=== PATIENT | female | born 1970 | race Caucasian/White ===

== ENCOUNTER → 2017-12-22 13:08 | Outpatient (CLI) | payer OTHER, MEDICAID, SELFPAY ==
--- NOTE | 2017-12-22 13:10 | DI.US.S_ITS ---
PROCEDURE: US ABDOMEN COMPLETE INDICATIONS: RIGHT UPPER QUADRANT PAIN/LIPOMA TECHNIQUE: Real-time scanning was performed of the abdominal and retroperitoneal organs, with image documentation. COMPARISON: [facility], US, ABDOMEN COMPLETE, 01/14/2015, 11:30. FINDINGS: Liver: Liver is moderately enlarged in size at 19.7 cm in caudad and homogeneous in echotexture, diffusely fatty infiltrated. Gallbladder: Surgically absent Biliary ducts: Intrahepatic bile ducts are non-dilated. Extrahepatic bile duct caliber measures 6.2 mm. Normal is 6-7 mm or less in diameter, or 10 mm or less post-cholecystectomy. Pancreas: Visualized portions of the pancreas are sonographically normal. Spleen: Spleen is normal in size and homogeneous in echotexture. Kidneys: Kidneys are normal in size and echotexture. Right kidney measures 12.9 cm long; left kidney measures 12.4 cm long. No hydronephrosis or nephrolithiasis. No solid masses. Aorta: Visualized aorta is normal in caliber at less than 3 cm. Iliacs: Not seen due to bowel gas IVC: Intrahepatic inferior vena cava is patent. Miscellaneous: No free abdominal fluid. Note is made of a right upper quadrant abdominal wall lipoma anteriorly measuring up to 1.4 x 1.8 x 3.3 cm. IMPRESSION: Nonvisualization of the iliac arteries due to bowel gas. Normal-appearing aorta. Moderate hepatomegaly, with diffuse fatty infiltration throughout the liver. No biliary distention or hepatic mass lesion is seen. Prior cholecystectomy. Dictated by: Sumanth Powers M.D. on 12/22/2017 at 14:17 Approved by: Sumanth Powers M.D. on 12/22/2017 at 14:19
== END ==
PROVIDERS: Family Provider Family Medicine; PCP Family Medicine; Visit Provider Family Medicine
DX: D17.79 Benign lipomatous neoplasm of other sites (principal); R10.11 Right upper quadrant pain; K76.0 Fatty (change of) liver, not elsewhere classified; Z90.49 Acquired absence of other specified parts of digestive tract
CPT/HCPCS: 76700

== ENCOUNTER → 2018-01-11 14:26 | Outpatient (CLI) | payer OTHER, MEDICAID, SELFPAY ==
[2018-01-11 15:21] LABS: Alanine Aminotransferase 31 IU/L (9-52); Albumin 4.3 g/dL (3.5-5.0); Albumin Globulin Ratio 1.4 (1.0-2.8); Alkaline Phosphatase 68 U/L (38-126); Aspartate Aminotransferase 31 IU/L (14-36); BUN Creatinine Ratio 8.8 (6-22); Bilirubin Total 0.5 mg/dL (0.2-1.3); Blood Urea Nitrogen 7 mg/dL (7-17); Calcium 9.4 mg/dL (8.4-10.2); Carbon Dioxide 30 mmol/L (22-32); Chloride 103 mmol/L (98-107); Estimated Glomerular Filt Rate > 60.0 mL/min (>60); Globulin 3.1 g/dL (1.7-4.1); Glucose 100 mg/dL (70-100); HEMOLYSIS < 15 (0-50); Potassium 4.1 mmol/L (3.4-5.1); Sodium 142 mmol/L (137-145); Total Protein 7.4 g/dL (6.3-8.2)
[2018-01-11 15:37] LABS: Free T3, Triiodothyronine Free 5.29 pg/mL (2.77-5.27); Free T4, Direct Thyroxine 0.75 ng/dL (0.78-2.19)
[2018-01-11 15:50] LABS: Thyroid Stimulating Hormone 0.29 uIU/mL (0.47-4.68)
[2018-01-16 15:54] LABS: Thyroid Peroxidase Antibodies 3 IU/mL (< 9)
[2018-01-18 15:12] LABS: Triiodothyronine T3 Reverse 15 ng/dL (8-25)
== END ==
PROVIDERS: PCP Family Medicine; Visit Provider Family Medicine
DX: E55.9 Vitamin D deficiency, unspecified (principal); E89.0 Postprocedural hypothyroidism; K76.0 Fatty (change of) liver, not elsewhere classified
CPT/HCPCS: 36415; 80053; 84439; 84443; 84481; 84482; 86376

== ENCOUNTER → 2018-01-26 12:21 | Outpatient (CLI) | payer OTHER, MEDICAID, SELFPAY ==
--- NOTE | 2018-01-26 12:22 | DI.RAD.S_ITS ---
PROCEDURE: XR TOE RT MIN 2V INDICATIONS: injury to toe TECHNIQUE: 3 views of the right toe(s) acquired. COMPARISON: None. FINDINGS: Bones: No fractures or dislocations. No suspicious bony lesions. There are marginal lucencies projecting in the first metatarsal heads and phalanges demonstrates marked margins and may be chronic. There is first MTP mild joint degeneration. Diffuse mid foot degenerative joint disease is also present. There is hallux valgus although weightbearing views would be more specific. Soft tissues: No suspicious soft tissue densities. IMPRESSION: No acute fracture seen. Marginal lucencies projecting at the MTP joints as above, which raises possibility of erosions versus cystic change. Hallux valgus. Consider further evaluation with weightbearing views Diffuse right forefoot and mid foot degenerative changes and spurring. Dictated by: Franklin Martinez M.D. on 01/26/2018 at 14:27 Approved by: Franklin Martinez M.D. on 01/26/2018 at 14:30
== END ==
PROVIDERS: Family Provider Family Medicine; PCP Family Medicine; Visit Provider Family Medicine
DX: M79.674 Pain in right toe(s) (principal); S99.921A Unspecified injury of right foot, initial encounter
CPT/HCPCS: 73660

== ENCOUNTER → 2018-03-15 11:14 | Outpatient (CLI) | payer OTHER, MEDICAID, SELFPAY ==
--- NOTE | 2018-03-15 11:15 | DI.US.S_ITS ---
PROCEDURE: US THYROID INDICATIONS: GRAVES DISEASE TECHNIQUE: Real-time scanning was performed of the thyroid gland, with image documentation. COMPARISON: None. FINDINGS: Right: Thyroid lobe measures 3.6 x 1.3 x 1.0 cm, and is homogeneous in echotexture. Left: Thyroid lobe measures 2.6 x 0.7 x 0.8 cm, and is homogenous in echotexture. Isthmus: 2.0 mm thick. Nodule number: 1 Location: Right mid Size: 2.2 x 0.6 x 1.3 cm. Composition: Solid Echogenicity: Hypoechoic Shape: wider than tall. Margins: Irregular Echogenic foci: Macrocalcifications Total points: 7 ACR TI-RADS category: Highly suspicious Nodule number: 2 Location: Right inferior Size: 0.6 x 0.3 x 0.5 cm. Composition: Solid Echogenicity: Hypoechoic Shape: wider than tall. Margins: Smooth Echogenic foci: None Total points: 4 ACR TI-RADS category: Moderately suspicious IMPRESSION: Moderately suspicious # 1 right thyroid nodule. Recommend sonographically directed fine needle aspiration and continued sonographic surveillance of the subcentimeter right thyroid nodule as detailed below. ACR TI-RADS definitions and recommendations: TI-RADS 1 (benign): 0 points. FNA not needed. TI-RADS 2 (not suspicious): 2 points. FNA not needed. TI-RADS 3 (mildly suspicious): 3 points. * FNA if 2.5 cm or larger, follow up if 1.5 cm or larger (at 1, 3, and 5 years). TI-RADS 4 (moderately suspicious): 4-6 points. * FNA if 1.5 cm or larger, follow up if 1 cm or larger (at 1, 2, 3, and 5 years). TI-RADS 5 (highly suspicious): 7 points or more. * FNA if 1 cm or larger, follow up if 0.5 cm or larger (every year for 5 years). Dictated by: Nacho MELGAR Interpreted: Sumanth Powers MD on 03/15/2018 at 12:57 Approved by: Sumanth Powers M.D. on 03/15/2018 at 13:14
== END ==
PROVIDERS: PCP Family Medicine; Visit Provider Family Medicine
DX: E05.00 Thyrotoxicosis with diffuse goiter without thyrotoxic crisis or storm (principal); E04.2 Nontoxic multinodular goiter
CPT/HCPCS: 76536

== ENCOUNTER → 2018-04-24 10:11 | Outpatient (CLI) | payer OTHER, MEDICAID, SELFPAY ==
--- NOTE | 2018-04-24 | PATH_ITS ---
Note [facility] Accession Number: [id number] TESTS RESULT FLAG UNITS REF RANGE LAB Clinician Provided Cytology Information No. of containers..01 ThinPrep Vial No. of containers..02 Previously Prepared Cytology Slide R THYROID NODULE Clinician ICD10: R39.89 DIAGNOSIS: R THYROID NODULE INADEQUATE, INSUFFICIENT CELLS FOR STUDY. Pathologist ICD10: E04.1 02 Lucian Becker MD, Pathologist NPI- [id number] 01 Lan Brush, Firer Low Pressure ([facility]) 01 30 CC, PALE PINK, CLEAR Also received 6 alcohol fixed, 6 quick stained slides, and 1 RNA vial. . /[facility] FLAG LEGEND: L-Low Normal,H-High Normal,LL-Alert Low,HH-Alert High <-Panic Low,>-Panic High,A-Abnormal,AA-Critical Abnormal Performed at: 01 =Z [facility] [address], [place] [address] Saurabh Benites MD, 02 [facility] [address] [place] [id number] Kailyn Medina MD, Performed at: 01 [facility] [address], [place], [place] [id number] MD Saurabh Benites MD Phone: [phone]
--- NOTE | 2018-04-24 10:13 | DI.US.S_ITS ---
PROCEDURE: US FINE NEEDLE ASPIRATION INDICATIONS: Thyroid nodule abnormalty found on US on 03/15 TECHNIQUE: The indications, alternatives, benefits, risks, and complications of the procedure were explained to the patient. Written informed consent was obtained and placed in the chart. The thyroid region was examined sonographically and a site was chosen for ultrasound guided percutaneous sampling. The skin was prepared and draped in the usual fashion, and anesthetized with 1% lidocaine infiltrated from the skin down to the thyroid gland. Multiple passes were then performed, with contents emptied into an appropriate pathology specimen container. A bandage was applied to the area of access at completion of the study. COMPARISON: [facility], US, US THYROID, 03/15/2018, 11:29. FINDINGS: Location(s) of lesion(s) sampled: Right lobe of the thyroid [place]: 25 gauge hypodermic needles. Number of passes: 9 Medications: 1% lidocaine for local anaesthesia. Complications: None. IMPRESSION: Technically successful ultrasound-guided thyroid nodule fine needle aspiration, with cytology results pending. However, initial preliminary examination by the cytology service reveals minimal diagnostic specimen despite multiple (9) FNAs. The lesion may not be amenable to fine needle diagnosis. Please see chart below for management recommendations based on cytology results. [facility] System ReportingRecommendationsNon-diagnostic* Repeat US-guided FNA, with on-site cytology evaluation if possible. * Repeated non-diagnostic nodules without high suspicion US features: close observation vs surgical consult. * Consider surgery if nodule has high suspicion US features, grows >20% in 2 dimensions on followup, or patient has clinical risk factors for malignancy. Benign* If nodule has high suspicion US features: repeat US and FNA within 12 months. * If nodule has low to intermediate suspicion US features: repeat US at 12-24 months. If nodule grows (20% increase in at least 2 dimensions, with minimal increase of 2 mm or >50% change in volume), or development of new suspicious US features, then repeat FNA or continue followup. * If nodule has very low suspicion US features: followup US at >24 months. Atypia of undetermined significance, follicular lesion of undetermined significanceRepeat FNA, molecular testing, followup US, or surgical consult.Follicular neoplasm, suspicious for follicular neoplasmSurgical consult; also consider molecular testing. Suspicious for malignancySurgical consult.MalignantSurgical consult. Dictated by: Franklin Martinez M.D. on 04/24/2018 at 15:50 Approved by: Franklin Martinez M.D. on 04/24/2018 at 15:53
== END ==
PROVIDERS: PCP Family Medicine; Visit Provider Family Medicine
DX: E04.1 Nontoxic single thyroid nodule (principal)
CPT/HCPCS: 10022; 76942

== ENCOUNTER → 2018-05-31 12:33 | Outpatient (CLI) | payer OTHER, MEDICAID, SELFPAY ==
--- NOTE | 2018-05-31 12:37 | DI.RAD.S_ITS ---
PROCEDURE: XR HAND RT MIN 3V INDICATIONS: mcp and pip pain TECHNIQUE: A set of 3 views of the hand(s) acquired. COMPARISON: [facility], CR, XR HAND LT MIN 3V, 05/31/2018, 12:36. FINDINGS: Bones: No fractures or dislocations. Carpal bones are normally aligned. No suspicious bony lesions. Soft tissues: No suspicious soft tissue calcifications. 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 No erosive arthritis is found. Dictated by: Sumanth Powers M.D. on 05/31/2018 at 13:12 Approved by: Sumanth Powers M.D. on 05/31/2018 at 13:12
--- NOTE | 2018-05-31 12:37 | DI.RAD.S_ITS ---
PROCEDURE: XR HAND LT MIN 3V INDICATIONS: mcp and pip pain TECHNIQUE: 3 views of the hand(s) acquired. COMPARISON: [facility], CR, XR HAND RT MIN 3V, 05/31/2018, 12:34. FINDINGS: Bones: No fractures or dislocations. Carpal bones are normally aligned. No suspicious bony lesions. Soft tissues: No suspicious soft tissue calcifications. IMPRESSION: The degenerative changes at the interphalangeal joints distally are equivalent to that present on the right. There is no sign of erosive arthritis. No trauma found. Minimal radiocarpal joint osteoarthritis noted. Dictated by: Sumanth Powers M.D. on 05/31/2018 at 13:12 Approved by: Sumanth Powers M.D. on 05/31/2018 at 13:13
[2018-05-31 14:39] LABS: Free T3, Triiodothyronine Free 5.98 pg/mL (2.77-5.27); Free T4, Direct Thyroxine 0.74 ng/dL (0.78-2.19)
[2018-05-31 14:53] LABS: Thyroid Stimulating Hormone 0.43 uIU/mL (0.47-4.68)
[2018-05-31 15:11] LABS: Vitamin B12 555 pg/mL (239-931)
[2018-06-02 17:23] LABS: Homocysteine 9.1 umol/L (< 10.4)
[2018-06-05 23:43] LABS: Methylmalonic Acid 126 nmol/L (87-318)
== END ==
PROVIDERS: PCP Family Medicine; Visit Provider Family Medicine
DX: M79.641 Pain in right hand (principal); M79.642 Pain in left hand; E89.0 Postprocedural hypothyroidism; G62.9 Polyneuropathy, unspecified
CPT/HCPCS: 36415; 73130; 82607; 83090; 83921; 84439; 84443; 84481

== ENCOUNTER → 2018-10-19 10:08 | Outpatient (CLI) | payer OTHER, MEDICAID, SELFPAY ==
--- NOTE | 2018-10-19 10:09 | DI.US.S_ITS ---
ULTRASOUND OF LEFT BREAST: 10/19/2018 CLINICAL: Palpable left breast lump. Comparison is made to exam dated: 10/19/2018 [facility]. Color flow and real-time ultrasound of the left breast were performed. Bangura scale images of the real-time examination were reviewed. There is 1 cm x 1.3 cm x 1.1 cm oval mass with an indistinct margin in the left breast at 4 o'clock posterior depth. Color flow imaging demonstrates that there is increased vascularity. There also is 0.6 cm x 0.6 cm x 0.6 cm round mass with an angular margin in the left breast at 6 o'clock posterior depth. This round mass is hypoechoic. Color flow imaging demonstrates that there is increased vascularity. Additionally, there is 1.5 cm x 1.2 cm x 1.5 cm oval mass with a circumscribed and microlobulated margin in the left breast at 6 o'clock posterior depth. This oval mass is hypoechoic and heterogeneously echogenic. Color flow imaging demonstrates that there is increased vascularity. In addition, there is 1.3 cm x 0.5 cm x 1.1 cm irregular mass with an angular margin in the left breast at 5 o'clock posterior depth. Color flow imaging demonstrates that there is increased vascularity. All suspicious areas on ultrasound have mammographic correlates. IMPRESSION: SUSPICIOUS OF MALIGNANCY The 1 cm x 1.3 cm x 1.1 cm oval mass in the left breast at 4 o'clock posterior depth is at an intermediate suspicion for malignancy. An ultrasound guided biopsy is recommended. The 0.6 cm x 0.6 cm x 0.6 cm round mass in the left breast at 6 o'clock posterior depth is at an intermediate suspicion for malignancy. An ultrasound guided biopsy is recommended. The 1.5 cm x 1.2 cm x 1.5 cm oval mass in the left breast at 6 o'clock posterior depth is at an intermediate suspicion for malignancy. An ultrasound guided biopsy is recommended. The 1.3 cm x 0.5 cm x 1.1 cm irregular mass in the left breast at 5 o'clock posterior depth is at an intermediate suspicion for malignancy. An ultrasound guided biopsy is recommended. Findings and recommendations were discussed with the patient by Dr Powers at time of exam. This exam was interpreted at Station ID: [id number]. Electronically Signed By: Hanh aparicio/:10/19/2018 15:12:21 letter sent: Biopsy Required Ultrasound BI-RADS: 4c Suspicious abnormality - moderate concern but not classic for malignancy
--- NOTE | 2018-10-19 10:09 | DI.MG.S_ITS ---
BILATERAL DIGITAL DIAGNOSTIC MAMMOGRAM 3D/2D: 10/19/2018 CLINICAL: Left breast mass. Baseline exam. No prior exams were available for comparison. The tissue of both breasts is predominantly fatty. There is a mass with with round and non-masslike components, and associated fine amorphous punctate calcifications in the left breast at 6 o'clock posterior depth. There is a 7 mm adjacent round mass in this area. This area correlates as palpated. There also is a 1.3 cm oval mass with a microlobulated margin in the left breast at 4 o'clock posterior depth. No other significant masses, calcifications, or other findings are seen in either breast. IMPRESSION: INCOMPLETE: NEEDS ADDITIONAL IMAGING EVALUATION The masses in the left breast at 6 o'clock posterior depth and 4 o'clock posterior depth are indeterminate. An ultrasound is recommended. This was performed immediately following this exam. This exam was interpreted at Station ID: [id number]. NOTE: For mammograms, a report in lay terms will be sent to the patient. Approximately 15% of breast malignancies will not be visualized mammographically. In the management of a palpable breast mass, a negative mammogram must not discourage biopsy of a clinically suspicious lesion. Electronically Signed By: Hanh aparicio/:10/19/2018 15:03:09 ACR BI-RADS Category 0: Incomplete [id number]
== END ==
PROVIDERS: PCP Family Medicine; Visit Provider Family Medicine
DX: R92.8 Other abnormal and inconclusive findings on diagnostic imaging of breast (principal); N63.23 Unspecified lump in the left breast, lower outer quadrant; N63.20 Unspecified lump in the left breast, unspecified quadrant
CPT/HCPCS: 76642; 77066; G0279

== ENCOUNTER → 2018-11-09 13:58 | Outpatient (CLI) | payer OTHER, MEDICAID, SELFPAY ==
--- NOTE | 2018-11-09 | DI.MG.S_ITS ---
UNILATERAL LEFT DIGITAL DIAGNOSTIC MAMMOGRAM POST-NEEDLE BIOPSY: 11/09/2018 CLINICAL: Left breast masses. Comparison is made to exam dated: 10/19/2018 [facility]. The tissue of left breast is predominantly fatty. There are 2 marker clips in the appropriate position in the left breast at 6 o'clock posterior depth. These marker clips braclet the biopsy site. There also is a marker clip in the appropriate position in the left breast at 4 o'clock middle depth. IMPRESSION: POST PROCEDURE MAMMOGRAM FOR MARKER PLACEMENT There was successful marker clip placement in the left breast at 6 o'clock posterior depth. There was a successful marker clip placement in the left breast at 4 o'clock middle depth. This exam was interpreted at Station ID: [id number]. NOTE: For mammograms, a report in lay terms will be sent to the patient. Approximately 15% of breast malignancies will not be visualized mammographically. In the management of a palpable breast mass, a negative mammogram must not discourage biopsy of a clinically suspicious lesion. Electronically Signed By: Gabriel Carr M.D. aty/:11/09/2018 18:32:40 ACR BI-RADS Category Post-procedure mammogram for marker placement
--- NOTE | 2018-11-09 | PATH_ITS ---
[facility] Accession Number: [id number] . 01 Material submitted: . PART A: breast - LEFT BREAST 6:00 MASS 8 CM FN PART B: breast - LEFT BREAST 4:00 MASS 10 CM FN . 02 Diagnosis: A. Left Breast Mass at 6 o'clock, 8 cm from Nipple: Invasive mammary carcinoma with the following features: . Procedure: Needle core biopsy. Specimen laterality: Left. Tumor site: At 6 o'clock, 8 cm from nipple. Histologic type: Invasive ductal carcinoma, not otherwise specified. Histologic grade: Berlin score 9 of 9. Glandular/tubular differentiation: Score 3 of 3. Nuclear pleomorphism: Score 3 of 3. Mitotic rate: Score 3 of 3. Overall grade: Grade 3 of 3 / high grade. In situ carcinoma: Focally present. Architectural patterns: Solid. Nuclear grade: Grade 3/high grade. Necrosis: Not identified. Lymphovascular invasion: Not identified. Microcalcifications: Not identified. Ancillary studies: HER-2 and hormone receptor studies pending; results will be reported as an addendum. . B. Left Breast Mass at 4 o'clock, 10 cm from Nipple: Invasive mammary carcinoma with the following features: . Procedure: Needle core biopsy. Specimen laterality: Left. Tumor site: At 4 o'clock, 10 cm from nipple. Histologic type: Invasive ductal carcinoma, not otherwise specified. Histologic grade: Noelle score 8 of 9. Glandular/tubular differentiation: Score 3 of 3. Nuclear pleomorphism: Score 3 of 3. Mitotic rate: Score 2 of 3. Overall grade: Grade 3 of 3 / high grade. In situ carcinoma: Not identified. Lymphovascular invasion: Not identified. Microcalcifications: Not identified. Ancillary studies: HER-2 and hormone receptor studies pending; results will be reported as an addendum. V/11/12/2018 . 02 Comment: Per department QA policy, this case was reviewed by Dr. Vogel. . Results discussed with Dr. Christine on 11/12/18 at approximately 11:35 a.m. . 02 Electronically signed: . Shruti Mancia MD, Pathologist NPI- [id number] . 01 Gross description: . (A) Received in formalin, labeled 6 o'clock, are multiple fragments of fibrofatty tissue (2.0 x 1.2 x 0.2 cm in aggregate). Entirely submitted in cassette A1. (B) Received in formalin, labeled 4 o'clock, are multiple fragments of fibrofatty tissue (2.0 x 0.7 x 0.2 cm in aggregate). Entirely submitted in cassette B1. . NOTE: Approximate Total fixation time in formalin for both specimens - 47 hours and 30 minutes calculated using a Collection date of 11/09/2018 with no collection time given. ([id number]) /FRR . 02 Pathologist provided ICD-10: C50.912 . 02 CPT . 065127, 176498, M67684, [id number] Performed at: 01 [facility] [address] [place] [address], [place], [place] [id number] MD Saurabh Benites MD Phone: [phone] Performed at: 02 [facility] [address] [place], [place] [id number] MD Kailyn Medina MD Phone: [phone]
--- NOTE | 2018-11-09 14:01 | DI.US.S_ITS ---
MULTIPLE ULTRASOUND GUIDED BIOPSIES LEFT BREAST USING VACUUM DEVICE WITH MARKING DEVICES INSERTED AND POST MAMMOGRAPHIC IMAGIN11/09/2018 CLINICAL: Left breast masses x 2. PATIENT CONSENT: Risks (minor bleeding, infection, vasovagal reaction and repeat procedure), benefits and alternatives were explained to the patient and written informed consent was obtained. Correlation is made to exams dated: [facility]19/2018 [facility] An [facility] guided biopsy using real-time ultrasound was performed for the 1.3 cm x 1.2 cm x 1.4 cm irregular shaped mass located in the left breast at 4 o'clock posterior depth 1 cm from the nipple. This was described on the previous mammography and ultrasound reports. The skin was prepped in the usual manner. Local anesthetic was administered to the access site. A skin ena was made in the breast. The abnormality was approached from the lateral aspect. A 13 gauge biopsy needle was placed adjacent to the abnormality under ultrasound guidance. Once the needle was documented to be in the correct location, six specimens were obtained using the Mammotome biopsy system. A Celero clip was inserted into the biopsy cavity. A sterile dressing was applied to the access site. Post procedure mammographic imaging demonstrates the location device at the targeted area. The specimens were sent to the laboratory for pathological analysis. A second ultrasound guided biopsy using real-time ultrasound was performed for the palpable 1.6 cm x 1.2 cm x 1.3 cm irregular shaped mass located in the left breast at 6 o'clock posterior depth 8 cm from the nipple. This was described on the previous mammography and ultrasound reports. Of note there were three lesions described on previous report at this location which on real time imaging were immediately adjacent to one another. The largest lesion was targeted with sampling of the adjacent lesion as well. The smallest lesion previously described was not well visualized on today's evaluation. The skin was prepped in the usual manner. Local anesthetic was administered to the access site. A skin ena was made in the breast. The abnormality was approached at 5 o'clock. A 13 gauge biopsy needle was placed adjacent to the abnormality under ultrasound guidance. Once the needle was documented to be in the correct location, seven specimens were obtained using the Mammotome biopsy system. Two Vision clips were inserted into the biopsy cavity bracketing the superficial and deeper margins of the biopsied mass. Post procedure mammographic imaging was obtained. The specimens were sent to the laboratory for pathological analysis. IMPRESSION: ULTRASOUND GUIDED BIOPSY MALIGNANT Ultrasound guided biopsy of the 1.3 cm x 1.2 cm x 1.4 cm mass in the left breast at 4 o'clock posterior depth 1 cm from the nipple was successful. Pathology indicates malignant invasive ductal carcinoma (ID). Pathology results are concordant with imaging findings. A surgical/oncologic consultation is recommended. Ultrasound guided biopsy of the 1.6 cm x 1.2 cm x 1.3 cm mass in the left breast at 6 o'clock posterior depth 8 cm from the nipple with placement of two clips was successful. Pathology indicates malignant invasive ductal carcinoma (ID). Pathology results are concordant with imaging findings. As noted above, there were three lesions described on previous report at this location which on real time imaging were immediately adjacent to one another and is presumed to represent the same lesion versus an index mass with an adjacent satellite lesion. The largest mass was targeted as well as sampling of the adjacent lesion. The smallest lesion previously described was not well visualized during pre-biopsy evaluation. A surgical/oncologic consultation is recommended. Additionally, the 4:00 mass sampled is noted to be approximately 4.8 cm away from the 6:00 mass and is consistent with multifocal disease. This exam was interpreted at Station ID: [id number]. Gabriel Carr M.D. aty/:11/15/2018 07:59:19
== END ==
PROVIDERS: PCP Family Medicine; Visit Provider Family Medicine
DX: C50.812 Malignant neoplasm of overlapping sites of left female breast (principal); Z17.1 Estrogen receptor negative status [ER-]
CPT/HCPCS: 19083; 19084; 77065

== ENCOUNTER → 2018-11-19 11:42 | Outpatient (CLI) | payer OTHER, MEDICAID, SELFPAY ==
[2018-11-19 12:50] LABS: Hematocrit 40.6 % (36-46); Hemoglobin 13.3 g/dL (12.0-16.0); Mean Corpuscular HGB Conc 32.8 % (30-36); Mean Corpuscular Hemoglobin 30.9 PG (26-34); Mean Corpuscular Volume 94.3 fL (80-100); Platelet Count 241 X10^3/uL (150-400); Red Cell Distribution Width 13.4 % (11.6-14.8); White Blood Cell Count 8.9 X10^3/uL (4.5-11.0)
[2018-11-19 13:31] LABS: Alanine Aminotransferase 29 IU/L (9-52); Albumin 4.1 g/dL (3.5-5.0); Albumin Globulin Ratio 1.4 (1.0-2.8); Alkaline Phosphatase 74 U/L (38-126); Aspartate Aminotransferase 29 IU/L (14-36); Bilirubin Total 0.7 mg/dL (0.2-1.3); Blood Urea Nitrogen 6 mg/dL (7-17); Calcium 9.2 mg/dL (8.4-10.2); Carbon Dioxide 28 mmol/L (22-32); Chloride 103 mmol/L (98-107); Estimated Glomerular Filt Rate > 60.0 mL/min (>60); Glucose 106 mg/dL (70-100); HEMOLYSIS < 15 (0-50); Potassium 4.3 mmol/L (3.4-5.1); Sodium 141 mmol/L (137-145); Total Protein 7.1 g/dL (6.3-8.2)
[2018-11-19 13:58] LABS: Thyroid Stimulating Hormone 1.29 uIU/mL (0.47-4.68)
[2018-11-19 14:00] LABS: Cancer Antigen 125 < 6 U/mL (0-35); Carcinoembryonic Antigen 0.9 ng/mL (0.1-3.0)
[2018-11-21 16:05] LABS: Cancer Antigen 27.29 34 U/mL (< 38)
[2018-11-21 16:09] LABS: Cancer (Carbohydrate) Ag 19-9 9 U/mL (< 34)
[2018-11-21 16:10] LABS: CA 15-3 20 U/mL (< 32)
== END ==
PROVIDERS: PCP Family Medicine; Visit Provider Internal Medicine Hematology & Oncology
DX: C50.912 Malignant neoplasm of unspecified site of left female breast (principal)
CPT/HCPCS: 36415; 80053; 82378; 84443; 85027; 86300; 86301; 86304

== ENCOUNTER 2018-11-27 12:36 | Day surgery (SDC) | payer OTHER, MEDICAID, SELFPAY ==
[2018-11-21 15:14] VITALS: BMI 43.7
[2018-11-27] VITALS (10 sets, daily range): BP systolic 125–162; BP diastolic 82–99; PULSE 69–85; RESP 8–16; TEMP 36.1–37.4; O2SAT 93–98; BMI 43.7
--- NOTE | 2018-11-27 13:17 | PM.PREOP ---
Pre-operative Note Interval Note History & Physical reviewed/Exam performed by Physician: Yes Changes to H&P: No
[2018-11-27] MEDS: LACTATED RINGERS 1,000 ML 42 ML IV (13:24)
[2018-11-27] MEDS: APREPITANT 40 MG CAPSULE PO (13:27)
[2018-11-27] MEDS: CLINDAMYCIN 900 MG/50 ML PIGGYBACK 50 MG IV (13:55)
--- NOTE | 2018-11-27 14:03 | DI.RAD.S_ITS ---
PROCEDURE: XR CHEST 1V INDICATIONS: PORT PLACEMENT TECHNIQUE: One view of the chest was acquired. COMPARISON: None. FINDINGS: Surgical changes and devices: Left-sided Port-A-Cath is present with distal tip projecting over the SVC/subclavian confluence. The catheter is angulated leftward. Lungs and pleura: Mild increased pulmonary vascularity is present. Mediastinum: Mediastinal contours appear normal. Heart size is normal. Bones and chest wall: No suspicious bony lesions. Overlying soft tissues appear unremarkable. IMPRESSION: Port-A-Cath as above. It is noted the catheter is at the subclavian/SVC junction with a leftward curvature. Repositioning may be recommended. Dictated by: Bronwyn Stephens M.D. on 11/27/2018 at 17:38 Approved by: Bronwyn Stephens M.D. on 11/27/2018 at 17:42
--- NOTE | 2018-11-27 14:35 | SUR.OPER ---
Supine on padded OR bed, head on pillow, arm padded and tucked at side, legs uncrossed, safety belt at thigh, tape over blanket over lower legs .
[2018-11-27] MEDS: BUPIVACAINE 0.25% W/ EPI 30 ML VIAL INJ (14:42)
--- NOTE | 2018-11-27 16:53 | P.OP_ITS ---
Operative Date/Time/Diagnoses Date of procedure: 11/27/18 Time of procedure: 16:53 Pre-op diagnosis: Breast Cancer Post-op diagnosis: same Procedure & Clinicians Procedure: 1. Port-a-cath placement using fluoroscopic guidance 2. Ultrasound guided access of right internal jugular vein 1. Port-a-cath placement using fluoroscopic guidance 2. Ultrasound guided access of left internal jugular vein Same procedure as scheduled: Yes Indications: 48yo female with triple negative breast cancer and need for chemotherapy. Surgeon: Lauren Tabler Click Yes if Unassisted: Yes Anesthesia Type: General Operative Notes Findings: 1. initial port placement on right side with equipment issue including wire entrapment in introducer needle requiring change to urology wire and after placement port would not draw despite multiple attempts 2. placement on left with no initial issue, odd imaging at end discussed with radiology and appears in correct position; does flush and draw readily Closure Type: primary Specimen(s): none sent Estimated Blood Loss (mL): 10 Procedure in detail: The patient was taken to the operating room and placed in the on the operating table in supine position. Anesthesia was induced without complications. The right neck and chest was prepped and draped in the usual sterile fashion. Using ultrasound guidance, the right internal jugular vein was accessed with an 18 gauge access needle. The guidewire was then placed through the needle and advanced under fluoroscopic guidance. However, after several cm the wire abruptly stopped. After some gentle attempts at manipulation, the wire would not pass forward not return. Both needle and wire were removed and inspected, with the wire still not able to pass or withdraw from the needle. A new wire and needle were obtained and the first was set aside to return to electrical unit rebuilder. Access was again obtained and wire passed. Using an 11 blade scalpel, a small incision was made in the skin over the needle and the needle was removed. At this point, we turned our attention to creation of a subcutaneous pocket for the port. This was done over the deltopectoral groove on the right chest. The catheter was then attached to the tunneling device and this was tunneled from the port site to the access site. The tunneling device was removed. The sheath and inner dilator were placed over the guidewire and advanced under fluoroscopic guidance. The wire was removed. The catheter was then placed in the sheath and advanced under fluoroscopic guidance until it appeared to sit near the atriocaval junction. The sheath was then removed. The catheter was then attached to the port and secured into place. Two 0-Ethibond sutures were placed through the deep subcutaneous tissues and the port sat nicely in place in the subcutaneous pocket. One last picture was taken with fluoroscopy which showed the catheter to be in good position above the atriocaval junction. The catheter was checked but would not draw. Multiple attempts were undertaken as it appeared well positioned. Only scant blood drops would draw back. No gentle manipulation aided this. No clear cause was identified and attempts were eventually abandoned. The kit was returned to the electrical unit rebuilder for assessment. Pt was fully repositioned to ensure best placement on other side then re-prepped and draped. Above process of access was repeated without initial incident. After catheter was tunneled and final placement attempted, a sharp almost 90 degree angle was noted. Catheter was withdrawn to slightly above atriocaval junction to relieve this and appeared well placed. Flushes and draws readily at end. It is heparin-locked. 3-0 vicryl was used to reapproximate the deep subcutaenous tissues in an interrupted fashion. The skin was closed using 4-0 monocryl in a running subcuticular fashion. The area was cleaned and dried. Dermabond was placed over the incision and the access site. The patient tolerated the procedure well. The patient was awakened and extubated and taken to the PACU in stable condition. All counts were correct at the end of the procedure. An xray was ordered to be performed in the PACU prior to discharge. Complications: other (equipment issues requiring kit change and replacement on other side of chest) Condition: stable Disposition: PACU
[2018-11-27] MEDS: OXYCODONE/ACETAMINOPHEN 5/325 TABLET 1 TAB PO (17:37)
[2018-11-27] MEDS: ONDANSETRON 4 MG/2 ML INJ IV (17:40)
== END 2018-11-27 18:33 | disposition home or self-care (01) ==
PROVIDERS: PCP Family Medicine; Visit Provider Surgery
PROC: (CPT 36561; principal; 2018-11-27 13:30)
DX: C50.912 Malignant neoplasm of unspecified site of left female breast (principal); Z17.1 Estrogen receptor negative status [ER-]; E05.00 Thyrotoxicosis with diffuse goiter without thyrotoxic crisis or storm; M79.7 Fibromyalgia; T85.618A Breakdown (mechanical) of other specified internal prosthetic devices, implants and grafts, initial encounter
CPT/HCPCS: 36561 ×2; 36590; 71045; C1788; J1100; J1642; J2250; J2405; J2704; J3010; J8501

== ENCOUNTER → 2018-11-30 08:08 | Outpatient (CLI) | payer OTHER, MEDICAID, SELFPAY ==
--- NOTE | 2018-11-30 08:11 | DI.NM.S_ITS ---
PROCEDURE: NM BONE SCAN WHOLE BODY RADIOPHARMACEUTICAL: 21.9 mCi Tc-99m MDP IV. INDICATIONS: left breast cancer TECHNIQUE: Delayed whole-body scintigrams were obtained approximately 3-4 hours after intravenous injection of radiotracer. Anterior and posterior views were acquired from vertex to feet. COMPARISON: [facility], CR, FOOT 3V LEFT, 11/24/2015, 15:28. [facility], CT, CT CHEST ABD PEL W CON, 11/30/2018, 10:29. FINDINGS: No lesions are identified in skull, sternum, clavicles, scapulae, ribs, bony pelvis, and visualized shafts of the long bones. There is low level increased uptake in cervical, thoracic and lumbar spine with distribution indistinguishable from degenerative disc and facet disease; early metastasis to spine could be obscured by degenerative changes. There are foci of increased periarticular activity involving shoulders, ankles and feet, compatible with degenerative/arthritic changes. IMPRESSION: The definitive scintigraphic findings to suggest osseous metastasis. Dictated by: Ken Castorena M.D. on 11/30/2018 at 15:12 Approved by: Ken Castorena M.D. on 11/30/2018 at 15:15
--- NOTE | 2018-11-30 08:11 | DI.ECHO.S_ITS ---
[place] [facility]---------+ [facility] +---------+ : : [address] : : : : [id number] : : : : Phone: [phone]+ Echocardiogram Report + + :Name: STANLEY MCCABE Study Date: 11/30/2018 Height: 68 in : :[facility] Weight: 288 lb : : Gender: Female BSA: 2.4 m2 : :: 1970 Age: 48 yrs BP: 136/68 mmHg: :Reason For Study: Chemotherapy F/U (ICD Code V67.2) : :Ordering Physician: Qiana : :E[place]ett Performed By: Trudi Zhang : :Referring: BRAIN FREEMAN : + + Interpretation Summary Normal left ventricle size with ejection fraction 60-65%. Borderline left atrial enlargement. No valvular abnormality. Procedure: A two-dimensional transthoracic echocardiogram with color flow and Doppler was performed. The study quality was technically adequate. There is no prior echocardiogram noted for this patient. The patient was in normal sinus rhythm during the exam. Left Ventricle: The left ventricle is normal in size. There is normal left ventricular wall thickness. The ejection fraction is estimated to be 60-65%. There are no focal wall motion abnormalities. Diastolic parameters suggest probable normal left ventricular diastolic function and normal filling pressures. Right Ventricle: The right ventricle grossly appears normal in size with probable normal systolic function. Atria: Borderline left atrial enlargement. Right atrial size is normal. Mitral Valve: The mitral valve is normal in structure and function. There is trace mitral regurgitation. Aortic Valve: The aortic valve is trileaflet. The aortic valve opens well. No aortic regurgitation is present. Tricuspid Valve: The tricuspid valve is normal in structure and function. No tricuspid regurgitation. Pulmonic Valve: The pulmonic valve is not well seen, but is grossly normal. There is no pulmonic valvular regurgitation. Great Vessels: The aortic root is normal size. The ascending aorta could not be visualized. The aortic arch is normal in size. The IVC is dilated (diameter is greater than 2.1 cm) yet it collapses greater than 50% with a sniff. This suggests a right atrial pressure of 8 mm Hg. Pericardium/ Pleura There is no pericardial effusion. There is no pleural effusion. MMode/2D Measurements & Calculations LVIDd: 5.4 cm Ao root diam: 3.4 cm LVIDs: 3.5 cm Aortic Jxn: 2.6 cm FS: 35.0 % Ao Arch Diam (Prox Trans): 2.7 cm EPSS: 0.48 cm IVSd: 0.96 cm LVPWd: 0.72 cm LV hendrix. diameter/BSA (cm/m^2): 2.3 LV sys. diameter/BSA (cm/m^2): 1.5 LA dimension: 4.3 cm RA long axis: 4.5 cm LA A2 area: 22.7 cm2 RA area: 13.1 cm2 LA A4 area: 19.6 cm2 RA vol: 32.7 ml LA length (vol): 5.1 cm RA : 13.7 ml/m2 LA vol: 74.3 ml IVC diam: 2.7 cm LA vol index: 31.1 ml/m2 RVDd major: 6.0 cm RVD1 (basal): 2.7 cm RVD2 (mid): 2.7 cm Doppler Measurements & Calculations Ao V2 max: 146.4 cm/sec MV E max corby: 87.5 cm/sec Ao V2 mean: 99.2 cm/sec MV A max corby: 63.3 cm/sec Ao max P.6 mmHg MV E/A: 1.4 Ao mean P.5 mmHg Med Peak E' Corby: 10.2 cm/sec Ao V2 VTI: 31.9 cm E/E' med: 8.6 Lat Peak E' Corby: 10.5 cm/sec E/E' lat: 8.3 E/e' average: 8.4 MV dec time: 0.24 sec MV P1/2t: 72.1 msec TR max corby: 268.9 cm/sec MV P1/2t max corby: 87.8 cm/sec TR max P.9 mmHg MVA(P1/2t): 3.0 cm2 PA V2 max: 85.6 cm/sec PA V2 mean: 60.0 cm/sec PA mean P.6 mmHg PA Accel Time: 0.14 sec Electronically signed by: Herman Spring on Reading Physician:11/30/2018 12:57 PM
--- NOTE | 2018-11-30 08:34 | DI.CT.S_ITS ---
PROCEDURE: CT CHEST ABD PEL W CON INDICATIONS: left breast cancer TECHNIQUE: After the administration of oral and intravenous contrast, 5 mm thick sections acquired from the lung apices to the symphysis. 5 mm coronal and sagittal reformats were performed, with additional 7 mm coronal MIP reformats through the lungs. For radiation dose reduction, the following was used: automated exposure control, adjustment of mA and/or kV according to patient size. COMPARISON: [facility], CT, ABDOMEN/PELVIS WITH CONTRAST, 11/16/2016, 12:59. FINDINGS: Image quality: Excellent. CHEST: Lungs and pleura: A 7 mm diameter intrafissural nodule is present within the right oblique fissure (series 7, image 153). A 3 mm and a 4 mm pulmonary nodule are present within the right upper lobe (series 7, image 69 and image 107). Two 4 mm intrafissural nodules present within the left lower lobe (series 7, image 129 and 133). Mediastinum: Heart size is normal. No pericardial effusion. No mediastinal or hilar adenopathy by size criteria. Thoracic aorta and central pulmonary arteries are normal in size. Esophagus is normal in caliber. No hiatal hernia. Chest wall: There is a left Port-A-Cath, the tip of the Port-A-Cath is in the azygos vein. A lobulated mass is present within the lower inner quadrant of the left breast a biopsy clip is associated with this mass. There are multiple enlarged left axillary lymph nodes, some of which are sub-pectoral in nature. A biopsy clip is associated with one of the enlarged left axillary lymph nodes. No right axillary adenopathy. A small fluid gas collection is present within the anterior right chest wall. Dense calcification is present within the right thyroid lobe. The left thyroid lobe is unremarkable. ABDOMEN: Solid organs: Liver is normal in size and diffusely hypodense suggesting hepatic steatosis. Gallbladder is surgically absent. Biliary system is non dilated. Pancreas enhances normally. Spleen is normal in size and enhancement. No adrenal nodules. Kidneys demonstrate normal size and enhancement, without hydronephrosis. Peritoneum and bowel: Bowel loops demonstrate normal wall thickness and caliber. The appendix is thin walled and gas filled. There are scattered sigmoid diverticula. No evidence for diverticulitis. No free fluid or air. Nodes and vessels: No retroperitoneal or mesenteric adenopathy by size criteria. Aorta and inferior vena cava are normal in size. Miscellaneous: There is a small fat-containing periumbilical hernia. PELVIS: Genitourinary: Bladder wall thickness is normal. Uterus is not visualized and may be surgically absent. There is a low-density cystic lesion within the right ovary which measures 2.7 x 3.3 cm. The left ovary is grossly unremarkable. Miscellaneous: No inguinal hernias or adenopathy. Bones: No suspicious bony lesions. No vertebral body compression fractures. IMPRESSION: 1. Multiple subcentimeter pulmonary nodules described above. Metastasis cannot be excluded and attention should be directed to these regions on future surveillance scans. 2. Tip of the Port-A-Cath in the azygos vein. Repositioning recommended. This finding was relayed as a voice mail message to Dr. Espinal's emergency medical technician/driver at 12:05 PM on 11/30/18. 3. Left axillary adenopathy and lobulated left breast mass. 4. Low-density right ovarian cystic lesion which may represent a simple ovarian cyst but is incompletely characterized. Pelvic ultrasound recommended to further characterize findings. Dictated by: Huong Hernandez M.D. on 11/30/2018 at 11:46 Approved by: Huong Hernandez M.D. on 11/30/2018 at 12:15
== END ==
PROVIDERS: PCP Family Medicine; Visit Provider Internal Medicine Hematology & Oncology
DX: C50.912 Malignant neoplasm of unspecified site of left female breast (principal); R91.8 Other nonspecific abnormal finding of lung field; I77.89 Other specified disorders of arteries and arterioles
CPT/HCPCS: 71260; 74177; 78306; 93306; A9503; Q9967

== ENCOUNTER 2018-12-04 12:21 | Day surgery (SDC) | payer OTHER, MEDICAID, SELFPAY ==
[2018-12-03 12:04] VITALS: BMI 43.7
[2018-12-04 13:24] VITALS: BP 160/93; PULSE 80; RESP 16; TEMP 36.4; O2SAT 99; BMI 42.0
[2018-12-04] MEDS: LACTATED RINGERS 1,000 ML 42 ML IV (13:33)
--- NOTE | 2018-12-04 13:39 | PM.PREOP ---
Pre-operative Note Interval Note History & Physical reviewed/Exam performed by Physician: Yes Changes to H&P: No
--- NOTE | 2018-12-04 13:40 | DI.RAD.S_ITS ---
PROCEDURE: XR CHEST 1V INDICATIONS: intra-operative port adjustment. TECHNIQUE: One view of the chest was acquired. COMPARISON: [facility], , XR CHEST 1V, 11/27/2018, 17:23. FINDINGS: On this single intraoperative fluoroscopic image, there is a left-sided chest port. The tip is not well-seen. IMPRESSION: Left-sided chest port, with the tip not well-seen. It cannot be determined on this single image whether the curved tip of the chest port has been corrected. Please consider short-term followup imaging. Dictated by: Luis Enrique Foster M.D. on 12/04/2018 at 16:15 Approved by: Luis Enrique Foster M.D. on 12/04/2018 at 16:18
--- NOTE | 2018-12-04 13:40 | SUR.PREOP ---
Dr Miller instructer no cbg needed
--- NOTE | 2018-12-04 14:00 | SUR.PREOP ---
premedicated with emend after seen by dr infante.
--- NOTE | 2018-12-04 14:40 | SUR.OPER ---
Supine on padded OR bed, head on pillow, arm padded and tucked at side, legs uncrossed, safety belt at thigh, tape over blanket over lower legs .
[2018-12-04] MEDS: CLINDAMYCIN 900 MG/50 ML PIGGYBACK 50 MG IV (14:43)
[2018-12-04] MEDS: BUPIVACAINE 0.25% W/ EPI 30 ML VIAL INJ (14:44)
--- NOTE | 2018-12-04 15:15 | PM.OP.1 ---
Operative Date/Time/Diagnoses Date of procedure: 12/04/18 Time of procedure: 15:16 Pre-op diagnosis: Port migration Post-op diagnosis: same Procedure & Clinicians Procedure: Port revision Same procedure as scheduled: Yes Indications: 48yo F with recent port placement for breast cancer with migration of catheter end into azygous vein. Plan for revision. Surgeon: Lauren Tabler Click Yes if Unassisted: Yes Anesthesia Type: General Operative Notes Findings: Backed up and advanced to atriocaval junction. Flushes and draws. Closure Type: primary Specimen(s): none sent Estimated Blood Loss (mL): 5 Procedure in detail: The patient was taken to the operating room and placed in the on the operating table in supine position. Anesthesia was induced without complications. The left neck and chest was prepped and draped in the usual sterile fashion. The neck incision was opened and gently widened with care to not cut the catheter. Once exposed, the catheter was gently grasped and withdrawn under fluoroscopic guidance. The curved aspect of the wire released and straightened. Under fluoro, it was gently advanced and went straight. It was carefully placed at the atriocaval junction. There was some excess catheter in the next which was ensured to not have a kink and subcutaneous pocket was slightly widened to allow this. A cruz needle was obtained to check the port and initially some air was withdrawn, the catheter attached to the needle was noted to not have been saline flushed. This was repeated until all air was aspirated; no issues noted on vitals with patient. Once blood was well returned, saline was flushed and then the catheter was heparin locked. The skin was closed using 4-0 monocryl in a running subcuticular fashion. The area was cleaned and dried. Dermabond was placed over the incision and the access site. The patient tolerated the procedure well. The patient was awakened and extubated and taken to the PACU in stable condition. All counts were correct at the end of the procedure. CXR ordered to be done in PACU. Complications: none Condition: stable Disposition: PACU
[2018-12-04 15:22] VITALS: BP 129/87; PULSE 83; RESP 14; TEMP 36.2; O2SAT 95
[2018-12-04 15:27] VITALS: BP 123/71; PULSE 81; RESP 10; O2SAT 95
[2018-12-04] MEDS: HEPARIN 5,000 UNIT/ML VIAL 5000 UNIT SUBCUT (15:30)
[2018-12-04 15:32] VITALS: BP 146/75; PULSE 90; RESP 15; TEMP 36.2; O2SAT 95
[2018-12-04 15:37] VITALS: BP 146/67; PULSE 81; RESP 13; O2SAT 97
[2018-12-04 15:40] VITALS: BP 153/74; PULSE 80; RESP 14; TEMP 36.2; O2SAT 97
== END 2018-12-04 16:10 | disposition home or self-care (01) ==
PROVIDERS: PCP Family Medicine; Visit Provider Surgery
PROC: (CPT 36597; principal; 2018-12-04 13:45)
DX: Z45.2 Encounter for adjustment and management of vascular access device (principal); C50.919 Malignant neoplasm of unspecified site of unspecified female breast
CPT/HCPCS: 36597; 71045; J1100; J1644; J2405; J2704; J3010

== ENCOUNTER → 2018-12-19 09:44 | Outpatient (CLI) | payer OTHER, MEDICAID, SELFPAY ==
--- NOTE | 2018-12-19 09:46 | DI.US.S_ITS ---
PROCEDURE: US PELVIC COMPLETE INDICATIONS: RTO CYST SEEN ON CT SCAN TECHNIQUE: Real-time scanning was performed of the pelvic organs, with image documentation. Additional endovaginal scanning was necessary due to incomplete visualization of the adnexal and endometrial structures by transabdominal scanning. COMPARISON: [facility], CT, CT CHEST ABD PEL W CON, 11/30/2018, 10:29. [facility], US, PELVIC COMPLETE, 03/06/2017, 11:58. FINDINGS: Transabdominal scanning: Limited scanning through the kidneys shows no hydronephrosis. No pathologic free abdominal or pelvic fluid. Endovaginal scanning: Uterus: Uterus has been surgically removed. Ovaries: Right ovary measures 3.0 x 1.6 x 1.6 cm. There is a simple appearing 1.7 cm cyst in the right ovary. Left ovary measures 4.2 x 2.8 x 3.1 cm. A couple of simple appearing cysts are noted in the left ovary. One measures 2.5 x 2.3 x 2.5 cm. The second measures 1.9 x 1.4 x 2.0 cm. Otherwise, no suspicious ovarian or adnexal mass lesions. IMPRESSION: 1. Simple bilateral ovarian cysts. The one on the right demonstrates interval decrease in size. 2. Status post hysterectomy. Dictated by: Gabriel Carr M.D. on 12/19/2018 at 11:01 Approved by: Gabriel Carr M.D. on 12/19/2018 at 11:06
== END ==
PROVIDERS: PCP Family Medicine; Visit Provider Internal Medicine Hematology & Oncology
DX: C50.912 Malignant neoplasm of unspecified site of left female breast (principal); N83.201 Unspecified ovarian cyst, right side; N83.202 Unspecified ovarian cyst, left side; Z90.710 Acquired absence of both cervix and uterus
CPT/HCPCS: 76830; 76856

== ENCOUNTER → 2019-01-24 10:32 | Outpatient (CLI) | payer OTHER, MEDICAID, SELFPAY ==
--- NOTE | 2019-01-24 10:34 | DI.US.S_ITS ---
PROCEDURE: US PERIPH VENOUS UP EXTREM LT INDICATIONS: PAIN AROUND PORT SITE TECHNIQUE: Real-time imaging, as well as color and pulse Doppler interrogation, was performed of the left upper extremity deep veins from the inferior neck to the antecubital fossa. COMPARISON: None. FINDINGS: The internal jugular vein, visualized portions of the subclavian vein, axillary, and brachial veins are free of intraluminal thrombus. Where physically possible, the veins are normally compressible. Color and pulse Doppler demonstrate normal intraluminal flow, with expected phasicity and pulsatility. Additional scanning of the cephalic and basilic veins of the superficial system demonstrate normal compressibility, without thrombus. IMPRESSION: No visualized deep venous thrombosis. Dictated by: Bronwyn Stephens M.D. on 01/24/2019 at 11:47 Approved by: Brnowyn Stephens M.D. on 01/24/2019 at 11:51
== END ==
PROVIDERS: PCP Family Medicine; Visit Provider Internal Medicine Hematology & Oncology
DX: C50.912 Malignant neoplasm of unspecified site of left female breast (principal); T82.848A Pain due to vascular prosthetic devices, implants and grafts, initial encounter
CPT/HCPCS: 93971

== ENCOUNTER → 2019-03-11 08:17 | Outpatient (CLI) | payer OTHER, MEDICAID, SELFPAY ==
--- NOTE | 2019-03-11 | DI.MG.S_ITS ---
UNILATERAL LEFT DIGITAL DIAGNOSTIC MAMMOGRAM 3D/2D: 03/11/2019 CLINICAL: Left breast pain. Comparison is made to exams dated: 03/11/2019 ultrasound, 11/09/2018 mammogram, and 10/19/2018 mammogram - [facility]. There are scattered fibroglandular elements in left breast. There are biopsy site markers in the left breast. There are biopsied malignant masses with associated calcifications and biopsy markiers in the left breast that are decreased in size compatible with neoadjuvant treatment. No new significant masses, calcifications, or other findings are seen in the breast. IMPRESSION: INCOMPLETE: NEEDS ADDITIONAL IMAGING EVALUATION There is no abnormality seen in the left breast to correspond with the area of clinical concern and nonfocal lateral left pain, however, ultrasound is recommended to further evaluate which is scheduled to immediately follow this exam. This exam was interpreted at Station ID: [id number]. NOTE: For mammograms, a report in lay terms will be sent to the patient. Approximately 15% of breast malignancies will not be visualized mammographically. In the management of a palpable breast mass, a negative mammogram must not discourage biopsy of a clinically suspicious lesion. Electronically Signed By: Gabriel Carr M.D. aty/:03/11/2019 10:39:47 copy to: MARTA ECHEVARRIA copy to: Cara Dorantes, [facility] ACR BI-RADS Category 0: Incomplete [id number]
--- NOTE | 2019-03-11 08:20 | DI.RAD.S_ITS ---
PROCEDURE: XR CHEST 2V INDICATIONS: BREAST CANCER, LEFT SIDED LATERAL CHEST PAIN TECHNIQUE: 2 views of the chest were acquired. COMPARISON: [facility], CR, XR CHEST 1V, 11/27/2018, 17:23. [facility], CR, XR CHEST 1V, 12/04/2018, 14:38. FINDINGS: Surgical changes and devices: There is a left-sided Port-A-Cath central line identified with the tip overlying the right atrium. Lungs and pleura: Lungs are clear. No pleural effusions or pneumothorax. Mediastinum: Mediastinal contours are normal. Heart size is normal. Bones and chest wall: No suspicious bony abnormalities. Soft tissues appear unremarkable. IMPRESSION: No acute cardiopulmonary process is evident. Dictated by: Jorge Franklin M.D. on 03/11/2019 at 9:25 Approved by: Jorge Franklin M.D. on 03/11/2019 at 9:41
--- NOTE | 2019-03-11 08:20 | DI.US.S_ITS ---
ULTRASOUND OF LEFT BREAST: 03/11/2019 CLINICAL: Left breast cancer. Increasing pain. Comparison is made to exams dated: 12/11/2018 breast MRI - [facility], 11/09/2018 mammogram, 11/09/2018 ultrasound biopsy, 10/19/2018 ultrasound, and 10/19/2018 mammogram - [facility]. Real-time ultrasound of the left breast was performed. Bangura scale images of the real-time examination were reviewed. No significant abnormalities were seen sonographically in the left breast. IMPRESSION: KNOWN BIOPSY PROVEN MALIGNANCY There is no abnormality seen in the left breast to correspond with the area of clinical concern and pain, however, clinical followup is recommended for continued symptoms. Follow up with surgery and oncology as previously directed. This exam was interpreted at Station ID: [id number]. Electronically Signed By: Gabriel Carr M.D. aty/:03/11/2019 10:42:01 copy to: MARTA ECHEVARRIA copy to: Cara Dorantes, [facility] Ultrasound BI-RADS: 6 Known biopsy proven malignancy
== END ==
PROVIDERS: PCP Family Medicine; Visit Provider Internal Medicine Hematology & Oncology
DX: R92.8 Other abnormal and inconclusive findings on diagnostic imaging of breast (principal); C50.912 Malignant neoplasm of unspecified site of left female breast; N64.4 Mastodynia; R07.89 Other chest pain
CPT/HCPCS: 71046; 76642; 77065; G0279

== ENCOUNTER → 2019-04-18 10:14 | Outpatient (CLI) | payer OTHER, MEDICAID, SELFPAY ==
--- NOTE | 2019-04-18 10:14 | DI.RAD.S_ITS ---
PROCEDURE: FL CATHETER PATENCY COMPARISON: [facility], CR, XR CHEST 2V, 03/11/2019, 9:59. INDICATIONS: Poss port migration or poss occl FINDINGS: The left Port-A-Cath is accessed by oncology nurse. Injection IV contrast was attempted through the Port-A-Cath, which was unsuccessful. The finding is consistent with blockage/obstruction of the central and catheter. IMPRESSION: The Port-A-Cath is nonfunctional. Unable to inject contrast through the catheter. The result was discussed with Dr. Espinal. Dictated by: Ken Castorena M.D. on 04/18/2019 at 10:39 Approved by: Ken Castorena M.D. on 04/18/2019 at 10:45
== END ==
PROVIDERS: PCP Family Medicine; Visit Provider Internal Medicine Hematology & Oncology
DX: T82.594A Other mechanical complication of infusion catheter, initial encounter (principal); C50.912 Malignant neoplasm of unspecified site of left female breast
CPT/HCPCS: 76000

== ENCOUNTER 2019-06-06 12:18 | Observation (INO) | payer OTHER, MEDICAID, SELFPAY ==
[2019-06-05] VITALS (15 sets, daily range): BP systolic 111–144; BP diastolic 71–95; PULSE 89–107; RESP 9–20; TEMP 35.8–36.6; O2SAT 90–98; BMI 42.4
--- NOTE | 2019-06-05 | PATH_ITS ---
[facility] Accession Number: [id number] . 01 Material submitted: . PART A: lymph node - LEFT AXILLARY LYMPH NODES PART B: breast - LEFT BREAST . 01 Clinical history: . SHORT SUPERIOR, LONG LATERAL, DOUBLE DEEP . 02 Diagnosis: A. Left Axillary Lymph Nodes, Excision: 6 of 11 lymph nodes positive for metastatic carcinoma. Please see CAP summary data below. . B. Left Breast, Mastectomy: No residual invasive carcinoma. Ductal carcinoma in situ (DCIS) is present. Please see CAP summary data below. . CAP Summary Data: . Procedure: Total mastectomy. Specimen Laterality: Left. Tumor Site: Lower outer quadrant. Size of DCIS: Estimated extent of DCIS is at least 20 mm. . Margins: Uninvolved by DCIS. Distance from closest margins: Anterior-inferior: 1 mm. Posterior-inferior: 3 mm. . Regional Lymph Nodes: Involved by tumor cells. Number of lymph nodes with macrometastasis: 5. Number of lymph nodes with micrometastasis: 1. Number of lymph nodes with isolated tumor cells: 0. Size of largest metastatic deposit: 11 mm. Extranodal extension: Present. Extent of extranodal extension: 1 mm. Total number of lymph nodes examined: 10. . Treatment Effect: Treatment effect in the breast: No residual invasive carcinoma present in the breast after presurgical therapy. Treatment Effect in the Lymph Nodes: No definitive response to presurgical therapy in metastatic carcinoma. . Pathologic Stage Classification (AJCC 8th Edition): Primary Tumor: ypTis. Regional Lymph Nodes: ypN2a. . Ancillary Studies: Left axillary lymph node block A2: HER-2 (4B5): Negative (Score 0). . Biomarker Testing Performed on Prior Biopsy: [id number]. Estrogen Receptor: Negative. Progesterone Receptor: Negative. HER-2: Negative (score 1+). . Microcalcifications: Present in non-neoplastic tissue. [facility] 06/14/2019 1700 Local . 02 Electronically signed: . Kailyn Medina MD, Pathologist NPI- [id number] . 01 Gross description: . (A) Received in formalin, labeled left axillary lymph nodes, is a piece of zelaya-yellow adipose tissue (8.5 x 7.5 x 2.0 cm) containing multiple possible lymph nodes (0.4 x 0.3 x 0.2 cm to 1.5 x 0.8 x 0.8 cm). Section code: (A1-A2) multiple intact lymph nodes; (A3) two bisected lymph nodes, one inked blue; (A4-A5, A6-A7, A8-A9) three bisected lymph nodes. . (B) Received: In formalin, labeled left breast, short superior, long lateral, double deep. Specimen: Left simple mastectomy. Weight: 1611 g. Measurement: 6.5 cm anterior to posterior, 20.0 cm medial to lateral, and 19.5 cm superior to inferior. Skin Ellipse: Present, zelaya smooth, and unremarkable, measuring 18.0 x 9.0 cm. Nipple/Areola: 1.5 x 1.2 cm diameter everted nipple within a 7.0 x 5.0 cm diameter areola. Axillary tail: Absent. Margins: The skin ellipse is oriented by surgeon with short superior suture, long lateral suture, double deep suture. The posterior surface is covered by fascia and is focally smooth and is inked black. The anterior soft tissue margins are unremarkable, adjacent to the skin, area inked blue for anterior superior and green for anterior inferior. Slices: Serially sectioned medial to lateral into 30 slices. Lesions: A possible tumor bed with clip and a second possible tumor bed without a clip are identified. Lesion #1: Description/size: [place]-white irregular firm area (1.8 x 1.6 x 0.5 cm) contains a barrel-shaped clip and appears to be a tumor bed. Slices involved: Slices #26-#28: Located within the lower outer quadrant apparently within the 5 to 6 o'clock location. Distance To Margins: 2.5 cm from the inferior anterior margin and 1.0 cm from the posterior margin. This area is approximately 9.8 from the nipple. Lesion #2: Description: [place]-white irregular firm area appears to be a possible tumor bed, no biopsy clip is identified. Size: 2.0 x 1.5 x 0.5 cm. Slices involved: Slices #24-#26. Distance To Margins And Lesion #1: Appears to be approximately 6.5 cm from lesion #1, 1.7 cm from the superior anterior margin, and 5.5 cm from the posterior margin. This area is located in the upper outer quadrant at approximately 2 to 3 o'clock location. Other: The uninvolved breast parenchyma is densely fatty and focally fibrous. No other distinct nodules, masses, or lesions are identified. Fixation time: The specimen was placed in formalin on 06/05/2019 with no time given. The approximate total fixation time in formalin is calculated to be 68 hours 30 minutes. Floor [employer] sections are submitted as follows: Sections: B1: Nipple, bisected, entirely submitted. B2: Skin, car sales representative. B3-B5: Slice 23, fibrous tissue medial to lesion #2, no tumor identified. B6-B9: Slice 25, possible lesion #2. B10: Slice 24, fibrous tissue inferior to lesion #2. B11-B15: Slice 25, possible lesion #2. B16-B19: Slice 25, fibrous area inferior to lesion #1 and medial to lesion #1, no lesion identified. B20-B22: Slice 26, lesion #2. B23-B25: Slice 26, tissue between lesion #1 and lesion #2 B26-B28: Slice 26, lesion #1. B29-B30: Slice 27, tissue directly lateral to lesion #1, no lesion identified. B31-B36: Slice 27, lesion #1. B37: Slice 27, fibrous tissue inferior to lesion #1. B38-B43: Slice 28, lesion #1. B44-B46: Slice 29, tissue lateral to lesion #1, no lesion present. B47-B48: Slice 30, apparently fibrous area, perpendicular car sales representative sections. B49-B50: Upper outer quadrant. B51-B52: Lower outer quadrant. B53-B54: Upper inner quadrant. 55-B56: Lower inner quadrant. . A ring of zelaya-white unremarkable skin with underlying adipose tissue (diameter-18.5 x 10.0 cm, up to 1.0 cm wide) is also submitted. The resection margin is inked blue. [employer] serial section submitted in cassettes B57 and B58. . Note: This specimen has been reviewed Dr. Mykel Saldaña. (JM:[id number]) (JM:[id number]) . The tissue in this case was re-reviewed and additional material was submitted. A second clip was identified in the anterior posterior edge of slice 20 at the green-inked margin, consistent with a Vision clip. Adjacent to this clip is a 2 cm ML x 1.5 cm SI x 1.0 cm AP of mildly fibrous breast tissue which is submitted as well as additional car sales representative sections. B59: Slice 13, car sales representative section. B60: Slice 17. B61: Slice 19, superior/anterior fibrous area. B62: Slice 19, inferior nodule. B63: Slice 20, adjacent to sampled area. B64-B65: Slice 20, firm tissue, superior. B66: Slice 25, car sales representative. B67-B68: Fibrous tissue adjacent to clip in slice 20. B69: Fibrous tissue in slice 22. B70: Slice 19. B71: Slice 20, posterior margin. B72-B73: Adjacent to clip anterior margin. B74-B76: Slice 21, inferior posterior in composite. B77-B78: Slice 22, inferior posterior in composite. B79-B80: Slice 25. B81: Slice 26. B82: Slice 28. (L:[id number]) /[facility] 06/14/2019 1700 Local . 02 Microscopic: . Immunohistochemical stains were performed to characterize cells of interest. All control stains showed appropriate reactivity. . Block A2 Results: HER-2 (4B5): Negative (Score 0). . Block B67 Results: D240: Absent around the cells of interest. Myosin: Present around the cells of interest. P63: Present around the cells of interest. MAUREEN: Highlights cells of interest. CD34: Indeterminate. Highlights abundant vessels in tissue. . Interpretation: The presence of p63 and myosin around the groups of the cells of interest is compatible with in-situ carcinoma. . * This test was developed and its performance characteristics determined by [employer]. It has not been cleared or approved by the U.S. Food and Drug Administration. The FDA has determined that such clearance or approval is not necessary. This test is used for clinical purposes. It should not be regarded as investigational or for research. . 02 Pathologist provided ICD-10: C50.912 . 02 CPT . 884262, 366103, G20538, F94205, 411120 Performed at: 01 [facility] [address] [id number] MD Saurabh Benites MD Phone: [phone] Performed at: 02 [facility] [id number] [place] [id number] MD Kailyn Medina MD Phone: [phone]
[2019-06-05] MEDS: VANCOMYCIN 1,500 MG/300 ML FROZ.PIGGY 200 MG IV (07:40)
[2019-06-05] MEDS: LACTATED RINGERS 1,000 ML 100 ML IV (07:40)
--- NOTE | 2019-06-05 07:46 | SUR.PREOP ---
IV in right hand started by Spencer Sarabia RN
[2019-06-05 07:49] LABS: Add Manual Diff / Slide Review NO; Basophils Absolute Auto 0 /uL (0-100); Basophils Percent Auto 0.5 % (0-2); Eosinophils Absolute Auto 0 /uL (0-450); Eosinophils Percent Auto 0.6 % (2-4); Hematocrit 30.8 % (36-46); Hemoglobin 10.5 g/dL (12.0-16.0); Lymphocytes Absolute Auto 1200 /uL (1100-4500); Lymphocytes Percent Auto 32.2 % (25-40); Mean Corpuscular HGB Conc 34.2 % (30-36); Mean Corpuscular Hemoglobin 35.8 PG (26-34); Mean Corpuscular Volume 104.5 fL (80-100); Monocytes Absolute Auto 800 /uL (0-900); Monocytes Percent Auto 21.6 % (3-14); Neutrophils Absolute Auto 1600 /uL (1500-7000); Neutrophils Percent Auto 45.1 % (50-75); Platelet Count 263 X10^3/uL (150-400); Red Blood Cell Count 2.94 X10^6/uL (4.0-5.2); Red Cell Distribution Width 16.9 % (11.6-14.8); White Blood Cell Count 3.6 X10^3/uL (4.5-11.0)
--- NOTE | 2019-06-05 07:58 | PM.PREOP ---
Pre-operative Note Interval Note History & Physical reviewed/Exam performed by Physician: Yes Changes to H&P: No
[2019-06-05 08:02] LABS: Alanine Aminotransferase 48 IU/L (<35); Albumin 4.1 g/dL (3.5-5.0); Albumin Globulin Ratio 1.3 (1.0-2.8); Alkaline Phosphatase 95 U/L (38-126); Aspartate Aminotransferase 45 IU/L (14-36); Bilirubin Total 0.4 mg/dL (0.2-1.3); Blood Urea Nitrogen 12 mg/dL (7-17); Calcium 9.3 mg/dL (8.4-10.2); Carbon Dioxide 27 mmol/L (22-32); Chloride 104 mmol/L (98-107); Estimated Glomerular Filt Rate > 60.0 mL/min (>60); Globulin 3.1 g/dL (1.7-4.1); Glucose 104 mg/dL (70-100); HEMOLYSIS < 15 (0-50); Potassium 3.7 mmol/L (3.4-5.1); Sodium 139 mmol/L (137-145); Total Protein 7.2 g/dL (6.3-8.2)
--- NOTE | 2019-06-05 08:39 | SUR.OPER ---
Supine on padded OR bed, head on gel donut, gel bump under left shoulder, right arm secured on padded arm boards at <90 degrees abduction, , left arm prepped and on sterile field, legs uncrossed, safety belt at waist, tape over blanket over lower legs.
[2019-06-05] MEDS: BUPIVACAINE 0.25% W/ EPI 30 ML VIAL INJ (08:45)
[2019-06-05] MEDS: BUPIVACAINE LIPOSOME 266 MG/20 ML VIAL INJ (08:46)
[2019-06-05] MEDS: LACTATED RINGERS 1,000 ML 42 ML IV (09:10)
--- NOTE | 2019-06-05 12:14 | P.OP_ITS ---
Operative Date/Time/Diagnoses Date of procedure: 06/05/19 Time of procedure: 12:14 Pre-op diagnosis: Multicentric left breast cancer, locally advanced Post-op diagnosis: same Procedure & Clinicians Procedure: Right mastectomy with axillary lymph node dissection Same procedure as scheduled: Yes Surgeon: Kayla Dorantes Scouring Train Operator Chief: Jose C Vargas Anesthesia Type: General Operative Notes Closure Type: primary Applied: drain(s) Estimated Blood Loss (mL): 50 Blood products transfused: none Procedure in detail: The patient was brought into the OR and placed supine on the OR table. Sequential compression devices were placed on both legs and turned on. General anesthesia was induced and the patient was intubated by Dr. Flores. Appropriate perioperative antibiotics were given. Surgical time out was performed. Local anesthetic was infiltrated into the skin, and a 25cm x 10cm transverse modified eliptical incision was made in the skin of the right breast including the nipple areolar complex. Flaps were created using cautery, dividing the breast tissue from the skin and subcutaneous tissue of the breast. The upper flap was first created. Dissection was carried all the way to the clavicle superiorly, reaching the pectoral muscle. Inferiorly, the dissection was carried to the inframammary fold. Medially the breast tissue was dissected to the midline of the chest. I then dissected the breast tissue off of the pectoral muscle, taking the pectoral fascia from medial to lateral. Once we reached the lateral border of the pectoral muscle, the axilla was dissected to the axillary vein superiorly, the serratus medially, the latissiumus laterally, and the subscapularis posteriorly. The long thoracic, thoracodorsal, and medial and lateral pectoral nerves were preserved. Once the axillary fat pat and associated lymph nodes were dissected out, and passed off the table for pathology. The remainder of the breaset was then dissected free including the lateral breast tissue and tail of garza. The breast was marked with short stitch superior, long stitch lateral, and double stitch deep. Hemostasis was achieved using ties, clips, and cautery as needed. A 10 flat SULEMAN drain was placed over the pectoral muscle, exiting the skin inferolaterally from the lateral border of the skin incision. Local anesthetic with 0.25% Marcaine with epi 1cc per kilo of ideal body weight, and 20mL of exparel. This was combined and injected in small aliquots in the subcutaneous fat, skin, muscle, and fascia. The skin was then prepared for closure by sharply excising an additional 1cm of skin from the border of the incision circumferentially, to remove ischemic skin that had been grasped with clamps. The fresh edges of the skin flaps were approximated in layers using 2-0 Vicryl, 3-0 Vicryl, and subcuticular 4-0 Monocryl. The drain was sutured in place with 3-0 Nylon. Steri strips were placed across the incisional closure, and a telfa island dressing was placed over the steri strips, and a 4x4 gauze was placed around the drain. All were secured in place with Tegaderm. The patient was then awakened from anesthesia and extubated. Needle sponge and instrument counts were correct x 2. The patient was transferred to the PACU in stable condition. Complications: none Post-operative Condition: stable Disposition: PACU
--- NOTE | 2019-06-05 12:17 | SUR.PHASEI ---
Port a cath was de-accessed by pre-op RN.
[2019-06-05] MEDS: OXYCODONE/ACETAMINOPHEN 5/325 TABLET 1 TAB PO (12:28)
--- NOTE | 2019-06-05 12:30 | SUR.PHASEI ---
medicated pt. with one oxycodone/acetaminophen P.O. for control of pain.
[2019-06-05] MEDS: ONDANSETRON 4 MG/2 ML INJ IV (12:55)
[2019-06-05] MEDS: KETOROLAC 15 MG/ML VIAL IV (14:43)
[2019-06-05] MEDS: ACETAMINOPHEN 325 MG TABLET 650 MG PO (14:43)
[2019-06-05] MEDS: GABAPENTIN 600 MG TABLET 300 MG PO ×2 (14:44→21:47)
[2019-06-05] MEDS: CYCLOBENZAPRINE 5 MG TABLET PO ×2 (15:03→21:49)
--- NOTE | 2019-06-05 16:19 | PC.NURSE ---
Post-op: Received from pacu, minimal pain, had nausea and sm emesis in pacu but this resolved after they gave zofran and didn't return. Has been able to tolerate a small amt of food. Son and dtr at bedside. They have helped boost her spirits up. Pt verb about cancer diagnosis and the difficulties she has faced due to this. Pt reports pain is in control at this time. Has sm spot of drainage to the lt breast area. Has ice in place to incision. Ry is compressed and drains red fluid. Resting quietly at this time.
[2019-06-05] MEDS: SODIUM CHLORIDE 0.9% FLUSH 10 ML IV (21:50)
--- NOTE | 2019-06-05 22:58 | PC.NURSE ---
Assumed care of pt at 1500. Pt resting in bed during shift assessment. Ambulated several times this evening. Steady on feet. SULEMAN with heavy output MD aware. Towel roll with ice pack placed to L. Axillary for pressure as pt is not wearing breast binder. SCD's while in bed. Educational hand-out and instructions provided on SULEMAN care. Pt emptied her SULEMAN with this RN's assistance this evening. Student RN assisting with care/assessments this shift; all care has been under the supervision of this RN.
[2019-06-06 03:33] VITALS: BP 150/99; PULSE 87; RESP 16; TEMP 36.2; O2SAT 98
[2019-06-06 05:13] LABS: Add Manual Diff / Slide Review NO; Basophils Absolute Auto 0 /uL (0-100); Basophils Percent Auto 0.2 % (0-2); Eosinophils Absolute Auto 0 /uL (0-450); Hematocrit 30.6 % (36-46); Hemoglobin 10.2 g/dL (12.0-16.0); Lymphocytes Absolute Auto 1000 /uL (1100-4500); Lymphocytes Percent Auto 10.3 % (25-40); Mean Corpuscular HGB Conc 33.4 % (30-36); Mean Corpuscular Hemoglobin 35.5 PG (26-34); Mean Corpuscular Volume 106.1 fL (80-100); Monocytes Absolute Auto 1500 /uL (0-900); Monocytes Percent Auto 15.8 % (3-14); Neutrophils Absolute Auto 7000 /uL (1500-7000); Neutrophils Percent Auto 73.7 % (50-75); Platelet Count 283 X10^3/uL (150-400); Red Blood Cell Count 2.89 X10^6/uL (4.0-5.2); Red Cell Distribution Width 16.9 % (11.6-14.8); White Blood Cell Count 9.5 X10^3/uL (4.5-11.0)
--- NOTE | 2019-06-06 06:39 | PC.NURSE ---
Pt is AxOx3, VSS, doing well. No complaints of pain. States ice pack is helping. Slightly more serosanguinous drainage noted to gauze dressing. Marked off around 0330. SULEMAN= 45mL B/L calf scds on throughout night.
[2019-06-06 08:00] VITALS: BP 134/81; PULSE 95; RESP 18; TEMP 36.3; O2SAT 98
[2019-06-06] MEDS: ENOXAPARIN 40 MG/0.4 ML SYRINGE SUBCUT (08:29)
[2019-06-06] MEDS: THYROID, PORK 30 MG TABLET 105 MG PO (08:30)
[2019-06-06] MEDS: LORATADINE 10 MG TABLET PO (09:09)
[2019-06-06] MEDS: CYCLOBENZAPRINE 5 MG TABLET PO (09:09)
[2019-06-06] MEDS: SENNOSIDES 8.6 MG TABLET 17.2 MG PO (09:09)
[2019-06-06] MEDS: GABAPENTIN 600 MG TABLET 300 MG PO (09:10)
--- NOTE | 2019-06-06 09:16 | P.PN_ITS ---
Subjective Subjective Date Patient Seen: 06/06/19 Time Patient Seen: 09:16 Interval history: Pedro Luis since the PACU. No acute events overnight. Patient denies significant pain. States 3/10 pain. Has not taken narcotic pain medication since the PACU. Tolerating p.o.. Complains of baseline lower extremity edema, no upper extremity edema. Exam Vital Signs (past 8 hours): - 06/06/19 03:33 06/06/19 08:00 Temperature 97.2 F L 97.3 F L Pulse Rate 87 95 H Respiratory Rate 16 18 Blood Pressure 150/99 H 134/81 Pulse Oximetry 98 98 Oxygen Delivery Method Room Air Oxygen Flow Rate 0 Narrative Exam Narrative: Patient is alert, smiling, appears comfortable Breathing comfortably on room air, non tachypneic CV: Regular rate, normotensive Left chest dressing is intact with a 3 cm x 3 cm area of sanguinous drainage on the dressing SULEMAN drain is intact with thin serosanguineous drainage in the tubing 2+ LE edema (patient's baseline) Objective Labs Result Diagrams: 06/06/19 04:57 06/05/19 07:38 Labs: Laboratory Results - last 24 hr 06/06/19 04:57 WBC 9.5 D RBC 2.89 L Hgb 10.2 L Hct 30.6 L MCV 106.1 H MCH 35.5 H MCHC 33.4 RDW 16.9 H Plt Count 283 Neut % (Auto) 73.7 D Lymph % (Auto) 10.3 L D [place] % (Auto) 15.8 H Eos % (Auto) 0.0 L Baso % (Auto) 0.2 Neut # (Auto) 7000 Lymph # (Auto) 1000 L [place] # (Auto) 1500 H Eos # (Auto) 0 Baso # (Auto) 0 Assessment & Plan Assessment & Plan narrative: 48-year-old woman postop day 1 from modified radical mastectomy. Overall, she is doing well. We were not able to fit the regular binder on her due to her size, but she will likely need either an Emeka wrap were abdominal binder to provide some compression to the mastectomy site. Otherwise, we have discussed wound management, and follow-up. I will ask PT to see her to help with range of motion exercises per the patient's request, and then I will check back by this afternoon. Plan: PT to see Dispo planning DV ppx drain teaching Time Spent With Patient Time with patient: 25 - 35 minutes Quality VTE Deep Vein Thrombosis/Pulmonary Embolism Present on Admission: No
[2019-06-06 09:40] VITALS: PULSE 90; O2SAT 98
[2019-06-06] MEDS: DULOXETINE 20 MG CAPSULE PO (09:43)
--- NOTE | 2019-06-06 11:11 | PC.NURSE ---
Patient is pleasant and cooperative with care. She denies pain and is up and independent in the room. She has a dressing with tegaderm to her l.breast that was removed. SULEMAN drain present with bloody drainage. down to see patient and states to put in orders for physical therapy, and she would like to see the patient on monday for follow up, this has been scheduled. She would also like the patient to either have an abdominal binder, or thais wrap as surgical compression binders are too small for patient. RN also needs to look into seeing if we have a water proof sheet that can fit over patients breast and cover area when she showers. Patient up in room by herself, she denies pain at this time and is visiting with the machinist bench.
[2019-06-06 12:39] VITALS: BP 126/80; PULSE 98; RESP 16; TEMP 36.6; O2SAT 96
--- NOTE | 2019-06-06 13:46 | PT.IPTN ---
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) Surgery Performed Operation Date: 06/05/19 07:45 Actual Procedures p Mastectomy With Axillary Node Dissection(Left) - Kayla Dorantes MD Physical Therapy Treatment Note M2 PT-IP Current Condition Start: 06/06/19 12:05 Freq: NEEDED Status: Active Protocol: Document 06/06/19 13:12 AW (Rec: 06/06/19 13:46 AW [id number]) Physical Therapy Current Condition Current Condition Evaluation Date 06/06/19 Treatment Diagnosis L modified radical mastectomy; impaired shoulder mobility, ADL's Precautions Brace abdominal brace used for chest wall compression, hematoma prevention Other Precautions No lifting >10 pounds Weight Bearing Status Weight Bearing Status Full Weight Bearing M3 PT-IP Subjective Start: 06/06/19 12:05 Freq: NEEDED Status: Active Protocol: Document 06/06/19 13:12 AW (Rec: 06/06/19 13:46 AW [id number]) Subjective Physical Therapy Visit Type Type Initial Evaluation Visit Start Time 12:23 Visit Stop Time 13:05 Total Visit Minutes 42 Notes Pt's older son present during evaluation Number of STRIP TANK TENDER Visits 0 Physical Therapy Visit Comments Patient Comments I feel like I need to stretch Therapy Pain Assessment Pain When Pain Assessed At Rest Pain Present Pain Present Pain Reported Location Left Ribs Intensity 4 Scale Used improved with compression Pain Management Techniques Modification of Treatment M4 PT-IP Mobility and Gait Start: 06/06/19 12:05 Freq: NEEDED Status: Active Protocol: Document 06/06/19 13:12 AW (Rec: 06/06/19 13:46 AW [id number]) PT-Bed Mobility Assessment Supine to Sit Supine to Sit Independent Sit to Supine Sit to Supine Independent Scooting Scooting to Edge of Bed Independent Scooting Up and Down in Bed Independent PT-Transfer Assessment Sit to and From Stand Sit to and from Stand Independent Equipment Transfer Assistive Device None Orthotic/Prosthetic Devices or Brace: No Transfers Transfer Destination Bed,Chair Transfer Technique pt ambulated without AD Transfer Ability Level of Assist Standby Assistance Comments Mobility Comments Pt was sitting up chair upon PT arrival. She stood independently and transferred to the bed where she was able to perform bed mobility independently. Pt ambulated in the hallway and returned to the chair, requiring no more than SBA for transfer due to reduced use of LUE. Gait Assessment Gait Gait Assistance Required: Standby Assistance Distance (Feet) 150 Able to Maintain Weight Bearing Status Yes During Gait Assistive Devices Assistive Device Gait Belt Orthotic/Prosthetic Devices or Brace: No Gait Deviations General Gait Pattern Antalgic,Wide Based Gait Factors Limiting Gait Function Factors Limiting Gait Function Decreased Sensation,Decreased Strength,Pain Comments Gait Comments Pt ambulated in the halls SBA with gait remarkable for upper torso stiffness. With binder on for compression, pt was encouraged to let her arms swing gently with gait as a simple ROM exercise. She was able to do so without increase in pain. Stair Climbing Assessment Comments Stair Climbing Comments Not assessed. PT-Balance Assessment Sitting Balance and Reactions Static Sitting Balance Ability Normal Dynamic Sitting Balance Ability Normal Standing Balance and Reactions Static Standing Balance Ability Good Dynamic Standing Balance Ability Good M5 PT-IP Objective Assessments Start: 06/06/19 12:05 Freq: NEEDED Status: Active Protocol: Document 06/06/19 13:12 AW (Rec: 06/06/19 13:46 AW [id number]) Orientation Orientation/Cognition Level of Alertness Alert Orientation Name,Day of Week,Place Language Function Ability No Deficits Noted Safety Awareness Understands Safety Issues Memory Description No Deficits Noted Gross Range of Motion Upper Extremity ROM Assessment Left Impaired Lower Extremity ROM Assessment Within Functional Limits Strength Upper Extremity Strength Assessment Left Impaired Lower Extremity Strength Assessment Within Functional Limits Coordination Assessment Gross Coordination Gross Coordination WNL Sensation Assessment Sensation Gross Sensation Right UE Impaired,Left UE Impaired,Right LE Impaired, Left LE Impaired Light Touch Impaired Sensation Description [place]ing[place] Comments Sensation Comments Pt with CIPN reporting tingling at bilateral palms and fingertips as well as feel . Muscle Tone Muscle Tone WNL Yes M6 PT-IP Treatment Start: 06/06/19 12:05 Freq: NEEDED Status: Active Protocol: Document 06/06/19 13:12 AW (Rec: 06/06/19 13:46 AW [id number]) Physical Therapy Treatment Exercises Exercises Elbow Flexion/Extension,Wrist ROM,Hand ROM Education Education Provided Precautions Brace Education [place],Patient Equipment Issued Equipment Type and Company abdominal binder applied for chest wall compression Other Treatments Other Treatment Performed Table slides - forward flexion , abduction, scaption for gentle ROM as tolerated. Also worked on diaphragmatic breathing. Pt demonstrating excessive use of accessory muscles for breathing but good , equal expansion of ribcage bilaterally. Pt advised to perform diaphragmatic breathing 2-5 minutes 2-3 time per day for optimal diaphragm mechanics, chest expansion, and for physiological quieting . Also provided education on risk for LUE lymphedema with signs to watch for and precautions. M7 PT-IP Assessment and Plan Start: 06/06/19 12:05 Freq: NEEDED Status: Active Protocol: Document 06/06/19 13:12 AW (Rec: 06/06/19 13:46 AW [id number]) PT Summary Assessment and Plan Potential Rehabilitation Potential Excellent Status of Condition at Evaluation Stable Summary Impairments Pain,ROM,Strength,Sensation, Gait,Activity Tolerance Assessment Summary May is a 48yo woman seen for PT evaluation on POD1 following left modified radical mastectomy. 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 On evaluation, her left shoulder ROM is limited and painful but improved with abdominal binder applied for chest compression. Pt was educated on gentle PROM for the left shoulder and AROM for elbow, wrist and hand. PT provided education on risk of lymphedema and symptoms to watch for. She will be safe to discharge home with family assist once medically cleared. She would benefit from outpatient physical therapy to promote left upper extremity range of motion and strengthening. Frequency of Treatment Frequency Of Treatment Discharge Recommendations To Nursing Amount of Assist Needed Independent Discharge Recommendations PT Discharge Recommendations Home with Assistance, Outpatient PT Transportation Needs at Discharge Private Vehicle
--- NOTE | 2019-06-06 13:50 | PT.IIE ---
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) Surgery Performed Operation Date: 06/05/19 07:45 Actual Procedures p Mastectomy With Axillary Node Dissection(Left) - Kayla Dorantes MD Surgical History (Last Reviewed 05/14/19 @ 17:54 by Kayla Dorantes MD) History of vaginal hysterectomy (Resolved ~07/2017) Hx of cholecystectomy (Acute) Status post excision of lipoma (Acute ~2013) Status post tubal ligation (~2013) Medical History (Last Updated 05/24/19 @ 09:22 by Yris Ashton RN) Abnormal Pap smear of cervix (Resolved) Alopecia due to cytotoxic drug (Acute) Angiolipoma (Chronic) Arthritis (Acute) Difficulty swallowing (Acute) DIS OF GALLBLADDER NOS (Resolved) Fibromyalgia (Chronic) Graves disease (Acute) Headache (Acute) Heartburn (Acute) History of chemotherapy (Acute) Left-sided chest wall pain (Acute) Leg swelling (Acute) Lung nodules (Acute) Morbid obesity (Acute) Myopia (Chronic) 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 She does admit to being limited to ~200 feet distance due to fatigue. 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 She also has B LE lymphedema which she self-treats with OTC compression garments. Social History Household Members significant other,children Living Arrangements House Number of Floors (Floors) Two Floors Number of Stairs To Enter/Railing? 3 KANE with left rail ascending . Home Environment High Toilet,Tub/Shower Doors Home Equipment Grab Bars Near Toilet Additional Social History Comment Pt lives in [place] with her significant other, Yury, a grown child and a 6yo daughter . Yury works [employer] at [place]. Her older son is available and able to help as needed when Yury is not around. M2 PT-IP Current Condition Start: 06/06/19 12:05 Freq: NEEDED Status: Active Protocol: Document 06/06/19 13:12 AW (Rec: 06/06/19 13:46 AW [id number]) Physical Therapy Current Condition Current Condition Evaluation Date 06/06/19 Treatment Diagnosis L modified radical mastectomy; impaired shoulder mobility, ADL's Precautions Brace abdominal brace used for chest wall compression, hematoma prevention Other Precautions No lifting >10 pounds Weight Bearing Status Weight Bearing Status Full Weight Bearing M3 PT-IP Subjective Start: 06/06/19 12:05 Freq: NEEDED Status: Active Protocol: Document 06/06/19 13:12 AW (Rec: 06/06/19 13:46 AW [id number]) Subjective Physical Therapy Visit Type Type Initial Evaluation Visit Start Time 12:23 Visit Stop Time 13:05 Total Visit Minutes 42 Notes Pt's older son present during evaluation Number of HEALTH ANALYST Visits 0 Physical Therapy Visit Comments Patient Comments I feel like I need to stretch Therapy Pain Assessment Pain When Pain Assessed At Rest Pain Present Pain Present Pain Reported Location Left Ribs Intensity 4 Scale Used improved with compression Pain Management Techniques Modification of Treatment M4 PT-IP Mobility and Gait Start: 06/06/19 12:05 Freq: NEEDED Status: Active Protocol: Document 06/06/19 13:12 AW (Rec: 06/06/19 13:46 AW [id number]) PT-Bed Mobility Assessment Supine to Sit Supine to Sit Independent Sit to Supine Sit to Supine Independent Scooting Scooting to Edge of Bed Independent Scooting Up and Down in Bed Independent PT-Transfer Assessment Sit to and From Stand Sit to and from Stand Independent Equipment Transfer Assistive Device None Orthotic/Prosthetic Devices or Brace: No Transfers Transfer Destination Bed,Chair Transfer Technique pt ambulated without AD Transfer Ability Level of Assist Standby Assistance Comments Mobility Comments Pt was sitting up chair upon PT arrival. She stood independently and transferred to the bed where she was able to perform bed mobility independently. Pt ambulated in the hallway and returned to the chair, requiring no more than SBA for transfer due to reduced use of LUE. Gait Assessment Gait Gait Assistance Required: Standby Assistance Distance (Feet) 150 Able to Maintain Weight Bearing Status Yes During Gait Assistive Devices Assistive Device Gait Belt Orthotic/Prosthetic Devices or Brace: No Gait Deviations General Gait Pattern Antalgic,Wide Based Gait Factors Limiting Gait Function Factors Limiting Gait Function Decreased Sensation,Decreased Strength,Pain Comments Gait Comments Pt ambulated in the halls SBA with gait remarkable for upper torso stiffness. With binder on for compression, pt was encouraged to let her arms swing gently with gait as a simple ROM exercise. She was able to do so without increase in pain. Stair Climbing Assessment Comments Stair Climbing Comments Not assessed. PT-Balance Assessment Sitting Balance and Reactions Static Sitting Balance Ability Normal Dynamic Sitting Balance Ability Normal Standing Balance and Reactions Static Standing Balance Ability Good Dynamic Standing Balance Ability Good M5 PT-IP Objective Assessments Start: 06/06/19 12:05 Freq: NEEDED Status: Active Protocol: Document 06/06/19 13:12 AW (Rec: 06/06/19 13:46 [id number]) Orientation Orientation/Cognition Level of Alertness Alert Orientation Name,Day of Week,Place Language Function Ability No Deficits Noted Safety Awareness Understands Safety Issues Memory Description No Deficits Noted Gross Range of Motion Upper Extremity ROM Assessment Left Impaired Lower Extremity ROM Assessment Within Functional Limits Strength Upper Extremity Strength Assessment Left Impaired Lower Extremity Strength Assessment Within Functional Limits Coordination Assessment Gross Coordination Gross Coordination WNL Sensation Assessment Sensation Gross Sensation Right UE Impaired,Left UE Impaired,Right LE Impaired, Left LE Impaired Light Touch Impaired Sensation Description [place]ing[place] Comments Sensation Comments Pt with CIPN reporting tingling at bilateral palms and fingertips as well as feel . Muscle Tone Muscle Tone WNL Yes M6 PT-IP Treatment Start: 06/06/19 12:05 Freq: NEEDED Status: Active Protocol: Document 06/06/19 13:12 AW (Rec: 06/06/19 13:46 [id number]) Physical Therapy Treatment Exercises Exercises Elbow Flexion/Extension,Wrist ROM,Hand ROM Education Education Provided Precautions Brace Education [place],Patient Equipment Issued Equipment Type and Company abdominal binder applied for chest wall compression Other Treatments Other Treatment Performed Table slides - forward flexion , abduction, scaption for gentle ROM as tolerated. Also worked on diaphragmatic breathing. Pt demonstrating excessive use of accessory muscles for breathing but good , equal expansion of ribcage bilaterally. Pt advised to perform diaphragmatic breathing 2-5 minutes 2-3 time per day for optimal diaphragm mechanics, chest expansion, and for physiological quieting . Also provided education on risk for LUE lymphedema with signs to watch for and precautions. M7 PT-IP Assessment and Plan Start: 06/06/19 12:05 Freq: NEEDED Status: Active Protocol: Document 06/06/19 13:12 AW (Rec: 06/06/19 13:46 AW [id number]) PT Summary Assessment and Plan Potential Rehabilitation Potential Excellent Status of Condition at Evaluation Stable Summary Impairments Pain,ROM,Strength,Sensation, Gait,Activity Tolerance Assessment Summary May is a 48yo woman seen for PT evaluation on POD1 following left modified radical mastectomy. 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 On evaluation, her left shoulder ROM is limited and painful but improved with abdominal binder applied for chest compression. Pt was educated on gentle PROM for the left shoulder and AROM for elbow, wrist and hand. PT provided education on risk of lymphedema and symptoms to watch for. She will be safe to discharge home with family assist once medically cleared. She would benefit from outpatient physical therapy to promote left upper extremity range of motion and strengthening. Frequency of Treatment Frequency Of Treatment Discharge Recommendations To Nursing Amount of Assist Needed Independent Discharge Recommendations PT Discharge Recommendations Home with Assistance, Outpatient PT Transportation Needs at Discharge Private Vehicle
--- NOTE | 2019-06-06 13:56 | CM.DANOTE ---
Discharge Planning/Care Management DCP: assessement: case received, EMR reviewed and met with pt and her son. Introduced self and role. Pt is a 48 year old female who admitted yesterday for a scheduled R Mastectomy with axillary lymph node dissection. Surgeon: Dr. Dorantes. PCP: Dr. Christine Payer: Demetrius CARTER of [place]/Medicaid PT is found up and about in the room, preparing for her d/c to home today. She confirms that she lives with her significant other Bill: [phone] but as he is not readily available at this time her son is here to take her home. WILBER Brian is preparing all final d/c documents and the supplies for home that Dr. Dorantes has recommended pt take with her. Pt will see Dr. Dorantes in Clinic on Sunday 06/04. PT Atiya did see pt today and says she has recommended that pt follow up with OUTPT PT when indicated, perhaps in 2 weeks. She planned to alert Dr. Dorantes to same and pt can also discuss this with Dr. Dorantes at the followup visit. P: home today: pt says we are planning for all to be completed by 2:30. CM Discharge Assessment Start: 06/06/19 13:42 Freq: Status: Active Protocol: Document 06/06/19 13:43 ITV (Rec: 06/06/19 13:54 ITV [id number]) Discharge Planning Assessment Advance Directives? No History Provided By Patient,Family Member,Medical Record Prior Living Arrangements House Household Members significant other Independent with ADL's Yes Is patient alert and oriented? Yes Document 06/06/19 13:55 ITV (Rec: 06/06/19 13:56 ITV [id number]) Discharge Planning Assessment Advance Directives? No History Provided By Patient,Family Member,Medical Record Prior Living Arrangements House Household Members significant other Independent with ADL's Yes Is patient alert and oriented? Yes Whiteboard Updated in Patient Room with Yes name and ext. 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 No
== END 2019-06-06 14:30 | disposition home or self-care (01) ==
LOC: OR 12:40
PROVIDERS: Admitting Provider Surgery; PCP Family Medicine; Visit Provider Surgery
PROC: 0HTU0ZZ Resection of Left Breast, Open Approach (ICD-10-PCS; CPT 19307; principal; 2019-06-05 07:45)
DX: C50.912 Malignant neoplasm of unspecified site of left female breast (principal); Z90.11 Acquired absence of right breast and nipple; E66.9 Obesity, unspecified; Z68.41 Body mass index [BMI] 40.0-44.9, adult
CPT/HCPCS: 19307; 36415; 80053; 85025; 94762; 97110; 97161; 97530; G0378; C9290; J1100; J1650; J1885; J2250; J2405; J2704; J3010

== ENCOUNTER 2019-07-10 12:34 | Day surgery (SDC) | payer OTHER, MEDICAID, SELFPAY ==
[2019-06-05 13:52] VITALS: BMI 42.4
[2019-07-10 13:18] VITALS: BP 142/91; PULSE 92; RESP 16; TEMP 36.7; O2SAT 96; BMI 42.5
[2019-07-10] MEDS: LACTATED RINGERS 1,000 ML 42 ML IV (13:20)
[2019-07-10] MEDS: VANCOMYCIN 1,500 MG/300 ML FROZ.PIGGY 200 MG IV (13:20)
--- NOTE | 2019-07-10 13:30 | PM.PREOP ---
Pre-operative Note Interval Note History & Physical reviewed/Exam performed by Physician: Yes Changes to H&P: Yes H&P completed within 30 days and has changed as indicated here:: per patient's oncologist, the patient does not need her portacath and it should be removed brandon for her radiation treatment to go forward
--- NOTE | 2019-07-10 14:16 | SUR.OPER ---
Supine on padded OR bed, head on pillow, arms secured on padded arm boards at <90 degrees abduction, legs uncrossed, safety belt at thigh, tape over blanket over lower legs.
[2019-07-10] MEDS: BUPIVACAINE 0.25% W/ EPI 30 ML VIAL INJ (14:20)
[2019-07-10 14:33] VITALS: BP 118/75; PULSE 91; RESP 16; TEMP 36.8; O2SAT 99
--- NOTE | 2019-07-10 14:33 | PM.OP.1 ---
Operative Date/Time/Diagnoses Date of procedure: 07/10/19 Time of procedure: 14:33 Pre-op diagnosis: portacath in place, needs to be removed for radiation therapy Post-op diagnosis: same Procedure & Clinicians Procedure: removal of left chest portacath Same procedure as scheduled: Yes Indications: Portacath in place, needs to be removed Surgeon: Kayla Dorantes Click Yes if Unassisted: Yes Anesthesia Type: MAC +/- and Local Operative Notes Findings: portacath in place with port and tubing intact Closure Type: primary Specimen(s): none sent Estimated Blood Loss (mL): 1 Blood products transfused: none Procedure in detail: The patient was taken to the operating room and placed in the on the operating table in supine position. Anesthesia was induced without complications. The left neck and chest was prepped and draped in sterile fashion. Local anesthetic was injected in the skin overlying the Port-A-Cath, in area of the prior Port-A-Cath placement incision. Fifteen blade was used to incise the skin at the site of the prior incision. Dissection was carried down to the Port-A-Cath, and the sutures securing it to the chest wall were divided with suture scissors. The patient was placed in Trendelenburg position, and the Port-A-Cath was then removed from pocket, and the tubing was withdrawn at the same time. Pressure was placed at the exit site with the tubing entered the subcutaneous tissue going towards vein. When pressure was released there was no back bleeding. I placed a 3 0 Vicryl suture at the exit site to close it. I then closed the incision with 3 0 Vicryl and 4 Monocryl, and sealed the skin edges with Dermabond. The patient tolerated the procedure well. The patient was awakened and extubated and taken to the PACU in stable condition. All counts were correct at the end of the procedure. Complications: none Post-operative Condition: stable Disposition: PACU
[2019-07-10 14:38] VITALS: BP 122/87; PULSE 95; RESP 18; TEMP 36.9; O2SAT 96
[2019-07-10 14:43] VITALS: BP 143/84; PULSE 94; RESP 18; TEMP 37.1; O2SAT 97
[2019-07-10 14:47] VITALS: BP 142/87; PULSE 88; RESP 15; TEMP 37.1; O2SAT 96
[2019-07-10 15:03] VITALS: BP 145/92; PULSE 86; RESP 17; TEMP 36.9; O2SAT 98
--- NOTE | 2019-07-10 15:22 | SUR.PHASEII ---
Patient discharged in stable condition with family member.
== END 2019-07-10 15:30 | disposition home or self-care (01) ==
PROVIDERS: PCP Family Medicine; Referring Provider Family Medicine; Visit Provider Surgery
PROC: (CPT 36590; principal; 2019-07-10 13:45)
DX: Z45.2 Encounter for adjustment and management of vascular access device (principal); C50.919 Malignant neoplasm of unspecified site of unspecified female breast
CPT/HCPCS: 36590; J2250; J2704; J3010

== ENCOUNTER → 2020-02-11 11:18 | Outpatient (CLI) | payer OTHER, MEDICAID, SELFPAY ==
[2019-06-05 13:52] VITALS: BMI 42.4
--- NOTE | 2020-02-11 11:19 | DI.US.S_ITS ---
PROCEDURE: US ABDOMEN LIMITED INDICATIONS: breast cancer, transaminitis TECHNIQUE: Real-time focused scanning was performed of the abdomen, with image documentation. COMPARISON: [facility], US, US ABDOMEN COMPLETE, 12/22/2017, 13:18. [facility], US, ABDOMEN COMPLETE, 01/14/2015, 11:30. [facility], US, ABDOMEN COMPLETE, 03/17/2014, 15:43. [facility], CT, CT CHEST ABD PEL W CON, 11/30/2018, 10:29. FINDINGS: The liver demonstrates prominent size. The liver demonstrates generalized increased echogenicity. This decreases ultrasound sensitivity for detection of hepatic masses. Status post cholecystectomy. The biliary tree is not seen, secondary to overlying bowel gas. No significant pancreatic abnormality is seen on these images. IMPRESSION: Enlarged, fatty liver. Status post cholecystectomy. Biliary tree and pancreas not seen. Dictated by: Luis Enrique Foster M.D. on 02/11/2020 at 12:21 Approved by: Luis Enrique Foster M.D. on 02/11/2020 at 12:22
== END ==
PROVIDERS: PCP Family Medicine; Referring Provider Family Medicine; Visit Provider Internal Medicine Hematology & Oncology
DX: C50.912 Malignant neoplasm of unspecified site of left female breast (principal); R74.01 Elevation of levels of liver transaminase levels; K76.0 Fatty (change of) liver, not elsewhere classified; Z90.49 Acquired absence of other specified parts of digestive tract
CPT/HCPCS: 76705

== ENCOUNTER → 2020-06-08 10:51 | Outpatient (CLI) | payer OTHER, MEDICAID, SELFPAY ==
[2019-06-05 13:52] VITALS: BMI 42.4
--- NOTE | 2020-06-08 10:53 | DI.MRI.S_ITS ---
PROCEDURE: MR HEAD/BRAIN WO/W CON INDICATIONS: headache, breast cancer TECHNIQUE: Noncontrast axial T1 spin echo, axial T2 fast spin echo, sagittal and axial FLAIR, coronal T2 fast spin echo, axial gradient echo, axial diffusion and ADC through the brain. After the administration of contrast, axial and coronal 3D VIBE or T1 spin echo with fat saturation through the brain. COMPARISON: None. FINDINGS: Image quality: Excellent. CSF Spaces: Basal cisterns are patent. No extra-axial fluid collections. Ventricles are normal in size and shape. Brain: No midline shift. No intracranial bleeds or masses. No abnormal intracranial enhancement. The brainstem appears normal. Diffusion-weighted images demonstrate no acute ischemic insults. No chronic ischemic insults. Normal intravascular flow voids are present. Skull and face: Calvarial marrow is normal in signal. Orbits appear normal. Sinuses: Sinuses and mastoids appear clear. IMPRESSION: Normal for age, no sign of metastatic disease. Source of persistent headache is not found. Dictated by: Sumanth Powers M.D. on 06/08/2020 at 13:29 Approved by: Sumanth Powers M.D. on 06/08/2020 at 13:30
--- NOTE | 2020-06-08 10:53 | DI.NM.S_ITS ---
PROCEDURE: OR BONE SCAN WHOLE BODY RADIOPHARMACEUTICAL: 20.8 mCi Tc-99m MDP IV. INDICATIONS: breast cancer, bone pain (left rib, upper back) TECHNIQUE: Delayed whole-body scintigrams were obtained approximately 3-4 hours after intravenous injection of radiotracer. Anterior and posterior views were acquired from vertex to feet. Additional left and right oblique views of the thoracic cage were obtained. COMPARISON: [facility], CT, CT CHEST ABD PEL W CON, 11/30/2018, 10:29. [facility], CT, CT ABDOMEN PELVIS W CON, 06/08/2020, 12:45. [place], [place], [place] BONE SCAN WHOLE BODY, 11/30/2018, 12:45. FINDINGS: Mild focal uptake is noted in the right anterior 8th rib, which correlate with radiographic finding of a rib fracture. Mildly increased uptake in maxilla is most likely related to dental disease. The appearance is unchanged. No lesions are identified in skull, sternum, clavicles, scapulae, bony pelvis, and visualized shafts of the long bones. There is low level increased uptake in cervical, thoracic and lumbar spine with distribution indistinguishable from degenerative disc and facet disease; early metastasis to spine could be obscured by degenerative changes. There are foci of increased periarticular activity involving shoulders, sternoclavicular joints, hips, knees, ankles and feet, compatible with degenerative/arthritic changes. IMPRESSION: 1. No definitive scintigraphic findings to suggest osseous metastasis. 2. A focal uptake in the right 8th rib is most likely related to a subacute rib fracture. 3. No scintigraphic findings to explain left rib pain. 4. Foci of increased uptake in spine are most likely degenerative in nature. If clinically indicated, radiograph or MRI correlation may be considered. Dictated by: Ken Castorena M.D. on 06/08/2020 at 18:10 Approved by: Ken Castorena M.D. on 06/08/2020 at 18:16
--- NOTE | 2020-06-08 11:08 | DI.CT.S_ITS ---
PROCEDURE: CT ABDOMEN PELVIS W CON INDICATIONS: abd pain , right sided, breast cancer TECHNIQUE: After the administration of oral and intravenous contrast, 5 mm thick sections acquired from the diaphragms to the symphysis. 5 mm thick coronal and sagittal reformats were performed. For radiation dose reduction, the following was used: automated exposure control, adjustment of mA and/or kV according to patient size. COMPARISON: [facility], MR, MR HEAD/BRAIN WO/W CON, 06/08/2020, 12:16. [facility], [place], [place] BONE SCAN WHOLE BODY, 06/08/2020, 14:19. [facility], CT, ABDOMEN/PELVIS WITH CONTRAST, 11/16/2016, 12:59. FINDINGS: Image quality: Excellent. ABDOMEN: Lung bases: Lung bases are clear. Heart size is normal. Solid organs: The liver is enlarged, with fatty replacement. No focal liver masses seen. Gallbladder is surgically absent. Biliary system is non-dilated. Pancreas enhances normally. Spleen is normal in size and enhancement. No adrenal nodules. Kidneys are normal in size and enhancement, without hydronephrosis. Probable 2 mm left lower pole nonobstructing renal stone. Peritoneum and bowel: Stomach, small bowel, and colon loops are normal in caliber and wall thickness. No free fluid or air. Nodes and vessels: No retroperitoneal or mesenteric adenopathy. Aorta and inferior vena cava are normal in caliber. Miscellaneous: No ventral hernias. PELVIS: Genitourinary: Bladder wall thickness is normal. Miscellaneous: No inguinal hernias or adenopathy. Uterus is surgically absent. Bones: No suspicious bony lesions. No vertebral body compression fractures. IMPRESSION: 1. No evidence of metastatic disease in the abdomen and pelvis. 2. Hepatomegaly, hepatic steatosis. 3. Probable tiny nonobstructing left lower pole renal stone. Dictated by: Mino Woodall M.D. on 06/08/2020 at 15:54 Approved by: Mino Woodall M.D. on 06/08/2020 at 16:03
== END ==
PROVIDERS: PCP Family Medicine; Referring Provider Family Medicine; Visit Provider Internal Medicine Hematology & Oncology
DX: C50.912 Malignant neoplasm of unspecified site of left female breast (principal); R51.9 Headache, unspecified; R10.9 Unspecified abdominal pain; K76.0 Fatty (change of) liver, not elsewhere classified; M89.8X9 Other specified disorders of bone, unspecified site; R07.81 Pleurodynia; M54.6 Pain in thoracic spine; Z90.49 Acquired absence of other specified parts of digestive tract
CPT/HCPCS: 70553; 74177; 78306; A9503; Q9967

== ENCOUNTER → 2020-07-07 09:23 | Outpatient (CLI) | payer OTHER, MEDICAID, SELFPAY ==
[2019-06-05 13:52] VITALS: BMI 42.4
[2020-07-07 11:13] LABS: Cholesterol 210 mg/dL (140-199); HDL Cholesterol 30 mg/dL (40-60); LDL Cholesterol Calculated 125 mg/dL (<100); Triglycerides 275 mg/dL (35-150)
[2020-07-07 11:27] LABS: Free T3, Triiodothyronine Free 5.41 pg/mL (2.77-5.27); Free T4, Direct Thyroxine 0.65 ng/dL (0.78-2.19)
[2020-07-07 11:40] LABS: Thyroid Stimulating Hormone 0.846 uIU/mL (0.47-4.68)
[2020-07-07 12:01] LABS: Hepatitis B Surface Antigen NEGATIVE s/c (NEGATIVE)
[2020-07-07 12:17] LABS: Hep C Virus Ab w/Reflex Quant NEGATIVE s/c (NEGATIVE)
[2020-07-08 04:36] LABS: Hepatitis A Ab Total Negative (Negative); Hepatitis B Core AB w/Reflex Negative (Negative); Hepatitis B Surf Ab Qualitativ Non Reactive (.)
== END ==
PROVIDERS: PCP Family Medicine; Referring Provider Family Medicine; Visit Provider Family Medicine
DX: E66.01 Morbid (severe) obesity due to excess calories (principal); E88.81 Metabolic syndrome and other insulin resistance; Z92.3 Personal history of irradiation; R74.01 Elevation of levels of liver transaminase levels
CPT/HCPCS: 36415; 80061; 84439; 84443; 84481; 86704; 86706; 86708; 86803; 87340

== ENCOUNTER → 2020-08-22 12:42 | Outpatient (CLI) | payer OTHER, MEDICAID, SELFPAY ==
[2019-06-05 13:52] VITALS: BMI 42.4
--- NOTE | 2020-08-22 12:42 | DI.MG.S_ITS ---
UNILATERAL RIGHT DIGITAL SCREENING MAMMOGRAM 3D/2D WITH CAD: 08/22/2020 CLINICAL: Routine screening. Personal history of left breast cancer. Comparison is made to exams dated: 05/15/2019 breast MRI - outside location and 10/19/2018 mammogram - [facility]. There are scattered fibroglandular elements in right breast. Current study was also evaluated with a Computer Aided Detection (CAD) system. No significant masses, calcifications, or other findings are seen in the breast. There has been no significant interval change. IMPRESSION: NEGATIVE There is no mammographic evidence of malignancy. A 1 year screening mammogram is recommended. This exam was interpreted at Station ID: [id number]. NOTE: For mammograms, a report in lay terms will be sent to the patient. Approximately 15% of breast malignancies will not be visualized mammographically. In the management of a palpable breast mass, a negative mammogram must not discourage biopsy of a clinically suspicious lesion. Electronically Signed By: Shawn feldman/kenya:08/24/2020 08:10:03 copy to: MARTA ECHEVARRIA copy to: Cara Dorantes, [facility] letter sent: Normal Exam ACR BI-RADS Category 1: Negative [id number]
== END ==
PROVIDERS: PCP Family Medicine; Referring Provider Internal Medicine Hematology & Oncology; Visit Provider Internal Medicine Hematology & Oncology
DX: Z12.31 Encounter for screening mammogram for malignant neoplasm of breast (principal); C50.812 Malignant neoplasm of overlapping sites of left female breast
CPT/HCPCS: 77063; 77067

== ENCOUNTER → 2020-09-30 08:00 | Outpatient (CLI) | payer OTHER, MEDICAID, SELFPAY ==
[2019-06-05 13:52] VITALS: BMI 42.4
[2020-09-30 10:35] LABS: COVID19 -Nasal RAPID Negative (Negative)
== END ==
PROVIDERS: PCP Family Medicine; Visit Provider Obstetrics & Gynecology
DX: Z01.812 Encounter for preprocedural laboratory examination (principal); Z20.828 Contact with and (suspected) exposure to other viral communicable diseases
CPT/HCPCS: 87635

== ENCOUNTER 2020-10-06 06:44 | Day surgery (SDC) | payer OTHER, MEDICAID, SELFPAY ==
[2019-06-05 13:52] VITALS: BMI 42.4
[2020-09-28 15:14] VITALS: BMI 44.4
[2020-10-06] VITALS (17 sets, daily range): BP systolic 106–157; BP diastolic 1–97; PULSE 80–106; RESP 10–21; TEMP 36–36.8; O2SAT 92–99; BMI 44.1
[2020-10-06 07:26] LABS: COVID19 -Nasal RAPID Negative (Negative)
[2020-10-06] MEDS: LACTATED RINGERS 1,000 ML 100 ML IV ×2 (07:40→12:09)
--- NOTE | 2020-10-06 08:14 | PM.HP.1 ---
History of Present Illness History of Present Illness Date Patient Seen: 10/06/20 Time Patient Seen: 08:14 Chief complaint: *OPB* Narrative: Patient is a 50-year-old 4 para 3 with a symptomatic cystocele, rectocele, and stress urinary incontinence. She is here for anterior and posterior repair with TVT and cystoscopy. 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) Psoriasis Sinus drainage Urinary incontinence Uterine fibroid Surgical History (Updated 08/26/19 @ 15:06 by Scotty Espinal MD) History of vaginal hysterectomy (~07/2017) Hx of cholecystectomy Hx of left mastectomy (06/05/19) Status post excision of lipoma (~2013) Status post tubal ligation (~2013) Family & Social History Family History Father Alcoholism Mother Age: 69 Depression Grandfather Diabetes mellitus Mother Parkinson's disease Social History: household members significant other,children Tobacco & Substance use: Tobacco type cigarettes Smoking Status Former smoker alcohol intake current alcohol intake frequency a few times a week Substance Use Type does not use Meds Home Medications and Allergies Home Medications Medication Instructions Recorded Confirmed Type loratadine 10 mg tablet 10 mg PO DAILY 11/29/17 10/06/20 History doxycycline monohydrate 50 mg PO DAILY 09/24/19 10/06/20 History lidocaine 5 % topical patch 2 patch TOP DAILY #15 each 02/10/20 10/06/20 Rx gabapentin 600 mg PO TID #180 cap 03/09/20 10/06/20 Rx lorazepam [Ativan] 1 mg PO DIRECTED PRN #1 tab 06/04/20 10/06/20 Rx cyclobenzaprine 5 mg tablet See Rx Instructions .ROUTE 09/10/20 10/06/20 Rx .COMPLEX #90 tab duloxetine 20 mg capsule,delayed See Rx Instructions .ROUTE 09/10/20 10/06/20 Rx release .COMPLEX #60 cap estradiol See Rx Instructions .ROUTE 10/02/20 10/06/20 Rx .COMPLEX #42.5 g thyroid (pork) 105 mg PO DAILY 10/06/20 10/06/20 History Allergies Allergy/AdvReac Type Severity Reaction Status Date / Time Penicillins [PENICILLINS] Allergy Severe ANAPHYLAXIS Verified 10/06/20 07:40 latex [LATEX] Allergy Unknown Blisters Verified 10/06/20 07:40 codeine [CODEINE] AdvReac Mild LETHARGY Verified 10/06/20 07:40 (LASTS 2-3 DAYS) Exam Vital Signs (past 8 hours): - 10/06/20 07:44 Temperature 97.9 F Pulse Rate 94 H Respiratory Rate 16 Blood Pressure 157/97 H Pulse Oximetry 97 Oxygen Delivery Method Room Air Narrative Exam Narrative: HEENT: No thyromegaly, no anterior cervical or supraclavicular lymphadenopathy. Lungs:Clear to auscultation bilaterally, no wheezes. Cardiovascular: Regular rate and rhythm, no murmurs, rubs, or gallops. Abdomen: Well-healed scars. No hepatosplenomegaly. No masses palpable. External genitalia: Normal Vagina: Second-degree rectocele, third-degree cystocele. Good vaginal vault support. Cervix: Absent Bimanual exam: No masses or tenderness. Objective Labs Labs: Laboratory Results - last 24 hr 10/06/20 07:00 SARS-CoV-2 (PCR) Negative Assessment & Plan Assessment & Plan narrative: Assessment: 50-year-old 4 para 3 with a symptomatic cystocele, and rectocele. Stress urinary incontinence Plan: Anterior and posterior repair, TVT with cystoscopy The risks, benefits, and alternatives to the procedure were explained to the patient. The risks including bleeding, infection, injury to the bladder, urethra, or rectum. She understands these risks and agrees to proceed. A full par Q was held and consent form was signed. COVID-19 COVID-19 status: Negative Result date/Date tested (Pos, Neg/Pending): 10/06/20 Time Spent With Patient Time with patient: 15-24 minutes
--- NOTE | 2020-10-06 08:17 | PM.PREOP ---
Pre-operative Note COVID-19 COVID-19 status: Negative Result date/Date tested (Pos, Neg/Pending): 10/06/20 Interval Note History & Physical reviewed/Exam performed by Physician: Yes Changes to H&P: No H&P completed within 30 days and has changed as indicated here:: 10/06/20
[2020-10-06] MEDS: CLINDAMYCIN 900 MG/50 ML PIGGYBACK 50 MG IV (08:20)
--- NOTE | 2020-10-06 08:54 | SUR.OPER ---
Lithotomy on padded OR bed, head on pillow, arms secured on padded arm boards at <90 degrees abduction. Legs secured in padded yellow fins stirrups.
[2020-10-06] MEDS: BUPIVACAINE 0.5% W/ EPI (PF) 30 ML VIAL INJ (08:59)
[2020-10-06] MEDS: SODIUM CHLORIDE 0.9% FLUSH 10 ML IV (09:00)
--- NOTE | 2020-10-06 10:32 | PM.GYNOP.1 ---
Operative Date/Time/Diagnoses Date of procedure: 10/06/20 Time of procedure: 10:32 Procedure & Clinicians Procedure: Procedures Operation Date: 10/06/20 08:15 Actual Procedures Side Surgeon p Anterior/Posterior Repair Lashaun Carson MD s Sling TVT w/cystoscopy Lashaun Carson MD Indications: Symptomatic cystocele, rectocele, and stress urinary incontinence Surgeon: Lashaun Carson Visual Specialist: Jose C Lisa Anesthesia Type: General and Local Operative Notes Findings: Third-degree cystocele Third-degree rectocele Increased urethrovesical angle Closure Type: primary Specimen(s): none Applied: catheter (To continuous drainage) Estimated blood loss (mL): 75 Procedure in detail: The patient was taken to the operating room where she was placed in the dorsal supine position. After adequate general endotracheal anesthesia was achieved, she was placed in the dorsal lithotomy position, and prepped and draped in the usual sterile fashion. A timeout was performed. Allis clamps were placed at the superior and inferior edge of the cystocele. 6 mL of half percent Marcaine with epinephrine were injected and an incision was made with a #10 blade between the Allis clamps. The mucosa was undermined using the Metzenbaum scissors and wide Allis clamps were placed at the edges of the mucosa. The mucosa was dissected off the underlying fascia using an open moistened Ray-Seymour and a #10 blade. The fascia was reapproximated with 0 Vicryl with a series of horizontal mattress sutures. The excess vaginal mucosa was excised. The mucosa was closed using simple interrupted sutures with 2-0 Vicryl including the underlying fascia to close the space. The weighted speculum was removed from the vagina. Allis clamps were placed at the mucocutaneous junction at the introitus. 6 mL of half percent Marcaine with epinephrine were injected. An incision was made with a #10 blade between the 2 Allis clamps, and a triangular piece of skin and underlying subcutaneous tissue was removed. Allis clamps were placed in the midline of the rectocele. 10 mL of half percent Marcaine with epinephrine were injected submucosally. The mucosa was undermined using the Metzenbaum scissors and the mucosa incised in the midline, moving the wide Allis clamps to the mucosal edges. The underlying fascia was dissected off of th mucosa using an open moistened Ray-Seymour and a #10 blade. The fascia was reapproximated using 0 Vicryl with a series of horizontal mattress sutures. The excess vaginal mucosa was excised. The mucosa was closed using a series of simple interrupted sutures with 2-0 Vicryl including the underlying fascia to close the space. On the perineum 0 Vicryl was used to reapproximate the levator muscle. The subcutaneous layer was closed with 2-0 Vicryl. The skin was closed with 3-0 chromic in a subcuticular fashion. Hemostasis was achieved. The bladder was emptied. 100 mL of the dilute quarter percent Marcaine with epinephrine were placed into the space of Retzius behind the pubic symphysis. A weighted speculum was placed into the vagina. 2 Allis clamps were placed lateral to the urethral meatus approximately 1 cm distal. 3 mL of a dilute quarter percent Marcaine were placed submucosally. A 1 cm incision was made 1 cm away from the urethral meatus. This was dissected out laterally with the Metzenbaum scissors. A rigid catheter was placed into the bladder. With the bladder neck retracted away from the patient's right side 10 mL of the dilute local were placed aiming towards the patient's right shoulder up behind the pubic symphysis. This was repeated on the patient's left side, with the bladder neck retracted away from the patient's left side. After the TVT was loaded and with the bladder neck retracted away from the patient's right side the TVT was directed towards the patient's shoulder on the right side, perforating the urogenital diaphragm, and then directed up behind the pubic symphysis and the introducer came out approximately 2 cm lateral to the midline on the left side. A small 3 mm ena in the skin was made and the introducer was brought up and grasped with a Teagan. This was repeated on the patient's left side with the bladder neck retracted away from the patient's left side. The rigid portion of the catheter was removed. The bladder was filled with 240 mL of sterile saline. A cystoscopy was performed and there was no TVT were introducer visible in the bladder. The to introducers were pulled up with care not to over tighten the TVT. The patient was made to cough and initially there was a spurt of fluid from the urethral meatus. The TVT was pulled slightly. A second cough produced no leakage. The TVT was cut below the skin edge, with care not to over tighten. Mcgrath scissors were placed between the TVT and urethra to prevent tension. The mucosa was closed with 3-0 Vicryl with a running interlocking suture. Hemostasis was achieved. The TVT incisions were closed with Dermabond glue. Complications: none Post-operative Condition: stable Disposition: PACU Plan for aftercare: To Acute care after recovery
[2020-10-06] MEDS: ACETAMINOPHEN 325 MG TABLET 975 MG PO (10:58)
[2020-10-06] MEDS: KETOROLAC 30 MG/ML VIAL IV (10:58)
[2020-10-06] MEDS: ONDANSETRON 4 MG/2 ML INJ IV (11:07)
--- NOTE | 2020-10-06 11:20 | SUR.PHASEI ---
Pt transferred in Bed to room 219 by Nabila Scott and Tracie SCOTT. SBAR report called to Rika Scott at 11:16am
[2020-10-06] MEDS: ACETAMINOPHEN 325 MG TABLET 650 MG PO (13:07)
[2020-10-06] MEDS: GABAPENTIN 300 MG CAPSULE 600 MG PO ×2 (15:16→21:09)
[2020-10-06] MEDS: DULOXETINE 20 MG CAPSULE PO (15:42)
[2020-10-06] MEDS: DOCUSATE 250 MG CAPSULE PO (21:09)
[2020-10-07 04:35] VITALS: BP 119/77; PULSE 91; RESP 19; TEMP 36.3; O2SAT 96
[2020-10-07 05:11] LABS: Add Manual Diff / Slide Review NO; Basophils Absolute Auto 0 /uL (0-100); Basophils Percent Auto 0.2 % (0-2); Eosinophils Absolute Auto 0 /uL (0-450); Hematocrit 38.8 % (36-46); Hemoglobin 12.7 g/dL (12.0-16.0); Lymphocytes Absolute Auto 1700 /uL (1100-4500); Lymphocytes Percent Auto 8.3 % (25-40); Mean Corpuscular HGB Conc 32.8 % (30-36); Mean Corpuscular Hemoglobin 30.9 PG (26-34); Mean Corpuscular Volume 94.2 fL (80-100); Monocytes Absolute Auto 1400 /uL (0-900); Monocytes Percent Auto 6.7 % (3-14); Neutrophils Absolute Auto 17300 /uL (1500-7000); Neutrophils Percent Auto 84.8 % (50-75); Platelet Count 214 X10^3/uL (150-400); Red Blood Cell Count 4.12 X10^6/uL (4.0-5.2); Red Cell Distribution Width 13.3 % (11.6-14.8); White Blood Cell Count 20.4 X10^3/uL (4.5-11.0)
[2020-10-07 07:47] VITALS: BP 140/98; PULSE 78; RESP 16; TEMP 36.3; O2SAT 96
[2020-10-07] MEDS: ARMOUR THYROID 15 MG 1 EACH PO (07:50)
[2020-10-07] MEDS: ARMOUR THYROID 90 MG 1 EACH PO (07:50)
[2020-10-07] MEDS: DOCUSATE 250 MG CAPSULE PO (07:50)
[2020-10-07] MEDS: DOXYCYCLINE HYCLATE 100 MG TABLET 50 MG PO (09:11)
[2020-10-07] MEDS: GABAPENTIN 300 MG CAPSULE 600 MG PO ×2 (09:13→15:37)
[2020-10-07] MEDS: LORATADINE 10 MG TABLET PO (09:13)
[2020-10-07] MEDS: DULOXETINE 20 MG CAPSULE PO (09:13)
[2020-10-07 12:22] VITALS: BP 132/91; PULSE 96; RESP 16; TEMP 36.7; O2SAT 96
--- NOTE | 2020-10-07 13:38 | CM.DANOTE ---
DCP Brief Assessment Note Patient is a 50 year old female who was admitted on 10/06/20 for Cystocele/rectocele. Pt has [employer] [facility] for insurance and her PCP is Dr. Qiana Christine. EMR was reviewed. Per MD, pt with complex medical hx with radical mastectomy in Jun 2019 last year and now with urinary incontinence and repair with TVT and cystoscopy. Pt appears to have tolerated procedure well. SW attempted to meet bedside with pt but she was in the shower and per RN pt has been in good spirits, alert and oriented, and independent in room and plan is d/c home today but pt's ride not available until this evening and no concerns noted at this time. No identified barriers to discharge. Pt has had follow up with Oncologist Dr. Espinal post mastectomy last year. Plan: Patient to d/c home via family POV this evening and no SW needs at this time, please refer if indicated. DINA Liang
--- NOTE | 2020-10-07 18:39 | PC.NURSE ---
Patient discharged in stable condition. She was wheeled downstairs to meet her ride. All belongings are with her. Patient teaching done and all questions/concerns addressed. Patient was able to ambulate self into vehicle.
== END 2020-10-07 18:30 | disposition home or self-care (01) ==
LOC: OR 06:45 → AC 06:46
PROVIDERS: PCP Family Medicine; Referring Provider Obstetrics & Gynecology; Visit Provider Obstetrics & Gynecology
PROC: (CPT 57288; principal; 2020-10-06 08:15)
PROC: 0TSD0ZZ Reposition Urethra, Open Approach (ICD-10-PCS; CPT 57288; 2020-10-06 08:15)
DX: N81.10 Cystocele, unspecified (principal); N81.6 Rectocele; N39.3 Stress incontinence (female) (male); Z20.822 Contact with and (suspected) exposure to COVID-19; E03.9 Hypothyroidism, unspecified; M79.7 Fibromyalgia
CPT/HCPCS: 57288; 57260; 36415; 85025; 87635; C1771; C9803; J0330; J1100; J1885; J2250; J2405; J2704; J3010

== ENCOUNTER → 2020-11-16 10:27 | Outpatient (CLI) | payer OTHER, MEDICAID, SELFPAY ==
[2020-10-28 17:12] VITALS: BMI 44.1
[2020-11-16 11:34] LABS: Add Manual Diff / Slide Review NO; Basophils Absolute Auto 0 /uL (0-100); Basophils Percent Auto 0.6 % (0-2); Eosinophils Absolute Auto 100 /uL (0-450); Eosinophils Percent Auto 2.1 % (2-4); Hematocrit 41.2 % (36-46); Hemoglobin 13.2 g/dL (12.0-16.0); Lymphocytes Absolute Auto 1600 /uL (1100-4500); Lymphocytes Percent Auto 25.8 % (25-40); Mean Corpuscular HGB Conc 32.2 % (30-36); Mean Corpuscular Hemoglobin 30.6 PG (26-34); Mean Corpuscular Volume 95.3 fL (80-100); Monocytes Absolute Auto 400 /uL (0-900); Neutrophils Absolute Auto 4000 /uL (1500-7000); Neutrophils Percent Auto 64.5 % (50-75); Platelet Count 220 X10^3/uL (150-400); Red Blood Cell Count 4.32 X10^6/uL (4.0-5.2); Red Cell Distribution Width 13.9 % (11.6-14.8); White Blood Cell Count 6.2 X10^3/uL (4.5-11.0)
[2020-11-16 11:54] LABS: Alanine Aminotransferase 48 IU/L (<35); Albumin 4.3 g/dL (3.5-5.0); Albumin Globulin Ratio 1.3 (1.0-2.8); Alkaline Phosphatase 99 U/L (38-126); Aspartate Aminotransferase 42 IU/L (14-36); BUN Creatinine Ratio 12.5 (6-22); Bilirubin Total 0.4 mg/dL (0.2-1.3); Blood Urea Nitrogen 9 mg/dL (7-17); Calcium 9.4 mg/dL (8.4-10.2); Carbon Dioxide 28 mmol/L (22-32); Chloride 104 mmol/L (98-107); Estimated Glomerular Filt Rate > 60.0 mL/min (>60); Globulin 3.2 g/dL (1.7-4.1); Glucose 120 mg/dL (70-100); HEMOLYSIS < 15 (0-50); Sodium 139 mmol/L (137-145); Total Protein 7.5 g/dL (6.3-8.2)
[2020-11-16 13:10] LABS: Free T3, Triiodothyronine Free 5.15 pg/mL (2.77-5.27); Free T4, Direct Thyroxine 0.63 ng/dL (0.78-2.19)
[2020-11-16 13:24] LABS: Thyroid Stimulating Hormone 0.411 uIU/mL (0.47-4.68)
== END ==
PROVIDERS: Internal Medicine Hematology & Oncology; PCP Family Medicine; Referring Provider Family Medicine; Visit Provider Family Medicine
DX: C50.912 Malignant neoplasm of unspecified site of left female breast (principal); E89.0 Postprocedural hypothyroidism
CPT/HCPCS: 36415; 80053; 84439; 84443; 84481; 85025

== ENCOUNTER → 2020-11-30 12:46 | Outpatient (CLI) | payer OTHER, MEDICAID, SELFPAY ==
[2020-10-28 17:12] VITALS: BMI 44.1
--- NOTE | 2020-11-30 12:47 | DI.US.S_ITS ---
LIMITED ULTRASOUND OF RIGHT BREAST: 11/30/2020 CLINICAL: Focal right breast pain. Comparison is made to exams dated: 08/22/2020 mammogram - [facility], 05/15/2019 breast MRI - outside location, 12/11/2018 breast MRI - [facility], and 10/19/2018 mammogram - [facility]. Real-time ultrasound of the right breast was performed. Bangura scale images of the real-time examination were reviewed. No significant abnormalities were seen sonographically in the right breast. IMPRESSION: NEGATIVE There is no sonographic evidence of malignancy. There is no abnormality seen in the right breast to correspond with the diffuse pain, however, clinical correlation is recommended. A 1 year screening mammogram is recommended. Future imaging is recommended as follows: 08/23/2021 screening mammogram. This exam was interpreted at Station ID: [id number]. Electronically Signed By: Shawn feldman/kenya:11/30/2020 14:23:01 copy to: MARTA ECHEVARRIA copy to: Cara Dorantes, [facility] letter sent: Clinical Evaluation Ultrasound BI-RADS: 1 Negative
--- NOTE | 2020-11-30 12:47 | DI.US.S_ITS ---
LIMITED ULTRASOUND OF LEFT BREAST AND AXILLA: 11/30/2020 CLINICAL: Focal left breast pain. Comparison is made to exams dated: 05/15/2019 breast MRI - outside location, 03/11/2019 mammogram, 03/11/2019 ultrasound, and 10/19/2018 ultrasound - [facility]. Color flow ultrasound of the left breast axilla was performed. Bangura scale images of the real-time examination were reviewed. The patient is status post mastectomy left breast. There is a 1.9 cm x 3.5 cm x 0.7 cm irregular mass in the left breast at 6 o'clock middle depth 7 cm from the nipple. This irregular mass is hypoechoic. This correlates as an incidental finding. Color flow imaging demonstrates that there is no vascularity present. No significant abnormalities were seen sonographically in the left axilla. IMPRESSION: PROBABLY BENIGN The 1.9 cm x 3.5 cm x 0.7 cm irregular mass in the left breast likely represents postsurgical scarring and is probably benign. There is no abnormality seen in the left breast to correspond with the diffuse pain, however, clinical correlation is recommended. A follow-up left ultrasound in 6 months is recommended to demonstrate stability. Future imaging is recommended as follows: 08/23/2021 screening mammogram. This exam was interpreted at Station ID: [id number]. Electronically Signed By: Shawn Talamantes M.D. ar/:11/30/2020 14:24:37 copy to: MARTA ECHEVARRIA copy to: Cara Dorantes, [facility] letter sent: Followup Recommended Ultrasound BI-RADS: 3 Probably benign
== END ==
PROVIDERS: PCP Family Medicine; Referring Provider Internal Medicine Hematology & Oncology; Visit Provider Internal Medicine Hematology & Oncology
DX: C50.812 Malignant neoplasm of overlapping sites of left female breast (principal); C50.512 Malignant neoplasm of lower-outer quadrant of left female breast; N64.4 Mastodynia; N63.25 Unspecified lump in the left breast, overlapping quadrants; Z17.1 Estrogen receptor negative status [ER-]
CPT/HCPCS: 76642

== ENCOUNTER → 2021-03-31 12:42 | Outpatient (CLI) | payer OTHER, MEDICAID, SELFPAY ==
[2020-10-28 17:12] VITALS: BMI 44.1
[2021-03-31 14:34] LABS: Free T3, Triiodothyronine Free 5.47 pg/mL (2.77-5.27); Free T4, Direct Thyroxine 0.69 ng/dL (0.78-2.19)
[2021-03-31 14:47] LABS: Thyroid Stimulating Hormone 0.036 uIU/mL (0.47-4.68)
== END ==
PROVIDERS: PCP Family Medicine; Referring Provider Family Medicine; Visit Provider Family Medicine
DX: E03.9 Hypothyroidism, unspecified (principal)
CPT/HCPCS: 36415; 84439; 84443; 84481

== ENCOUNTER → 2021-04-13 11:23 | Outpatient (CLI) | payer OTHER, MEDICAID, SELFPAY ==
[2020-10-28 17:12] VITALS: BMI 44.1
--- NOTE | 2021-04-13 11:24 | DI.US.S_ITS ---
ULTRASOUND OF LEFT BREAST: 04/13/2021 CLINICAL: Patient returns for a 6 month follow up of the left breast. Comparison is made to exams dated: 11/30/2020 ultrasound - [facility], 05/15/2019 breast MRI - outside location, 03/11/2019 mammogram, 03/11/2019 ultrasound - [facility], 12/11/2018 breast MRI - [facility], and 11/09/2018 mammogram - [facility]. Color flow and real-time ultrasound of the left breast were performed. Bangura scale images of the real-time examination were reviewed. The patient is status post mastectomy left breast. Redemonstration of a 1.8 cm x 3.9 cm x 0.5 cm irregular mass in the left breast at 6 o'clock middle depth 7 cm from the nipple. This irregular mass is hypoechoic. This abnormality is not significantly changed and correlates as an incidental finding in the region of previous mastectomy. Color flow imaging demonstrates that there is no vascularity present. IMPRESSION: PROBABLY BENIGN The 1.8 cm x 3.9 cm x 0.5 cm irregular mass in the left breast likely represents post surgical scarring and is probably benign. There is no abnormality seen in the left breast to correspond with the area of pain, however, recommend clinical follow up for persistent or worsening symptoms, or development of any clinically suspicious findings. A follow-up right mammogram and a left ultrasound in 6 months is recommended to demonstrate stability. Findings and recommendations were conveyed to the patient during today's evaluation. This exam was interpreted at Station ID: [id number]. Electronically Signed By: Gabriel Carr M.D. at/:04/13/2021 12:13:45 copy to: MARTA ECHEVARRIA copy to: Cara Dorantes, [facility] letter sent: Followup Recommended Ultrasound BI-RADS: 3 Probably benign
== END ==
PROVIDERS: PCP Family Medicine; Referring Provider Internal Medicine Hematology & Oncology; Visit Provider Internal Medicine Hematology & Oncology
DX: N63.25 Unspecified lump in the left breast, overlapping quadrants; R92.8 Other abnormal and inconclusive findings on diagnostic imaging of breast; C50.812 Malignant neoplasm of overlapping sites of left female breast; C50.512 Malignant neoplasm of lower-outer quadrant of left female breast; N64.4 Mastodynia; R74.01 Elevation of levels of liver transaminase levels; Z17.1 Estrogen receptor negative status [ER-]; Z90.12 Acquired absence of left breast and nipple
CPT/HCPCS: 76642

== ENCOUNTER → 2021-05-17 15:06 | Outpatient (CLI) | payer OTHER, MEDICAID, SELFPAY ==
[2020-10-28 17:12] VITALS: BMI 44.1
[2021-05-17 16:07] LABS: Free T3, Triiodothyronine Free 4.27 pg/mL (2.77-5.27)
[2021-05-17 16:20] LABS: Thyroid Stimulating Hormone 0.237 uIU/mL (0.47-4.68)
== END ==
PROVIDERS: PCP Family Medicine; Referring Provider Family Medicine; Visit Provider Family Medicine
DX: E03.9 Hypothyroidism, unspecified (principal)
CPT/HCPCS: 36415; 84439; 84443; 84481

== ENCOUNTER → 2021-06-08 14:52 | Outpatient (CLI) | payer OTHER, MEDICAID, SELFPAY ==
[2020-10-28 17:12] VITALS: BMI 44.1
[2021-06-08 15:12] LABS: Appearance Urine UA CLEAR; Bilirubin Urine UA NEGATIVE (NEGATIVE); Color Urine UA YELLOW; Glucose Urine UA NEGATIVE (Negative); Ketones Urine UA NEGATIVE (NEGATIVE); Leukocyte Esterase Urine UA NEGATIVE (NEGATIVE); Nitrite Urine UA NEGATIVE (Negative); Occult Blood Urine UA NEGATIVE (Negative); Protein Urine UA NEGATIVE (Negative); Urobilinogen Urine UA 0.2 E.U./dL (0.2)
[2021-06-08 16:01] LABS: Bacteria Urine Few (2-10); Culture Indicated Urine Cult Not Indicated; RBC Urine None Seen (0-5/HPF); Squamous Epithelial Cell Urine 1-5 /HPF (0-5/HPF); WBC Urine 0-1/HPF (0-5/HPF)
== END ==
PROVIDERS: PCP Family Medicine; Referring Provider Family Medicine; Visit Provider Family Medicine
DX: R10.9 Unspecified abdominal pain (principal)
CPT/HCPCS: 81001

== ENCOUNTER → 2021-08-13 12:30 | Outpatient (CLI) | payer OTHER, MEDICAID, SELFPAY ==
[2020-10-28 17:12] VITALS: BMI 44.1
[2021-08-13 13:51] LABS: Add Manual Diff / Slide Review NO; Basophils Absolute Auto 0 /uL (0-100); Basophils Percent Auto 0.6 % (0-2); Eosinophils Absolute Auto 100 /uL (0-450); Eosinophils Percent Auto 1.6 % (2-4); Hematocrit 41.1 % (36-46); Lymphocytes Absolute Auto 1500 /uL (1100-4500); Lymphocytes Percent Auto 21.2 % (25-40); Mean Corpuscular Hemoglobin 31.2 PG (26-34); Mean Corpuscular Volume 91.8 fL (80-100); Monocytes Absolute Auto 700 /uL (0-900); Monocytes Percent Auto 9.8 % (3-14); Neutrophils Absolute Auto 4900 /uL (1500-7000); Neutrophils Percent Auto 66.8 % (50-75); Platelet Count 213 X10^3/uL (150-400); Red Blood Cell Count 4.48 X10^6/uL (4.0-5.2); Red Cell Distribution Width 13.5 % (11.6-14.8); White Blood Cell Count 7.3 X10^3/uL (4.5-11.0)
[2021-08-13 14:17] LABS: Alanine Aminotransferase 39 IU/L (<35); Albumin 4.6 g/dL (3.5-5.0); Albumin Globulin Ratio 1.3 (1.0-2.8); Alkaline Phosphatase 90 U/L (38-126); Aspartate Aminotransferase 39 IU/L (14-36); BUN Creatinine Ratio 13.2 (6-22); Bilirubin Total 0.5 mg/dL (0.2-1.3); Blood Urea Nitrogen 9 mg/dL (7-17); Calcium 9.4 mg/dL (8.4-10.2); Carbon Dioxide 28 mmol/L (22-32); Chloride 103 mmol/L (98-107); Cholesterol 219 mg/dL (140-199); Estimated Glomerular Filt Rate > 60.0 mL/min (>60); Globulin 3.6 g/dL (1.7-4.1); Glucose 102 mg/dL (70-100); HDL Cholesterol 37 mg/dL (40-60); HEMOLYSIS < 15 (0-50); LDL Cholesterol Calculated 133 mg/dL (<100); Potassium 3.9 mmol/L (3.4-5.1); Sodium 139 mmol/L (137-145); Total Protein 8.2 g/dL (6.3-8.2); Triglycerides 244 mg/dL (35-150)
[2021-08-13 14:32] LABS: Free T3, Triiodothyronine Free 5.18 pg/mL (2.77-5.27); Free T4, Direct Thyroxine 0.89 ng/dL (0.78-2.19)
[2021-08-13 14:45] LABS: Thyroid Stimulating Hormone 0.224 uIU/mL (0.47-4.68)
== END ==
PROVIDERS: PCP Family Medicine; Referring Provider Family Medicine; Visit Provider Family Medicine
DX: M79.7 Fibromyalgia (principal); C50.919 Malignant neoplasm of unspecified site of unspecified female breast; E88.81 Metabolic syndrome and other insulin resistance; L65.9 Nonscarring hair loss, unspecified; E89.0 Postprocedural hypothyroidism; G62.9 Polyneuropathy, unspecified
CPT/HCPCS: 36415; 80053; 80061; 84439; 84443; 84481; 85025

== ENCOUNTER → 2021-09-03 12:05 | Outpatient (CLI) | payer OTHER, MEDICAID, SELFPAY ==
[2020-10-28 17:12] VITALS: BMI 44.1
--- NOTE | 2021-09-03 | DI.MG.S_ITS ---
UNILATERAL RIGHT DIGITAL SCREENING MAMMOGRAM 3D/2D WITH CAD: 09/03/2021 CLINICAL: Routine screening. Personal history of left breast cancer. Comparison is made to exams dated: 08/22/2020 mammogram and 10/19/2018 mammogram - [facility]. The tissue of right breast is predominantly fatty. Current study was also evaluated with a Computer Aided Detection (CAD) system. No significant masses, calcifications, or other findings are seen in the breast. There has been no significant interval change. IMPRESSION: NEGATIVE There is no mammographic evidence of malignancy. A 1 year screening mammogram is recommended. Future imaging is recommended as follows: 10/12/2021 mammogram and an ultrasound. This exam was interpreted at Station ID: [id number]. NOTE: For mammograms, a report in lay terms will be sent to the patient. Approximately 15% of breast malignancies will not be visualized mammographically. In the management of a palpable breast mass, a negative mammogram must not discourage biopsy of a clinically suspicious lesion. Electronically Signed By: Huong romero/kenya:09/03/2021 13:54:59 copy to: MARTA ECHEVARRIA copy to: Cara Dorantes [facility] letter sent: Normal Exam ACR BI-RADS Category 1: Negative [id number]
== END ==
PROVIDERS: PCP Family Medicine; Referring Provider Family Medicine; Visit Provider Family Medicine
DX: Z85.3 Personal history of malignant neoplasm of breast (principal); Z13.820 Encounter for screening for osteoporosis; E05.00 Thyrotoxicosis with diffuse goiter without thyrotoxic crisis or storm; Z12.31 Encounter for screening mammogram for malignant neoplasm of breast; M06.9 Rheumatoid arthritis, unspecified; Z90.710 Acquired absence of both cervix and uterus
CPT/HCPCS: 77063; 77067; 77080

== ENCOUNTER → 2021-10-06 11:38 | Outpatient (CLI) | payer OTHER, MEDICAID, SELFPAY ==
[2020-10-28 17:12] VITALS: BMI 44.1
[2021-10-06 13:12] LABS: COVID19 -Nasal RAPID POSITIVE (Negative)
== END ==
PROVIDERS: PCP Family Medicine; Visit Provider Surgery
DX: Z01.812 Encounter for preprocedural laboratory examination (principal); Z20.822 Contact with and (suspected) exposure to COVID-19
CPT/HCPCS: 87635; C9803

== ENCOUNTER → 2021-12-08 10:23 | Outpatient (CLI) | payer OTHER, MEDICAID, SELFPAY ==
[2020-10-28 17:12] VITALS: BMI 44.1
[2021-12-08 11:22] LABS: COVID19 -Nasal RAPID Negative (Negative)
== END ==
PROVIDERS: PCP Pediatrics; Visit Provider Surgery
DX: Z01.812 Encounter for preprocedural laboratory examination (principal); Z20.822 Contact with and (suspected) exposure to COVID-19
CPT/HCPCS: 87635; C9803

== ENCOUNTER 2021-12-10 09:45 | Emergency (ER) | payer OTHER, MEDICAID, SELFPAY ==
[2020-10-28 17:12] VITALS: BMI 44.1
[2021-12-10] VITALS (7 sets, daily range): BP systolic 126–153; BP diastolic 60–95; PULSE 71–88; RESP 17; TEMP 36.7; O2SAT 94–98; BMI 45.6
[2021-12-10] MEDS: ONDANSETRON 4 MG/2 ML INJ IV ×2 (10:17→15:16)
[2021-12-10] MEDS: SODIUM CHLORIDE 0.9% 1,000 ML 1000 ML IV (10:17)
--- NOTE | 2021-12-10 11:20 | ED.HA ---
HPI - Headache General Chief Complaint: Headache Stated Complaint: Headache x3 days Time Seen by Provider: 12/10/21 11:04 Mode of arrival: EMS History of Present Illness HPI Narrative: Patient is a 51-year-old female history of migraine headaches thyroid presenting today with headache ongoing for the last 36 hours. She says usually she just takes ibuprofen sleep some drinks cold water but it is not working this time. This is the worse headache of her life. She feels like her brain is washing around. She denies any fever chills. No numbness tingling or weakness. She has photosensitivity. She feels nauseous and she has been vomiting. Related Data Home Medications Medication Instructions Recorded Confirmed loratadine 10 mg tablet (Allergy 10 mg PO DAILY 11/29/17 11/15/21 Relief (loratadine)) doxycycline hyclate 100 mg capsule 100 mg PO BID 11/15/21 11/15/21 Previous Rx's Medication Instructions Recorded levothyroxine 25 mcg tablet See Rx Instructions .Route 09/03/21 .COMPLEX #90 tabs gabapentin 600 mg tablet 600 mg PO TID #90 tabs 09/10/21 cyclobenzaprine 5 mg tablet See Rx Instructions .Route 11/09/21 .COMPLEX #90 tabs thyroid (pork) 90 mg tablet 90 mg PO DAILY #90 tabs 11/09/21 ([place] Thyroid) lidocaine 5 % topical patch 2 patch topical DAILY #15 ea 11/15/21 bupropion HCl 150 mg 24 hr tablet, 150 mg PO DAILY #90 tabs 12/06/21 extended release duloxetine 30 mg capsule,delayed 30 mg PO DAILY #30 caps 12/06/21 release (Cymbalta) Allergies Allergy/AdvReac Type Severity Reaction Status Date / Time Penicillins [PENICILLINS] Allergy Severe ANAPHYLAXIS Verified 12/10/21 09:59 latex [LATEX] Allergy Unknown Blisters Verified 12/10/21 09:59 codeine [CODEINE] AdvReac Mild LETHARGY Verified 12/10/21 09:59 (LASTS 2-3 DAYS) Review of Systems Review of Systems Narrative: GENERAL: Denies chills, fatigue, malaise, fever, sweats, travel HEENT: Denies sinus pain, ear pain, sore throat, difficulty swallowing, neck pain RESPIRATORY: Denies dyspnea, cough, wheezing, hemoptysis, sputum. CARDIOVASCULAR: Denies chest pain, palpitations, orthopnea, edema GASTROINTESTINAL: Denies nausea, vomiting, abdominal pain, diarrhea, constipation, melena. : Denies dysuria, frequency, incontinence, hematuria, urinary retention, flank pain. MUSCULOSKELETAL: Denies weakness, joint pain, or bony pain SKIN: No rash, no erythema, no pruritus NEUROLOGIC: See HPI PSYCHIATRIC: No concerning psychosocial issues. 12 point review of systems is negative except for those stated above and HPI Patient History Medical History Abnormal Pap smear of cervix Alopecia due to cytotoxic drug Angiolipoma Arthritis Axillary lymphadenopathy Cystocele (10/21/14) Depression Difficulty swallowing DIS OF GALLBLADDER NOS Elevated transaminase level Fibromyalgia Graves disease Headache Heartburn History of chemotherapy Left-sided chest wall pain Leg swelling Lung nodules Morbid obesity Myopia Pelvic relaxation Peripheral neuropathy 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) Psoriasis Sinus drainage Stress incontinence in female (10/21/14) Urge incontinence of urine (10/21/14) Urinary incontinence Uterine fibroid Vaginal mass Surgical History History of vaginal hysterectomy (~07/2017) Hx of cholecystectomy Hx of left mastectomy (06/05/19) Status post excision of lipoma (~2013) Status post tubal ligation (~2013) Family History Father Alcoholism Mother Age: 71 Depression Grandfather Diabetes mellitus Mother Parkinson's disease Social History household members: significant other and children Smoking Status: Former smoker alcohol intake: current Smoking Status: Former smoker alcohol intake frequency: holidays/special occasions only Substance Use Type: does not use Exam Initial Vital Signs Initial Vital Signs: Vital Signs Temperature 98.0 F 12/10/21 09:59 Pulse Rate 88 12/10/21 09:59 Respiratory Rate 17 12/10/21 09:59 Blood Pressure 141/95 H 12/10/21 09:59 Pulse Oximetry 98 12/10/21 09:59 Oxygen Delivery Method 12/10/21 09:59 GENERAL: 51-year-old female curled in a position appears uncomfortable and in pain HEENT: Head atraumatic,EOMI, pupils reactive, face symmetric, moist mucous membranes NECK: Supple CARDIOVASCULAR: Regular rate and rhythm without murmurs, rubs or gallops. RESPIRATORY: Breath sounds equal bilaterally, no wheezes rales or rhonchi. ABDOMEN: Soft, nontender. Normoactive bowel sounds all 4 quadrants. No guarding or rebound. EXTREMITIES: Normal range of motion, no clubbing or edema. Neurovascularly intact NEUROLOGICAL: Alert and oriented x4.Normal gait and speech. Cranial nerves II through XII grossly intact. Good [id number], good [id number], strength equal bilaterally, no dysarthria or aphasia, sensation in tact to soft touch bilaterally, no visual changes, no facial droop SKIN: Warm, dry, no laceration, no petechiae, no rashes or lesions. Course Orders Ordered: ED Orders 12/10/21 10:08 CBC Auto Diff [Complete Blood Count AUTO DIFF] Stat CMP [Comprehensive Metabolic Panel] Stat 12/10/21 11:24 CT head/brain wo con Stat 12/10/21 14:38 COVID19 -Nasal RAPID/Pre-Proc Stat Discontinued Medications Dexamethasone (Dexamethasone 10 Mg/Ml Vial) 10 mg IV NOW ONE Stop: 12/10/21 12:53 Last Admin: 12/10/21 13:23 Dose: 10 mg Documented By: CTS Hydromorphone HCl (Hydromorphone 0.5 Mg Inj) 0.5 mg IV NOW ONE Stop: 12/10/21 11:25 Last Admin: 12/10/21 11:36 Dose: 0.5 mg Documented By: CTS Hydromorphone HCl (Hydromorphone 1 Mg Inj) 1 mg IV NOW ONE Stop: 12/10/21 12:53 Last Admin: 12/10/21 13:23 Dose: 1 mg Documented By: CTS Hydromorphone HCl (Hydromorphone 1 Mg Inj) 1 mg IV NOW ONE Stop: 12/10/21 15:00 Last Admin: 12/10/21 15:16 Dose: Not Given Documented By: CTS Sodium Chloride (Normal Saline 0.9%) 1,000 mls @ 1,000 mls/hr IV BOLUS ONE Stop: 12/10/21 11:11 Last Infusion: 12/10/21 11:34 Dose: 0 mls/hr Documented By: Admin: 12/10/21 10:17 Dose: 1,000 mls/hr Documented By: JAVI Ondansetron HCl (Ondansetron 4 Mg/2 Ml Inj) 4 mg IV NOW ONE Stop: 12/10/21 10:13 Last Admin: 12/10/21 10:17 Dose: 4 mg Documented By: JAVI Ondansetron HCl (Ondansetron 4 Mg/2 Ml Inj) 4 mg IV NOW ONE Stop: 12/10/21 15:00 Last Admin: 12/10/21 15:16 Dose: 4 mg Documented By: ARIELLE Vital Signs Vital signs: Vital Signs - 8 hr 12/10/21 13:24 12/10/21 13:30 12/10/21 13:30 Pulse Rate 74 71 Blood Pressure 126/60 Pulse Oximetry 96 94 Oxygen Delivery Method 12/10/21 14:00 12/10/21 14:00 12/10/21 14:30 Pulse Rate 74 Blood Pressure 130/62 135/64 Pulse Oximetry Oxygen Delivery Method 12/10/21 14:30 12/10/21 14:39 12/10/21 14:39 Pulse Rate 74 84 Blood Pressure 143/73 H Pulse Oximetry 96 96 Oxygen Delivery Method Room Air 12/10/21 15:00 12/10/21 15:00 Pulse Rate 78 Blood Pressure 153/86 H Pulse Oximetry 97 Oxygen Delivery Method MDM - Headache Lab Data Result diagrams: 12/10/21 10:08 12/10/21 10:08 Labs: Lab Results 12/10/21 12/10/21 12/10/21 Range/Units 10:08 10:08 14:38 WBC 7.9 (4.5-11.0) X10^3/uL RBC 4.74 (4.0-5.2) X10^6/uL Hgb 14.8 (12.0-16.0) g/dL Hct 44.3 (36-46) % MCV 93.4 (80-100) fL MCH 31.3 (26-34) PG MCHC 33.5 (30-36) % RDW 14.2 (11.6-14.8) % Plt Count 267 (150-400) X10^3/uL Neut % (Auto) 72.9 (50-75) % Lymph % (Auto) 16.0 L (25-40) % [place] % (Auto) 8.3 (3-14) % Eos % (Auto) 2.2 (2-4) % Baso % (Auto) 0.6 (0-2) % Neut # (Auto) 5700 (0995-1158) /uL Lymph # (Auto) 1300 (5973-1059) /uL [place] # (Auto) 700 (0-900) /uL Eos # (Auto) 200 (0-450) /uL Baso # (Auto) 0 (0-100) /uL Sodium 137 (137-145) mmol/L Potassium 4.0 (3.4-5.1) mmol/L Chloride 104 (98-107) mmol/L Carbon Dioxide 26 (22-32) mmol/L BUN 11 (7-17) mg/dL Creatinine 0.71 (0.52-1.04) mg/dL Estimated GFR > 60 (>60) mL/min BUN/Creatinine Ratio 15.5 (6-22) Glucose 149 H (70-100) mg/dL Calcium 9.0 (8.4-10.2) mg/dL Total Bilirubin 0.8 (0.2-1.3) mg/dL AST 66 H (14-36) IU/L ALT 38 H (<35) IU/L Alkaline Phosphatase 126 (38-126) U/L Total Protein 8.3 H (6.3-8.2) g/dL Albumin 4.4 (3.5-5.0) g/dL Globulin 3.9 (1.7-4.1) g/dL Albumin/Globulin Ratio 1.1 (1.0-2.8) SARS-CoV-2 (PCR) Negative (Negative) Imaging Data CT scan - head: Radiologist's Impression: Signed Patient: May Frost MR#: [id number] : 1970 Acct:[id number] Age/Sex: 51 / F Date of Service: 12/10/21 Loc: Accession Number: [id number] ?? Procedure: CT head/brain wo con Ordering Provider: Yadira Salguero D.O. PROCEDURE:? CT HEAD/BRAIN WO CON ? INDICATIONS:? worst headache of life ? TECHNIQUE:? Noncontrast 4.5 mm thick angled axial sections acquired from the foramen magnum to the vertex, with coronal and sagittal reformats.? For radiation dose reduction, the following was used:? automated exposure control, adjustment of mA and/or kV according to patient size.? ? COMPARISON:? None. ? FINDINGS:? Image quality:? Excellent.? ? CSF spaces:? Basal cisterns are patent.? No extra-axial fluid collections.? Ventricles are normal in size and shape.? ? Brain:? There is ill-defined area of hypodensity involving left cerebellum with mass effect on the midline and 4th ventricle and up to 0.9 cm midline shift to the right.? No intracranial hemorrhage.? No area of abnormal density is seen in bilateral cerebellum.? 4 ?[place]-white matter interface is normal.? ? Skull and face:? Calvarium and visualized facial bones are intact, without suspicious lesions.? ? Sinuses:? Visualized sinuses and mastoids are clear.? ? IMPRESSION:? 1. Heterogeneously hypodense area involving left cerebellum with mass effect on the midline and 4th ventricle and up to 0.9 cm midline shift to the right at this level highly suggestive of metastatic lesion in left cerebellum given patient's history of breast cancer.? This can be further evaluated with MRI of brain without and with contrast. 2. No evidence of acute intracranial bleed.? No midline shift or mass effect is seen in bilateral cerebral hemispheres.? ? Dictated by: Sterling Beck M.D. on 12/10/2021 at 11:04 ? ? [facility] Narrative Medical decision making narrative: The patient presents today with worse headache of her life, CT shows probable brain mass with some mass effect on 4th ventricle and midline shift. She is neurologically intact. Attempted to get MRI but due to body habitus she does not fit in the MRI machine 1400 Dr. pierce neurosurgery has been updated on patient's symptoms test results and accepts to the ED at [facility] Patients mom has been notified. Critical Care Time Critical Care Time Critical Care Time: Yes Total Critical Care Time: 30 Attestation: The high probability of a clinically significant, sudden or life threatening deterioration of the neurology system(s) required my full and direct attention, intervention and personal management. The aggregate critical care time was 30 minutes. This time is in addition to time spent performing reported procedures but includes the following: [x] Data Review and interpretation [x] Patient assessment and monitoring of vital signs [x] Documentation [x] Medication orders and management Discharge Plan Departure Patient Disposition: [facility] Clinical Impression: Brain mass Prescriptions: No Action levothyroxine 25 mcg tablet See Rx Instructions .ROUTE .COMPLEX Qty: 90 3RF Dose Instruction: TAKE ONE TABLET BY MOUTH ONE TIME DAILY Rx Instructions: TAKE ONE TABLET BY MOUTH ONE TIME DAILY gabapentin 600 mg tablet 600 mg PO TID Qty: 90 1RF cyclobenzaprine 5 mg tablet See Rx Instructions .ROUTE .COMPLEX Qty: 90 0RF Dose Instruction: TAKE ONE TABLET BY MOUTH EVERY EIGHT HOURS Rx Instructions: TAKE ONE TABLET BY MOUTH EVERY EIGHT HOURS thyroid (pork) [[place] Thyroid] 90 mg tablet 90 mg PO DAILY Qty: 90 1RF Rx Instructions: Take w/15mg for total of 105mg daily. loratadine [Allergy Relief (loratadine)] 10 mg tablet 10 mg PO DAILY doxycycline hyclate 100 mg capsule 100 mg PO BID Label Comments: TAKE ONE CAPSULE BY MOUTH TWICE DAILY lidocaine 5 % adhesive patch,medicated 2 patch TOP DAILY Qty: 15 0RF Rx Instructions: leave on most painful area for up to 12 hrs duloxetine [Cymbalta] 30 mg capsule,delayed release(DR/EC) 30 mg PO DAILY Qty: 30 0RF bupropion HCl 150 mg tablet extended release 24 hr 150 mg PO DAILY Qty: 90 1RF Referrals: Kyle Marin MD [Primary Care Provider] -
--- NOTE | 2021-12-10 11:24 | DI.CT.S_ITS ---
PROCEDURE: CT HEAD/BRAIN WO CON INDICATIONS: worst headache of life TECHNIQUE: Noncontrast 4.5 mm thick angled axial sections acquired from the foramen magnum to the vertex, with coronal and sagittal reformats. For radiation dose reduction, the following was used: automated exposure control, adjustment of mA and/or kV according to patient size. COMPARISON: None. FINDINGS: Image quality: Excellent. CSF spaces: Basal cisterns are patent. No extra-axial fluid collections. Ventricles are normal in size and shape. Brain: There is ill-defined area of hypodensity involving left cerebellum with mass effect on the midline and 4th ventricle and up to 0.9 cm midline shift to the right. No intracranial hemorrhage. No area of abnormal density is seen in bilateral cerebellum. 4 [place]-white matter interface is normal. Skull and face: Calvarium and visualized facial bones are intact, without suspicious lesions. Sinuses: Visualized sinuses and mastoids are clear. IMPRESSION: 1. Heterogeneously hypodense area involving left cerebellum with mass effect on the midline and 4th ventricle and up to 0.9 cm midline shift to the right at this level highly suggestive of metastatic lesion in left cerebellum given patient's history of breast cancer. This can be further evaluated with MRI of brain without and with contrast. 2. No evidence of acute intracranial bleed. No midline shift or mass effect is seen in bilateral cerebral hemispheres. Dictated by: Sterling Beck M.D. on 12/10/2021 at 11:04 Approved by: Sterling Beck M.D. on 12/10/2021 at 11:08
[2021-12-10] MEDS: HYDROMORPHONE 0.5 MG INJ IV (11:36)
[2021-12-10] MEDS: DEXAMETHASONE 10 MG/ML VIAL IV (13:23)
[2021-12-10] MEDS: HYDROMORPHONE 1 MG INJ IV (13:23)
[2021-12-10 13:35] LABS: Add Manual Diff / Slide Review NO; Basophils Absolute Auto 0 /uL (0-100); Basophils Percent Auto 0.6 % (0-2); Eosinophils Absolute Auto 200 /uL (0-450); Eosinophils Percent Auto 2.2 % (2-4); Hematocrit 44.3 % (36-46); Hemoglobin 14.8 g/dL (12.0-16.0); Lymphocytes Absolute Auto 1300 /uL (1100-4500); Mean Corpuscular HGB Conc 33.5 % (30-36); Mean Corpuscular Hemoglobin 31.3 PG (26-34); Mean Corpuscular Volume 93.4 fL (80-100); Monocytes Absolute Auto 700 /uL (0-900); Monocytes Percent Auto 8.3 % (3-14); Neutrophils Absolute Auto 5700 /uL (1500-7000); Neutrophils Percent Auto 72.9 % (50-75); Platelet Count 267 X10^3/uL (150-400); Red Blood Cell Count 4.74 X10^6/uL (4.0-5.2); Red Cell Distribution Width 14.2 % (11.6-14.8); White Blood Cell Count 7.9 X10^3/uL (4.5-11.0)
[2021-12-10 13:54] LABS: Alanine Aminotransferase 38 IU/L (<35); Albumin 4.4 g/dL (3.5-5.0); Albumin Globulin Ratio 1.1 (1.0-2.8); Alkaline Phosphatase 126 U/L (38-126); Aspartate Aminotransferase 66 IU/L (14-36); BUN Creatinine Ratio 15.5 (6-22); Bilirubin Total 0.8 mg/dL (0.2-1.3); Blood Urea Nitrogen 11 mg/dL (7-17); Carbon Dioxide 26 mmol/L (22-32); Chloride 104 mmol/L (98-107); Estimated Glomerular Filt Rate > 60 mL/min (>60); Globulin 3.9 g/dL (1.7-4.1); Glucose 149 mg/dL (70-100); HEMOLYSIS 26 (0-50); Sodium 137 mmol/L (137-145); Total Protein 8.3 g/dL (6.3-8.2)
[2021-12-10 14:53] LABS: COVID19 -Nasal RAPID Negative (Negative)
== END 2021-12-10 14:30 | disposition short-term general hospital (02) ==
PROVIDERS: Emergency Provider Emergency Medicine; PCP Pediatrics
DX: G93.89 Other specified disorders of brain (principal); R11.2 Nausea with vomiting, unspecified; Z20.822 Contact with and (suspected) exposure to COVID-19
CPT/HCPCS: 36415; 70450; 80053; 85025; 87635; 96361; 96374; 96375; 96376; 99284; C9803; J1100; J1170; J2405

== ENCOUNTER 2022-02-13 16:50 | Emergency (ER) | payer OTHER, MEDICAID, SELFPAY ==
[2022-01-24 13:57] VITALS: BMI 44.1
[2022-02-13] VITALS (7 sets, daily range): BP systolic 137–157; BP diastolic 80–100; PULSE 98–112; RESP 18–22; TEMP 36.7; O2SAT 96–97; BMI 45.6
--- NOTE | 2022-02-13 19:11 | ED.GIBLEED ---
HPI - GI Bleed General Chief complaint: GI Bleed Stated complaint: Bleeding into feeding tube Time Seen by Provider: 02/13/22 18:09 Source: patient Mode of arrival: Ambulatory History of Present Illness HPI Narrative: 51-year-old woman with a history of breast cancer with metastases to the brain, follow-up with [facility] 2 posterior tumors have been removed I believe they are still some anterior are tumors present, moderate dysphagia and difficulty maintaining nutrition so she has a feeding tube in place. She comes in today concerned that she is bleeding from the feeding tube because there is some clear pain fluid in the tube. She is not having any pain, orthopnea, dyspnea, change to her baseline dizziness when she stands up. She has not noticed any black or bloody stools. She is not short of breath and does not complain of any palpitations. Related Data Home Medications Medication Instructions Recorded Confirmed loratadine 10 mg tablet (Allergy 10 mg PO DAILY 11/29/17 02/08/22 Relief (loratadine)) doxycycline hyclate 100 mg capsule 100 mg PO BID 11/15/21 02/08/22 Previous Rx's Medication Instructions Recorded levothyroxine 25 mcg tablet See Rx Instructions .Route 09/03/21 .COMPLEX #90 tabs gabapentin 600 mg tablet 600 mg PO TID #90 tabs 09/10/21 cyclobenzaprine 5 mg tablet See Rx Instructions .Route 11/09/21 .COMPLEX #90 tabs thyroid (pork) 90 mg tablet 90 mg PO DAILY #90 tabs 11/09/21 ([place] Thyroid) lidocaine 5 % topical patch 2 patch topical DAILY #15 ea 11/15/21 bupropion HCl 150 mg 24 hr tablet, 150 mg PO DAILY #90 tabs 12/06/21 extended release duloxetine 30 mg capsule,delayed 30 mg PO DAILY #30 caps 12/06/21 release (Cymbalta) Allergies Allergy/AdvReac Type Severity Reaction Status Date / Time Penicillins [PENICILLINS] Allergy Severe ANAPHYLAXIS Verified 02/13/22 17:28 latex [LATEX] Allergy Unknown Blisters Verified 02/13/22 17:28 codeine [CODEINE] AdvReac Mild LETHARGY Verified 02/13/22 17:28 (LASTS 2-3 DAYS) Review of Systems Review of Systems Narrative: Remainder of complete review of systems is otherwise unremarkable except for that included in the HPI. Patient History Medical History (Updated 02/13/22 @ 19:29 by Katherin Turk MD) Abnormal Pap smear of cervix Allergic rhinitis due to dust mite (11/14/14) Alopecia due to cytotoxic drug Angiolipoma of skin (02/20/14) Arthritis Breast cancer metastasized to brain Cystocele (10/21/14) Depression Fibromyalgia History of chemotherapy Mild obstructive sleep apnea-hypopnea syndrome (03/06/15) Myopia 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 drug Obesity, Class III, BMI 40-49.9 (morbid obesity) Pelvic relaxation 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) Psoriasis Rosacea (10/31/13) Tenesmus of bladder (10/21/14) Thyroid nodule Uterine fibroid Vaginal mass Vitamin D deficiency (03/06/15) Surgical History (Updated 02/13/22 @ 12:19 by Nithin Quintero MD) History of radioactive iodine thyroid ablation History of vaginal hysterectomy (~07/2017) Hx of cholecystectomy Hx of left mastectomy (06/05/19) Status post excision of lipoma (~2013) Status post tubal ligation (~2013) Family History Father Alcoholism Mother Age: 71 Depression Grandfather Diabetes mellitus Mother Parkinson's disease Social History household members: significant other and children Smoking Status: Former smoker alcohol intake: current Smoking Status: Former smoker alcohol intake frequency: holidays/special occasions only Substance Use Type: does not use Exam Initial Vital Signs Initial Vital Signs: Vital Signs Pulse Rate 111 H 02/13/22 17:22 Pulse Oximetry 96 02/13/22 17:22 General: Chronically ill-appearing but no acute distress. Able speak in full sentences HEENT: Moist mucous membranes, normal sclera with reactive pupils, Neck: No JVD, supple Respiratory: Lungs are clear to auscultation, no wheezing no rales no rhonchi. Full and symmetrical air movement Cardiac: Regular rate and rhythm no murmurs no bruits Abdomen: Soft, nontender, good bowel tones, no flank pain. Feeding tube site is clean and dry. There is light pink fluid in the tube itself. Skin: Warm and dry, no rashes Extremities: No trauma, well perfused, compression sock in place on the left side for chronic edema Psych: Cooperative, appropriate insight and affect Course Orders Ordered: ED Orders 02/13/22 19:12 Gastric Occult with pH Stat Discontinued Medications Acetaminophen (Acetaminophen 325 Mg Tablet) 975 mg PO NOW ONE Stop: 02/13/22 19:16 Cephalexin HCl (Cephalexin 250 Mg Capsule) 500 mg PO NOW ONE Stop: 02/13/22 19:16 Vital Signs Vital signs: Vital Signs - 8 hr 02/13/22 17:25 02/13/22 17:22 02/13/22 17:30 Temperature 98.0 F Pulse Rate 112 H 111 H Respiratory Rate 22 Blood Pressure 137/80 141/81 H Pulse Oximetry 96 96 Oxygen Delivery Method Room Air 02/13/22 17:30 02/13/22 18:00 02/13/22 18:00 Temperature Pulse Rate 100 H 99 H Respiratory Rate Blood Pressure 145/100 H Pulse Oximetry 96 96 Oxygen Delivery Method 02/13/22 18:30 02/13/22 18:30 02/13/22 19:00 Temperature Pulse Rate Respiratory Rate 20 Blood Pressure 157/95 H 151/90 H Pulse Oximetry 97 Oxygen Delivery Method 02/13/22 19:00 Temperature Pulse Rate 98 H Respiratory Rate Blood Pressure Pulse Oximetry 96 Oxygen Delivery Method MDM - GI Bleed MDM Narrative Medical decision making narrative: 51-year-old woman with feeding tube in place concerned that she is having bleeding into the tube. The debris in the tube is gastroccult negative and does not in fact look like blood. She is reassured at this point with no other concerning symptoms I do not think any additional workup is required. She will be discharged home and has a follow-up scheduled with her oncologist tomorrow. Discharge Plan Departure Patient Disposition: Home Clinical Impression: Breast cancer metastasized to brain Feeding tube dysfunction Qualifiers: Encounter type: initial encounter Qualified Code(s): T85.598A - Other mechanical complication of other gastrointestinal prosthetic devices, implants and grafts, initial encounter Activity Restrictions/Additional Instructions: Thank you for coming in today Fortunately the fluid that you are concerned was blood coming from your feeding tube is not blood. The chemical tests that we used to look for blood in stomach contents was negative. This is very reassuring. At this time with no additional new complaints or findings I think this a few to go home. I wish you the best with your follow-up appointment with your oncologist in the near future. Prescriptions: No Action levothyroxine 25 mcg tablet See Rx Instructions .ROUTE .COMPLEX Qty: 90 3RF Dose Instruction: TAKE ONE TABLET BY MOUTH ONE TIME DAILY Rx Instructions: TAKE ONE TABLET BY MOUTH ONE TIME DAILY gabapentin 600 mg tablet 600 mg PO TID Qty: 90 1RF cyclobenzaprine 5 mg tablet See Rx Instructions .ROUTE .COMPLEX Qty: 90 0RF Dose Instruction: TAKE ONE TABLET BY MOUTH EVERY EIGHT HOURS Rx Instructions: TAKE ONE TABLET BY MOUTH EVERY EIGHT HOURS thyroid (pork) [[place] Thyroid] 90 mg tablet 90 mg PO DAILY Qty: 90 1RF Rx Instructions: Take w/15mg for total of 105mg daily. loratadine [Allergy Relief (loratadine)] 10 mg tablet 10 mg PO DAILY doxycycline hyclate 100 mg capsule 100 mg PO BID Label Comments: TAKE ONE CAPSULE BY MOUTH TWICE DAILY lidocaine 5 % adhesive patch,medicated 2 patch TOP DAILY Qty: 15 0RF Rx Instructions: leave on most painful area for up to 12 hrs duloxetine [Cymbalta] 30 mg capsule,delayed release(DR/EC) 30 mg PO DAILY Qty: 30 0RF bupropion HCl 150 mg tablet extended release 24 hr 150 mg PO DAILY Qty: 90 1RF Referrals: Mariola Barajas DO [Primary Care Provider] -
--- NOTE | 2022-02-13 19:13 | PC.NURSE ---
lot [id number] 4 expires 02/27 gastroccult slide. test results reviewed by Dr. Turk . ph 1, heme negative
== END 2022-02-13 19:33 | disposition home or self-care (01) ==
PROVIDERS: Emergency Provider Emergency Medicine; PCP Family Medicine
DX: T85.598A Other mechanical complication of other gastrointestinal prosthetic devices, implants and grafts, initial encounter (principal); C50.919 Malignant neoplasm of unspecified site of unspecified female breast
CPT/HCPCS: 99281

== ENCOUNTER → 2022-02-24 15:08 | Outpatient (CLI) | payer OTHER, MEDICAID, SELFPAY ==
[2022-01-24 13:57] VITALS: BMI 44.1
[2022-02-24 17:32] LABS: COVID19 -Nasal RAPID Negative (Negative)
== END ==
PROVIDERS: PCP Family Medicine; Visit Provider Surgery
DX: Z20.822 Contact with and (suspected) exposure to COVID-19 (principal); Z01.812 Encounter for preprocedural laboratory examination
CPT/HCPCS: 87635; C9803

== ENCOUNTER → 2022-02-28 11:53 | Outpatient (CLI) | payer OTHER, MEDICAID, SELFPAY ==
[2022-01-24 13:57] VITALS: BMI 44.1
[2022-02-28 14:06] LABS: COVID19 -Nasal RAPID Negative (Negative)
== END ==
PROVIDERS: PCP Family Medicine; Visit Provider Surgery
DX: Z20.822 Contact with and (suspected) exposure to COVID-19 (principal); Z01.812 Encounter for preprocedural laboratory examination
CPT/HCPCS: 87635; C9803

== ENCOUNTER 2022-03-01 12:12 | Day surgery (SDC) | payer OTHER, MEDICAID, SELFPAY ==
[2022-01-24 13:57] VITALS: BMI 44.1
--- NOTE | 2022-02-21 15:44 | DIET.OUTPTC ---
Dietary Outpatient Consultation Note Consultation Date: 02/21/2022 RD and pt will meet to optimize nutrition on , 02/24/22 at 10:30am in RD office. Electronically Signed by: Mary Jo Solis 02/21/22 15:44 Clinical Dietitian [address] [id number]
[2022-02-22 07:56] VITALS: BMI 44.1
[2022-03-01 13:01] VITALS: BP 136/89; PULSE 105; RESP 16; TEMP 36.6; O2SAT 98; BMI 45.6
[2022-03-01] MEDS: LACTATED RINGERS 1,000 ML 100 ML IV ×2 (13:36→13:38)
--- NOTE | 2022-03-01 13:47 | PM.HP.1 ---
History of Present Illness History of Present Illness Date Patient Seen: 03/01/22 Time Patient Seen: 13:47 Chief complaint: Port A Cath Placement Narrative: May is a 51-year-old woman who has metastatic breast cancer. A port has been requested for chemotherapy. She has had prior Port-A-Cath placed on the right and on the left both of which have been removed several years ago. She also has a [employer] shunt which she believes runs along her left neck. 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) Psoriasis Pulmonary embolism (01/18/22) Rosacea (10/31/13) Tenesmus of bladder (10/21/14) Thyroid nodule Uterine fibroid Vaginal mass Vitamin D deficiency (03/06/15) Surgical History (Updated 03/01/22 @ 13:00 by Sheryl Beltran RN) History of brain shunt (~12/22/21) History of gynecologic surgery (10/06/20) History of radioactive iodine thyroid ablation History of removal of Port-a-Cath (07/10/19) History of surgery (11/27/18) History of surgery (12/04/18) History of vaginal hysterectomy (~07/2017) Hx of cholecystectomy Hx of craniotomy (12/13/21) Hx of left mastectomy (06/05/19) Status post excision of lipoma (~2013) Status post tubal ligation (~2013) Family & Social History Family History Father Alcoholism Mother Age: 71 Depression Grandfather Diabetes mellitus Mother Parkinson's disease Social History: household members significant other,children Tobacco & Substance use: Tobacco type cigarettes Smoking Status Former smoker alcohol intake never alcohol intake frequency other Substance Use Type does not use Meds Home Medications and Allergies Home Medications Medication Instructions Recorded Confirmed Type loratadine 10 mg tablet (Allergy 10 mg PO DAILY 11/29/17 02/22/22 History Relief (loratadine)) levothyroxine 25 mcg tablet See Rx Instructions .Route 09/03/21 03/01/22 Rx .COMPLEX #90 tabs gabapentin 600 mg tablet 600 mg PO TID #90 tabs 09/10/21 03/01/22 Rx cyclobenzaprine 5 mg tablet See Rx Instructions .Route 11/09/21 03/01/22 Rx .COMPLEX #90 tabs thyroid (pork) 90 mg tablet 90 mg PO DAILY #90 tabs 11/09/21 03/01/22 Rx ([place] Thyroid) doxycycline hyclate 100 mg capsule 100 mg PO BID 11/15/21 03/01/22 History lidocaine 5 % topical patch 2 patch topical DAILY #15 ea 11/15/21 02/22/22 Rx bupropion HCl 150 mg 24 hr tablet, 150 mg PO DAILY #90 tabs 12/06/21 03/01/22 Rx extended release acetaminophen 500 mg capsule 1,000 mg PO Q6H PRN pain #240 caps 02/21/22 03/01/22 Rx apixaban 5 mg tablet (Eliquis) 5 mg PO BID #180 tabs 02/21/22 03/01/22 Rx famotidine 20 mg tablet 20 mg PO DAILY #90 tabs 02/21/22 03/01/22 Rx losartan 50 mg tablet 50 mg PO DAILY #90 tabs 02/21/22 03/01/22 Rx metoclopramide HCl 10 mg tablet 10 mg PO Q8H PRN nausea and 02/21/22 03/01/22 Rx vomiting 30 days #90 tabs amlodipine 10 mg tablet 10 mg PO DAILY #90 tabs 02/24/22 03/01/22 Rx duloxetine 30 mg capsule,delayed 30 mg PO DAILY #90 caps 02/25/22 03/01/22 Rx release (Cymbalta) dexamethasone 4 mg tablet 8 mg PO Q12HR #60 tabs 03/01/22 03/01/22 Rx Allergies Allergy/AdvReac Type Severity Reaction Status Date / Time codeine Allergy Severe Drowsy Verified 03/01/22 12:48 Penicillins Allergy Severe Anaphylaxis Verified 03/01/22 12:50 adhesive AdvReac Intermediate Rash Verified 03/01/22 12:48 latex AdvReac Intermediate Rash Verified 03/01/22 12:48 Exam Vital Signs (past 8 hours): - 03/01/22 13:01 Temperature 97.9 F Pulse Rate 105 H Respiratory Rate 16 Blood Pressure 136/89 Pulse Oximetry 98 Oxygen Delivery Method Room Air Oxygen Delivery Method Room Air Narrative Exam Narrative: There is evidence of prior Port-A-Cath on the right and left both of which appear to be inserted through the jugular vein. There appears to be a palpable shunt in the left neck There is a prior left mastectomy. Assessment & Plan Assessment and plan (1) Breast cancer metastasized to brain: Status: Acute Plan We reviewed the risks and benefits of Port-A-Cath placement and she would like to proceed. Time Spent With Patient Critical Care time: I spent a total of [] minutes of critical care time on this patient's care today; this time is exclusive of procedural time.
[2022-03-01] MEDS: CLINDAMYCIN 900 MG/50 ML PIGGYBACK 50 MG IV (14:25)
--- NOTE | 2022-03-01 15:01 | SUR.OPER ---
Supine on padded OR bed, head on pillow, arms padded and tucked at sides, legs uncrossed, safety belt at thigh, tape over blanket over lower legs .
[2022-03-01] MEDS: BUPIVACAINE 0.5% (PF) VIAL 30 ML INJ (15:10)
[2022-03-01] MEDS: LIDOCAINE 1% 20 ML INJ (15:10)
[2022-03-01] MEDS: EPINEPHrine 1 MG/ML 0.15 MG IM (15:11)
--- NOTE | 2022-03-01 15:35 | DI.RAD.S_ITS ---
PROCEDURE: XR CHEST 1V INDICATIONS: POST OP PIC TECHNIQUE: One view of the chest was acquired. COMPARISON: [facility], [place], [place] PET CT FUSION SKULL 2 THIGH, 02/23/2022, 9:37. [facility], [place], XR CHEST 1V, 03/01/2022, 15:40. [facility], [place], XR CHEST 2V, 03/11/2019, 9:59. FINDINGS: Surgical changes and devices: Tip of the right chest port catheter projects near the superior cavoatrial junction. Partially imaged tubing projecting over the left lower neck and midline chest, possible ventricular shunt catheter tubing. Lungs and pleura: No pneumothorax. Left perihilar and right right basilar opacities are better visualized on recent PET-CT. Mediastinum: Mediastinal contours appear normal. Heart size is normal. Bones and chest wall: No suspicious bony lesions. Overlying soft tissues appear unremarkable. IMPRESSION: 1. Tip of the right chest port catheter projects near the superior cavoatrial junction. 2. No pneumothorax. Dictated by: Shawn Contreras M.D. on 03/01/2022 at 20:58 Approved by: Shawn Contreras M.D. on 03/01/2022 at 21:03
[2022-03-01 15:42] VITALS: BP 142/81; PULSE 95; RESP 20; TEMP 36.6; O2SAT 96
[2022-03-01 15:47] VITALS: BP 137/71; PULSE 97; RESP 16; O2SAT 96
[2022-03-01 15:52] VITALS: BP 146/73; PULSE 91; RESP 18; TEMP 36.4; O2SAT 97
[2022-03-01 15:57] VITALS: BP 141/69; PULSE 95; RESP 16; O2SAT 98
--- NOTE | 2022-03-01 15:59 | OP_ITS ---
Operative Date/Time/Diagnoses Date of procedure: 03/01/22 Pre-op diagnosis: Metastatic breast cancer Post-op diagnosis: same Procedure & Clinicians Procedure: Port-A-Cath Same procedure as scheduled: Yes Surgeon: Kyle Pettit Operative Notes Procedure in detail: The patient was brought to the operating room, placed on the table in the supine position with the arms tucked. Ancef was administered. Anesthesia was induced. A time-out was performed. The right chest and neck were prepped and draped in the usual fashion. An ultrasound was used to identify the right internal jugular vein. The vein was noted to be patent. An image was saved and printed and placed in the chart. The right internal jugular vein was accessed via the Seldinger technique under ultrasound guidance. The guidewire was inserted into the superior vena cava. C-arm was used to confirm proper position of the guidewire in the superior vena cava and no ectopy was noted. The needle was removed and the wire was clamped to the drape. Next, a port pocket was created just inferior to the medial clavicle using a 15 blade scalpel. Dissection was carried down to the pectoral fascia. A subcutaneous pocket was created using a combination of cautery and blunt dissection. Next, the port which was primed with injectable saline, was secured to the fascia with 3-0 PDS sutures left untied and clamped. The neck incision was extended with an 11 blade scalpel to approximately 5 mm. The dilator and peel-away sheath were inserted over the wire without resistance. The catheter was passed from the neck incision to the chest incision in the subcutaneous tissue using the tunnelling device. The wire and dilator were then removed and the catheter inserted through the peel-away sheath to deliver it into the superior vena cava. The depth of the device was checked using the C-arm and the tip of the device was noted to be in the distal superior vena cava. The exterior portion of the catheter was then trimmed and attached to the port using the strain relief collar. A final image showed good position of the catheter with no kinks. The port was then tucked into the subcutaneous pocket and the sutures were tied to secure the device. The port was then accessed using the Prater needle and it was noted that the device everette and flushed easily without resistance. Approximately 4 mL of heparinized saline were injected into the device. The skin incisions were closed with 3-0 Vicryl and 4-0 Monocryl. Steri-Strips were applied patient was awakened and brought to recovery room EBL: 5 mL Ultrasound: The right internal jugular vein was patent. The right carotid artery was visualized adjacent to the vein. Venipuncture was visualized in real-time using the ultrasound. Fluoroscopy: The device was positioned appropriately with the distal end of the catheter near the atriocaval junction. There were no kinks in the catheter. Post-operative Condition: stable Disposition: PACU
--- NOTE | 2022-03-01 16:00 | DI.RAD.S_ITS ---
PROCEDURE: XR CHEST 1V INDICATIONS: INNER OP PIC TECHNIQUE: One view of the chest was acquired. COMPARISON: [facility], [place], XR CHEST 1V, 12/04/2018, 14:38. FINDINGS: Fluoroscopic image demonstrates placement of a right chest port and the tube tip is not well seen on the single submitted image. IMPRESSION: Single submitted image demonstrates placement of a right IJ chest port and the tube tip is not well seen on the single image. When clinically feasible, recommend chest radiograph for tube tip verification. Dictated by: Nacho Galvan [facility] Interpreted: Bronwyn Stephens MD on 03/01/2022 at 16:17 Transcribed by: AKBAR on 03/01/2022 at 16:18 Approved by: Bronwyn Stephens M.D. on 03/01/2022 at 17:18
[2022-03-01 16:08] VITALS: BP 150/92; PULSE 94; RESP 16; TEMP 36.6; O2SAT 96
== END 2022-03-01 16:42 | disposition home or self-care (01) ==
PROVIDERS: Surgery; PCP Family Medicine; Referring Provider Surgery; Visit Provider Surgery
PROC: (CPT 36561; principal; 2022-03-01 13:45)
DX: C50.919 Malignant neoplasm of unspecified site of unspecified female breast (principal); C79.31 Secondary malignant neoplasm of brain; G47.33 Obstructive sleep apnea (adult) (pediatric); M79.7 Fibromyalgia
CPT/HCPCS: 36561; 00532; 71045; 76000; 82962; C1788; J0171; J1644; J2250; J2704

== ENCOUNTER 2022-03-08 07:55 | Emergency (ER) | payer OTHER, MEDICAID, SELFPAY ==
[2022-01-24 13:57] VITALS: BMI 44.1
[2022-03-08 08:00] VITALS: BP 133/97; PULSE 95; RESP 16; O2SAT 99
--- NOTE | 2022-03-08 08:00 | ED_ITS ---
HPI - General Adult General Chief complaint: Nausea/Vomiting/Diarrhea Stated complaint: Nausea Time Seen by Provider: 03/08/22 07:58 History of Present Illness HPI narrative: Ms. Borja is a 51-year-old woman with metastatic breast cancer to the brain. She describes this cancer as ?terminal?. She says ?I just want to be comfortable?. She feels very anxious and fatigued and tired and feels great pressure in her head and a fogginess in her head. She denies vomiting or fever or cough or shortness of breath or abdominal pain or chest pain. She says she has an appointment with her cancer doctor later this morning but just felt like she could not wait that long. She can not recall which medication she took this morning. She was transported to the ER this morning by ambulance. Past medical history includes triple negative malignant neoplasm of the breast, metastatic breast cancer to the brain, history of pulmonary embolism, PEG tube feedings daily, hypothyroidism. She takes apixaban, amlodipine and others. No opioids or benzodiazepines. Related Data Home Medications Medication Instructions Recorded Confirmed loratadine 10 mg tablet (Allergy 10 mg PO DAILY 11/29/17 02/22/22 Relief (loratadine)) doxycycline hyclate 100 mg capsule 100 mg PO BID 11/15/21 03/01/22 Previous Rx's Medication Instructions Recorded levothyroxine 25 mcg tablet See Rx Instructions .Route 09/03/21 .COMPLEX #90 tabs gabapentin 600 mg tablet 600 mg PO TID #90 tabs 09/10/21 cyclobenzaprine 5 mg tablet See Rx Instructions .Route 11/09/21 .COMPLEX #90 tabs thyroid (pork) 90 mg tablet 90 mg PO DAILY #90 tabs 11/09/21 ([place] Thyroid) lidocaine 5 % topical patch 2 patch topical DAILY #15 ea 11/15/21 bupropion HCl 150 mg 24 hr tablet, 150 mg PO DAILY #90 tabs 12/06/21 extended release acetaminophen 500 mg capsule 1,000 mg PO Q6H PRN pain #240 caps 02/21/22 apixaban 5 mg tablet (Eliquis) 5 mg PO BID #180 tabs 02/21/22 famotidine 20 mg tablet 20 mg PO DAILY #90 tabs 02/21/22 losartan 50 mg tablet 50 mg PO DAILY #90 tabs 10/17/22 metoclopramide HCl 10 mg tablet 10 mg PO Q8H PRN nausea and 02/21/22 vomiting 30 days #90 tabs amlodipine 10 mg tablet 10 mg PO DAILY #90 tabs 02/24/22 duloxetine 30 mg capsule,delayed 30 mg PO DAILY #90 caps 02/25/22 release (Cymbalta) dexamethasone 4 mg tablet 8 mg PO Q12HR #60 tabs 03/01/22 Allergies Allergy/AdvReac Type Severity Reaction Status Date / Time codeine Allergy Severe Drowsy Verified 03/01/22 12:48 Penicillins Allergy Severe Anaphylaxis Verified 03/01/22 12:50 adhesive AdvReac Intermediate Rash Verified 03/01/22 12:48 latex AdvReac Intermediate Rash Verified 03/01/22 12:48 Review of Systems Review of Systems Narrative: Complete review of systems is negative other than as noted above. Patient History Medical History (Updated 03/08/22 @ 11:11 by Pee Partida MD) Abnormal Pap smear of cervix Allergic rhinitis due to dust mite (11/14/14) Alopecia due to cytotoxic drug Angiolipoma of skin (02/20/14) Arthritis Breast cancer metastasized to brain Cystocele (10/21/14) Depression Fibromyalgia History of chemotherapy Mild obstructive sleep apnea-hypopnea syndrome (03/06/15) Myopia 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 drug Obesity, Class III, BMI 40-49.9 (morbid obesity) Pelvic relaxation 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) Psoriasis Pulmonary embolism (01/18/22) Rosacea (10/31/13) Tenesmus of bladder (10/21/14) Thyroid nodule Uterine fibroid Vaginal mass Vitamin D deficiency (03/06/15) Surgical History (Updated 03/01/22 @ 13:00 by Sheryl Beltran RN) History of brain shunt (~12/22/21) History of gynecologic surgery (10/06/20) History of radioactive iodine thyroid ablation History of removal of Port-a-Cath (07/10/19) History of surgery (11/27/18) History of surgery (12/04/18) History of vaginal hysterectomy (~07/2017) Hx of cholecystectomy Hx of craniotomy (12/13/21) Hx of left mastectomy (06/05/19) Status post excision of lipoma (~2013) Status post tubal ligation (~2013) Family History Father Alcoholism Mother Age: 71 Depression Grandfather Diabetes mellitus Mother Parkinson's disease Social History household members: significant other and children Smoking Status: Former smoker alcohol intake: never Smoking Status: Former smoker alcohol intake frequency: other Substance Use Type: does not use Exam Narrative Exam Narrative: GENERAL: Alert, cooperative and in no distress. She is anxious and tearful. HEAD: Atraumatic. Normocephalic. EYES: Sclera are clear without icterus. Extraocular movements are full. ENT: No rhinorrhea. NECK: Supple. Full range of motion. CARDIOVASCULAR: Normal rate and rhythm without murmur gallop or rub. RESPIRATORY: Clear to auscultation. Breath sounds equal bilaterally. No wheezes, rales, or rhonchi. GASTROINTESTINAL: Abdomen soft, non-tender, nondistended. EXTREMITIES: No edema, full range of motion. No obvious trauma. BACK: Normal inspection, no CVA tenderness. NEURO: Nonfocal examination, normal speech, moves all extremities. She is able to transfer herself to the exam bed. SKIN: No rash or erythema of visible areas PSYCH: Normally oriented. Normal range of affect. Appropriate behavior Initial Vital Signs Initial Vital Signs: Vital Signs Pulse Rate 95 H 03/08/22 08:00 Respiratory Rate 16 03/08/22 08:00 Blood Pressure 133/97 H 03/08/22 08:00 Pulse Oximetry 99 03/08/22 08:00 Oxygen Delivery Method 03/08/22 08:00 Course Orders Ordered: ED Orders 03/08/22 08:28 CBC Auto Diff [Complete Blood Count AUTO DIFF] Stat CMP [Comprehensive Metabolic Panel] Stat 03/08/22 10:19 COVID19 -Nasal RAPID/Pre-Proc Stat Discontinued Medications Lorazepam (Lorazepam 0.5 Mg Tablet) 1 mg PO NOW ONE Stop: 03/08/22 08:05 Last Admin: 03/08/22 08:09 Dose: 1 mg Documented By: JAVI Vital Signs Vital signs: Vital Signs - 8 hr 03/08/22 08:00 03/08/22 10:26 03/08/22 10:26 Pulse Rate 95 H 97 H Respiratory Rate 16 14 Blood Pressure 133/97 H 132/84 Pulse Oximetry 99 99 Oxygen Delivery Method Room Air Medical Decision Making Lab Data Result diagrams: 03/08/22 08:28 03/08/22 08:28 Labs: Lab Results 03/08/22 03/08/22 03/08/22 Range/Units 08:28 08:28 10:19 WBC 15.4 H (4.5-11.0) X10^3/uL RBC 4.29 (4.0-5.2) X10^6/uL Hgb 13.1 (12.0-16.0) g/dL Hct 39.9 (36-46) % MCV 92.9 (80-100) fL MCH 30.5 (26-34) PG MCHC 32.8 (30-36) % RDW 15.7 H (11.6-14.8) % Plt Count 349 (150-400) X10^3/uL Neut % (Auto) 79.2 H (50-75) % Lymph % (Auto) 10.4 L (25-40) % [place] % (Auto) 9.3 (3-14) % Eos % (Auto) 0.7 L (2-4) % Baso % (Auto) 0.4 (0-2) % Neut # (Auto) 96335 H (6514-6041) /uL Lymph # (Auto) 1600 (5407-3443) /uL [place] # (Auto) 1400 H (0-900) /uL Eos # (Auto) 100 (0-450) /uL Baso # (Auto) 100 (0-100) /uL Sodium 138 (137-145) mmol/L Potassium 3.7 (3.4-5.1) mmol/L Chloride 101 (98-107) mmol/L Carbon Dioxide 24 (22-32) mmol/L BUN 13 (7-17) mg/dL Creatinine 0.57 (0.52-1.04) mg/dL Estimated GFR > 60 (>60) mL/min BUN/Creatinine Ratio 22.8 H (6-22) Glucose 131 H (70-100) mg/dL Calcium 9.3 (8.4-10.2) mg/dL Total Bilirubin 0.4 (0.2-1.3) mg/dL AST 31 (14-36) IU/L ALT 30 (<35) IU/L Alkaline Phosphatase 116 (38-126) U/L Total Protein 7.9 (6.3-8.2) g/dL Albumin 4.2 (3.5-5.0) g/dL Globulin 3.7 (1.7-4.1) g/dL Albumin/Globulin Ratio 1.1 (1.0-2.8) SARS-CoV-2 (PCR) Negative (Negative) MDM Narrative Medical decision making narrative: White blood cell count is elevated but she has no meningeal signs or other signs of acute infection. Including, no fever. Mild anxiolytic has improved her symptoms significantly. I discussed the case with Dr. Espinal who agrees to see her in the clinic. He opined that the dexamethasone is potentially the cause of her leukocytosis. This seems very reasonable to me and likely. The patient is discharged in good condition directly to Dr. Espinal's clinic. Discharge Plan Departure Patient Disposition: Home Clinical Impression: Breast cancer metastasized to brain, Anxiety Activity Restrictions/Additional Instructions: No immediately dangerous cause for symptoms is identified for your symptoms. Follow up with Dr. Martinez right now. Prescriptions: No Action levothyroxine 25 mcg tablet See Rx Instructions .ROUTE .COMPLEX Qty: 90 3RF Dose Instruction: TAKE ONE TABLET BY MOUTH ONE TIME DAILY Rx Instructions: TAKE ONE TABLET BY MOUTH ONE TIME DAILY gabapentin 600 mg tablet 600 mg PO TID Qty: 90 1RF cyclobenzaprine 5 mg tablet See Rx Instructions .ROUTE .COMPLEX Qty: 90 0RF Dose Instruction: TAKE ONE TABLET BY MOUTH EVERY EIGHT HOURS Rx Instructions: TAKE ONE TABLET BY MOUTH EVERY EIGHT HOURS thyroid (pork) [[place] Thyroid] 90 mg tablet 90 mg PO DAILY Qty: 90 1RF Rx Instructions: Take w/15mg for total of 105mg daily. losartan 50 mg tablet 50 mg PO DAILY Qty: 90 0RF Eliquis 5 mg tablet 5 mg PO BID Qty: 180 0RF metoclopramide HCl 10 mg tablet 10 mg PO Q8H PRN (Reason: nausea and vomiting) 30 Days Qty: 90 2RF acetaminophen 500 mg capsule 1,000 mg PO Q6H PRN (Reason: pain) Qty: 240 2RF famotidine 20 mg tablet 20 mg PO DAILY Qty: 90 0RF amlodipine 10 mg tablet 10 mg PO DAILY Qty: 90 1RF duloxetine [Cymbalta] 30 mg capsule,delayed release(DR/EC) 30 mg PO DAILY Qty: 90 3RF loratadine [Allergy Relief (loratadine)] 10 mg tablet 10 mg PO DAILY doxycycline hyclate 100 mg capsule 100 mg PO BID Label Comments: TAKE ONE CAPSULE BY MOUTH TWICE DAILY lidocaine 5 % adhesive patch,medicated 2 patch TOP DAILY Qty: 15 0RF Rx Instructions: leave on most painful area for up to 12 hrs bupropion HCl 150 mg tablet extended release 24 hr 150 mg PO DAILY Qty: 90 1RF dexamethasone 4 mg Tablet 8 mg PO Q12HR Qty: 60 0RF Rx Instructions: Take 2 tablets every 12 hrs Referrals: Mariola Barajas DO [Primary Care Provider] - Visit Report Forms: Patient Portal/API
[2022-03-08] MEDS: LORazepam 0.5 MG TABLET 1 MG PO (08:09)
[2022-03-08 08:35] LABS: Add Manual Diff / Slide Review NO; Basophils Absolute Auto 100 /uL (0-100); Basophils Percent Auto 0.4 % (0-2); Eosinophils Absolute Auto 100 /uL (0-450); Eosinophils Percent Auto 0.7 % (2-4); Hematocrit 39.9 % (36-46); Hemoglobin 13.1 g/dL (12.0-16.0); Lymphocytes Absolute Auto 1600 /uL (1100-4500); Lymphocytes Percent Auto 10.4 % (25-40); Mean Corpuscular HGB Conc 32.8 % (30-36); Mean Corpuscular Hemoglobin 30.5 PG (26-34); Mean Corpuscular Volume 92.9 fL (80-100); Monocytes Absolute Auto 1400 /uL (0-900); Monocytes Percent Auto 9.3 % (3-14); Neutrophils Absolute Auto 12200 /uL (1500-7000); Neutrophils Percent Auto 79.2 % (50-75); Platelet Count 349 X10^3/uL (150-400); Red Blood Cell Count 4.29 X10^6/uL (4.0-5.2); Red Cell Distribution Width 15.7 % (11.6-14.8); White Blood Cell Count 15.4 X10^3/uL (4.5-11.0)
[2022-03-08 08:47] LABS: Alanine Aminotransferase 30 IU/L (<35); Albumin 4.2 g/dL (3.5-5.0); Albumin Globulin Ratio 1.1 (1.0-2.8); Alkaline Phosphatase 116 U/L (38-126); Aspartate Aminotransferase 31 IU/L (14-36); BUN Creatinine Ratio 22.8 (6-22); Bilirubin Total 0.4 mg/dL (0.2-1.3); Blood Urea Nitrogen 13 mg/dL (7-17); Calcium 9.3 mg/dL (8.4-10.2); Carbon Dioxide 24 mmol/L (22-32); Chloride 101 mmol/L (98-107); Estimated Glomerular Filt Rate > 60 mL/min (>60); Globulin 3.7 g/dL (1.7-4.1); Glucose 131 mg/dL (70-100); HEMOLYSIS < 15 (0-50); Potassium 3.7 mmol/L (3.4-5.1); Sodium 138 mmol/L (137-145); Total Protein 7.9 g/dL (6.3-8.2)
[2022-03-08 10:26] VITALS: BP 132/84; PULSE 97; RESP 14; O2SAT 99
[2022-03-08 10:36] LABS: COVID19 -Nasal RAPID Negative (Negative)
--- NOTE | 2022-03-08 12:24 | PC.NURSE ---
Home Care: pt saw Dr. Espinal today after going to ED due to anxiety. Pt in wheelchair. She states, I do rely on my son, Kemal a lot. He puts out the medications I need to take. I'm not sure what it is. [facility] comes and checks my BP and then just chats. I need an adult with me if I attempt to eat or swallow liquids because I could choke. I need a shower but need help. Pt talks about needing to go through belongings at home before I . My daughter will go with [facility] then. He lives with his grumpy dad. This RN got permission from pt to call [facility] to see about increasing care at home. Dr. Espinal said he would order it. Called [facility] and they said to go through pt's PCP Dr. Quintero. Dr. Quintero's RN, Rosalba called and given information about increasing care at home. Will check back with her tomorrow.
== END 2022-03-08 11:16 | disposition home or self-care (01) ==
PROVIDERS: Emergency Provider Family Medicine Addiction Medicine; PCP Family Medicine
DX: C50.919 Malignant neoplasm of unspecified site of unspecified female breast (principal); F41.9 Anxiety disorder, unspecified; Z20.822 Contact with and (suspected) exposure to COVID-19; C50.812 Malignant neoplasm of overlapping sites of left female breast; C50.512 Malignant neoplasm of lower-outer quadrant of left female breast; C79.31 Secondary malignant neoplasm of brain; C77.3 Secondary and unspecified malignant neoplasm of axilla and upper limb lymph nodes; C79.51 Secondary malignant neoplasm of bone; C78.02 Secondary malignant neoplasm of left lung; I26.99 Other pulmonary embolism without acute cor pulmonale; Z79.01 Long term (current) use of anticoagulants; Z17.1 Estrogen receptor negative status [ER-]; Z90.12 Acquired absence of left breast and nipple; Z93.1 Gastrostomy status
CPT/HCPCS: 36415; 80053; 85025; 87635; 99215; 99283; C9803

== ENCOUNTER 2022-04-06 15:06 | Emergency (ER) | payer OTHER, MEDICAID, SELFPAY ==
[2022-01-24 13:57] VITALS: BMI 44.1
[2022-04-06] VITALS (7 sets, daily range): BP systolic 131–132; BP diastolic 64–71; PULSE 96–106; RESP 12–23; TEMP 36.6; O2SAT 91–96; BMI 45.6
--- NOTE | 2022-04-06 15:55 | ED.NEUROSD ---
HPI - Neuro Symptoms/Deficit General Chief Complaint: Neuro Symptoms/Deficit Stated Complaint: Cancer patient, Getting sick, Wants to check stent Time Seen by Provider: 04/06/22 15:40 Source: patient Mode of arrival: Wheelchair History of Present Illness HPI Narrative: Patient is a 51-year-old female. History of metastatic breast cancer. Has a [employer]CTURING shunt in place. States the past couple days she is had a headache, fatigue, dizziness with standing. Incontinence of bladder. Has a known pulmonary embolism. Is on anticoagulation. She is also concerned about an infection around her G-tube. She has been taking all of her medications as directed. She was instructed to come to the emergency department by radiation oncology to have the shunt checked. She had radiation this morning. She did talk with the doctors about this. On Anticoagulants: Yes (Eliquis 5mg BID) Related Data Home Medications Medication Instructions Recorded Confirmed loratadine 10 mg tablet (Allergy 10 mg PO DAILY 11/29/17 03/28/22 Relief (loratadine)) doxycycline hyclate 100 mg capsule 100 mg PO BID 11/15/21 03/28/22 Previous Rx's Medication Instructions Recorded levothyroxine 25 mcg tablet See Rx Instructions .Route 09/03/21 .COMPLEX #90 tabs gabapentin 600 mg tablet 600 mg PO TID #90 tabs 09/10/21 thyroid (pork) 90 mg tablet 90 mg PO DAILY #90 tabs 11/09/21 ([place] Thyroid) bupropion HCl 150 mg 24 hr tablet, 150 mg PO DAILY #90 tabs 12/06/21 extended release acetaminophen 500 mg capsule 1,000 mg PO Q6H PRN pain #240 caps 02/21/22 apixaban 5 mg tablet (Eliquis) 5 mg PO BID #180 tabs 02/21/22 famotidine 20 mg tablet 20 mg PO DAILY #90 tabs 02/21/22 losartan 50 mg tablet 50 mg PO DAILY #90 tabs 02/21/22 metoclopramide HCl 10 mg tablet 10 mg PO Q8H PRN nausea and 02/21/22 vomiting 30 days #90 tabs amlodipine 10 mg tablet 10 mg PO DAILY #90 tabs 02/24/22 duloxetine 30 mg capsule,delayed 30 mg PO DAILY #90 caps 02/25/22 release (Cymbalta) dexamethasone 4 mg tablet 8 mg PO Q12HR #60 tabs 03/23/22 lorazepam 0.5 mg tablet 0.5 mg PO TID PRN Anxiety #30 tabs 03/23/22 cyclobenzaprine 5 mg tablet See Rx Instructions .Route 03/28/22 .COMPLEX #90 tabs lidocaine 5 % topical patch 2 patch topical DAILY #15 ea 03/28/22 lidocaine-prilocaine 2.5 %-2.5 % 1 applic topical PRN PRN 03/29/22 topical cream Port/Catheter Care #30 grams oseltamivir 75 mg capsule (Tamiflu) 75 mg PO BID 5 days #10 caps 04/06/22 Allergies Allergy/AdvReac Type Severity Reaction Status Date / Time codeine Allergy Severe Drowsy Verified 03/01/22 12:48 Penicillins Allergy Severe Anaphylaxis Verified 03/01/22 12:50 adhesive AdvReac Intermediate Rash Verified 03/01/22 12:48 latex AdvReac Intermediate Rash Verified 03/01/22 12:48 Review of Systems Constitutional Constitutional: Reports body ache(s), Reports chills and Reports fatigue ENT Ears, Nose, Mouth, and Throat: Reports system reviewed and no additional complaints, except as documented Cardiovascular Cardiovascular: Reports system reviewed and no additional complaints, except as documented Respiratory Respiratory: Reports system reviewed and no additional complaints, except as documented Gastrointestinal Gastrointestinal: Reports system reviewed and no additional complaints, except as documented Genitourinary Genitourinary: Reports system reviewed and no additional complaints, except as documented Musculoskeletal Musculoskeletal: Reports system reviewed and no additional complaints, except as documented Integumentary/Breasts Skin/Breast: Reports system reviewed and no additional complaints, except as documented Neurologic Neurologic: Reports system reviewed and no additional complaints, except as documented Endocrine Endocrine: Reports fatigue Hematologic/Lymphatic On Anticoagulants: Yes (Eliquis 5mg BID) Allergic/Immunologic Allergic/Immunologic: Reports system reviewed and no additional complaints, except as documented 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) Psoriasis Pulmonary embolism (01/18/22) Rosacea (10/31/13) Tenesmus of bladder (10/21/14) Thyroid nodule Uterine fibroid Vaginal mass Vitamin D deficiency (03/06/15) Surgical History (Updated 03/08/22 @ 12:08 by Scotty Espinal MD) History of brain shunt (~12/22/21) History of gynecologic surgery (10/06/20) History of radioactive iodine thyroid ablation History of removal of Port-a-Cath (07/10/19) History of surgery (11/27/18) History of surgery (12/04/18) History of vaginal hysterectomy (~07/2017) Hx of cholecystectomy Hx of craniotomy (12/13/21) Hx of left mastectomy (06/05/19) Status post excision of lipoma (~2013) Status post tubal ligation (~2013) Family History Father Alcoholism Mother Age: 71 Depression Grandfather Diabetes mellitus Mother Parkinson's disease Social History household members: significant other and children Smoking Status: Former smoker alcohol intake: never Smoking Status: Former smoker alcohol intake frequency: other Substance Use Type: does not use Exam Initial Vital Signs Initial Vital Signs: Vital Signs Temperature 98 F 04/06/22 15:26 Pulse Rate 106 H 04/06/22 15:26 Respiratory Rate 20 04/06/22 15:26 Blood Pressure 131/71 04/06/22 15:26 Pulse Oximetry 95 04/06/22 15:26 Oxygen Delivery Method 04/06/22 15:26 Const General: cooperative, comfortable and No ill appearing HENMT Head: other ([employer] shunt in place) Resp Effort & Inspection: normal respiratory effort Auscultation: clear to auscultation bilaterally Cardio Rate: regular rate Rhythm: regular rhythm GI Other: G-tube in place. There is some yellow changes to the inferior right portion of the skin Bedside ultrasound shows no signs abscess. Skin Other: What appears to be bruising on the abdomen around the G-tube Neuro General: patient awake and moves all extremities Extrem General: normal to inspection and capillary refill normal Course Orders Ordered: ED Orders 04/06/22 16:10 Complete Blood Count AUTO DIFF Stat Comprehensive Metabolic Panel Stat Lipase Stat 04/06/22 16:27 Covid-19 + FLU A/B + RSV - PCR Stat 04/06/22 16:49 CT head/brain wo con Stat Discontinued Medications Lorazepam (Lorazepam 0.5 Mg Tablet) 0.5 mg PO NOW ONE Stop: 04/06/22 16:31 Last Admin: 04/06/22 16:38 Dose: 0.5 mg Documented By: JAVI Vital Signs Vital signs: Vital Signs - 8 hr 04/06/22 15:26 04/06/22 16:47 Temperature 98 F Pulse Rate 106 H 100 H Respiratory Rate 20 19 Blood Pressure 131/71 Pulse Oximetry 95 95 Oxygen Delivery Method Room Air Room Air MDM - Neuro Symptoms/Deficit Lab Data Attestation: I reviewed the patient's lab results. Result diagrams: 04/06/22 16:10 04/06/22 16:10 Labs: Lab Results 04/06/22 04/06/22 04/06/22 Range/Units 16:10 16:10 16:10 WBC 11.8 H (4.5-11.0) X10^3/uL RBC 4.42 (4.0-5.2) X10^6/uL Hgb 13.1 (12.0-16.0) g/dL Hct 40.8 (36-46) % MCV 92.2 (80-100) fL MCH 29.6 (26-34) PG MCHC 32.1 (30-36) % RDW 16.4 H (11.6-14.8) % Plt Count 208 (150-400) X10^3/uL Neut % (Auto) 95.7 H (50-75) % Lymph % (Auto) 1.5 L (25-40) % Glenn % (Auto) 2.7 L (3-14) % Eos % (Auto) 0.0 L (2-4) % Baso % (Auto) 0.1 (0-2) % Neut # (Auto) 81886 H (1538-8051) /uL Lymph # (Auto) 200 L (3097-1261) /uL Glenn # (Auto) 300 (0-900) /uL Eos # (Auto) 0 (0-450) /uL Baso # (Auto) 0 (0-100) /uL Sodium 132 L (137-145) mmol/L Potassium 3.8 (3.4-5.1) mmol/L Chloride 98 (98-107) mmol/L Carbon Dioxide 27 (22-32) mmol/L BUN 22 H (7-17) mg/dL Creatinine 0.44 L (0.52-1.04) mg/dL Estimated GFR > 60 (>60) mL/min BUN/Creatinine Ratio 50.0 H (6-22) Glucose 345 H (70-100) mg/dL Calcium 8.8 (8.4-10.2) mg/dL Total Bilirubin 0.7 (0.2-1.3) mg/dL AST 25 (14-36) IU/L ALT 43 H (<35) IU/L Alkaline Phosphatase 111 (38-126) U/L Total Protein 5.9 L (6.3-8.2) g/dL Albumin 3.4 L (3.5-5.0) g/dL Globulin 2.5 (1.7-4.1) g/dL Albumin/Globulin Ratio 1.4 (1.0-2.8) Lipase 57 (23-300) U/L SARS-CoV-2 (PCR) (Negative) Influenza A (RT-PCR) (NEGATIVE) Influenza B (RT-PCR) (NEGATIVE) RSV (PCR) (Negative) 04/06/22 Range/Units 16:27 WBC (4.5-11.0) X10^3/uL RBC (4.0-5.2) X10^6/uL Hgb (12.0-16.0) g/dL Hct (36-46) % MCV (80-100) fL MCH (26-34) PG MCHC (30-36) % RDW (11.6-14.8) % Plt Count (150-400) X10^3/uL Neut % (Auto) (50-75) % Lymph % (Auto) (25-40) % Glenn % (Auto) (3-14) % Eos % (Auto) (2-4) % Baso % (Auto) (0-2) % Neut # (Auto) (3888-0568) /uL Lymph # (Auto) (9947-1560) /uL Glenn # (Auto) (0-900) /uL Eos # (Auto) (0-450) /uL Baso # (Auto) (0-100) /uL Sodium (137-145) mmol/L Potassium (3.4-5.1) mmol/L Chloride (98-107) mmol/L Carbon Dioxide (22-32) mmol/L BUN (7-17) mg/dL Creatinine (0.52-1.04) mg/dL Estimated GFR (>60) mL/min BUN/Creatinine Ratio (6-22) Glucose (70-100) mg/dL Calcium (8.4-10.2) mg/dL Total Bilirubin (0.2-1.3) mg/dL AST (14-36) IU/L ALT (<35) IU/L Alkaline Phosphatase (38-126) U/L Total Protein (6.3-8.2) g/dL Albumin (3.5-5.0) g/dL Globulin (1.7-4.1) g/dL Albumin/Globulin Ratio (1.0-2.8) Lipase (23-300) U/L SARS-CoV-2 (PCR) Negative (Negative) Influenza A (RT-PCR) Flu a positive H (NEGATIVE) Influenza B (RT-PCR) Flu b negative (NEGATIVE) RSV (PCR) Negative (Negative) Imaging Data CT scan - head: Radiologist's Impression: [address] [address] [address] Scan Report Signed Patient: May rFost MR#: [id number] : 1970 Acct:[id number] Age/Sex: 51 / F Date of Service: 04/06/22 Loc: ED Accession Number: [id number] ?? Procedure: CT head/brain wo con Ordering Provider: Rico Pina D.O. PROCEDURE:? CT HEAD/BRAIN WO CON ? INDICATIONS:? Brain Mets, [employer] shunt, headache ? TECHNIQUE:? Noncontrast 4.5 mm thick angled axial sections acquired from the foramen magnum to the vertex, with coronal and sagittal reformats.? For radiation dose reduction, the following was used:? automated exposure control, adjustment of mA and/or kV according to patient size.? ? COMPARISON:? [facility], CT, CT HEAD/BRAIN WO CON, 12/10/2021, 11:57.? Outside Film, MR, MR BRAIN WITH/WITHOUT CONTRAST, 03/14/2022, 13:31. ? FINDINGS:? Image quality:? Excellent.? ? CSF spaces:? There is a left frontal approach shunt catheter again seen, with the tip approaching the midline near the 3rd ventricle.? Basal cisterns are patent.? No extra-axial fluid collections.? Ventricles are normal in size and shape.? ? Brain:? Prior resection change can be seen involving the left posterior cerebellum.? There are areas of dense calcification seen involving both cerebral hemispheres, which correspond to the known metastases.? No midline shift.? [place]-white matter interface is normal.? ? Skull and face:? Craniotomy changes are seen.? Calvarium and visualized facial bones are intact, without suspicious lesions.? ? Sinuses:? Visualized sinuses and mastoids are clear.? IMPRESSION:? Negative for hydrocephalus. ? No acute intracranial hemorrhage is seen.? ? No hany masses or mass effect can be seen by noncontrast head CT, although there is a mild degree of calcification seen corresponding to the areas of known metastases. ? Prior posterior left cerebellar resection change can be seen.? The recurrent masses that are well seen on the outside MRI are not well seen by CT. ? Unremarkable left frontal approach ventriculostomy catheter, stable from the prior outside MRI. ? ? Dictated by: Luis Enrique Foster M.D. on 04/06/2022 at 17:21 ? ? Approved by: Luis Enrique Foster M.D. on 04/06/2022 at 17:24?? [facility] Narrative Medical decision making narrative: Patient has clear lung exam. Is not hypoxic. His influenza a positive. The diagnosis of influenza does explain her presenting symptoms. Head CT shows no signs increased pressure. Given her cancer history will start her on Tamiflu. No indication for antibiotics. She was given return precautions. She expressed understanding and agreement. Discharge Plan Departure Patient Disposition: Home Clinical Impression: Influenza A Instructions: DI for Influenza -- Adult Activity Restrictions/Additional Instructions: You can take Tylenol/ibuprofen for any fevers or body aches. Be sure to increase your fluid intake. Contact your oncologist for follow-up. Return to the emergency department for any new or worsening symptoms. Prescriptions: New oseltamivir [Tamiflu] 75 mg capsule 75 mg PO BID 5 Days Qty: 10 0RF No Action levothyroxine 25 mcg tablet See Rx Instructions .ROUTE .COMPLEX Qty: 90 3RF Dose Instruction: TAKE ONE TABLET BY MOUTH ONE TIME DAILY Rx Instructions: TAKE ONE TABLET BY MOUTH ONE TIME DAILY gabapentin 600 mg tablet 600 mg PO TID Qty: 90 1RF thyroid (pork) [[place] Thyroid] 90 mg tablet 90 mg PO DAILY Qty: 90 1RF Rx Instructions: Take w/15mg for total of 105mg daily. losartan 50 mg tablet 50 mg PO DAILY Qty: 90 0RF Eliquis 5 mg tablet 5 mg PO BID Qty: 180 0RF metoclopramide HCl 10 mg tablet 10 mg PO Q8H PRN (Reason: nausea and vomiting) 30 Days Qty: 90 2RF acetaminophen 500 mg capsule 1,000 mg PO Q6H PRN (Reason: pain) Qty: 240 2RF famotidine 20 mg tablet 20 mg PO DAILY Qty: 90 0RF amlodipine 10 mg tablet 10 mg PO DAILY Qty: 90 1RF duloxetine [Cymbalta] 30 mg capsule,delayed release(DR/EC) 30 mg PO DAILY Qty: 90 3RF dexamethasone 4 mg Tablet 8 mg PO Q12HR Qty: 60 1RF Rx Instructions: Take 2 tablets every 12 hrs lidocaine 5 % adhesive patch,medicated 2 patch TOP DAILY Qty: 15 0RF Rx Instructions: leave on most painful area for up to 12 hrs cyclobenzaprine 5 mg tablet See Rx Instructions .ROUTE .COMPLEX Qty: 90 0RF Dose Instruction: TAKE ONE TABLET BY MOUTH EVERY EIGHT HOURS Rx Instructions: TAKE ONE TABLET BY MOUTH EVERY EIGHT HOURS loratadine [Allergy Relief (loratadine)] 10 mg tablet 10 mg PO DAILY doxycycline hyclate 100 mg capsule 100 mg PO BID Label Comments: TAKE ONE CAPSULE BY MOUTH TWICE DAILY bupropion HCl 150 mg tablet extended release 24 hr 150 mg PO DAILY Qty: 90 1RF lorazepam 0.5 mg Tablet 0.5 mg PO TID PRN (Reason: Anxiety) Qty: 30 0RF lidocaine-prilocaine 2.5-2.5 % Cream 1 applic topical PRN PRN (Reason: Port/Catheter Care) Qty: 30 1RF Rx Instructions: apply to the skin over the port at least 2 hrs before planned use of the port. Cover the cream with a small piece of plastic wrap and leave in place until the port is accessed Referrals: Mariola Barajas DO [Primary Care Provider] -
--- NOTE | 2022-04-06 16:35 | PC.NURSE ---
Powerport accessed, right chest subclavian, sterile procedure. Pt tolerated procedure well.
[2022-04-06] MEDS: LORazepam 0.5 MG TABLET PO (16:38)
[2022-04-06 16:43] LABS: Add Manual Diff / Slide Review NO; Basophils Absolute Auto 0 /uL (0-100); Basophils Percent Auto 0.1 % (0-2); Eosinophils Absolute Auto 0 /uL (0-450); Hematocrit 40.8 % (36-46); Hemoglobin 13.1 g/dL (12.0-16.0); Lymphocytes Absolute Auto 200 /uL (1100-4500); Lymphocytes Percent Auto 1.5 % (25-40); Mean Corpuscular HGB Conc 32.1 % (30-36); Mean Corpuscular Hemoglobin 29.6 PG (26-34); Mean Corpuscular Volume 92.2 fL (80-100); Monocytes Absolute Auto 300 /uL (0-900); Monocytes Percent Auto 2.7 % (3-14); Neutrophils Absolute Auto 11300 /uL (1500-7000); Neutrophils Percent Auto 95.7 % (50-75); Platelet Count 208 X10^3/uL (150-400); Red Blood Cell Count 4.42 X10^6/uL (4.0-5.2); Red Cell Distribution Width 16.4 % (11.6-14.8); White Blood Cell Count 11.8 X10^3/uL (4.5-11.0)
[2022-04-06 16:46] LABS: Alanine Aminotransferase 43 IU/L (<35); Albumin 3.4 g/dL (3.5-5.0); Albumin Globulin Ratio 1.4 (1.0-2.8); Alkaline Phosphatase 111 U/L (38-126); Aspartate Aminotransferase 25 IU/L (14-36); Bilirubin Total 0.7 mg/dL (0.2-1.3); Blood Urea Nitrogen 22 mg/dL (7-17); Calcium 8.8 mg/dL (8.4-10.2); Carbon Dioxide 27 mmol/L (22-32); Chloride 98 mmol/L (98-107); Estimated Glomerular Filt Rate > 60 mL/min (>60); Globulin 2.5 g/dL (1.7-4.1); Glucose 345 mg/dL (70-100); HEMOLYSIS < 15 (0-50); Potassium 3.8 mmol/L (3.4-5.1); Sodium 132 mmol/L (137-145); Total Protein 5.9 g/dL (6.3-8.2)
--- NOTE | 2022-04-06 16:47 | PC.NURSE ---
Pt reports feeling excessively tired, DAS, congestion and increased dizziness. Reports a bruised lump below her feeding tube, physician performed u/s at the bedside to evaluate the tissue below feeding tube. Pt had radiation tx this afternoon, oncologist recommended she go to ED for evaluation. Son at the bedside.
[2022-04-06 16:48] LABS: Lipase 57 U/L (23-300)
--- NOTE | 2022-04-06 16:49 | DI.CT.S_ITS ---
PROCEDURE: CT HEAD/BRAIN WO CON INDICATIONS: Brain Mets, [employer]VIEWER shunt, headache TECHNIQUE: Noncontrast 4.5 mm thick angled axial sections acquired from the foramen magnum to the vertex, with coronal and sagittal reformats. For radiation dose reduction, the following was used: automated exposure control, adjustment of mA and/or kV according to patient size. COMPARISON: [facility], CT, CT HEAD/BRAIN WO CON, 12/10/2021, 11:57. Outside Film, MR, MR BRAIN WITH/WITHOUT CONTRAST, 03/14/2022, 13:31. FINDINGS: Image quality: Excellent. CSF spaces: There is a left frontal approach shunt catheter again seen, with the tip approaching the midline near the 3rd ventricle. Basal cisterns are patent. No extra-axial fluid collections. Ventricles are normal in size and shape. Brain: Prior resection change can be seen involving the left posterior cerebellum. There are areas of dense calcification seen involving both cerebral hemispheres, which correspond to the known metastases. No midline shift. [place]-white matter interface is normal. Skull and face: Craniotomy changes are seen. Calvarium and visualized facial bones are intact, without suspicious lesions. Sinuses: Visualized sinuses and mastoids are clear. IMPRESSION: Negative for hydrocephalus. No acute intracranial hemorrhage is seen. No hany masses or mass effect can be seen by noncontrast head CT, although there is a mild degree of calcification seen corresponding to the areas of known metastases. Prior posterior left cerebellar resection change can be seen. The recurrent masses that are well seen on the outside MRI are not well seen by CT. Unremarkable left frontal approach ventriculostomy catheter, stable from the prior outside MRI. Dictated by: Luis Enrique Foster M.D. on 04/06/2022 at 17:21 Approved by: Luis Enrique Foster M.D. on 04/06/2022 at 17:24
[2022-04-06 17:19] LABS: Influenza A - CEPHEID Flu A POSITIVE (NEGATIVE); Influenza B - CEPHEID Flu B NEGATIVE (NEGATIVE); Respiratory Syncytial Virus Negative (Negative)
[2022-04-06 17:51] LABS: COVID-19 CEPHEID 4-PLEX PCR Negative (Negative)
--- NOTE | 2022-04-06 19:38 | CM.SWNOTE ---
DCP/CITY LETTER [employer]ER Note [employer] receives consult upon patient's d/c to home for HH referral. Hospice was discussed patient will need to discuss this further with PCP and Oncologist. Patient's PCP is Dr. Barajas, patient has medicaid insurance. Patient is 51 y/o female who presents to ED due to concern for fatigue and dizziness standing. Patient has hx of metastatic breast cancer, has shut in place. Patient currently going to radiation in [place] and will be starting chemotherapy with Dr. Espinal at [facility] on 04/18/22. Patient resides with young daughter, 30 y/o son at home in [place] and reports that her former checks in on her as well. Patient endorses hx with [facility] and endorses preference with [facility]. Patient endorses she has cane at home and cannot fit FWW in home. [employer] LETTER [employer]ER provides patient with DME resource list as she is interested in wheelchair and patient's son is interested in bedside commode for patient. Patient endorses more difficulty transferring to the bathroom and would like assistance with rebuilding her strength. Patient requests HH services with [facility], [employer] LETTER [employer]ER calls [facility] and leaves and will fax signed F2F, order and clinicals for HH referral for HH aide, PT, OT, RN and [employer]. [employer] LETTER CARRIER encourages patient to f/u with PCP and oncologist to f/u with POC. Plan: Patient to d/c to home with family with new [facility] referral. Na Bo, TERMINAL PRESS OPERATOR
== END 2022-04-06 19:00 | disposition home or self-care (01) ==
PROVIDERS: Emergency Provider Emergency Medicine; PCP Family Medicine
DX: J10.1 Influenza due to other identified influenza virus with other respiratory manifestations (principal); R51.9 Headache, unspecified; Z79.01 Long term (current) use of anticoagulants; Z79.899 Other long term (current) drug therapy; Z20.822 Contact with and (suspected) exposure to COVID-19
CPT/HCPCS: 0241U; 36415; 70450; 80053; 83690; 85025; 99284; J1642

== ENCOUNTER 2022-04-09 10:01 | Inpatient (IN) | payer OTHER, MEDICAID, SELFPAY ==
[2022-01-24 13:57] VITALS: BMI 44.1
[2022-04-09] VITALS (16 sets, daily range): BP systolic 112–138; BP diastolic 55–83; PULSE 89–117; RESP 11–113; TEMP 36.2–36.6; O2SAT 92–100; BMI 42.8
--- NOTE | 2022-04-09 10:12 | DI.RAD.S_ITS ---
PROCEDURE: XR CHEST 1V INDICATIONS: Shortness of breath TECHNIQUE: One view of the chest was acquired. COMPARISON: [facility], , XR CHEST 1V, 03/01/2022, 16:02. FINDINGS: Surgical changes and devices: There is a stable right-sided chest port. There is a stable BP shunt catheter. Left axillary clips are seen. Lungs and pleura: An incomplete inspiratory result is noted, causing a crowded appearance to the lung markings. Mild patchy infiltrates are seen involving the mid and lower lungs, which are overall slightly progressed compared to the prior plain film. No pneumothorax or significant pleural effusions are seen. Mediastinum: Mediastinal contours appear normal. Heart size is normal. Bones and chest wall: No suspicious bony lesions. Age-appropriate bony degenerative changes are seen. Overlying soft tissues appear unremarkable. IMPRESSION: Mild bilateral patchy poorly defined infiltrates are seen, which are overall slightly more prominent on the current study than on the prior. Postoperative and degenerative changes are seen. Dictated by: Luis Enrique Foster M.D. on 04/09/2022 at 9:34 Approved by: Luis Enrique Foster M.D. on 04/09/2022 at 9:36
--- NOTE | 2022-04-09 10:46 | ED_ITS ---
HPI - SOB/Dyspnea General Chief Complaint: Shortness of Breath/Dyspnea Stated Complaint: Weakness, flu + since thanksgiving, hx CA Time Seen by Provider: 04/09/22 10:45 Source: EMS Mode of arrival: EMS Limitations: no limitations History of Present Illness HPI Narrative: This is a 51-year-old female with history of metastatic breast cancer who has started whole-brain radiation around February 18 for Mets to the brain. Patient has a [employer] shunt in place and is anticoagulated on apixaban for prior pulmonary emboli. She also has a PEG tube as she was not taking much orally in the past but rarely uses this now. Patient was seen on 04/06/2022 for several days of headache, fatigue and dizziness as well as difficulty getting to the bathroom in time. She tested positive for influenza. She was discharged home s he has not been able to obtain Tamiflu as all the pharmacies locally are out. She is had persistent cough with some low back discomfort, dizziness and fatigue, she states she is not really able to get to the bathroom secondary to generalized weakness and notes some increasing atrophy in her extremities which she states happened last time she was getting treatment as well. She is had nausea but not active vomiting. She is noted there has been a little bit of drainage around her PEG tube which has happened in the past but not recently. She has not been using it so she is unsure if it is flushing well. She denies any diarrhea constipation. Patient states she is had swelling in her lower e xtremities. She is had decreased appetite. Related Data Home Medications Medication Instructions Recorded Confirmed loratadine 10 mg tablet (Allergy 10 mg PO DAILY 11/29/17 04/09/22 Relief (loratadine)) doxycycline hyclate 100 mg capsule 100 mg PO BID 11/15/21 04/09/22 Previous Rx's Medication Instructions Recorded levothyroxine 25 mcg tablet See Rx Instructions .Route 09/03/21 .COMPLEX #90 tabs gabapentin 600 mg tablet 600 mg PO TID #90 tabs 09/10/21 thyroid (pork) 90 mg tablet 90 mg PO DAILY #90 tabs 11/09/21 ([place] Thyroid) bupropion HCl 150 mg 24 hr tablet, 150 mg PO DAILY #90 tabs 12/06/21 extended release acetaminophen 500 mg capsule 1,000 mg PO Q6H PRN pain #240 caps 02/21/22 apixaban 5 mg tablet (Eliquis) 5 mg PO BID #180 tabs 02/21/22 famotidine 20 mg tablet 20 mg PO DAILY #90 tabs 02/21/22 losartan 50 mg tablet 50 mg PO DAILY #90 tabs 02/21/22 metoclopramide HCl 10 mg tablet 10 mg PO Q8H PRN nausea and 02/21/22 vomiting 30 days #90 tabs amlodipine 10 mg tablet 10 mg PO DAILY #90 tabs 02/24/22 duloxetine 30 mg capsule,delayed 30 mg PO DAILY #90 caps 02/25/22 release (Cymbalta) dexamethasone 4 mg tablet 8 mg PO Q12HR #60 tabs 03/23/22 lorazepam 0.5 mg tablet 0.5 mg PO TID PRN Anxiety #30 tabs 03/23/22 cyclobenzaprine 5 mg tablet See Rx Instructions .Route 03/28/22 .COMPLEX #90 tabs lidocaine 5 % topical patch 2 patch topical DAILY #15 ea 03/28/22 lidocaine-prilocaine 2.5 %-2.5 % 1 applic topical PRN PRN 03/29/22 topical cream Port/Catheter Care #30 grams oseltamivir 75 mg capsule (Tamiflu) 75 mg PO BID 5 days #10 caps 04/06/22 Allergies Allergy/AdvReac Type Severity Reaction Status Date / Time codeine Allergy Severe Drowsy Verified 04/09/22 11:52 Penicillins Allergy Severe Anaphylaxis Verified 04/09/22 11:52 adhesive AdvReac Intermediate Rash Verified 04/09/22 11:52 latex AdvReac Intermediate Rash Verified 04/09/22 11:52 Review of Systems Review of Systems ROS Unobtainable: All systems reviewed & are unremarkable except as noted in HPI and below 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) Psoriasis Pulmonary embolism (01/18/22) Rosacea (10/31/13) Tenesmus of bladder (10/21/14) Thyroid nodule Uterine fibroid Vaginal mass Vitamin D deficiency (03/06/15) Surgical History History of brain shunt (~12/22/21) History of gynecologic surgery (10/06/20) History of radioactive iodine thyroid ablation History of removal of Port-a-Cath (07/10/19) History of surgery (11/27/18) History of surgery (12/04/18) History of vaginal hysterectomy (~07/2017) Hx of cholecystectomy Hx of craniotomy (12/13/21) Hx of left mastectomy (06/05/19) Status post excision of lipoma (~2013) Status post tubal ligation (~2013) Family History Father Alcoholism Mother Age: 71 Depression Grandfather Diabetes mellitus Mother Parkinson's disease Social History household members: children Smoking Status: Former smoker alcohol intake: never Smoking Status: Former smoker tobacco type: cigarettes alcohol intake frequency: other Substance Use Type: does not use Exam Narrative Exam Narrative: GEN: Obese female, alert and oriented x 3, patient appears to be in moderate distress. HEENT: Atraumatic, pupils are equal round reactive to light, extraocular movements are intact, nares are clear, there is no conjunctival pallor. Throat is clear without any exudates, erythema, tonsillar enlargement or uvular deviation HEART: Regular rate and rhythm without murmur, clicks, rubs. Pulses are equal in upper and lower extremities LUNGS:Lungs decreased bilaterally, no wheezes, rales, crackles, chest moves symmetrically, no tachypnea but patient has persistent wet sounding cough but no nproductive in the ED. ABD:bowel sounds normal, soft, non-tender, no guarding, rebound, rigidity, no masses noted, no hepatosplenomegaly, patient has would be appears to be a PEG tube, there is a small amount of clear yellowish drainage within the tube itself, there is also a small amount of slightly bloody drainage at the site. :No CVA tenderness MSCL: Non-tender, no muscle atrophy, generalized weakness, with full range of motion upper extremities. NEURO:CN 2-12 intact, sensation normal, GCS = 15, clear speech with normal mentation SKIN: No rash, erythema or other skin changes Initial Vital Signs Initial Vital Signs: Vital Signs Blood Pressure 138/83 04/09/22 10:03 Course Orders Ordered: Acetaminophen (Acetaminophen 325 Mg Tablet) 975 mg PO Q6H PRN PRN Reason: pain Apixaban (Apixaban 5 Mg Tablet) 5 mg PO BID [facility] Last Admin: 04/11/22 08:55 Dose: 5 mg Documented By: Admin: 04/10/22 20:53 Dose: 5 mg Documented By: Admin: 04/10/22 12:43 Dose: 5 mg Documented By: TLS Bupropion HCl (Bupropion Xl 150 Mg Tab) 150 mg PO DAILY [facility] Last Admin: 04/11/22 08:55 Dose: 150 mg Documented By: Admin: 04/10/22 12:43 Dose: 150 mg Documented By: TLS Cyclobenzaprine HCl (Cyclobenzaprine 10 Mg Tablet) 10 mg PO Q8H PRN PRN Reason: Muscle Spasm Last Admin: 04/10/22 12:43 Dose: 10 mg Documented By: TLS Dexamethasone (Dexamethasone 4 Mg Tablet) 8 mg PO BIDWM [facility] Last Admin: 04/11/22 08:55 Dose: 8 mg Documented By: Admin: 04/10/22 19:00 Dose: 8 mg Documented By: RL Dextrose (Dextrose 50 % In Water 25 Gm/50 Ml Syringe) 25 gm IV PRN PRN PRN Reason: Hypoglycemia Duloxetine HCl (Duloxetine 30 Mg Capsule) 30 mg PO DAILY [facility] Last Admin: 04/11/22 08:55 Dose: 30 mg Documented By: Admin: 04/10/22 12:43 Dose: 30 mg Documented By: TLS Famotidine (Famotidine 20 Mg Tablet) 20 mg PO DAILY [facility] Last Admin: 04/11/22 08:55 Dose: 20 mg Documented By: Admin: 04/10/22 12:44 Dose: 20 mg Documented By: TLS Gabapentin (Gabapentin 600 Mg Tablet) 600 mg PO TID [facility] Last Admin: 04/11/22 08:55 Dose: 600 mg Documented By: Admin: 04/11/22 00:15 Dose: 600 mg Documented By: Admin: 04/10/22 18:53 Dose: 600 mg Documented By: BRITTNEY Heparin Sodium (Porcine) (Heparin 500 Unit/5 Ml Port Flush) 500 unit IV PRN PRN PRN Reason: Flush Last Admin: 04/11/22 06:22 Dose: 500 unit Documented By: DEANNA Heparin Sodium (Porcine) (Heparin 500 Unit/5 Ml Port Flush) 500 unit IV BID JOCE Last Admin: 04/11/22 09:03 Dose: Not Given Documented By: ANABEL Hydromorphone HCl (Hydromorphone 0.5 Mg Inj) 0.5 mg IV Q4H PRN PRN Reason: Pain, Moderate (4-6) Sodium Chloride (Normal Saline 0.9%) 250 mls @ 21 mls/hr IV Q24H PRN PRN Reason: Flush Ceftriaxone Sodium 2,000 mg/ (Sodium Chloride) 100 mls @ 200 mls/hr IV Q24H JOCE Insulin Human Lispro (Insulin Lispro 100 Unit/Ml 3ml Vial) 0 unit SUBCUT ACHS JOCE; Protocol Last Admin: 04/11/22 08:59 Dose: 3 unit Documented By: ANABEL Co-signed By: KARMA Admin: 04/10/22 20:51 Dose: 1 unit Documented By: DEANNA Co-signed By: JULEE Admin: 04/10/22 19:06 Dose: Not Given Documented By: Admin: 04/10/22 14:58 Dose: 2 unit Documented By: BRITTNEY Co-signed By: JUDIE Admin: 04/10/22 09:18 Dose: 3 unit Documented By: BRITTNEY Co-signed By: JUDIE Admin: 04/09/22 21:42 Dose: 1 unit Documented By: LYNDON Co-signed By: Admin: 04/09/22 20:45 Dose: Not Given Documented By: HERNAN Ketorolac Tromethamine (Ketorolac 30 Mg/Ml Vial) 15 mg IV Q6H PRN PRN Reason: Pain, Moderate (4-6) Stop: 04/14/22 18:12 Last Admin: 04/11/22 02:14 Dose: 15 mg Documented By: Admin: 04/10/22 09:41 Dose: 15 mg Documented By: BRITTNEY Levothyroxine Sodium (Levothyroxine 25 Mcg Tablet) 25 mcg PO 0600 [facility] Last Admin: 04/11/22 06:16 Dose: 25 mcg Documented By: DEANNA Lidocaine (Lidocaine Patch 1 Each Adh..Patch) 2 each TOP DAILY [facility] Last Admin: 04/11/22 08:56 Dose: 2 each Documented By: Admin: 04/10/22 12:44 Dose: 2 each Documented By: TLS Lorazepam (Lorazepam 0.5 Mg Tablet) 0.5 mg PO TID PRN PRN Reason: Anxiety Losartan Potassium (Losartan 50 Mg Tablet) 50 mg PO DAILY [facility] Last Admin: 04/11/22 08:55 Dose: 50 mg Documented By: Admin: 04/10/22 12:43 Dose: 50 mg Documented By: TLS Naloxone HCl (Naloxone 0.4 Mg/Ml Vial) 0.2 mg IV Q2MIN PRN PRN Reason: Opiate Reversal Ondansetron HCl (Ondansetron 4 Mg/2 Ml Inj) 4 mg IV Q4HR PRN PRN Reason: Nausea And Vomiting Pantoprazole Sodium (Pantoprazole 40 Mg Vial) 20 mg IV DAILY [facility] Last Admin: 04/11/22 08:57 Dose: 20 mg Documented By: Admin: 04/10/22 08:45 Dose: 20 mg Documented By: BRITTNEY Sodium Chloride (Sodium Chloride 0.9% Flush) 10 ml IV PRN PRN PRN Reason: Flush Last Admin: 04/11/22 06:15 Dose: 10 ml Documented By: Admin: 04/11/22 02:16 Dose: 10 ml Documented By: DEANNA Sodium Chloride (Sodium Chloride 0.9% Flush) 10 ml IV BID [facility] Last Admin: 04/11/22 09:00 Dose: 10 ml Documented By: Admin: 04/10/22 21:01 Dose: Not Given Documented By: DEANNA Thyroid (Thyroid, Pork 30 Mg Tablet) 90 mg PO DAILY [facility] Last Admin: 04/11/22 08:59 Dose: 90 mg Documented By: Admin: 04/10/22 12:44 Dose: Not Given Documented By: TLS Vancomycin HCl (Vancomycin Peak) 1 request MISC 1200 [facility] Stop: 04/11/22 12:01 Discontinued Medications Acetaminophen (Acetaminophen 325 Mg Tablet) 975 mg PO NOW ONE Stop: 04/09/22 11:02 Last Admin: 04/09/22 11:53 Dose: 975 mg Documented By: RLS Acetaminophen (Acetaminophen 325 Mg Tablet) 975 mg PO Q8H PRN PRN Reason: Fever/Mild Pain (1-3) Last Admin: 04/10/22 05:36 Dose: 975 mg Documented By: OW Furosemide (Furosemide 20 Mg/2 Ml Vial) 20 mg IV DAILY JOCE Furosemide (Furosemide 20 Mg/2 Ml Vial) 20 mg IV NOW ONE Stop: 04/11/22 09:01 Last Admin: 04/11/22 08:58 Dose: 20 mg Documented By: LDV Hydromorphone HCl (Hydromorphone 2 Mg Inj) 2 mg IV NOW ONE Stop: 04/09/22 20:26 Last Admin: 04/09/22 21:15 Dose: Not Given Documented By: KDK Sodium Chloride (Normal Saline 0.9%) 1,000 mls @ 1,000 mls/hr IV BOLUS ONE Stop: 04/09/22 11:31 Last Infusion: 04/09/22 14:06 Dose: 0 mls/hr Documented By: RLS(2) Admin: 04/09/22 11:55 Dose: 1,000 mls/hr Documented By: RLS Levofloxacin (Levaquin) 750 mg in 150 mls @ 100 mls/hr IV NOW ONE Stop: 04/09/22 12:30 Last Infusion: 04/09/22 14:06 Dose: 0 mls/hr Documented By: RLS(2) Admin: 04/09/22 12:12 Dose: 100 mls/hr Documented By: RLS Cefepime HCl 2 gm/ Sodium (Chloride) 100 mls @ 200 mls/hr IV Q12H [facility] Last Infusion: 04/11/22 07:05 Dose: 0 mls/hr Documented By: Admin: 04/11/22 06:25 Dose: 200 mls/hr Documented By: Infusion: 04/10/22 21:44 Dose: 0 mls/hr Documented By: Admin: 04/10/22 20:26 Dose: 200 mls/hr Documented By: Infusion: 04/10/22 06:32 Dose: 200 mls/hr Documented By: Admin: 04/10/22 06:02 Dose: 200 mls/hr Documented By: Infusion: 04/09/22 21:17 Dose: 0 mls/hr Documented By: Admin: 04/09/22 20:02 Dose: 200 mls/hr Documented By: OW Vancomycin HCl (Vancomycin) 1,250 mg in 250 mls @ 166.667 mls/hr IV Q8H [facility] Last Infusion: 04/09/22 23:45 Dose: 0 mls/hr Documented By: Admin: 04/09/22 22:11 Dose: 166.667 mls/hr Documented By: Admin: 04/09/22 21:16 Dose: Not Given Documented By: Admin: 04/09/22 21:16 Dose: Not Given Documented By: HERNAN Vancomycin HCl (Vancomycin) 1,250 mg in 250 mls @ 166.667 mls/hr IV Q8H [facility] Last Admin: 04/11/22 00:14 Dose: Not Given Documented By: Infusion: 04/10/22 21:01 Dose: 0 mls/hr Documented By: Admin: 04/10/22 18:56 Dose: 166 mls/hr Documented By: Infusion: 04/10/22 18:55 Dose: 0 mls/hr Documented By: Admin: 04/10/22 08:47 Dose: 166.667 mls/hr Documented By: BRITTNEY Vancomycin HCl (Vancomycin) 1,250 mg in 250 mls @ 250 mls/hr IV NOW ONE Stop: 04/10/22 01:29 Last Admin: 04/10/22 00:24 Dose: 250 mls/hr Documented By: LYNDON Vancomycin HCl (Vancomycin) 1,250 mg in 250 mls @ 166.667 mls/hr IV Q8H [facility] Last Admin: 04/11/22 10:54 Dose: 166.667 mls/hr Documented By: Infusion: 04/11/22 03:30 Dose: 0 mls/hr Documented By: Admin: 04/11/22 02:01 Dose: 166.667 mls/hr Documented By: DEANNA Ondansetron HCl (Ondansetron 4 Mg/2 Ml Inj) 4 mg IV NOW ONE Stop: 04/09/22 11:02 Last Admin: 04/09/22 11:52 Dose: 4 mg Documented By: RLS Potassium Chloride (Potassium Chloride 20 Meq Tab) 40 meq PO NOW ONE Stop: 04/11/22 09:03 Last Admin: 04/11/22 10:53 Dose: 40 meq Documented By: LDV Vancomycin HCl (Vancomycin Trough) 1 request MIS 0730 [facility] Stop: 04/11/22 07:31 Vancomycin HCl (Vancomycin Peak) 1 request MISC 1000 [facility] Stop: 04/11/22 10:01 Vancomycin HCl (Vancomycin Trough) 1 request [facility] [place] 0930 [facility] Stop: 04/11/22 09:31 Last Admin: 04/11/22 09:47 Dose: Not Given Documented By: LDV Vital Signs Vital signs: Vital Signs - 8 hr 04/09/22 10:14 Temperature 97.8 F Pulse Rate 108 H Respiratory Rate 24 Blood Pressure 138/83 Pulse Oximetry 93 Oxygen Delivery Method Room Air MDM - SOB/Dyspnea Lab Data Result diagrams: 04/11/22 06:22 04/11/22 06:22 Labs: Lab Results 04/09/22 04/09/22 04/09/22 Range/Units 10:17 11:00 11:00 WBC 9.3 (4.5-11.0) X10^3/uL RBC 4.27 (4.0-5.2) X10^6/uL Hgb 12.8 (12.0-16.0) g/dL Hct 38.9 (36-46) % MCV 91.2 (80-100) fL MCH 30.1 (26-34) PG MCHC 33.0 (30-36) % RDW 16.6 H (11.6-14.8) % Plt Count 185 (150-400) X10^3/uL Neut % (Auto) 92.6 H (50-75) % Lymph % (Auto) 3.7 L (25-40) % [place] % (Auto) 3.4 (3-14) % Eos % (Auto) 0.1 L (2-4) % Baso % (Auto) 0.2 (0-2) % Neut # (Auto) 8700 H (0430-0130) /uL Lymph # (Auto) 300 L (5209-0133) /uL [place] # (Auto) 300 (0-900) /uL Eos # (Auto) 0 (0-450) /uL Baso # (Auto) 0 (0-100) /uL PT 12.2 (10.1-12.7) SECONDS INR 1.1 (0.9-1.3) APTT (26-36) SECONDS Sodium (137-145) mmol/L Potassium (3.4-5.1) mmol/L Chloride (98-107) mmol/L Carbon Dioxide (22-32) mmol/L BUN (7-17) mg/dL Creatinine (0.52-1.04) mg/dL Estimated GFR (>60) mL/min BUN/Creatinine Ratio (6-22) Glucose (70-100) mg/dL Lactate (0.7-2.1) mmol/L Calcium (8.4-10.2) mg/dL Total Bilirubin (0.2-1.3) mg/dL AST (14-36) IU/L ALT (<35) IU/L Alkaline Phosphatase (38-126) U/L Troponin I (0.01-0.034) ng/mL NT-Pro-B Natriuret Pep (<125) pg/mL Total Protein (6.3-8.2) g/dL Albumin (3.5-5.0) g/dL Globulin (1.7-4.1) g/dL Albumin/Globulin Ratio (1.0-2.8) Lipase (23-300) U/L Procalcitonin (<0.5) ng/mL SARS-CoV-2 (PCR) Negative (Negative) Influenza A (RT-PCR) Flu a positive H (NEGATIVE) Influenza B (RT-PCR) Flu b negative (NEGATIVE) RSV (PCR) Negative (Negative) 04/09/22 04/09/22 04/09/22 Range/Units 11:00 11:00 11:00 WBC (4.5-11.0) X10^3/uL RBC (4.0-5.2) X10^6/uL Hgb (12.0-16.0) g/dL Hct (36-46) % MCV (80-100) fL MCH (26-34) PG MCHC (30-36) % RDW (11.6-14.8) % Plt Count (150-400) X10^3/uL Neut % (Auto) (50-75) % Lymph % (Auto) (25-40) % [place] % (Auto) (3-14) % Eos % (Auto) (2-4) % Baso % (Auto) (0-2) % Neut # (Auto) (4084-2000) /uL Lymph # (Auto) (2276-2491) /uL [place] # (Auto) (0-900) /uL Eos # (Auto) (0-450) /uL Baso # (Auto) (0-100) /uL PT (10.1-12.7) SECONDS INR (0.9-1.3) APTT 31 (26-36) SECONDS Sodium 133 L (137-145) mmol/L Potassium 3.6 (3.4-5.1) mmol/L Chloride 96 L (98-107) mmol/L Carbon Dioxide 29 (22-32) mmol/L BUN 22 H (7-17) mg/dL Creatinine 0.43 L (0.52-1.04) mg/dL Estimated GFR > 60 (>60) mL/min BUN/Creatinine Ratio 51.2 H (6-22) Glucose 321 H (70-100) mg/dL Lactate 1.9 (0.7-2.1) mmol/L Calcium 8.7 (8.4-10.2) mg/dL Total Bilirubin 0.7 (0.2-1.3) mg/dL AST 28 (14-36) IU/L ALT 48 H (<35) IU/L Alkaline Phosphatase 116 (38-126) U/L Troponin I 0.020 (0.01-0.034) ng/mL NT-Pro-B Natriuret Pep 141 H (<125) pg/mL Total Protein 5.8 L (6.3-8.2) g/dL Albumin 3.2 L (3.5-5.0) g/dL Globulin 2.6 (1.7-4.1) g/dL Albumin/Globulin Ratio 1.2 (1.0-2.8) Lipase (23-300) U/L Procalcitonin (<0.5) ng/mL SARS-CoV-2 (PCR) (Negative) Influenza A (RT-PCR) (NEGATIVE) Influenza B (RT-PCR) (NEGATIVE) RSV (PCR) (Negative) 04/09/22 Range/Units 11:00 WBC (4.5-11.0) X10^3/uL RBC (4.0-5.2) X10^6/uL Hgb (12.0-16.0) g/dL Hct (36-46) % MCV (80-100) fL MCH (26-34) PG MCHC (30-36) % RDW (11.6-14.8) % Plt Count (150-400) X10^3/uL Neut % (Auto) (50-75) % Lymph % (Auto) (25-40) % [place] % (Auto) (3-14) % Eos % (Auto) (2-4) % Baso % (Auto) (0-2) % Neut # (Auto) (3763-9734) /uL Lymph # (Auto) (5282-1609) /uL [place] # (Auto) (0-900) /uL Eos # (Auto) (0-450) /uL Baso # (Auto) (0-100) /uL PT (10.1-12.7) SECONDS INR (0.9-1.3) APTT (26-36) SECONDS Sodium (137-145) mmol/L Potassium (3.4-5.1) mmol/L Chloride (98-107) mmol/L Carbon Dioxide (22-32) mmol/L BUN (7-17) mg/dL Creatinine (0.52-1.04) mg/dL Estimated GFR (>60) mL/min BUN/Creatinine Ratio (6-22) Glucose (70-100) mg/dL Lactate (0.7-2.1) mmol/L Calcium (8.4-10.2) mg/dL Total Bilirubin (0.2-1.3) mg/dL AST (14-36) IU/L ALT (<35) IU/L Alkaline Phosphatase (38-126) U/L Troponin I (0.01-0.034) ng/mL NT-Pro-B Natriuret Pep (<125) pg/mL Total Protein (6.3-8.2) g/dL Albumin (3.5-5.0) g/dL Globulin (1.7-4.1) g/dL Albumin/Globulin Ratio (1.0-2.8) Lipase 54 (23-300) U/L Procalcitonin 0.05 (<0.5) ng/mL SARS-CoV-2 (PCR) (Negative) Influenza A (RT-PCR) (NEGATIVE) Influenza B (RT-PCR) (NEGATIVE) RSV (PCR) (Negative) Imaging Data Chest x-ray: Radiologist's Impression: SantoshCastrogiulia Ga??51??F??1970 ? Allergy/Adv: codeine, Penicillins, adhesive, latex (More??) Close Chest X-Ray (Signed) Luis Enrique Foster - 04/09/[address] (Signed) Luis Enrique Foster - 04/06/22 Chest X-Ray (Signed) Bronwyn Stephens - 03/01/22 Chest X-Ray (Signed) Shawn Contreras - 03/01/22 PET, Tumor Imaging Skull-Mid Thigh (Signed) Ken Castorena - 02/23/[address] (Signed) Sterling Beck - 12/10/21 DEXA Result 09/03/21 Mammogram Screening (Signed) Huong Hernandez - 09/03/21 Bone Densitometry 09/03/21 Breast Ultrasound (Signed) Gabriel Carr - 04/13/21 Breast Ultrasound (Signed) Shawn Talamantes - 11/30/20 Breast Ultrasound (Signed) Shawn Talamantes - 11/30/20 Mammogram Screening (Signed) Shawn Talamantes - 08/22/20 Abdomen/Pelvis CT (Signed) Mino Woodall - 06/08/20 Brain MRI (Signed) Sumanth Powers - 06/08/20 Bone Scan Nuclear Medicine (Signed) Alicia Castorena - 06/08/20 Abdomen Ultrasound (Signed) Luis Enrique Foster - 02/11/20 Outside DI 05/15/19 Catheter Patency X-Ray (Signed) Aliica Castorena - 04/18/19 Chest X-Ray (Signed) Jorge Franklin - 03/11/19 Breast Ultrasound (Signed) Gabriel Carr - 03/11/19 Mammogram Diagnostic (Signed) Gabriel Carr - 03/11/19 Peripheral Vascular Ultrasound (Signed) Bronwyn Stephens - 01/24/19 Pelvis Ultrasound (Signed) Gabriel Carr - 12/19/18 DI Result CC 12/11/18 Oncology Outside DI 12/11/18 Chest X-Ray (Signed) Luis Enrique Foster - 12/04/18 Chest/Abdomen/Pelvis CT (Signed) Huong Hernandez - 11/30/18 Echocardiogram Ultrasound (Signed) Herman Blanton - 11/30/18 Bone Scan Nuclear Medicine (Addendum) Alicia Castorena - 11/30/18 Chest X-Ray (Addendum) Bronwyn Stephens - 11/27/18 Breast Biopsy Ultrasound (Signed) LillyGabriel - 11/09/18 Mammogram Diagnostic (Signed) CarrGabriel - 11/09/18 Mammogram Diagnostic (Signed) Hanh Washington - 10/19/18 Breast Ultrasound (Signed) Hanh Washington - 10/19/18 Hand X-Ray (Signed) Sumanth Powers - 05/31/18 Hand X-Ray (Signed) Sumanth Powers - 05/31/18 Needle Aspiration Ultrasound (Signed) Franklin Martinez - 04/24/18 Thyroid Ultrasound (Signed) Sumanth Powers - 03/15/18 Toe X-Ray (Signed) Franklin Martinez - 01/26/18 Abdomen Ultrasound (Signed) Sumanth Powers - 12/22/17 Launch?[place] [address] XRay Report Signed Patient: May Frost MR#: [id number] : 1970 Acct:[id number] Age/Sex: 51 / F Date of Service: 04/09/22 Loc: ED Accession Number: [id number] ?? Procedure: XR chest 1V Ordering Provider: Jud Mahajan D.O. PROCEDURE:? XR CHEST 1V ? INDICATIONS:? Shortness of breath ? TECHNIQUE:? One view of the chest was acquired.? ? COMPARISON:? [facility], , XR CHEST 1V, 03/01/2022, 16:02. ? FINDINGS:? ? Surgical changes and devices:? There is a stable right-sided chest port.? There is a stable BP shunt catheter.? Left axillary clips are seen. ? Lungs and pleura:? An incomplete inspiratory result is noted, causing a crowded appearance to the lung markings.? Mild patchy infiltrates are seen involving the mid and lower lungs, which are overall slightly progressed compared to the prior plain film.? No pneumothorax or significant pleural effusions are seen. ? ? Mediastinum:? Mediastinal contours appear normal.? Heart size is normal.? ? Bones and chest wall:? No suspicious bony lesions.? Age-appropriate bony degenerative changes are seen. ? Overlying soft tissues appear unremarkable.? ? ? IMPRESSION:? Mild bilateral patchy poorly defined infiltrates are seen, which are overall slightly more prominent on the current study than on the prior. ? Postoperative and degenerative changes are seen. ? ? ? Dictated by: Luis Enrique Foster M.D. on 04/09/2022 at 9:34 ? ? Approved by: Luis Enrique Foster M.D. on 04/09/2022 at 9:36?? ECG Data Attestation: I personally reviewed and interpreted this ECG as follows: Prior ECG tracings: not available for review Interpretation: Sinus tachycardia rate of 109 MI 126 QRS of 90 and QTC of 439. Patient has some depression in V5 6 with Q-wave, no elevation appreciated. No priors for comparison. MDM Narrative Medical decision making narrative: This is a 51-year-old female with known metastatic breast cancer with Mets to the brain who started whole-brain radiation about 2 weeks ago, diagnosed with influenza on the who is had persistent cough, increasing weakness generally feeling unwell she also notes some drainage around the site of her PEG tube. Patient is tachycardic, she is not hypoxic. Chest x-ray suspicious for pneumonia she may have developed bacterial superinfection on top of her influenza. Patient admitted to hospitalist for generalized weakness, influenza bacterial pneumonia. Patient's PEG tube did have drainage around the site, culture was obtained, CT abdomen pelvis was obtained as there is little bit of blood purulent drainage and appears to have infection. Spoke with General surgery who feels patient is appropriate to stay here with us and they can follow for this portion of patient's treatment, Dr. Snyder hospitalist who accepts for admission. Discharge Plan Departure Patient Disposition: Admitted as Observation Clinical Impression: Weakness, Influenza A, Metastatic breast cancer, Pneumonia, Infection of PEG site Admit Date/Time: 04/09/22 14:44 Admit Provider: Moises Aguiar
[2022-04-09 11:02] LABS: Influenza A - CEPHEID Flu A POSITIVE (NEGATIVE); Influenza B - CEPHEID Flu B NEGATIVE (NEGATIVE); Respiratory Syncytial Virus Negative (Negative)
[2022-04-09 11:11] LABS: Add Manual Diff / Slide Review NO; Basophils Absolute Auto 0 /uL (0-100); Basophils Percent Auto 0.2 % (0-2); Eosinophils Absolute Auto 0 /uL (0-450); Eosinophils Percent Auto 0.1 % (2-4); Hematocrit 38.9 % (36-46); Hemoglobin 12.8 g/dL (12.0-16.0); Lymphocytes Absolute Auto 300 /uL (1100-4500); Lymphocytes Percent Auto 3.7 % (25-40); Mean Corpuscular Hemoglobin 30.1 PG (26-34); Mean Corpuscular Volume 91.2 fL (80-100); Monocytes Absolute Auto 300 /uL (0-900); Monocytes Percent Auto 3.4 % (3-14); Neutrophils Absolute Auto 8700 /uL (1500-7000); Neutrophils Percent Auto 92.6 % (50-75); Platelet Count 185 X10^3/uL (150-400); Red Blood Cell Count 4.27 X10^6/uL (4.0-5.2); Red Cell Distribution Width 16.6 % (11.6-14.8); White Blood Cell Count 9.3 X10^3/uL (4.5-11.0)
[2022-04-09 11:15] LABS: INR 1.1 (0.9-1.3); Prothrombin Time 12.2 SECONDS (10.1-12.7)
[2022-04-09 11:19] LABS: Alanine Aminotransferase 48 IU/L (<35); Albumin 3.2 g/dL (3.5-5.0); Albumin Globulin Ratio 1.2 (1.0-2.8); Alkaline Phosphatase 116 U/L (38-126); Aspartate Aminotransferase 28 IU/L (14-36); BUN Creatinine Ratio 51.2 (6-22); Bilirubin Total 0.7 mg/dL (0.2-1.3); Blood Urea Nitrogen 22 mg/dL (7-17); Calcium 8.7 mg/dL (8.4-10.2); Carbon Dioxide 29 mmol/L (22-32); Chloride 96 mmol/L (98-107); Estimated Glomerular Filt Rate > 60 mL/min (>60); Globulin 2.6 g/dL (1.7-4.1); Glucose 321 mg/dL (70-100); HEMOLYSIS < 15 (0-50); Lipase 54 U/L (23-300); Potassium 3.6 mmol/L (3.4-5.1); Sodium 133 mmol/L (137-145); Total Protein 5.8 g/dL (6.3-8.2)
[2022-04-09 11:24] LABS: PTT Partial Thromboplastin Tim 31 SECONDS (26-36)
[2022-04-09 11:27] LABS: Lactate (Lactic Acid) 1.9 mmol/L (0.7-2.1)
[2022-04-09 11:31] LABS: NT-proBNP (BNP-Adult 18+) 141 pg/mL (<125)
[2022-04-09 11:34] LABS: COVID-19 CEPHEID 4-PLEX PCR Negative (Negative)
[2022-04-09 11:36] LABS: Procalcitonin 0.05 ng/mL (<0.5)
[2022-04-09] MEDS: ONDANSETRON 4 MG/2 ML INJ IV (11:52)
[2022-04-09] MEDS: ACETAMINOPHEN 325 MG TABLET 975 MG PO (11:53)
[2022-04-09] MEDS: SODIUM CHLORIDE 0.9% 1,000 ML 1000 ML IV (11:55)
[2022-04-09] MEDS: levoFLOXacin 750 MG/150 ML PIGGYBACK 100 MG IV (12:12)
--- NOTE | 2022-04-09 12:17 | PC.NURSE ---
Flushed gtube?peg tube per protocol. flushes without incident. bile drainage. Site is draining foul smelling serous sanguinous drainage in large amounts. area cleansed with soap and water. specimen sent to lab. 4 x4 placed over g tube site. pt reports it leaks everytime after she showers. foul smell started today.
--- NOTE | 2022-04-09 12:31 | DI.CT.S_ITS ---
PROCEDURE: CT ABDOMEN PELVIS W CON INDICATIONS: drainage peg tube TECHNIQUE: After the administration of intravenous contrast, axial sections acquired from the lung bases to the pubic symphysis. Coronal and sagittal reformats were performed. For radiation dose reduction, the following was used: automated exposure control, adjustment of mA and/or kV according to patient size. COMPARISON: None. FINDINGS: Patchy bilateral airspace consolidation in both lung bases with scattered centrilobular nodules. Findings are suggestive of bilateral pneumonia. There is a small left pleural effusion. Percutaneous gastrostomy tube is in appropriate position with the securing inflated balloon within the gastric wall. Surrounding the tract in the subcutaneous soft tissue there is inflammatory fat stranding with numerous locules of air, nonspecific. No abnormally dilated or obviously thickened loop of bowel. Solid abdominal visceral structures are normal in appearance. Cholecystectomy. No acute osseous finding. IMPRESSION: Percutaneous gastrostomy tube in appropriate position, however with inflammatory fat stranding and numerous locules of air surrounding the portion of the tube in the subcutaneous fat. Findings could represent insertion site infection, although this could be related to placement if the procedure was relatively recent. Diffuse bilateral airspace ground-glass and consolidative opacities with multifocal areas of centrilobular tree-in-bud nodularity. Findings are consistent with multifocal infectious process/pneumonia. Dictated by: López Chaidez M.D. on 04/09/2022 at 13:54 Approved by: López Chaidez M.D. on 04/09/2022 at 13:57
--- NOTE | 2022-04-09 18:11 | PM.HP.1 ---
History of Present Illness History of Present Illness Date Patient Seen: 04/09/22 Time Patient Seen: 18:11 Chief complaint: Weakness, flu + since julio, hx [place] Narrative: This is a 51 year old female with PMH of HTN, hypothyroidism, metastatic breast cancer s/p recent 44 day stay at [facility] in 12/27-01/2022 for craniotomy which was complicated by hydrocephalus requiring EVD and CAT TENDER shunt. She then developed difficulty swallowing, with malnutrition requiring TPN and ultimately PEG placement. During her stay on 01/18 she was found to have a PE and started on apixaban as well. She recently had brain radiation at [facility], and plans to start palliative chemo 04/18/22. She presented today with worsening weakness over the past week along with a variety of symptoms. She states a kid at [facility] was ill, no other known sick contacts and she has been feeling ill for approximately one week. She has had a chronic cough since the PEG placement, worsened lower extremity edema recently and orthopnea as well. She denies fever, but does endorse chills and muscle aches and headache. She denied dysuria or urinary frequency. She has had purulent discharge from her PEG tube site for the past two days with worsening pain around the area. She has been trying to keep the area clean. She does not use her PEG much anymore, her tube feeds give her diarrhea and she has been able to tolerate oral intake. She has no known history of DM, but glucose was >300 on admit labs possibly due to steroid use. She was also tachycardic but BP was okay. She was not hypoxic on room air. Chest XR showed b/l patchy infiltrates, Abdominal CT showed tree-in-bud pattern of these infiltrates consistent with pnuemonia. It also showed diffuse inflammation and likely infection around her PEG tube. Procalcitonin was negative, there was no leukocytosis. Troponin was within normal limits, and proBNP was slightly elevated at 141. Flu-A testing was positive. She was admitted for further management. 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) Psoriasis Pulmonary embolism (01/18/22) Rosacea (10/31/13) Tenesmus of bladder (10/21/14) Thyroid nodule Uterine fibroid Vaginal mass Vitamin D deficiency (03/06/15) Surgical History History of brain shunt (~12/22/21) History of gynecologic surgery (10/06/20) History of radioactive iodine thyroid ablation History of removal of Port-a-Cath (07/10/19) History of surgery (11/27/18) History of surgery (12/04/18) History of vaginal hysterectomy (~07/2017) Hx of cholecystectomy Hx of craniotomy (12/13/21) Hx of left mastectomy (06/05/19) Status post excision of lipoma (~2013) Status post tubal ligation (~2013) Family & Social History Family History Father Alcoholism Mother Age: 71 Depression Grandfather Diabetes mellitus Mother Parkinson's disease Social History: household members significant other,children Safety & Behavioral: Feels Safe in Current Yes Environment Been Physically Hurt or No Threatened By a Person Tobacco & Substance use: Tobacco type cigarettes Smoking Status Former smoker alcohol intake never alcohol intake frequency other Substance Use Type does not use Meds Home Medications and Allergies Home Medications Medication Instructions Recorded Confirmed Type loratadine 10 mg tablet (Allergy 10 mg PO DAILY 11/29/17 03/28/22 History Relief (loratadine)) levothyroxine 25 mcg tablet See Rx Instructions .Route 09/03/21 04/09/22 Rx .COMPLEX #90 tabs gabapentin 600 mg tablet 600 mg PO TID #90 tabs 09/10/21 04/09/22 Rx thyroid (pork) 90 mg tablet 90 mg PO DAILY #90 tabs 11/09/21 03/28/22 Rx ([place] Thyroid) doxycycline hyclate 100 mg capsule 100 mg PO BID 11/15/21 03/28/22 History bupropion HCl 150 mg 24 hr tablet, 150 mg PO DAILY #90 tabs 12/06/21 04/09/22 Rx extended release acetaminophen 500 mg capsule 1,000 mg PO Q6H PRN pain #240 caps 02/21/22 04/09/22 Rx apixaban 5 mg tablet (Eliquis) 5 mg PO BID #180 tabs 02/21/22 04/09/22 Rx famotidine 20 mg tablet 20 mg PO DAILY #90 tabs 02/21/22 04/09/22 Rx losartan 50 mg tablet 50 mg PO DAILY #90 tabs 02/21/22 04/09/22 Rx metoclopramide HCl 10 mg tablet 10 mg PO Q8H PRN nausea and 02/21/22 03/28/22 Rx vomiting 30 days #90 tabs amlodipine 10 mg tablet 10 mg PO DAILY #90 tabs 02/24/22 04/09/22 Rx duloxetine 30 mg capsule,delayed 30 mg PO DAILY #90 caps 02/25/22 04/09/22 Rx release (Cymbalta) dexamethasone 4 mg tablet 8 mg PO Q12HR #60 tabs 03/23/22 04/09/22 Rx lorazepam 0.5 mg tablet 0.5 mg PO TID PRN Anxiety #30 tabs 03/23/22 03/28/22 Rx cyclobenzaprine 5 mg tablet See Rx Instructions .Route 03/28/22 Rx .COMPLEX #90 tabs lidocaine 5 % topical patch 2 patch topical DAILY #15 ea 03/28/22 Rx lidocaine-prilocaine 2.5 %-2.5 % 1 applic topical PRN PRN 03/29/22 Rx topical cream Port/Catheter Care #30 grams oseltamivir 75 mg capsule (Tamiflu) 75 mg PO BID 5 days #10 caps 04/06/22 Rx Allergies Allergy/AdvReac Type Severity Reaction Status Date / Time codeine Allergy Severe Drowsy Verified 04/09/22 11:52 Penicillins Allergy Severe Anaphylaxis Verified 04/09/22 11:52 adhesive AdvReac Intermediate Rash Verified 04/09/22 11:52 latex AdvReac Intermediate Rash Verified 04/09/22 11:52 Review of Systems Review of Systems Narrative: All other systems reviewed with the patient and are negative unless otherwise stated. Exam Vital Signs (past 8 hours): - 04/09/22 10:14 04/09/22 10:30 04/09/22 10:30 Temperature 97.8 F Pulse Rate 108 H 107 H Respiratory Rate 24 11 L Blood Pressure 138/83 128/77 Pulse Oximetry 93 92 Oxygen Delivery Method Room Air 04/09/22 11:00 04/09/22 11:30 04/09/22 11:37 Temperature Pulse Rate 112 H 105 H 109 H Respiratory Rate 24 18 20 Blood Pressure Pulse Oximetry 93 94 93 Oxygen Delivery Method 04/09/22 11:37 04/09/22 12:00 04/09/22 12:00 Temperature Pulse Rate 102 H Respiratory Rate 20 Blood Pressure 134/79 123/72 Pulse Oximetry 92 Oxygen Delivery Method 04/09/22 12:30 04/09/22 12:30 04/09/22 13:00 Temperature Pulse Rate 101 H Respiratory Rate 15 Blood Pressure 120/75 119/66 Pulse Oximetry 97 Oxygen Delivery Method 04/09/22 13:00 04/09/22 13:30 04/09/22 13:30 Temperature Pulse Rate 106 H 99 H Respiratory Rate 23 12 Blood Pressure 118/59 L Pulse Oximetry 97 97 Oxygen Delivery Method 04/09/22 14:00 04/09/22 14:00 04/09/22 14:30 Temperature Pulse Rate 99 H Respiratory Rate 12 Blood Pressure 118/56 L 114/55 L Pulse Oximetry 96 Oxygen Delivery Method 04/09/22 14:30 04/09/22 15:00 04/09/22 15:00 Temperature Pulse Rate 99 H 94 H Respiratory Rate 11 L 12 Blood Pressure 112/55 L Pulse Oximetry 95 94 Oxygen Delivery Method Oxygen Delivery Method Room Air Narrative Exam Narrative: General:? Patient is well developed and well nourished, acutely ill appearing, obese with BMI of 42.8 HEENT:? Normocephalic, atraumatic, extraocular muscles intact, oral pharynx is clear and mucous membranes are dry Neck: supple and symmetric, trachea is midline, no cervical adenopathy. Chest:? Normal AP diameter and contour without kyphoscoliosis, no tachypnea, equal chest rise bilaterally. Lungs:?coarse bilateral breath sounds, poor air movement Cardio:?RRR no m/r/g. Abdomen: soft, tender around PEG site and slightly inferior to the area with slightly purulent drainage, dressing was just changed but reportedly prior was soaked, non-distended. Musculoskeletal:? Muscle strength and tone are equal within normal limits, no deformity. Extremities:1+ edema b/l lower extremities, no joint effusions. No cyanosis or clubbing. Skin:? Pale,? Warm to touch,dry and intact without rashes, ulcerations or petechiae.? Neuro:? Alert and orientated x3,? sensation to touch intact in all extremities, no gross deficits noted of cranial nerves. Psych:? Patient has a well-kept appearance, appropriate affect, mental status attitude thought context and judgment are appropriate for age. Objective ECG Impression: Sinus tachycardia Possible Left atrial enlargement T wave abnormality, consider lateral ischemia (V5-6) No prior tracings Labs Result Diagrams: 04/09/22 11:00 04/09/22 11:00 Labs: Laboratory Results - last 24 hr 04/09/22 04/09/22 04/09/22 10:17 11:00 11:00 WBC 9.3 RBC 4.27 Hgb 12.8 Hct 38.9 MCV 91.2 MCH 30.1 MCHC 33.0 RDW 16.6 H Plt Count 185 Neut % (Auto) 92.6 H Lymph % (Auto) 3.7 L [place] % (Auto) 3.4 Eos % (Auto) 0.1 L Baso % (Auto) 0.2 Neut # (Auto) 8700 H Lymph # (Auto) 300 L [place] # (Auto) 300 Eos # (Auto) 0 Baso # (Auto) 0 PT 12.2 INR 1.1 APTT Sodium Potassium Chloride Carbon Dioxide BUN Creatinine Estimated GFR BUN/Creatinine Ratio Glucose Lactate Calcium Total Bilirubin AST ALT Alkaline Phosphatase Troponin I NT-Pro-B Natriuret Pep Total Protein Albumin Globulin Albumin/Globulin Ratio Lipase Procalcitonin SARS-CoV-2 (PCR) Negative Influenza A (RT-PCR) Flu a positive H Influenza B (RT-PCR) Flu b negative RSV (PCR) Negative 04/09/22 04/09/22 04/09/22 11:00 11:00 11:00 WBC RBC Hgb Hct MCV MCH MCHC RDW Plt Count Neut % (Auto) Lymph % (Auto) [place] % (Auto) Eos % (Auto) Baso % (Auto) Neut # (Auto) Lymph # (Auto) [place] # (Auto) Eos # (Auto) Baso # (Auto) PT INR APTT 31 Sodium 133 L Potassium 3.6 Chloride 96 L Carbon Dioxide 29 BUN 22 H Creatinine 0.43 L Estimated GFR > 60 BUN/Creatinine Ratio 51.2 H Glucose 321 H Lactate 1.9 Calcium 8.7 Total Bilirubin 0.7 AST 28 ALT 48 H Alkaline Phosphatase 116 Troponin I 0.020 NT-Pro-B Natriuret Pep 141 H Total Protein 5.8 L Albumin 3.2 L Globulin 2.6 Albumin/Globulin Ratio 1.2 Lipase Procalcitonin SARS-CoV-2 (PCR) Influenza A (RT-PCR) Influenza B (RT-PCR) RSV (PCR) 04/09/22 11:00 WBC RBC Hgb Hct MCV MCH MCHC RDW Plt Count Neut % (Auto) Lymph % (Auto) [place] % (Auto) Eos % (Auto) Baso % (Auto) Neut # (Auto) Lymph # (Auto) [place] # (Auto) Eos # (Auto) Baso # (Auto) PT INR APTT Sodium Potassium Chloride Carbon Dioxide BUN Creatinine Estimated GFR BUN/Creatinine Ratio Glucose Lactate Calcium Total Bilirubin AST ALT Alkaline Phosphatase Troponin I NT-Pro-B Natriuret Pep Total Protein Albumin Globulin Albumin/Globulin Ratio Lipase 54 Procalcitonin 0.05 SARS-CoV-2 (PCR) Influenza A (RT-PCR) Influenza B (RT-PCR) RSV (PCR) Assessment & Plan Assessment & Plan narrative: 1. Influenza A infection / weakness - continue supportive care, was given Rx for tamiflu on 04/06 but not effective. Will hold on future dosing. - hesitant to start fluids at this time given orthopnea, LE edema, some concern for heart failure - TTE ordered to evaluate for heart failure, ProBNP 141, just slightly above normal range - given TWI in V5-6 on EKG, but no chest pain and no prior EKG, rule out ACS with 8 hour troponin. - do not suspect superimposed bacterial pneumonia at this time with normal procalcitonin and no leukocytosis. Will be on broad antibiotic coverage none the less for PEG site infection. 2. PEG site infection - continue broad spectrum antibiotics, need pseudomonal and MRSA coverage. Was given levofloxacin in the ER, has penicillin allergy reported but will try cefepime and vanco for now. - General surgery consulted in the ER, pending recommendations - NPO pending surgery consultation. 3. Metastatic breast cancer s/p craniotomy and CAT TENDER shunt. - continue decadron / home medications - please see extensive oncology history in outpatient oncology progress notes from her provider. 4. Recent PE - continue eliquis - patient takes NSAID medications primarily for pain due to side effects of opiates. Start PPI for GI prophylaxis. Counseled on risk with NSAID medications and eliquis. 5. Elevated glucose without diagnosis of DM - will check an A1c, started on sliding scale insulin for now. Suspect glucose elevated in setting of steroids. 6. Obesity with BMI 43, but comittent protein calorie malnutrition secondary to cancer - nutrition consultation ordered. - patient's obesity contributes to increased morbidity and mortality and increases risk of complications from PEG tube including infection. Code: Full, surrogate is patient's son DVT: on apixaban Dispo: admit as inpatient given patient's severity of current illness, risk of worsening, and expected stay beyond two midnights. I have utilized all available immediate resources to obtain, update, or review the patient's current medications. COVID-19 COVID-19 status: Negative Time Spent With Patient Critical Care time: I spent a total of [] minutes of critical care time on this patient's care today; this time is exclusive of procedural time. Quality MIPS - Admit I confirm the patient?s Advance Care Plan is present, Code status is documented, Surrogate decision maker is in patient?s record [If Yes, STOP here]: Yes
--- NOTE | 2022-04-09 18:26 | DI.ECHO.S_ITS ---
[facility] +---------+ [facility] +---------+ : : [address] : : : : [id number] : : : : Phone: [phone]+ Echocardiogram Report + + :Name: STANLEY MCCABE Study Date: 04/11/2022 Height: 68 in : :[facility] ReadingLocation: Weight: 281 lb : : Gender: Female BSA: 2.4 m2 : :: 1970 Age: 51 yrs BP: 135/85 mmHg: :Reason For Study: SHORNTESS OF BREATH, LE EDEMA : :Ordering Physician: ABA, : :DOMINIQUE SHAFER Performed By: Nandini Barron : :Referring: DOMINIQUE TRONCOSO : + + Interpretation Summary The left ventricle is grossly normal size. The left ventricular ejection fraction is grossly normal. Regional wall motion abnormalities cannot be excluded due to limited visualization. The right ventricle is not well visualized. The right ventricle grossly appears normal in size with probable normal systolic function. Pulmonary artery pressures cannot be estimated because of the lack of a measurable TR jet velocity. The left atrium grossly appears normal in size. There are large-sized bilateral pleural effusions noted. Procedure: The study quality was technically difficult. Left breast mastectomy. The study quality was technically limited. There is no prior echocardiogram noted for this patient. A contrast injection of Definity was performed to improve assessment of LV function. A total of 2 cc of contrast was given. The patient had occasional PVCs during the exam. The patient was in sinus tachycardia with heart rates between 100-116 bpm during the exam. Left Ventricle: The left ventricle is grossly normal size. The left ventricular ejection fraction is grossly normal. Regional wall motion abnormalities cannot be excluded due to limited visualization. Right Ventricle: The right ventricle is not well visualized. The right ventricle grossly appears normal in size with probable normal systolic function. Atria: The left atrium grossly appears normal in size. Right atrial size is normal. Mitral Valve: The mitral valve is normal in structure and function. There is no mitral regurgitation noted. Aortic Valve: The aortic valve is not well visualized. There is no aortic valve stenosis. No aortic regurgitation is present. Tricuspid Valve: The tricuspid valve is not well visualized. Pulmonary artery pressures cannot be estimated because of the lack of a measurable TR jet velocity. Pulmonic Valve: The pulmonic valve is not well visualized. Great Vessels: The aortic root is not well visualized. The ascending aorta could not be visualized. The IVC is dilated (diameter is greater than 2.1 cm) yet it collapses greater than 50% with a sniff. This suggests a right atrial pressure of 8 mm Hg. Pericardium/ Pleura There is no pericardial effusion. There are large-sized bilateral pleural effusions noted. MMode/2D Measurements & Calculations LVIDd: 4.3 cm LVOT diam: 2.0 cm IVSd: 1.2 cm Ao root diam: 3.1 cm LVPWd: 0.86 cm Ao Arch Diam (Prox Trans): 2.7 cm LV hendrix. diameter/BSA (cm/m^2): 1.8 LA dimension: 2.9 cm RA long axis: 4.1 cm LA A4 area: 10.2 cm2 RA area: 10.1 cm2 LA length (vol): 4.0 cm RA vol: 21.2 ml RA : 9.0 ml/m2 IVC diam: 2.3 cm RVD1 (basal): 2.6 cm TAPSE: 1.3 cm Doppler Measurements & Calculations Ao V2 max: 118.4 cm/sec LVOT Max Corby: 119.9 cm/sec Ao V2 mean: 81.6 cm/sec LV V1 max P.7 mmHg Ao max P.6 mmHg LV V1 VTI: 16.8 cm Ao mean P.9 mmHg PEGGY(I,D): 3.8 cm2 Ao V2 VTI: 13.5 cm PEGGY(V,D): 3.1 cm2 sev ratio: 1.2 PEGGY indexed to BSA (cm^2/m^2): 1.6 MV E max corby: 60.0 cm/sec PA V2 max: 92.8 cm/sec MV A max corby: 65.3 cm/sec PA V2 mean: 64.5 cm/sec MV E/A: 0.92 PA mean P.8 mmHg Med Peak E' Corby: 4.0 cm/sec PA pr(Accel): 49.9 mmHg E/E' med: 14.9 Lat Peak E' Corby: 5.2 cm/sec E/E' lat: 11.6 E/e' average: 13.3 MV dec time: 0.22 sec SV([facility]): 51.7 ml Reading Physician:01:15 PM
[2022-04-09] MEDS: CEFEPIME 2 GM in SODIUM CHLORIDE 0.9% 100 ML IV (20:02)
--- NOTE | 2022-04-09 21:20 | PM.PROC.1 ---
Procedures Date/Time Date of procedure: 04/09/22 Time of procedure: 21:23 General Procedure description: 1. PEG tube removal 2. I&D of abscess around site. Verbal consent was obtained with nursing staff present. Procedure preformed at bedside. Lidocaine infused. Patient was offered IV pain medication or sedation at bedside, but refused since she prefers not to be confused. She wanted local only so this was honored. After numbing, first, the PEG tube was removed. This was a traction removable type and came out relatively easily though with some quick pain. Next, I used a #11 blade scalpel to open the wound only about 3 mm further and explored the abscess cavity with a Q tip. The wound was not quite large enough to accommodate a finger and the patient was having pain, so the opening and exploration was limited to less than I really would have liked. I used a Q tip and irrigation with normal saline a long with wall suction to break down loculations and clean out the wound. at leat 50 cc of grossly purulent material was expressed. A culture was obtained. The cavity was then packed with plain packing strips, and covered with gauze and tape. Overall, Ms. Frost tolerated this all quite well. Abscess I/D Site: abdomen (at peg tube site. ) Side (if applicable): left Sedation/analgesia: none and other Anesthetic used: without epi Technique: incised with #11 blade Amount of fluid (mL): 50 Irrigation: Yes Packing used?: plain Complications: pain
--- NOTE | 2022-04-09 21:33 | PM.CN ---
History of Present Illness Consult details Date Patient Seen: 04/09/22 Time Patient Seen: 21:33 Chief complaint: Weakness, flu + since thanksgiving, hx CA Reason for consult: PEG tube infection Requesting provider: Moises Aguiar Narrative: Ms. Frost is a very pleasant lady who has an unfortunate case of metastatic breast cancer. She had a PEG tube in place because she was not eating well. She went through a good period where she was eating on her own. She said that there was a possibility of anticipation that she may need the PEG tube in the future but at present she is not using it. She has metastases to the brain. And she has bad cough and has been diagnosed with influenza A. When she came in through the emergency room she had quite a lot of drainage coming from her PEG tube. A CT scan was done and shows an area surrounding the PEG tube with loculations demonstrating abscess formation around the tube in the subcutaneous tissue. The infection is limited to the subcutaneous tissue. Ms. Landis states that she is had the PEG tube in place since December this year so for couple of months. It was placed at an outside hospital. Meds Home Medications and Allergies Home Medications Medication Instructions Recorded Confirmed Type loratadine 10 mg tablet (Allergy 10 mg PO DAILY 11/29/17 03/28/22 History Relief (loratadine)) levothyroxine 25 mcg tablet See Rx Instructions .Route 09/03/21 04/09/22 Rx .COMPLEX #90 tabs gabapentin 600 mg tablet 600 mg PO TID #90 tabs 09/10/21 04/09/22 Rx thyroid (pork) 90 mg tablet 90 mg PO DAILY #90 tabs 11/09/21 03/28/22 Rx ([place] Thyroid) doxycycline hyclate 100 mg capsule 100 mg PO BID 11/15/21 03/28/22 History bupropion HCl 150 mg 24 hr tablet, 150 mg PO DAILY #90 tabs 12/06/21 04/09/22 Rx extended release acetaminophen 500 mg capsule 1,000 mg PO Q6H PRN pain #240 caps 02/21/22 04/09/22 Rx apixaban 5 mg tablet (Eliquis) 5 mg PO BID #180 tabs 02/21/22 04/09/22 Rx famotidine 20 mg tablet 20 mg PO DAILY #90 tabs 02/21/22 04/09/22 Rx losartan 50 mg tablet 50 mg PO DAILY #90 tabs 02/21/22 04/09/22 Rx metoclopramide HCl 10 mg tablet 10 mg PO Q8H PRN nausea and 02/21/22 03/28/22 Rx vomiting 30 days #90 tabs amlodipine 10 mg tablet 10 mg PO DAILY #90 tabs 02/24/22 04/09/22 Rx duloxetine 30 mg capsule,delayed 30 mg PO DAILY #90 caps 02/25/22 04/09/22 Rx release (Cymbalta) dexamethasone 4 mg tablet 8 mg PO Q12HR #60 tabs 03/23/22 04/09/22 Rx lorazepam 0.5 mg tablet 0.5 mg PO TID PRN Anxiety #30 tabs 03/23/22 03/28/22 Rx cyclobenzaprine 5 mg tablet See Rx Instructions .Route 03/28/22 Rx .COMPLEX #90 tabs lidocaine 5 % topical patch 2 patch topical DAILY #15 ea 03/28/22 Rx lidocaine-prilocaine 2.5 %-2.5 % 1 applic topical PRN PRN 03/29/22 Rx topical cream Port/Catheter Care #30 grams oseltamivir 75 mg capsule (Tamiflu) 75 mg PO BID 5 days #10 caps 04/06/22 Rx Allergies Allergy/AdvReac Type Severity Reaction Status Date / Time codeine Allergy Severe Drowsy Verified 04/09/22 11:52 Penicillins Allergy Severe Anaphylaxis Verified 04/09/22 11:52 adhesive AdvReac Intermediate Rash Verified 04/09/22 11:52 latex AdvReac Intermediate Rash Verified 04/09/22 11:52 Exam Vital Signs (past 8 hours): - 04/09/22 14:00 04/09/22 14:00 04/09/22 14:30 Temperature Pulse Rate 99 H Respiratory Rate 12 Blood Pressure 118/56 L 114/55 L Pulse Oximetry 96 Oxygen Flow Rate 04/09/22 14:30 04/09/22 15:00 04/09/22 15:00 Temperature Pulse Rate 99 H 94 H Respiratory Rate 11 L 12 Blood Pressure 112/55 L Pulse Oximetry 95 94 Oxygen Flow Rate 04/09/22 16:05 04/09/22 20:35 Temperature 97.7 F 97.2 F L Pulse Rate 89 113 H Respiratory Rate 18 113 H Blood Pressure 127/82 113/79 Pulse Oximetry 100 92 Oxygen Flow Rate 0 Oxygen Delivery Method Room Air Oxygen Flow Rate 0 Narrative Exam Narrative: General patient is awake alert oriented and in no acute distress. She is seated in her bed. She is obese. Respirations show her breathing is nonlabored on room air Abdomen her abdomen is soft and tender around the PEG tube site. The PEG tube is marked as a traction removable.There is purulent drainage expressing from all around the PEG tube. There was gastric contents that can be aspirated normally from the PEG tube. Objective Labs Result Diagrams: 04/09/22 11:00 04/09/22 11:00 Labs: Laboratory Results - last 24 hr 04/09/22 04/09/22 04/09/22 10:17 11:00 11:00 WBC 9.3 RBC 4.27 Hgb 12.8 Hct 38.9 MCV 91.2 MCH 30.1 MCHC 33.0 RDW 16.6 H Plt Count 185 Neut % (Auto) 92.6 H Lymph % (Auto) 3.7 L [place] % (Auto) 3.4 Eos % (Auto) 0.1 L Baso % (Auto) 0.2 Neut # (Auto) 8700 H Lymph # (Auto) 300 L [place] # (Auto) 300 Eos # (Auto) 0 Baso # (Auto) 0 PT 12.2 INR 1.1 APTT Sodium Potassium Chloride Carbon Dioxide BUN Creatinine Estimated GFR BUN/Creatinine Ratio Glucose Lactate Calcium Total Bilirubin AST ALT Alkaline Phosphatase Troponin I NT-Pro-B Natriuret Pep Total Protein Albumin Globulin Albumin/Globulin Ratio Lipase Procalcitonin SARS-CoV-2 (PCR) Negative Influenza A (RT-PCR) Flu a positive H Influenza B (RT-PCR) Flu b negative RSV (PCR) Negative 04/09/22 04/09/22 04/09/22 11:00 11:00 11:00 WBC RBC Hgb Hct MCV MCH MCHC RDW Plt Count Neut % (Auto) Lymph % (Auto) [place] % (Auto) Eos % (Auto) Baso % (Auto) Neut # (Auto) Lymph # (Auto) [place] # (Auto) Eos # (Auto) Baso # (Auto) PT INR APTT 31 Sodium 133 L Potassium 3.6 Chloride 96 L Carbon Dioxide 29 BUN 22 H Creatinine 0.43 L Estimated GFR > 60 BUN/Creatinine Ratio 51.2 H Glucose 321 H Lactate 1.9 Calcium 8.7 Total Bilirubin 0.7 AST 28 ALT 48 H Alkaline Phosphatase 116 Troponin I 0.020 NT-Pro-B Natriuret Pep 141 H Total Protein 5.8 L Albumin 3.2 L Globulin 2.6 Albumin/Globulin Ratio 1.2 Lipase Procalcitonin SARS-CoV-2 (PCR) Influenza A (RT-PCR) Influenza B (RT-PCR) RSV (PCR) 04/09/22 04/09/22 11:00 19:00 WBC RBC Hgb Hct MCV MCH MCHC RDW Plt Count Neut % (Auto) Lymph % (Auto) [place] % (Auto) Eos % (Auto) Baso % (Auto) Neut # (Auto) Lymph # (Auto) [place] # (Auto) Eos # (Auto) Baso # (Auto) PT INR APTT Sodium Potassium Chloride Carbon Dioxide BUN Creatinine Estimated GFR BUN/Creatinine Ratio Glucose Lactate Calcium Total Bilirubin AST ALT Alkaline Phosphatase Troponin I 0.020 NT-Pro-B Natriuret Pep Total Protein Albumin Globulin Albumin/Globulin Ratio Lipase 54 Procalcitonin 0.05 SARS-CoV-2 (PCR) Influenza A (RT-PCR) Influenza B (RT-PCR) RSV (PCR) [facility] Medical History Abnormal Pap smear of cervix Allergic rhinitis due to dust mite (11/14/14) Alopecia due to cytotoxic drug Angiolipoma of skin (02/20/14) Arthritis Breast cancer metastasized to brain Cystocele (10/21/14) Depression Fibromyalgia History of chemotherapy Mild obstructive sleep apnea-hypopnea syndrome (03/06/15) Myopia 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 drug Obesity, Class III, BMI 40-49.9 (morbid obesity) Pelvic relaxation 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) Psoriasis Pulmonary embolism (01/18/22) Rosacea (10/31/13) Tenesmus of bladder (10/21/14) Thyroid nodule Uterine fibroid Vaginal mass Vitamin D deficiency (03/06/15) Surgical History History of brain shunt (~12/22/21) History of gynecologic surgery (10/06/20) History of radioactive iodine thyroid ablation History of removal of Port-a-Cath (07/10/19) History of surgery (11/27/18) History of surgery (12/04/18) History of vaginal hysterectomy (~07/2017) Hx of cholecystectomy Hx of craniotomy (12/13/21) Hx of left mastectomy (06/05/19) Status post excision of lipoma (~2013) Status post tubal ligation (~2013) Family History Father Alcoholism Mother Age: 71 Depression Grandfather Diabetes mellitus Mother Parkinson's disease Social History household members: significant other and children Tobacco & Substance Use Smoking Status: Former smoker alcohol intake: never Assessment & Plan Assessment and plan (1) Localized infection of subcutaneous tissue: Status: Acute (2) Infection of PEG site: Status: Acute Assessment & Plan narrative: I personally reviewed and interpreted the CT scan. There is a localized subcutaneous abscess/loculated infection surrounding the PEG tube. I have recommended removal of the PEG tube as well as drainage of the purulent fluid surrounding. I will send a culture. I agree with antibiotic treatment. I discussed bedside removal and incision and drainage with the patient who understands the procedure and would like to proceed. She is refusing IV pain medicine and so we will proceed with a local anesthetic as best we can. I described that the downside of this plan is the possible need for further drainage if the initial procedure is not adequate. However there is a chance that she will get better because removing the offending foreign body i.e. PEG tube she would go a long way towards helping heal this infection. If a PEG tube is needed in the future, a new one could be placed at that time. I will follow along and return tomorrow morning for bedside dressing change. Thank you for this consultation and opportunity to participate in the care of Ms. Frost. Please do not hesitate to contact me directly with any questions or concerns at [phone] Time Spent With Patient Critical Care time: I spent a total of [] minutes of critical care time on this patient's care today; this time is exclusive of procedural time.
[2022-04-09] MEDS: INSULIN LISPRO 100 UNIT/ML 3ML VIAL SUBCUT (21:42)
[2022-04-09] MEDS: VANCOMYCIN 1,250 MG/250 ML PIGGYBACK 166.667 MG IV (22:11)
[2022-04-10] VITALS (12 sets, daily range): BP systolic 112–135; BP diastolic 64–87; PULSE 91–115; RESP 17–22; TEMP 35.8–36.6; O2SAT 91–97
[2022-04-10] MEDS: VANCOMYCIN 1,250 MG/250 ML PIGGYBACK 250 MG IV (00:24)
--- NOTE | 2022-04-10 02:54 | PC.NURSE ---
Pt is AxOx3-4, calm and cooperative. VSS, pt c/o abd pain but declined pain med. Doctor removed pt's PEG tube at bedside and packed with steri strip and covered with gauze compression. Gauze was saturated with serosangounous drainage soon after so it was changed to ABD pad. Pt has R up single lumen port and recieved her scheduled IV ABO. [id number] at bedtime so 1 unit of Lispro given. Lungs diminished and pt has some dry, non productive cough, No fever or chills overnight. Pt has purewick due to pt stated unable to walk. Pt is eating and drinking well. Continued droplet precaution. No other changes.
[2022-04-10] MEDS: ACETAMINOPHEN 325 MG TABLET 975 MG PO (05:36)
[2022-04-10] MEDS: CEFEPIME 2 GM in SODIUM CHLORIDE 0.9% 100 ML IV ×2 (06:02→20:26)
--- NOTE | 2022-04-10 08:05 | P.PN_ITS ---
Subjective Subjective Date Patient Seen: 04/10/22 Interval history: Patient very sleepy today, as she didn't sleep well last night. Says she takes decadron for brain swelling and started it a week ago. She feels overall really crummy due to the flu. Exam Vital Signs (past 8 hours): - 04/10/22 04:00 04/10/22 04:45 Temperature 97.8 F Pulse Rate 115 H Respiratory Rate 22 Blood Pressure 116/87 Pulse Oximetry 97 91 Oxygen Delivery Method Room Air Oxygen Flow Rate 0 0 Oxygen Delivery Method Room Air Oxygen Flow Rate 0 Narrative Exam Narrative: General:? Patient is well developed and well nourished, acutely ill appearing, obese with BMI of 42.8 HEENT:? Normocephalic, atraumatic, extraocular muscles intact, oral pharynx is clear and mucous membranes are dry Neck: supple and symmetric, trachea is midline, no cervical adenopathy. Chest:? Normal AP diameter and contour without kyphoscoliosis, no tachypnea, equal chest rise bilaterally. Lungs:?coarse bilateral breath sounds, poor air movement Cardio:?RRR no m/r/g. Abdomen: soft, tender around PEG site and slightly inferior to the area with slightly purulent drainage, dressing was just changed but reportedly prior was soaked, non-distended. Musculoskeletal:? Muscle strength and tone are equal within normal limits, no deformity. Extremities:1+ edema b/l lower extremities, no joint effusions. No cyanosis or clubbing. Skin:? Pale,? Warm to touch,dry and intact without rashes, ulcerations or petechiae.? Neuro:? Alert and orientated x3,? sensation to touch intact in all extremities, no gross deficits noted of cranial nerves. Psych:? Patient has a well-kept appearance, appropriate affect, mental status attitude thought context and judgment are appropriate for age. Objective Labs Result Diagrams: 04/09/22 11:00 04/09/22 11:00 Labs: Laboratory Results - last 24 hr 04/09/22 04/09/22 04/09/22 10:17 11:00 11:00 WBC 9.3 RBC 4.27 Hgb 12.8 Hct 38.9 MCV 91.2 MCH 30.1 MCHC 33.0 RDW 16.6 H Plt Count 185 Neut % (Auto) 92.6 H Lymph % (Auto) 3.7 L [place] % (Auto) 3.4 Eos % (Auto) 0.1 L Baso % (Auto) 0.2 Neut # (Auto) 8700 H Lymph # (Auto) 300 L [place] # (Auto) 300 Eos # (Auto) 0 Baso # (Auto) 0 PT 12.2 INR 1.1 APTT Sodium Potassium Chloride Carbon Dioxide BUN Creatinine Estimated GFR BUN/Creatinine Ratio Glucose Lactate Calcium Total Bilirubin AST ALT Alkaline Phosphatase Troponin I NT-Pro-B Natriuret Pep Total Protein Albumin Globulin Albumin/Globulin Ratio Lipase Procalcitonin SARS-CoV-2 (PCR) Negative Influenza A (RT-PCR) Flu a positive H Influenza B (RT-PCR) Flu b negative RSV (PCR) Negative 04/09/22 04/09/22 04/09/22 11:00 11:00 11:00 WBC RBC Hgb Hct MCV MCH MCHC RDW Plt Count Neut % (Auto) Lymph % (Auto) [place] % (Auto) Eos % (Auto) Baso % (Auto) Neut # (Auto) Lymph # (Auto) [place] # (Auto) Eos # (Auto) Baso # (Auto) PT INR APTT 31 Sodium 133 L Potassium 3.6 Chloride 96 L Carbon Dioxide 29 BUN 22 H Creatinine 0.43 L Estimated GFR > 60 BUN/Creatinine Ratio 51.2 H Glucose 321 H Lactate 1.9 Calcium 8.7 Total Bilirubin 0.7 AST 28 ALT 48 H Alkaline Phosphatase 116 Troponin I 0.020 NT-Pro-B Natriuret Pep 141 H Total Protein 5.8 L Albumin 3.2 L Globulin 2.6 Albumin/Globulin Ratio 1.2 Lipase Procalcitonin SARS-CoV-2 (PCR) Influenza A (RT-PCR) Influenza B (RT-PCR) RSV (PCR) 04/09/22 04/09/22 11:00 19:00 WBC RBC Hgb Hct MCV MCH MCHC RDW Plt Count Neut % (Auto) Lymph % (Auto) [place] % (Auto) Eos % (Auto) Baso % (Auto) Neut # (Auto) Lymph # (Auto) [place] # (Auto) Eos # (Auto) Baso # (Auto) PT INR APTT Sodium Potassium Chloride Carbon Dioxide BUN Creatinine Estimated GFR BUN/Creatinine Ratio Glucose Lactate Calcium Total Bilirubin AST ALT Alkaline Phosphatase Troponin I 0.020 NT-Pro-B Natriuret Pep Total Protein Albumin Globulin Albumin/Globulin Ratio Lipase 54 Procalcitonin 0.05 SARS-CoV-2 (PCR) Influenza A (RT-PCR) Influenza B (RT-PCR) RSV (PCR) [facility] Medical History Abnormal Pap smear of cervix Allergic rhinitis due to dust mite (11/14/14) Alopecia due to cytotoxic drug Angiolipoma of skin (02/20/14) Arthritis Breast cancer metastasized to brain Cystocele (10/21/14) Depression Fibromyalgia History of chemotherapy Mild obstructive sleep apnea-hypopnea syndrome (03/06/15) Myopia 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 drug Obesity, Class III, BMI 40-49.9 (morbid obesity) Pelvic relaxation 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) Psoriasis Pulmonary embolism (01/18/22) Rosacea (10/31/13) Tenesmus of bladder (10/21/14) Thyroid nodule Uterine fibroid Vaginal mass Vitamin D deficiency (03/06/15) Surgical History History of brain shunt (~12/22/21) History of gynecologic surgery (10/06/20) History of radioactive iodine thyroid ablation History of removal of Port-a-Cath (07/10/19) History of surgery (11/27/18) History of surgery (12/04/18) History of vaginal hysterectomy (~07/2017) Hx of cholecystectomy Hx of craniotomy (12/13/21) Hx of left mastectomy (06/05/19) Status post excision of lipoma (~2013) Status post tubal ligation (~2013) Family History Father Alcoholism Mother Age: 71 Depression Grandfather Diabetes mellitus Mother Parkinson's disease Social History household members: children Smoking Status: Former smoker alcohol intake: never Assessment & Plan Assessment & Plan narrative: 1. Influenza A infection / weakness - continue supportive care, was given Rx for tamiflu on 04/06 but not effective. Will hold on future dosing. - TTE ordered to evaluate for heart failure, ProBNP 141, just slightly above normal range - given TWI in V5-6 on EKG, but no chest pain and no prior EKG, trops neg x2 - do not suspect superimposed bacterial pneumonia at this time with normal procalcitonin and no leukocytosis. Will be on broad antibiotic coverage none the less for PEG site infection. 2. PEG site infection - continue broad spectrum antibiotics, need pseudomonal and MRSA coverage. Was given levofloxacin in the ER, has penicillin allergy reported but will continue cefepime and vanco for now. - General surgery consulted in the ER, performed bedside I&D on 04/09 with >50cc purulent drainage - ongoing management per gen surg 3. Metastatic breast cancer s/p craniotomy and [employer] shunt. - continue decadron / home medications - please see extensive oncology history in outpatient oncology progress notes from her provider. 4. Recent PE - continue eliquis - patient takes NSAID medications primarily for pain due to side effects of opiates. Start PPI for GI prophylaxis. Counseled on risk with NSAID medications and eliquis. - has bilateral LE 3+ edema, assess for DVT with LE doppler 5. Elevated glucose without diagnosis of DM - A1c pending, previously 5.8% in 2017 - started on sliding scale insulin for now. Suspect glucose elevated in setting of steroids. 6. Obesity with BMI 43, but comittent protein calorie malnutrition secondary to cancer - nutrition consultation ordered. - patient's obesity contributes to increased morbidity and mortality and increases risk of complications from PEG tube including infection. Code: Full, surrogate is patient's son DVT: apixaban Dispo: admit as inpatient given patient's severity of current illness, risk of worsening, and expected stay beyond two midnights. I have utilized all available immediate resources to obtain, update, or review the patient's current medications. COVID-19 COVID-19 status: Negative Time Spent With Patient Critical Care time: I spent a total of [] minutes of critical care time on this patient's care today; this time is exclusive of procedural time. Quality VTE Deep Vein Thrombosis/Pulmonary Embolism Present on Admission: No
[2022-04-10] MEDS: PANTOPRAZOLE 40 MG VIAL 20 MG IV (08:45)
[2022-04-10] MEDS: VANCOMYCIN 1,250 MG/250 ML PIGGYBACK 166.667 MG IV (08:47)
[2022-04-10] MEDS: INSULIN LISPRO 100 UNIT/ML 3ML VIAL SUBCUT ×3 (09:18→20:51)
[2022-04-10] MEDS: KETOROLAC 30 MG/ML VIAL 15 MG IV (09:41)
--- NOTE | 2022-04-10 11:31 | P.PN_ITS ---
Subjective Subjective Interval history: No complaints or questions today. Still feeling pretty good ?crappy? Exam Vital Signs (past 8 hours): - 04/10/22 04:00 04/10/22 04:45 04/10/22 08:00 Temperature 97.8 F 96.4 F L Pulse Rate 115 H 104 H Respiratory Rate 22 17 Blood Pressure 116/87 129/81 Pulse Oximetry 97 91 94 Oxygen Delivery Method Room Air Oxygen Flow Rate 0 0 0 Oxygen Delivery Method Room Air Oxygen Flow Rate 0 Narrative Exam Narrative: Alert and oriented no acute distress. The outer dressing of the wound is clean and dry the packing strip is soaked with greenish discharge. I took out the packing and irrigated with 600 cc of normal saline and a Yankauer suction device I used a Q-tip to agitate the a bscess cavity, a decent amount of purulence material returned out with this maneuver. I am worried that there may be an undrained pocket inferior lateral to the wound since it is a little fluctuant and tender in that area. Objective Labs Result Diagrams: 04/09/22 11:00 04/09/22 11:00 Labs: Laboratory Results - last 24 hr 04/09/22 04/09/22 04/09/22 10:17 11:00 11:00 Sodium 133 L Potassium 3.6 Chloride 96 L Carbon Dioxide 29 BUN 22 H Creatinine 0.43 L Estimated GFR > 60 BUN/Creatinine Ratio 51.2 H Glucose 321 H Calcium 8.7 Total Bilirubin 0.7 AST 28 ALT 48 H Alkaline Phosphatase 116 Troponin I 0.020 NT-Pro-B Natriuret Pep 141 H Total Protein 5.8 L Albumin 3.2 L Globulin 2.6 Albumin/Globulin Ratio 1.2 Procalcitonin 0.05 SARS-CoV-2 (PCR) Negative Influenza A (RT-PCR) Flu a positive H Influenza B (RT-PCR) Flu b negative RSV (PCR) Negative 04/09/22 19:00 Sodium Potassium Chloride Carbon Dioxide BUN Creatinine Estimated GFR BUN/Creatinine Ratio Glucose Calcium Total Bilirubin AST ALT Alkaline Phosphatase Troponin I 0.020 NT-Pro-B Natriuret Pep Total Protein Albumin Globulin Albumin/Globulin Ratio Procalcitonin SARS-CoV-2 (PCR) Influenza A (RT-PCR) Influenza B (RT-PCR) RSV (PCR) [facility] Medical History Abnormal Pap smear of cervix Allergic rhinitis due to dust mite (11/14/14) Alopecia due to cytotoxic drug Angiolipoma of skin (02/20/14) Arthritis Breast cancer metastasized to brain Cystocele (10/21/14) Depression Fibromyalgia History of chemotherapy Mild obstructive sleep apnea-hypopnea syndrome (03/06/15) Myopia 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 drug Obesity, Class III, BMI 40-49.9 (morbid obesity) Pelvic relaxation 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) Psoriasis Pulmonary embolism (01/18/22) Rosacea (10/31/13) Tenesmus of bladder (10/21/14) Thyroid nodule Uterine fibroid Vaginal mass Vitamin D deficiency (03/06/15) Surgical History History of brain shunt (~12/22/21) History of gynecologic surgery (10/06/20) History of radioactive iodine thyroid ablation History of removal of Port-a-Cath (07/10/19) History of surgery (11/27/18) History of surgery (12/04/18) History of vaginal hysterectomy (~07/2017) Hx of cholecystectomy Hx of craniotomy (12/13/21) Hx of left mastectomy (06/05/19) Status post excision of lipoma (~2013) Status post tubal ligation (~2013) Family History Father Alcoholism Mother Age: 71 Depression Grandfather Diabetes mellitus Mother Parkinson's disease Social History household members: significant other and children Smoking Status: Former smoker alcohol intake: never Assessment & Plan Assessment and plan (1) Infection of PEG site: Status: Acute Assessment & Plan narrative: Due to lack of any IV pain medicine I am having difficulty really aggressively cleaning in breaking down loculations since I do not want to torture this nice lady with a very unfortunate diagnosis. So I think a minute continue to gently irrigate and change the dressing packing daily and if over time it becomes apparent that more aggressive drainage is needed I will find out how to provide analgesia or sedation that is acceptable to the patient. She truly does not want to feel ?loopy? overall I think the wound looks improved from yesterday and it is worth a try to continue with local wound care and IV antibiotic. Will follow. Okay to give regular diet and restart home meds. I would minimize steroids if possible but palliation is also very important. On that note wondering if we should ask for a palliative care consult she says she has not talked to hospice yet but was open to the idea. Will restart home meds, including eliquis. Will defer to medical service but, can steroids be tapered? Will order BL LE DVT ultrasound. Time Spent With Patient Critical Care time: I spent a total of [] minutes of critical care time on this patient's care today; this time is exclusive of procedural time. Quality VTE Deep Vein Thrombosis/Pulmonary Embolism Present on Admission: No
--- NOTE | 2022-04-10 11:47 | DI.US.S_ITS ---
PROCEDURE: US PERIPH VENOUS LOW EXTREM BI INDICATIONS: EDEMA AND TENDERNESS TECHNIQUE: Real-time imaging, as well as color and pulse Doppler interrogation, were performed of the deep veins of both legs from the inguinal ligament to the popliteal fossa. COMPARISON: None. FINDINGS: Right: The common femoral, femoral and popliteal veins are normally compressible, and free of intraluminal thrombus. Color and pulse Doppler demonstrate normal phasic intravascular flow. There is normal augmentation response to distal compression maneuver. Left: The common femoral, femoral and popliteal veins are normally compressible, and free of intraluminal thrombus. Color and pulse Doppler demonstrate normal phasic intravascular flow. There is normal augmentation response to distal compression maneuver. IMPRESSION: No sonographic evidence of DVT. Dictated by: López Chaidez M.D. on 04/11/2022 at 10:40 Approved by: López Chaidez M.D. on 04/11/2022 at 10:42
[2022-04-10] MEDS: CYCLOBENZAPRINE 10 MG TABLET PO (12:43)
[2022-04-10] MEDS: LOSARTAN 50 MG TABLET PO (12:43)
[2022-04-10] MEDS: DULOXETINE 30 MG CAPSULE PO (12:43)
[2022-04-10] MEDS: APIXABAN 5 MG TABLET PO ×2 (12:43→20:53)
[2022-04-10] MEDS: buPROPion XL 150 MG TAB PO (12:43)
[2022-04-10] MEDS: FAMOTIDINE 20 MG TABLET PO (12:44)
[2022-04-10] MEDS: LIDOCAINE PATCH 1 EACH ADH..PATCH 2 EACH TOP (12:44)
--- NOTE | 2022-04-10 14:51 | CM.DANOTE ---
DC Brief Assessment: Patient is a 51 yr old female here with Breast cancer, Infected peg tub patient is currently here under INPT status and had surgical I&D of peg tube yesterday. CM attempted to get a hold of patient via phone due to patient being on Flu isolation and CM not being able to go into the room. Patient lives with her adult son and her young daughter at home. Patient in previouse ED visit met with Na who stated she has a wheel chair and walker but the FWW wont fit into her home. She was started with [facility] from the ED on 04/06/22, CM called [facility] and LVM to check on status of HH and see if they need a new order to reestablish care at DC. I: Romo and Medicaid Plan: tentative plan is to DC back home with jolie DANISHA and her son when medically stable. CM team will continue to reach out to the patient to get clear DC plan. Raysa Romano RNpin drafting machine operator Discharge Planning/Care Management CM Discharge Assessment Start: 04/10/22 14:36 Freq: Status: Active Protocol: Document 04/10/22 14:36 HS (Rec: 04/10/22 14:44 HS [id number]) Discharge Planning Assessment Assigned Riprap Placer Raysa Romano RNpin drafting machine operator Advance Directives? No History Provided By Medical Record Has Patient been admitted in last 30 No days? Prior Living Arrangements House Comment Patient lives with young daughter and 30 yr old son in [place]. Household Members children Comment CM unable to reach by phone patient is Flu + and CM not allowed to enter room at this time due to being on isolation precautions. in previouse visit to ED celeste ARROYO saw patient and noted patient is having a hard time with ADLs at home especially walking and transfering to bathroom. Caregiver for Another Yes: has a young daughter at home Comment CM discussed HH with patient previously and is started with [facility] from the ED for HH aid, PT, OT, RN and BID MANAGER through [facility] Already Rented / Owned Wheelchair,FWW / Walker Comment had difficulty getting fww in her home Patient/Family Preference Home with Home Health Comment CM called [facility] to check on previous referral and LVM Barriers to Discharge No Discharge Plan Home with Home Health Referrals Initiated Home Health Medicare Choice List Provided Yes SNF/HH Preference [facility] Review Status In Process Next Review Type Continued Stay Review
[2022-04-10 16:38] LABS: Add Manual Diff / Slide Review NO; Basophils Absolute Auto 0 /uL (0-100); Basophils Percent Auto 0.1 % (0-2); Eosinophils Absolute Auto 0 /uL (0-450); Eosinophils Percent Auto 0.1 % (2-4); Hematocrit 34.7 % (36-46); Hemoglobin 11.7 g/dL (12.0-16.0); Lymphocytes Absolute Auto 400 /uL (1100-4500); Lymphocytes Percent Auto 5.8 % (25-40); Mean Corpuscular HGB Conc 33.6 % (30-36); Mean Corpuscular Hemoglobin 30.6 PG (26-34); Mean Corpuscular Volume 91.1 fL (80-100); Monocytes Absolute Auto 200 /uL (0-900); Monocytes Percent Auto 3.2 % (3-14); Neutrophils Absolute Auto 6800 /uL (1500-7000); Neutrophils Percent Auto 90.8 % (50-75); Platelet Count 165 X10^3/uL (150-400); Red Blood Cell Count 3.81 X10^6/uL (4.0-5.2); Red Cell Distribution Width 16.5 % (11.6-14.8); White Blood Cell Count 7.5 X10^3/uL (4.5-11.0)
[2022-04-10 16:44] LABS: Alanine Aminotransferase 43 IU/L (<35); Albumin 3.1 g/dL (3.5-5.0); Albumin Globulin Ratio 1.2 (1.0-2.8); Alkaline Phosphatase 119 U/L (38-126); Aspartate Aminotransferase 31 IU/L (14-36); BUN Creatinine Ratio 62.2 (6-22); Bilirubin Total 0.7 mg/dL (0.2-1.3); Blood Urea Nitrogen 28 mg/dL (7-17); Calcium 8.3 mg/dL (8.4-10.2); Carbon Dioxide 28 mmol/L (22-32); Chloride 99 mmol/L (98-107); Estimated Glomerular Filt Rate > 60 mL/min (>60); Globulin 2.6 g/dL (1.7-4.1); Glucose 223 mg/dL (70-100); HEMOLYSIS < 15 (0-50); Magnesium 1.9 mg/dL (1.6-2.3); Sodium 133 mmol/L (137-145); Total Protein 5.7 g/dL (6.3-8.2)
--- NOTE | 2022-04-10 16:44 | PT-IP ANOTE ---
Received PT orders and reviewed the chart. Attempted to work with pt twice today. On first attempt, pt was too nauseated to participate. Second attempt, pt was having new port placed. Will follow up Monday AM.
[2022-04-10 16:52] LABS: NT-proBNP (BNP-Adult 18+) 45 pg/mL (<125)
[2022-04-10 17:01] LABS: Hemoglobin A1C% w Est Avg Glu 9.4 % (4.0-6.0)
[2022-04-10] MEDS: GABAPENTIN 600 MG TABLET PO (18:53)
[2022-04-10] MEDS: VANCOMYCIN 1,250 MG/250 ML PIGGYBACK 166 MG IV (18:56)
[2022-04-10] MEDS: dexAMETHasone 4 MG TABLET 8 MG PO (19:00)
--- NOTE | 2022-04-10 23:29 | PC.NURSE ---
Addendum entered by Naila Meier R.N. 04/11/22 00:35: Noted feet to be cool to touch with dusky appearance. Plantar surface of bilateral forefoot is purple in appearance. JOSELITO Ortiz, informed and new orders received. Is already scheduled for bilateral LE US to r/o DVT. Original Note: Patient is alert and oriented but with very flat affect. Breath sounds diminished and coarse; on oxygen at 3L/min per NC with sat of 96%. HRR but tachy at 105 bpm. Denies nausea. BT hypoactive; abdomen is soft. Dressing over PEG tube site (PEG was removed on 04/09) is CDI. Using purewick for urinary output and denies any dysuria. Is assisted to reposition as she will allow. Patient states she has weakness in all extremities and has not been ambulatory for some time. Rash noted over face, in abdominal folds and between buttocks. Fall risk score is high and bed alarm is activated. On droplet precautions as is positive for influenza A.
[2022-04-11] MEDS: GABAPENTIN 600 MG TABLET PO ×4 (00:15→20:27)
[2022-04-11] MEDS: VANCOMYCIN 1,250 MG/250 ML PIGGYBACK 166.667 MG IV ×2 (02:01→10:54)
[2022-04-11] MEDS: KETOROLAC 30 MG/ML VIAL 15 MG IV (02:14)
[2022-04-11] MEDS: SODIUM CHLORIDE 0.9% FLUSH 10 ML IV ×3 (02:16→09:00)
[2022-04-11 03:00] VITALS: BP 125/108; PULSE 95; RESP 17; TEMP 35.6; O2SAT 95
[2022-04-11] MEDS: LEVOTHYROXINE 25 MCG TABLET PO (06:16)
[2022-04-11] MEDS: CEFEPIME 2 GM in SODIUM CHLORIDE 0.9% 100 ML IV (06:25)
[2022-04-11 07:00] VITALS: BP 117/89; PULSE 110; RESP 16; TEMP 35.9; O2SAT 95
--- NOTE | 2022-04-11 07:16 | P.PN_ITS ---
Subjective Subjective Date Patient Seen: 04/11/22 Interval history: Continues to feel very fatigued. Eating well however. Gen surg to take to OR tomorrow for further I&D of PEG site abscess. She is interested in hospice as she states she is terminal. Exam Vital Signs (past 8 hours): - 04/10/22 23:24 04/10/22 23:24 04/11/22 03:00 Temperature 96.8 F L 96.1 F L Pulse Rate 106 H 95 H Respiratory Rate 18 17 Blood Pressure 135/85 125/108 H Pulse Oximetry 94 94 95 Oxygen Delivery Method Nasal Cannula Oxygen Flow Rate 3.5 0 3 04/11/22 03:00 Temperature Pulse Rate Respiratory Rate Blood Pressure Pulse Oximetry 95 Oxygen Delivery Method Nasal Cannula Oxygen Flow Rate 3 Oxygen Delivery Method Nasal Cannula Oxygen Flow Rate 3 Narrative Exam Narrative: General:? Patient is well developed and well nourished, acutely ill appearing, obese with BMI of 42.8 HEENT:? Normocephalic, atraumatic, extraocular muscles intact, oral pharynx is clear and mucous membranes are dry Neck: supple and symmetric, trachea is midline, no cervical adenopathy. Chest:? Normal AP diameter and contour without kyphoscoliosis, no tachypnea, equal chest rise bilaterally. Lungs:?coarse bilateral breath sounds, poor air movement Cardio:?RRR no m/r/g. Abdomen: soft, tender around PEG site and slightly inferior to the area with slightly purulent drainage, dressing was just changed but reportedly prior was soaked, non-distended. Musculoskeletal:? Muscle strength and tone are equal within normal limits, no deformity. Extremities:1+ edema b/l lower extremities, no joint effusions. No cyanosis or clubbing. Skin:? Pale,? Warm to touch,dry and intact without rashes, ulcerations or petechiae.? Neuro:? Alert and orientated x3,? sensation to touch intact in all extremities, no gross deficits noted of cranial nerves. Psych:? Patient has a well-kept appearance, appropriate affect, mental status attitude thought context and judgment are appropriate for age. Objective Labs Result Diagrams: 04/11/22 06:22 04/11/22 06:22 Labs: Laboratory Results - last 24 hr 04/10/22 04/10/22 04/10/22 14:00 14:00 14:00 WBC 7.5 RBC 3.81 L Hgb 11.7 L Hct 34.7 L MCV 91.1 MCH 30.6 MCHC 33.6 RDW 16.5 H Plt Count 165 Neut % (Auto) 90.8 H Lymph % (Auto) 5.8 L Lipscomb % (Auto) 3.2 Eos % (Auto) 0.1 L Baso % (Auto) 0.1 Neut # (Auto) 6800 Lymph # (Auto) 400 L Lipscomb # (Auto) 200 Eos # (Auto) 0 Baso # (Auto) 0 Sodium 133 L Potassium 3.0 L Chloride 99 Carbon Dioxide 28 BUN 28 H Creatinine 0.45 L Estimated GFR > 60 BUN/Creatinine Ratio 62.2 H Glucose 223 H Hemoglobin A1c 9.4 H Calcium 8.3 L Magnesium 1.9 Total Bilirubin 0.7 AST 31 ALT 43 H Alkaline Phosphatase 119 NT-Pro-B Natriuret Pep Total Protein 5.7 L Albumin 3.1 L Globulin 2.6 Albumin/Globulin Ratio 1.2 04/10/22 14:00 WBC RBC Hgb Hct MCV MCH MCHC RDW Plt Count Neut % (Auto) Lymph % (Auto) Lipscomb % (Auto) Eos % (Auto) Baso % (Auto) Neut # (Auto) Lymph # (Auto) Lipscomb # (Auto) Eos # (Auto) Baso # (Auto) Sodium Potassium Chloride Carbon Dioxide BUN Creatinine Estimated GFR BUN/Creatinine Ratio Glucose Hemoglobin A1c Calcium Magnesium Total Bilirubin AST ALT Alkaline Phosphatase NT-Pro-B Natriuret Pep 45 Total Protein Albumin Globulin Albumin/Globulin Ratio [facility] Medical History Abnormal Pap smear of cervix Allergic rhinitis due to dust mite (11/14/14) Alopecia due to cytotoxic drug Angiolipoma of skin (02/20/14) Arthritis Breast cancer metastasized to brain Cystocele (10/21/14) Depression Fibromyalgia History of chemotherapy Mild obstructive sleep apnea-hypopnea syndrome (03/06/15) Myopia 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 drug Obesity, Class III, BMI 40-49.9 (morbid obesity) Pelvic relaxation 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) Psoriasis Pulmonary embolism (01/18/22) Rosacea (10/31/13) Tenesmus of bladder (06/16/15) Thyroid nodule Uterine fibroid Vaginal mass Vitamin D deficiency (03/06/15) Surgical History History of brain shunt (~12/22/21) History of gynecologic surgery (10/06/20) History of radioactive iodine thyroid ablation History of removal of Port-a-Cath (07/10/19) History of surgery (11/27/18) History of surgery (12/04/18) History of vaginal hysterectomy (~07/2017) Hx of cholecystectomy Hx of craniotomy (12/13/21) Hx of left mastectomy (06/05/19) Status post excision of lipoma (~2013) Status post tubal ligation (~2013) Family History Father Alcoholism Mother Age: 71 Depression Grandfather Diabetes mellitus Mother Parkinson's disease Social History household members: children Smoking Status: Former smoker alcohol intake: never Assessment & Plan Assessment & Plan narrative: 1. Influenza A infection / weakness - continue supportive care, was given Rx for tamiflu on 04/06 but not effective. Will hold on future dosing. - TTE with normal EF, ProBNP 141 - given TWI in V5-6 on EKG, but no chest pain and no prior EKG, trops neg x2 - do not suspect superimposed bacterial pneumonia at this time with normal procalcitonin and no leukocytosis. 2. PEG site infection - continue broad spectrum antibiotics, need pseudomonal and MRSA coverage. Was given levofloxacin in the ER, has penicillin allergy reported but will continue cefepime and vanco for now. - General surgery consulted in the ER, performed bedside I&D on 04/09 with >50cc purulent drainage - ongoing management per gen surg - wound cultures growing pansensitive klebsiella and strep - can deescalate abx to rocephin - NPO at midnight for OR drainage of abscess on 04/12 3. Metastatic breast cancer s/p craniotomy and MANAGER TRANSITION shunt. - continue decadron / home medications - please see extensive oncology history in outpatient oncology progress notes from her provider. - hospice referral placed as patient expressing interest in this 4. Recent PE - continue eliquis - patient takes NSAID medications primarily for pain due to side effects of opiates. Start PPI for GI prophylaxis. Counseled on risk with NSAID medications and eliquis. - has bilateral LE 3+ edema, no DVT bilaterally on doppler US 04/11 5. Elevated glucose without diagnosis of DM - A1c 9.4%, previously 5.8% in 2017. Suspect glucose elevated in setting of steroids she has been on for her brain mets. - increase SSI to med dose and add lantus 15 units nightly 6. Obesity with BMI 43, but comittent protein calorie malnutrition secondary to cancer - nutrition consultation completed. - patient's obesity contributes to increased morbidity and mortality and increases risk of complications from PEG tube including infection. Code: Full, surrogate is patient's son DVT: apixaban Dispo: Several days until abscess drained and hospice arranged. I have utilized all available immediate resources to obtain, update, or review the patient's current medications. COVID-19 COVID-19 status: Negative Time Spent With Patient Critical Care time: I spent a total of [] minutes of critical care time on this patient's care today; this time is exclusive of procedural time. Quality VTE Deep Vein Thrombosis/Pulmonary Embolism Present on Admission: No
[2022-04-11 07:28] LABS: D Dimer 1147 ng/ml (<500)
[2022-04-11 07:33] LABS: Add Manual Diff / Slide Review NO; Basophils Absolute Auto 0 /uL (0-100); Basophils Percent Auto 0.1 % (0-2); Eosinophils Absolute Auto 0 /uL (0-450); Hematocrit 36.9 % (36-46); Hemoglobin 12.1 g/dL (12.0-16.0); Lymphocytes Absolute Auto 200 /uL (1100-4500); Lymphocytes Percent Auto 2.5 % (25-40); Mean Corpuscular HGB Conc 32.9 % (30-36); Mean Corpuscular Hemoglobin 30.1 PG (26-34); Mean Corpuscular Volume 91.4 fL (80-100); Monocytes Absolute Auto 200 /uL (0-900); Monocytes Percent Auto 2.6 % (3-14); Neutrophils Absolute Auto 8800 /uL (1500-7000); Neutrophils Percent Auto 94.8 % (50-75); Platelet Count 163 X10^3/uL (150-400); Red Blood Cell Count 4.03 X10^6/uL (4.0-5.2); Red Cell Distribution Width 16.7 % (11.6-14.8); White Blood Cell Count 9.3 X10^3/uL (4.5-11.0)
[2022-04-11 07:34] LABS: Alanine Aminotransferase 43 IU/L (<35); Albumin Globulin Ratio 1.2 (1.0-2.8); Alkaline Phosphatase 132 U/L (38-126); Aspartate Aminotransferase 28 IU/L (14-36); BUN Creatinine Ratio 52.3 (6-22); Bilirubin Total 0.6 mg/dL (0.2-1.3); Blood Urea Nitrogen 23 mg/dL (7-17); Calcium 8.1 mg/dL (8.4-10.2); Carbon Dioxide 29 mmol/L (22-32); Chloride 100 mmol/L (98-107); Estimated Glomerular Filt Rate > 60 mL/min (>60); Globulin 2.5 g/dL (1.7-4.1); Glucose 265 mg/dL (70-100); HEMOLYSIS < 15 (0-50); Potassium 3.4 mmol/L (3.4-5.1); Sodium 134 mmol/L (137-145); Total Protein 5.5 g/dL (6.3-8.2)
[2022-04-11] MEDS: LOSARTAN 50 MG TABLET PO (08:55)
[2022-04-11] MEDS: dexAMETHasone 4 MG TABLET 8 MG PO ×2 (08:55→16:44)
[2022-04-11] MEDS: FAMOTIDINE 20 MG TABLET PO (08:55)
[2022-04-11] MEDS: DULOXETINE 30 MG CAPSULE PO (08:55)
[2022-04-11] MEDS: buPROPion XL 150 MG TAB PO (08:55)
[2022-04-11] MEDS: APIXABAN 5 MG TABLET PO ×2 (08:55→20:28)
[2022-04-11] MEDS: LIDOCAINE PATCH 1 EACH ADH..PATCH 2 EACH TOP (08:56)
[2022-04-11] MEDS: PANTOPRAZOLE 40 MG VIAL 20 MG IV (08:57)
[2022-04-11] MEDS: FUROSEMIDE 20 MG/2 ML VIAL IV (08:58)
[2022-04-11] MEDS: INSULIN LISPRO 100 UNIT/ML 3ML VIAL SUBCUT ×4 (08:59→20:28)
[2022-04-11] MEDS: THYROID, PORK 30 MG TABLET 90 MG PO (08:59)
[2022-04-11] MEDS: POTASSIUM CHLORIDE 20 MEQ TAB 40 MEQ PO (10:53)
[2022-04-11 11:00] VITALS: BP 121/77; PULSE 111; RESP 18; TEMP 36.3; O2SAT 93
--- NOTE | 2022-04-11 11:40 | PM.PN.1 ---
Subjective Subjective Interval history: No questions or complaints this morning. However the drainage from her abdominal wound is continuing. The nurses have changed the dressing several times overnight. And this morning the outer dressing was completely saturated with purulent material. Exam Vital Signs (past 8 hours): - 04/11/22 07:00 04/11/22 11:00 Temperature 96.6 F L 97.3 F L Pulse Rate 110 H 111 H Respiratory Rate 16 18 Blood Pressure 117/89 121/77 Pulse Oximetry 95 93 Oxygen Flow Rate 3 3 Oxygen Delivery Method Nasal Cannula Oxygen Flow Rate 3 Narrative Exam Narrative: She is awake oriented and appropriate. She has a macias facies and obesity. The wound on her left upper abdomen is leaking some gastric contents but mostly purulent material. The packing strip is removed and the wound is irrigated with saline and suctioned with the Yankauer. Dry dressing is replaced. Her lower extremities remain almost paralyzed and edematous and painful. Objective Labs Result Diagrams: 04/11/22 06:22 04/11/22 06:22 Labs: Laboratory Results - last 24 hr 04/10/22 04/10/22 04/10/22 14:00 14:00 14:00 WBC 7.5 RBC 3.81 L Hgb 11.7 L Hct 34.7 L MCV 91.1 MCH 30.6 MCHC 33.6 RDW 16.5 H Plt Count 165 Neut % (Auto) 90.8 H Lymph % (Auto) 5.8 L Montgomery % (Auto) 3.2 Eos % (Auto) 0.1 L Baso % (Auto) 0.1 Neut # (Auto) 6800 Lymph # (Auto) 400 L Montgomery # (Auto) 200 Eos # (Auto) 0 Baso # (Auto) 0 D-Dimer Sodium 133 L Potassium 3.0 L Chloride 99 Carbon Dioxide 28 BUN 28 H Creatinine 0.45 L Estimated GFR > 60 BUN/Creatinine Ratio 62.2 H Glucose 223 H Hemoglobin A1c 9.4 H Calcium 8.3 L Magnesium 1.9 Total Bilirubin 0.7 AST 31 ALT 43 H Alkaline Phosphatase 119 NT-Pro-B Natriuret Pep Total Protein 5.7 L Albumin 3.1 L Globulin 2.6 Albumin/Globulin Ratio 1.2 04/10/22 04/11/22 04/11/22 14:00 06:22 06:22 WBC 9.3 RBC 4.03 Hgb 12.1 Hct 36.9 MCV 91.4 MCH 30.1 MCHC 32.9 RDW 16.7 H Plt Count 163 Neut % (Auto) 94.8 H Lymph % (Auto) 2.5 L Montgomery % (Auto) 2.6 L Eos % (Auto) 0.0 L Baso % (Auto) 0.1 Neut # (Auto) 8800 H Lymph # (Auto) 200 L Montgomery # (Auto) 200 Eos # (Auto) 0 Baso # (Auto) 0 D-Dimer Sodium 134 L Potassium 3.4 Chloride 100 Carbon Dioxide 29 BUN 23 H Creatinine 0.44 L Estimated GFR > 60 BUN/Creatinine Ratio 52.3 H Glucose 265 H Hemoglobin A1c Calcium 8.1 L Magnesium 2.0 Total Bilirubin 0.6 AST 28 ALT 43 H Alkaline Phosphatase 132 H NT-Pro-B Natriuret Pep 45 Total Protein 5.5 L Albumin 3.0 L Globulin 2.5 Albumin/Globulin Ratio 1.2 04/11/22 06:22 WBC RBC Hgb Hct MCV MCH MCHC RDW Plt Count Neut % (Auto) Lymph % (Auto) Montgomery % (Auto) Eos % (Auto) Baso % (Auto) Neut # (Auto) Lymph # (Auto) Montgomery # (Auto) Eos # (Auto) Baso # (Auto) D-Dimer 1147 H Sodium Potassium Chloride Carbon Dioxide BUN Creatinine Estimated GFR BUN/Creatinine Ratio Glucose Hemoglobin A1c Calcium Magnesium Total Bilirubin AST ALT Alkaline Phosphatase NT-Pro-B Natriuret Pep Total Protein Albumin Globulin Albumin/Globulin Ratio [facility] Medical History Abnormal Pap smear of cervix Allergic rhinitis due to dust mite (11/14/14) Alopecia due to cytotoxic drug Angiolipoma of skin (02/20/14) Arthritis Breast cancer metastasized to brain Cystocele (10/21/14) Depression Fibromyalgia History of chemotherapy Mild obstructive sleep apnea-hypopnea syndrome (03/06/15) Myopia 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 drug Obesity, Class III, BMI 40-49.9 (morbid obesity) Pelvic relaxation 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) Psoriasis Pulmonary embolism (01/18/22) Rosacea (10/31/13) Tenesmus of bladder (10/21/14) Thyroid nodule Uterine fibroid Vaginal mass Vitamin D deficiency (03/06/15) Surgical History History of brain shunt (~12/22/21) History of gynecologic surgery (10/06/20) History of radioactive iodine thyroid ablation History of removal of Port-a-Cath (07/10/19) History of surgery (11/27/18) History of surgery (12/04/18) History of vaginal hysterectomy (~07/2017) Hx of cholecystectomy Hx of craniotomy (12/13/21) Hx of left mastectomy (06/05/19) Status post excision of lipoma (~2013) Status post tubal ligation (~2013) Family History Father Alcoholism Mother Age: 71 Depression Grandfather Diabetes mellitus Mother Parkinson's disease Social History household members: children Smoking Status: Former smoker alcohol intake: never Assessment & Plan Assessment and plan (1) Infection of PEG site: Status: Acute Assessment & Plan narrative: Given the amount of purulent drainage I suspect that this abscess cavity really is just not adequately drained at this time. I discussed with the patient the risks benefits and alternatives to opening it further. I advised that I would like to try to book it in the operating room given that anesthesiologists will be available to keep her comfortable and that we will be able to give her medicine through her IV that will not make her ?loopy? for the rest of the day. She understands this and would like to proceed. The risks I discussed is simply related to wound healing and infectious complications. There is a chance for the development of an entero atmospheric fistula here, but that risks exists even without appropriate drainage and I think that treating the infection with better drainage procedure and opening the wound further will actually decrease the chances of problematic entero Ancef mixed ferric fistula however I can not guarantee that. She understands this and would like to proceed. I asked her if there was anyone that she wanted me to call to help her with decision making and she did not say that she wished for that. I do think that even though her reasoning is probably not at her baseline that she has an understanding of what I am talking about and is able to give me appropriate consent to proceed with opening and draining this infected area on her abdomen. Have also discussed with the team setting her up with contact with the hospice or palliative care team and they are working on it. I have discussed with the pharmacy the culture results and we are tailoring her IV antibiotics at this time to target the Pseudomonas which is sensitive to several agents. We are discontinuing vancomycin. I want to continue IV antibiotics until the infection is appropriately drained and then we can maybe switch her to an oral regimen and once the dressing changes are routine we can set her up with either home care or hospice whichever will work to help her at home with dressing changes. Bilateral lower extremity ultrasound is not showing any DVTs present. It is okay for her to continue her Eliquis for the drainage procedure. She is NPO after midnight but can take all of her normal home meds with sips. Time Spent With Patient Critical Care time: I spent a total of [] minutes of critical care time on this patient's care today; this time is exclusive of procedural time. Quality VTE Deep Vein Thrombosis/Pulmonary Embolism Present on Admission: No
--- NOTE | 2022-04-11 11:41 | SLP.IPNOTE ---
Per Dr. Blair, pt is interested in palliative care/hospice route and is currently tolerating regular diet with no difficulty. Cancelling speech order per Dr. Blair.
[2022-04-11 14:54] LABS: Vancomycin Trough 11.7 ug/mL (10-20)
--- NOTE | 2022-04-11 14:57 | PT.IIE ---
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) Local infection of the skin and subcutaneous tissue, unspecified (04/09/22) Surgery Performed Operation Date: 04/12/22 09:15 <No data on this case meets the specified criteria> Surgical History (Last Reviewed 04/09/22 @ 18:11 by Moises Aguiar DO) History of brain shunt (~12/22/21) History of gynecologic surgery (10/06/20) History of radioactive iodine thyroid ablation History of removal of Port-a-Cath (07/10/19) History of surgery (11/27/18) History of surgery (12/04/18) History of vaginal hysterectomy (~07/2017) Hx of cholecystectomy Hx of craniotomy (12/13/21) Hx of left mastectomy (06/05/19) Status post excision of lipoma (~2013) Status post tubal ligation (~2013) Medical History (Last Reviewed 04/09/22 @ 18:11 by Moises Aguiar DO) Abnormal Pap smear of cervix Allergic rhinitis due to dust mite (11/14/14) Alopecia due to cytotoxic drug Angiolipoma of skin (02/20/14) Arthritis Breast cancer metastasized to brain Cystocele (10/21/14) Depression Fibromyalgia History of chemotherapy Mild obstructive sleep apnea-hypopnea syndrome (03/06/15) Myopia 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 drug Obesity, Class III, BMI 40-49.9 (morbid obesity) Pelvic relaxation 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) Psoriasis Pulmonary embolism (01/18/22) Rosacea (10/31/13) Tenesmus of bladder (10/21/14) Thyroid nodule Uterine fibroid Vaginal mass Vitamin D deficiency (03/06/15) Physical Therapy Inpatient Evaluation/Re-Eval M1 PT/OT-IP Prior Functional Status Start: 04/10/22 08:26 Freq: NEEDED Status: Active Protocol: Document 04/11/22 14:57 AW (Rec: 04/11/22 15:38 AW [id number]) Medical Review Prior Functional Status Medical History Reviewed Yes Communication Pt makes her needs known. She is soft-spoken and speech requires increased effort. Mobility and Gait Pt states she was using a SPC until a few days ago. She always has it with her but sometimes she is not using it. She is able to walk household distances and from the house to her truck with SPC. She also has a walker but it does not fit in her home. Activities of Daily Living and IADL's Modified independent with ADL' s. Pt does not drive. Her son sets up medications for her. Prior Functional Level (Other details) PMH includes primary breast cancer s/p mastectomy with mets to brain. She had a PEG tube placed earlier this year due to swallow difficulty during a protracted hospitalization at . 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 She has chronic LE edema. 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 Social History Household Members children Living Arrangements House Number of Floors (Floors) One Floor Number of Stairs To Enter/Railing? 3 KANE with L rail ascending Home Environment Standard Height Toilet,Tub/ Shower Doors Home Equipment Front Wheel Walker,Straight Cane,Bedside Commode,Shower Seat without Backrest,Grab Bars Near Toilet Additional Social History Comment Pt lives in [place] with her spouse who works manager multimedia daysin the [employer] industry. She has an adult son who lives with her but is inconsistently helpful. She has a 9 yo daughter. M2 PT-IP Current Condition Start: 04/10/22 08:26 Freq: NEEDED Status: Active Protocol: Document 04/11/22 14:57 AW (Rec: 04/11/22 15:38 AW [id number]) Physical Therapy Current Condition Current Condition Evaluation Date 04/11/22 Treatment Diagnosis influenza A; PEG site infection; impaired mobility Onset Date 04/09/22 M3 PT-IP Subjective Start: 04/10/22 08:26 Freq: NEEDED Status: Active Protocol: Document 04/11/22 14:57 AW (Rec: 04/11/22 15:38 AW [id number]) Subjective Physical Therapy Visit Type Type Initial Evaluation Visit Start Time 14:26 Visit Stop Time 14:57 Total Visit Minutes 31 Notes Co-eval with OT due to pt's limited activity tolerance. Per general surgery note, pt to go to OR tomorrow morning for I&D of her abdominal wound . Physical Therapy Visit Comments Patient Comments I was walking with my cane just a few days ago. Now my legs aren't working Patient Goals Pt would like to be able to change positions on the bed. Therapy Pain Assessment Pain When Pain Assessed During Mobility Pain Present Pain Present Pain Reported M4 PT-IP Mobility and Gait Start: 04/10/22 08:26 Freq: NEEDED Status: Active Protocol: Document 04/11/22 14:57 AW (Rec: 04/11/22 15:38 AW [id number]) PT-Bed Mobility Assessment Supine to Sit Supine to Sit Maximum Assistance,2 Person Assistance,Head of Bed Elevated,Bedrails Sit to Supine Sit to Supine Maximum Assistance,2 Person Assistance Scooting Scooting to Edge of Bed Maximum Assistance PT-Transfer Assessment Comments Mobility Comments Pt was lying in the bed as PT and OT arrived. She was able to move her feet at the ankles and could perform heel slides with heavy PT assist. She could roll her legs bilaterally with good long axis rotation. She needed max A x 2 to complete supine to sit with PT moving her legs via draw pad and OT supporting from behind. Pt was able to sit with and without UE support. She was able to reach overhead without LOB though with some apparent limitation in left shoulder elevation. Pt was able to complete seated exercises as below. She did not think she could stand today and declined any attempt to assist her. She was assisted back to supine and repositioned with bed in chair configuration. Left pt with call light and tray table in reach. Advised RN that purewick needed to be replaced . Gait Assessment Comments Gait Comments Pt not able to progress to transfers or gait today. Stair Climbing Assessment Comments Stair Climbing Comments Not assessed. PT-Balance Assessment Sitting Balance and Reactions Static Sitting Balance Ability Good Dynamic Sitting Balance Ability Good M5 PT-IP Objective Assessments Start: 04/10/22 08:26 Freq: NEEDED Status: Active Protocol: Document 04/11/22 14:57 AW (Rec: 04/11/22 15:38 AW [id number]) Orientation Orientation/Cognition Level of Alertness Alert Orientation Name,Day of Week,Place, Situation Safety Awareness Understands Safety Issues Gross Range of Motion Lower Extremity ROM Assessment Within Functional Limits Strength Lower Extremity Strength Assessment Bilaterally Impaired Hip 3-/5 Knee 4/5 Ankle 4/5 Sensation Assessment Sensation Gross Sensation Right UE Impaired,Left UE Impaired,Right LE Impaired, Left LE Impaired Comments Sensation Comments Neuropathy (likely chemo- induced) affects bilateral hands and feet. Muscle Tone Muscle Tone WNL Yes M6 PT-IP Treatment Start: 04/10/22 08:26 Freq: NEEDED Status: Active Protocol: Document 04/11/22 14:57 AW (Rec: 04/11/22 15:38 AW [id number]) Physical Therapy Treatment Exercises Exercises Ankle Pumps,Heel Slides Education Education Provided Precautions,Safety Other Treatments Other Treatment Performed Educated briefly on abdominal precautions but pt was unable to log roll today. Will follow up. Pt completed ankle pumps/ circles and LAQ BLE x 10 in sitting M7 PT-IP Assessment and Plan Start: 04/10/22 08:26 Freq: NEEDED Status: Active Protocol: Document 04/11/22 14:57 AW (Rec: 04/11/22 15:38 AW [id number]) PT Summary Assessment and Plan Potential Rehabilitation Potential Fair Status of Condition at Evaluation Unstable Summary Impairments Pain,Strength,Balance, Sensation,Bed Mobility, Transfers,Gait,Activity Tolerance Assessment Summary May is a 51 yo woman with complicated medical history including primary breast cancer with metastases to brain. She is admitted with infected PEG tube site and influenza A. PLOF: Pt was able to walk household distances and to her truck with her cane . She was modified independent for ADL's. CLOF: Pt does not tolerate much activity, presents with profound weakness in her hips, and requires 2-person max assist for bed mobility. Per DCP, she will likely not be SNF- appropriate as she is on chemo . She will need 24/7 assist with all mobility at discharge and would benefit from home health therapies to improve her strength, activity tolerance, and mobility independence. Goals Bed Mobility Goal Minimal Assistance Transfer Goal Minimal Assistance,Front Wheeled Walker Gait Goal Minimal Assistance,Front Wheel Walker Gait Distance 75 Other Goals - improve bed mobility to SBA - improve transfers and gait to SBA with cane Days to Meet Goals 10 Frequency of Treatment Frequency Of Treatment Once a Day Treatment Plan Physical Therapy Treatment Plan Bed Mobility Training,Transfer Training,Gait Training, Therapeutic Exercise,Balance Retraining,Post Op Education, Discharge Planning,Hot or Cold Pack,Neuromuscular Re-ed Other Recommendations and Next Treatment Consider trapeze bar for bed Focus mobility. Progress to transfer as able. Precautions Abdominal Surgery Precautions Log Roll,Lifting Restrictions, Gait Belt above Incisional Area Other Precautions droplet precautions (flu) Recommendations To Nursing Amount of Assist Needed 2 Person Assist Discharge Recommendations PT Discharge Recommendations Home with 24/7 Assist Available,Home Health Transportation Needs at Discharge Wheelchair/Cabulance,Stretcher /Ambulance
--- NOTE | 2022-04-11 14:57 | OT.IP.EVAL ---
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) Local infection of the skin and subcutaneous tissue, unspecified (04/09/22) Surgery Performed Operation Date: 04/12/22 09:15 <No data on this case meets the specified criteria> Past Medical History (Last Reviewed 04/09/22 @ 18:11 by Moises Aguiar DO) Abnormal Pap smear of cervix Allergic rhinitis due to dust mite (11/14/14) Alopecia due to cytotoxic drug Angiolipoma of skin (02/20/14) Arthritis Breast cancer metastasized to brain Cystocele (10/21/14) Depression Fibromyalgia History of chemotherapy Mild obstructive sleep apnea-hypopnea syndrome (03/06/15) Myopia 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 drug Obesity, Class III, BMI 40-49.9 (morbid obesity) Pelvic relaxation 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) Psoriasis Pulmonary embolism (01/18/22) Rosacea (10/31/13) Tenesmus of bladder (10/21/14) Thyroid nodule Uterine fibroid Vaginal mass Vitamin D deficiency (03/06/15) Surgical History (Last Reviewed 04/09/22 @ 18:11 by Moises Aguiar DO) History of brain shunt (~12/22/21) History of gynecologic surgery (10/06/20) History of radioactive iodine thyroid ablation History of removal of Port-a-Cath (07/10/19) History of surgery (11/27/18) History of surgery (12/04/18) History of vaginal hysterectomy (~07/2017) Hx of cholecystectomy Hx of craniotomy (12/13/21) Hx of left mastectomy (06/05/19) Status post excision of lipoma (~2013) Status post tubal ligation (~2013) Occupational Therapy Inpatient Evaluation/Re-Eval M1 PT/OT-IP Prior Functional Status Start: 04/10/22 08:26 Freq: NEEDED Status: Active Protocol: Document 04/11/22 14:57 AW (Rec: 04/11/22 15:38 AW [id number]) Medical Review Prior Functional Status Medical History Reviewed Yes Communication Pt makes her needs known. She is soft-spoken and speech requires increased effort. Mobility and Gait Pt states she was using a SPC until a few days ago. She always has it with her but sometimes she is not using it. She is able to walk household distances and from the house to her truck with SPC. She also has a walker but it does not fit in her home. Activities of Daily Living and IADL's Modified independent with ADL' s. Pt does not drive. Her son sets up medications for her. Prior Functional Level (Other details) PMH includes primary breast cancer s/p mastectomy with mets to brain. She had a PEG tube placed earlier this year due to swallow difficulty during a protracted hospitalization at . 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 She has chronic LE edema. 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 Social History Household Members children Living Arrangements House Number of Floors (Floors) One Floor Number of Stairs To Enter/Railing? 3 KANE with L rail ascending Home Environment Standard Height Toilet,Tub/ Shower Doors Home Equipment Front Wheel Walker,Straight Cane,Bedside Commode,Shower Seat without Backrest,Grab Bars Near Toilet Additional Social History Comment Pt lives in [place] with her spouse who works time stamp assembler days in the [employer] industry. She has an adult son who lives with her but is inconsistently helpful. She has a 9 yo daughter. M2 OT-IP Current Condition Start: 04/11/22 15:51 Freq: Status: Active Protocol: Document 04/11/22 14:26 [facility]3] (Rec: 04/11/22 16:11 [facility]3] [id number]) Occupational Therapy Current Condition Current Condition Evaluation Date 04/11/22 Treatment Diagnosis FLU A, weakness and peg tube infection Diagnosis Onset Date 04/09/22 M3 OT- IP Subjective and Pain Start: 04/11/22 15:51 Freq: Status: Active Protocol: Document 04/11/22 14:26 [facility]3] (Rec: 04/11/22 16:11 [facility]3] [id number]) OT- Subjective Occupational Therapy Visit Type Type Initial Evaluation Visit Start Time 14:26 Visit Stop Time 14:57 Total Visit Minutes 31 Occupational Therapy Visit Comments Patient Comments Pt agreed to try to sit on the edge of the bed. Pt also present during OT eval. Patient/Caregiver Goals To go home. OT Pain Assessment Pain When Pain Assessed During Mobility Pain Present Pain Present Pain Reported M4 OT- IP ADL's Start: 04/11/22 15:51 Freq: Status: Active Protocol: Document 04/11/22 14:26 [facility]3] (Rec: 04/11/22 16:11 [facility]3] [id number]) OT ADL-Grooming General Evaluation Grooming Ability Standby Assistance Areas Needing Assistance Retrieving/Set-up of Grooming Items Comments OT Grooming Comments Pt able to do while seated at the edge of the bed after set- up. OT ADL-Oral Care Comments Oral Care Comments Not performed. OT ADL-Dressing General Eval Lower Body Dressing Ability Maximum Assistance OT ADL-Toileting Comments OT Toileting Comments Use of external catheter a this time. OT ADL-Bathing Bathing Type Bathing Type Sponge Bath Comments OT Bathing Comments Pt able to sponge off her arm pits at this time and put on deodorant. M5 OT- IP IADL's Start: 04/11/22 15:51 Freq: Status: Active Protocol: Document 04/11/22 14:26 [facility]3] (Rec: 04/11/22 16:11 [facility]3] [id number]) OT-Instrumental Activities of Daily Living Deficits IADL Deficits Identified Deficits Home Safety Awareness Awareness of Need for Assistance at Home Good Awareness Ability to Problem Solve Emergency Able to Problem Solve Situations Home Safety Comments At this time due to sudden onset of weakness in the past 2 days. Pt will need assist for ADl and IADl needs. M6 OT- IP Functional Cognition Start: 04/11/22 15:51 Freq: Status: Active Protocol: Document 04/11/22 14:26 [facility]3] (Rec: 04/11/22 16:11 [facility]3] [id number]) Cognitive Factors Limiting Selfcare Function Cognitive Ability Level of Alertness Alert Patient Orientation Name,Age,Birthday,Month,Date, Year,Day of Week,Place, Situation Attention Span Ability Capable of Focused Attention, Capable of Sustained Attention Ability to Follow Commands Able to Follow Multi-Step Commands Cognitive Comments Cognitive Assessment Comments Pt able to follow commands well for ADl and mobility needs. OT- Vision and Hearing OT- Hearing Assessment OT- Hearing Assessment WFL M7 OT- IP Mobility and Balance Start: 04/11/22 15:51 Freq: Status: Active Protocol: Document 04/11/22 14:26 [facility]3] (Rec: 04/11/22 16:11 [facility]3] [id number]) OT- Bed Mobility Assessment Supine to Sit Supine to Sit Assist Maximum Assistance,2 Person Assistance,Head of Bed Elevated,Bedrails Sit to Supine Sit to Supine Assist Maximum Assistance,2 Person Assistance,Head of Bed Elevated,Bedrails OT-Transfer Assessment Comments Mobility Comments Pt needing heavy use of green pad to get from supine to sit and sit to supine. OT- Balance Assessment Sitting Balance and Reactions Static Sitting Balance Ability Good Dynamic Sitting Balance Ability Fair M8 OT- IP Objective Assessments Start: 04/11/22 15:51 Freq: Status: Active Protocol: Document 04/11/22 14:26 [facility]3] (Rec: 04/11/22 16:11 [facility]3] [id number]) OT Gross Range of Motion Upper Extremity Range of Motion Assessment Left Impaired ROM Impairments LUE shoulder flexion 0-95 OT Strength Comments Strength Comments Shoulder RUE 4/5 LUE 4-/5 from proximal to distal 4/5 M9 OT- IP Assessment and Plan Start: 04/11/22 15:51 Freq: Status: Active Protocol: Document 04/11/22 14:26 [facility]3] (Rec: 04/11/22 16:11 [facility]3] [id number]) OT Summary Assessment and Plan Potential Rehabilitation Potential Fair Analytic Complexity at Evaluation Moderate Summary OT Impairments Pain,Strength,Balance, Functional Mobility,Dressing, Toileting,Bathing,Toilet Transfers,Shower Transfers, Activity Tolerance Progress Towards Goals Slow Progress due to Pain,Slow Progress due to Medical Issues Assessment Summary Pt MOD complexity and now having difficulty to bed mobility and ADl needs. Pt states two days ago able to care for herself and now needing extensive assist for all needs. Pt schedule to have I and D tomorrow. Pt still on Chemo and therefore would not qualify for skilled rehab and therefore if going home to have 24/7 assist and home health. Goals Grooming Goal Standby Assistance Dressing Goal Minimal Assistance Toileting Goal Minimal Assistance Bathing Goal Minimal Assistance Toilet Transfer Goal Contact Guard Assistance Shower Transfer Goal Minimal Assistance Days to Meet Goals 15 Frequency of Treatment Frequency Of Treatment Once a Day Treatment Plan OT Treatment Plan ADL Training,Functional Mobility,Patient/Family Education,Discharge Planning Discharge Recommendations OT Discharge Recommendations Home with 24/7 Assist Available,Home Health Transportation Needs at Discharge Private Vehicle,Wheelchair/ Cabulance
[2022-04-11 15:00] VITALS: BP 113/77; PULSE 102; RESP 18; TEMP 35.8; O2SAT 96
--- NOTE | 2022-04-11 16:28 | DIET.CONS ---
Dietary Consultation Note Admission Date: 04/09/2022 14:44 Assessment: 51y F admitted for Influenza A and PEG site infection requiring repeat I&D referred to nutrition for malnutrition. Pt has had 12% (severe) unintentional weight loss and significant reduction in mobility since December 2021. Pt had PEG placed in December due to swallowing difficulties. Pt had intermittent use of PEG as she would also consume PO intake. Pt also with A1c 9.4 related to steroid use in oncology tx. Elevated BGs may play a role in poor wound healing. Pt was referred as outpatient to Nutrition Services in February but was unable to make appointment and was unable to reschedule. Pt now interested in hospice services. Ht: 172.72 cm Wt: 127.777 kg BMI: 42.8 UBW: Last BM: 04/09/22 (04/09/22 18:06) MNA: 12 Danie Score: 15 Diet: 04/10/22 Breakfast General (Regular) Diet Diet Modifications: 04/12/22 00:01 NPO Diet Diet Modifications: NPO Type: NPO except for Meds Nutrition Percent Meal Consumed 25% 04/10/22 18:00 Percent Meal Consumed 0% 04/10/22 09:00 Labs: RBC 4.03 X10^6/uL (4.0-5.2) 04/11/22 06:22 Hgb 12.1 g/dL (12.0-16.0) 04/11/22 06:22 Hct 36.9 % (36-46) 04/11/22 06:22 Creatinine 0.44 mg/dL (0.52-1.04) L 04/11/22 06:22 Hemoglobin A1c 9.4 % (4.0-6.0) H 04/10/22 14:00 Lactate 1.9 mmol/L (0.7-2.1) 04/09/22 11:00 NT-Pro-B Natriuret Pep 45 pg/mL (<125) 04/10/22 14:00 Nutrition Diagnosis: Severe Acute Protein Calorie Malnutrition r/t difficulty swallowing aeb 12% unintentional weight loss in 4mo (severe), pt undergoing palliative tx for metastatic breast cancer, pt with PEG site infection requiring removal of PEG and repeat I&Ds. Interventions: 1. Kitchen to send ONS Urbano bid and ONS Ensure Max once daily providing 70% protein needs for healing PEG site infection in addition to meal trays. 2. Recc finger sticks to keep BG 140-180. EER: 2,000kcals (25kcal/kg ABW), 93g PRO (1.2g/kg ABW) Monitoring/Evaluations: following POs Electronically Signed by: Mary Jo Solis 04/11/22 16:28 Clinical Dietitian [address] [address]
--- NOTE | 2022-04-11 16:40 | CM.DPC ---
DCP Cont: Surgeon had mentioned palliative care/hospice. Called [facility], she is familiar with patient, and working with her. Patient has spouse and 9 year old daughter at home. Her next chemo treatment is on 04-18. She will have one of the oncology nurses come over and speak to patient. Surgeon plans on having patient go back to OR tomorrow for peg tube, unclear if she will need a new PEG tubw. Janice at regulatory [facility], has seen patient. Patient did have to cancel two of her radiation treatments. At this time, patient will go home with home health when stable. P: DCP to continue to follow. Plan is home with home healthJolie. Lala Castaneda RN/Flight Engineer Performance Qualified
[2022-04-11] MEDS: cefTRIAXone 2,000 MG in SODIUM CHLORIDE 0.9% 100 ML 200 MG IV (16:43)
[2022-04-11] MEDS: INSULIN GLARGINE 100 UNIT/ML 3ML PEN 15 UNIT SUBCUT (20:27)
[2022-04-11 21:30] VITALS: BP 103/59; PULSE 102; RESP 20; TEMP 35.5; O2SAT 94
[2022-04-12] VITALS (16 sets, daily range): BP systolic 116–139; BP diastolic 74–97; PULSE 75–111; RESP 17–33; TEMP 35.8–37.1; O2SAT 91–98; BMI 42.8
--- NOTE | 2022-04-12 00:41 | PC.NURSE ---
Addendum entered by Naila Meier R.N. 04/12/22 06:38: Dressing changed w/gauze 4X4's completely saturated with purulent drainage; ABD pad was 50% shadow drainage. Original Note: Patient is alert and oriented. Breath sounds with expiratory wheezes/rhonchi; on oxygen at 3L/min per NC with sat of 94%. Denies SOB at rest. Has intermittent congested/coarse sounding cough; no expectoration of sputum noted. HRR but tachy in low 100's. Denies nausea. BT present but has not yet had a BM since admission; denies flatus. States she hasn't been eating well as food doesn't taste good. Purewick was being used for urinary output but does not appear to be functioning well so removed and instructed patient to call when needing to void. Is requiring assistance to reposition in bed due to weakness in all extremities. States she was non ambulatory prior to hospitalization. Dressing over PEG tube site (removed PEG on 04/09) is CDI. Continues to have 3+ bilateral lower extremity edema; feet continue to appear dusky. Denied pain at time of assessment. Fall risk score is high and bed alarm is activated. Remains on droplet isolation as is positive for influenza A.
[2022-04-12] MEDS: SODIUM CHLORIDE 0.9% FLUSH 10 ML IV ×2 (05:11→12:47)
[2022-04-12] MEDS: SODIUM CHLORIDE 0.9% 250 ML 21 ML IV ×2 (05:41→22:19)
[2022-04-12] MEDS: LEVOTHYROXINE 25 MCG TABLET PO ×2 (05:41→12:45)
[2022-04-12 06:06] LABS: Add Manual Diff / Slide Review NO; Basophils Absolute Auto 0 /uL (0-100); Basophils Percent Auto 0.3 % (0-2); Eosinophils Absolute Auto 0 /uL (0-450); Eosinophils Percent Auto 0.2 % (2-4); Hematocrit 35.6 % (36-46); Hemoglobin 11.9 g/dL (12.0-16.0); Lymphocytes Absolute Auto 200 /uL (1100-4500); Mean Corpuscular HGB Conc 33.3 % (30-36); Mean Corpuscular Hemoglobin 30.4 PG (26-34); Mean Corpuscular Volume 91.3 fL (80-100); Monocytes Absolute Auto 200 /uL (0-900); Monocytes Percent Auto 3.1 % (3-14); Neutrophils Absolute Auto 7200 /uL (1500-7000); Neutrophils Percent Auto 94.4 % (50-75); Platelet Count 158 X10^3/uL (150-400); White Blood Cell Count 7.6 X10^3/uL (4.5-11.0)
[2022-04-12 06:11] LABS: Alanine Aminotransferase 40 IU/L (<35); Albumin 2.9 g/dL (3.5-5.0); Albumin Globulin Ratio 1.2 (1.0-2.8); Alkaline Phosphatase 129 U/L (38-126); Aspartate Aminotransferase 26 IU/L (14-36); BUN Creatinine Ratio 54.1 (6-22); Bilirubin Total 0.5 mg/dL (0.2-1.3); Blood Urea Nitrogen 20 mg/dL (7-17); Calcium 8.3 mg/dL (8.4-10.2); Carbon Dioxide 30 mmol/L (22-32); Chloride 100 mmol/L (98-107); Estimated Glomerular Filt Rate > 60 mL/min (>60); Globulin 2.5 g/dL (1.7-4.1); Glucose 290 mg/dL (70-100); HEMOLYSIS < 15 (0-50); Magnesium 1.9 mg/dL (1.6-2.3); Potassium 3.7 mmol/L (3.4-5.1); Sodium 134 mmol/L (137-145); Total Protein 5.4 g/dL (6.3-8.2)
--- NOTE | 2022-04-12 08:39 | PT-OP ANOTE ---
Pt anticipates surgery this morning and declines PT at this time until after the surgery.
--- NOTE | 2022-04-12 08:50 | OT.IPNOTE ---
Attempted to see pt for OT , pt scheduled to have I and D of peg tube and pt not wanting to do treatment at this time. Able to assist pt to straighten out the pads behind her, pt able to roll side to side with ANAHI and use of bed rail and bed tilt, no charge.
[2022-04-12] MEDS: ALBUTEROL/IPRATROPIUM 3 ML AMPUL INH (09:11)
[2022-04-12] MEDS: LACTATED RINGERS 1,000 ML 42 ML IV (09:15)
--- NOTE | 2022-04-12 10:42 | SUR.OPER ---
Patient remained in hospital bed, supine position with HOB elavation adjusted by anesthesia provider, blue chucks and towels to pad surrounding mattress. Patient states comfort prior to sedation
[2022-04-12] MEDS: BUPIVACAINE 0.25% (PF) 30 ML, EPINEPHrine 0.15 MG INJ (10:47)
--- NOTE | 2022-04-12 10:52 | SUR.HOLD ---
Late entry: at 0938, patient's blood sugar 262; notified Dr Stuart of POCT; no orders given. No insulin given.
--- NOTE | 2022-04-12 11:13 | SUR.PHASEI ---
Patient recovered in OR room 4 due to positive Influenza status.
--- NOTE | 2022-04-12 11:22 | PM.OP.1 ---
Operative Date/Time/Diagnoses Date of procedure: 04/12/22 Pre-op diagnosis: Subcutaneous infection at PEG tube site Procedure & Clinicians Procedure: Incision and drainage of subcutaneous tissue. Suture placed in fascia. Same procedure as scheduled: Yes Surgeon: Jing Guzmán Click Yes if Unassisted: Yes Anesthesia Type: MAC +/- and Local Operative Notes Findings: Large abscess cavity with loculations dimensions 15 cm in length 10 cm high 5 cm deep. Purulence material expressed about 30 cc. Loculations broken up, cavity cleaned and irrigated. Some necrotic subcutaneous tissue was removed with sharp debridement. Specimen(s): other (A culture of purulent material was sent) Procedure in detail: Patient was taken to the operating room CT supine with head elevated in a comfortable position on her hospital bed. A bilateral SCDs were placed. Patient is on antibiotic therapy. A time-out was performed. Was monitored anesthetic care was provided. The abdomen was prepped and draped in the usual fashion. Suction was used to suction up some purulence and fluid that was coming out of the wound. A local anesthetic bupivacaine with epinephrine was used to infuse around the skin. The wound was opened using a 15 blade scalpel and a finger was inserted. The cavity was explored and it was found that the cavity tracked laterally for a distance of about 10 cm. Therefore the wound was opened up further in that direction to make packing and dressing changes easier for the patient and to more effectively drain the infection. The wound itself was 15 cm in length. It was 5 cm deep and 10 cm tall in the superior/posterior direction. The wound tracked down to the fascial layer but did not include the fascia. However the PEG tube opening was still patent through the fascial layer. For this reason I grabbed small portion with the Pam retractor and placed a 0 Prolene suture through the fascia in a figure of 8 attempting to close the fascia over the old PEG tube insertion site. I hope this will facilitate the healing of that fistula. The remainder of the abscess cavity was cleaned out irrigated and any necrotic tissue was removed using sharp debridement with scissors. The cavity of the dimensions described above was then packed with moist saline soaked Kerlex. It was covered with dry gauze an ABD and tape. Patient tolerated the procedure well EBL was minimal and she went in good condition back up to the floor.
[2022-04-12] MEDS: INSULIN GLARGINE 100 UNIT/ML 3ML PEN 15 UNIT SUBCUT ×2 (12:42→21:14)
[2022-04-12] MEDS: INSULIN LISPRO 100 UNIT/ML 3ML VIAL SUBCUT ×3 (12:43→21:18)
[2022-04-12] MEDS: THYROID, PORK 30 MG TABLET 90 MG PO (12:44)
[2022-04-12] MEDS: FAMOTIDINE 20 MG TABLET PO (12:45)
[2022-04-12] MEDS: buPROPion XL 150 MG TAB PO (12:45)
[2022-04-12] MEDS: GABAPENTIN 600 MG TABLET PO ×2 (12:45→21:00)
[2022-04-12] MEDS: APIXABAN 5 MG TABLET PO ×2 (12:45→21:00)
[2022-04-12] MEDS: LOSARTAN 50 MG TABLET PO (12:45)
[2022-04-12] MEDS: dexAMETHasone 4 MG TABLET 8 MG PO ×2 (12:45→17:46)
[2022-04-12] MEDS: DULOXETINE 30 MG CAPSULE PO (12:46)
[2022-04-12] MEDS: PANTOPRAZOLE 40 MG VIAL 20 MG IV (12:46)
[2022-04-12] MEDS: VANCOMYCIN 1,250 MG/250 ML PIGGYBACK 250 MG IV ×2 (13:08→21:13)
[2022-04-12] MEDS: cefTRIAXone 2,000 MG in SODIUM CHLORIDE 0.9% 100 ML 200 MG IV (14:28)
--- NOTE | 2022-04-12 14:42 | OT.IP.TRT ---
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) Local infection of the skin and subcutaneous tissue, unspecified (04/09/22) Surgery Performed Operation Date: 04/12/22 09:15 Actual Procedures p I&D abscess - Jing Guzmán MD Occupational Therapy Treatment Note M2 OT-IP Current Condition Start: 04/11/22 15:51 Freq: Status: Active Protocol: Document 04/11/22 14:26 [facility] (Rec: 04/11/22 16:11 [facility] [id number]) Occupational Therapy Current Condition Current Condition Evaluation Date 04/11/22 Treatment Diagnosis FLU A, weakness and peg tube infection, and s/p I and D Diagnosis Onset Date 04/09/22 M3 OT- IP Subjective and Pain Start: 04/11/22 15:51 Freq: Status: Active Protocol: Document 04/12/22 15:47 [facility] (Rec: 04/12/22 15:56 [facility] [id number]) OT- Subjective Occupational Therapy Visit Type Type Treatment Note Visit Start Time 15:14 Visit Stop Time 15:42 Total Visit Minutes 28 Occupational Therapy Visit Comments Patient Comments Checked on pt after her I and D and pt agreed to try to get up. Patient/Caregiver Goals To go home. OT Pain Assessment Pain When Pain Assessed During Mobility Pain Present Pain Present Pain Reported Location Bilateral Leg Intensity 6 Scale Used Numeric (0 - 10) M6 OT- IP Functional Cognition Start: 04/11/22 15:51 Freq: Status: Active Protocol: Document 04/12/22 15:47 [facility] (Rec: 04/12/22 15:56 [facility] [id number]) Cognitive Factors Limiting Selfcare Function Cognitive Ability Level of Alertness Alert Patient Orientation Name,Age,Birthday,Month,Date, Year,Day of Week,Place, Situation Attention Span Ability Capable of Focused Attention, Capable of Sustained Attention Ability to Follow Commands Able to Follow Multi-Step Commands Cognitive Comments Cognitive Assessment Comments Pt able to follow commands well for mobility needs. M7 OT- IP Mobility and Balance Start: 04/11/22 15:51 Freq: Status: Active Protocol: Document 04/12/22 15:47 [facility] (Rec: 04/12/22 15:56 [facility] [id number]) OT- Bed Mobility Assessment Supine to Sit Supine to Sit Assist Maximum Assistance,2 Person Assistance,Head of Bed Elevated,Bedrails Sit to Supine Sit to Supine Assist Total Assistance,2 Person Assistance Scooting Scooting to Edge of Bed Maximum Assistance,2 Person Assistance OT-Transfer Assessment Comments Mobility Comments Heavy use of green pad to help get the pt to the edge of the bed and assist to get back into supine. MODA X 2 to scoot to the head of the bed and needing her knees to be blocked. Pt on 3L of O2 and started on 94% and after moving dropped to 91%. OT- Balance Assessment Sitting Balance and Reactions Static Sitting Balance Ability Good Dynamic Sitting Balance Ability Fair M8 OT- IP Objective Assessments Start: 04/11/22 15:51 Freq: Status: Active Protocol: Document 04/11/22 14:26 [facility] (Rec: 04/11/22 16:11 [facility] [id number]) OT Gross Range of Motion Upper Extremity Range of Motion Assessment Left Impaired ROM Impairments LUE shoulder flexion 0-95 OT Strength Comments Strength Comments Shoulder RUE 4/5 LUE 4-/5 from proximal to distal 4/5 M9 OT- IP Assessment and Plan Start: 04/11/22 15:51 Freq: Status: Active Protocol: Document 04/11/22 14:26 [facility] (Rec: 04/11/22 16:11 [facility] [id number]) OT Summary Assessment and Plan Potential Rehabilitation Potential Fair Analytic Complexity at Evaluation Moderate Summary OT Impairments Pain,Strength,Balance, Functional Mobility,Dressing, Toileting,Bathing,Toilet Transfers,Shower Transfers, Activity Tolerance Progress Towards Goals Slow Progress due to Pain,Slow Progress due to Medical Issues Assessment Summary Pt still needing extensive assist for bed mobility and able to do some scooting to the head of the bed with MODA X2. To try yo stand with pt tomorrow with bariatric FWW tomorrow if pt willing. Goals Grooming Goal Standby Assistance Dressing Goal Minimal Assistance Toileting Goal Minimal Assistance Bathing Goal Minimal Assistance Toilet Transfer Goal Contact Guard Assistance Shower Transfer Goal Minimal Assistance Days to Meet Goals 15 Frequency of Treatment Frequency Of Treatment Once a Day Treatment Plan OT Treatment Plan ADL Training,Functional Mobility,Patient/Family Education,Discharge Planning Discharge Recommendations OT Discharge Recommendations Home with 24/ Assist Available,Home Health Transportation Needs at Discharge Private Vehicle,Wheelchair/ Cabulance
--- NOTE | 2022-04-12 15:42 | PT.IPTN ---
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) Local infection of the skin and subcutaneous tissue, unspecified (04/09/22) Surgery Performed Operation Date: 04/12/22 09:15 Actual Procedures p I&D abscess - Jing Guzmán MD Physical Therapy Treatment Note M2 PT-IP Current Condition Start: 04/10/22 08:26 Freq: NEEDED Status: Active Protocol: Document 04/11/22 14:57 AW (Rec: 04/11/22 15:38 AW [id number]) Physical Therapy Current Condition Current Condition Evaluation Date 04/11/22 Treatment Diagnosis influenza A; PEG site infection; impaired mobility Onset Date 04/09/22 M3 PT-IP Subjective Start: 04/10/22 08:26 Freq: NEEDED Status: Active Protocol: Document 04/12/22 15:42 [facility] (Rec: 04/12/22 16:45 N[facility] [id number]) Subjective Physical Therapy Visit Type Type Treatment Note Visit Start Time 15:14 Visit Stop Time 15:42 Total Visit Minutes 28 Notes Co-treat with OT due to pt's limited activity tolerance. Pt had I&D of her abdominal wound today, but declines pain medication (also stated by RN pt previously declined pain medication). Agreeable to PT. Number of DISTRIBUTION MANAGER Visits 1 Physical Therapy Visit Comments Patient Comments Pt gets out of bed on R side at home. Pain reported: 5/10 reported in low back at beginning of session; ankles during treatment pain w/ ankle circles; Rosalio knees w/ straight leg raises; low back scooting laterally EOB; 6/10 low back end of session. Therapy Pain Assessment Pain When Pain Assessed During Mobility Pain Present Pain Present Pain Reported M4 PT-IP Mobility and Gait Start: 04/10/22 08:26 Freq: NEEDED Status: Active Protocol: Document 04/12/22 15:42 N[facility] (Rec: 04/12/22 16:45 NBM [id number]) PT-Bed Mobility Assessment Rolling Type of Rolling Roll to Left Level of Assist Standby Assistance Supine to Sit Supine to Sit Maximum Assistance,2 Person Assistance,Head of Bed Elevated,Bedrails Sit to Supine Sit to Supine Total Assistance,2 Person Assistance Scooting Scooting to Edge of Bed Maximum Assistance PT-Transfer Assessment Comments Mobility Comments Pt was sitting up in the bed on 3L O2 as PT and OT arrived. At rest O2 Sat 93-94% and BP 127/87. Pt performed ankle pumps, ankle circles CW/CCW w/ ankle pain reported, heel slides w/ heavy DISTRIBUTION MANAGER assist, SLR w/ knee and low back pain. She needed max A x 2 to complete supine to sit EOB with heavy use of draw pad by DISTRIBUTION MANAGER and OT. O2 sat decreased to 91-92% w/ 3L O2 after sitting EOB - no symptoms reported by pt. Pt was able to complete seated rosalio ankle pumps and LAQx5 ea. She was apprehensive to stand but agreeable to weightbear through feet to scoot laterally to R on level bed, which she did modA x2 PA w/ knee blocking. She was then assisted back to supine maxA x 2PA. Pt was SBA for rolling to left w/ use of hand rail and lateral bed tilt. Pt repositioned with bed in chair configuration. Pt left with call light, tray table, and all needs in reach. PT-Balance Assessment Sitting Balance and Reactions Static Sitting Balance Ability Good Dynamic Sitting Balance Ability Good Comments Other Balance Tests/Deviations/Treatment Pt apprehensive to try : standing. Recommend bariatric walker and pain medication on board to assess standing. M5 PT-IP Objective Assessments Start: 04/10/22 08:26 Freq: NEEDED Status: Active Protocol: Document 04/11/22 14:57 AW (Rec: 04/11/22 15:38 AW [id number]) Orientation Orientation/Cognition Level of Alertness Alert Orientation Name,Day of Week,Place, Situation Safety Awareness Understands Safety Issues Gross Range of Motion Lower Extremity ROM Assessment Within Functional Limits Strength Lower Extremity Strength Assessment Bilaterally Impaired Hip 3-/5 Knee 4/5 Ankle 4/5 Sensation Assessment Sensation Gross Sensation Right UE Impaired,Left UE Impaired,Right LE Impaired, Left LE Impaired Comments Sensation Comments Neuropathy (likely chemo- induced) affects bilateral hands and feet. Muscle Tone Muscle Tone WNL Yes M6 PT-IP Treatment Start: 04/10/22 08:26 Freq: NEEDED Status: Active Protocol: Document 04/12/22 15:42 NBM (Rec: 04/12/22 16:45 NBM [id number]) Physical Therapy Treatment Exercises Exercises Ankle Pumps,Heel Slides, Straight Leg Raises Education Education Provided Precautions,Safety Other Treatments Other Treatment Performed supine ankle circles CW/CCW. seated EOB ankle pumps, LAQx5 ea. M7 PT-IP Assessment and Plan Start: 04/10/22 08:26 Freq: NEEDED Status: Active Protocol: Document 04/12/22 15:42 NB (Rec: 04/12/22 16:45 NB [id number]) PT Summary Assessment and Plan Summary Impairments Pain,Strength,Balance, Sensation,Bed Mobility, Transfers,Gait,Activity Tolerance Assessment Summary Pt had an I&D surgery of abdominal wound today and is willing to work with PT but declines pain medication. She reports low back pain throughout treatment session which did increase from 5/10 beginning of session to 610 end of session. At this time she is maxA x 2 for supine to sit and TotalA for sit to supine. does not tolerate much activity, presents with profound weakness in her hips, and requires 2-person max assist to Total assist for bed mobility. She requires mod assist x2 w/knee blocking for scooting laterally towards HOB but as previously noted will likely not be SNF-appropriate as she is on chemo. She will need 24/7 assist with all mobility at discharge and would benefit from home health therapies to improve her strength, activity tolerance, and mobility independence. Goals Bed Mobility Goal Minimal Assistance Transfer Goal Minimal Assistance,Front Wheeled Walker Gait Goal Minimal Assistance,Front Wheel Walker Gait Distance 75 Other Goals - improve bed mobility to SBA - improve transfers and gait to SBA with cane Days to Meet Goals 10 Frequency of Treatment Frequency Of Treatment Once a Day Treatment Plan Physical Therapy Treatment Plan Bed Mobility Training,Transfer Training,Gait Training, Therapeutic Exercise,Balance Retraining,Post Op Education, Discharge Planning,Hot or Cold Pack,Neuromuscular Re-ed Other Recommendations and Next Treatment Consider trapeze bar for bed Focus mobility. Progress to transfer as able. Pt apprehensive to try standing - recommend to assess standing w/ bariatric walker and pain medication on board if pt receptive. Precautions Abdominal Surgery Precautions Log Roll,Lifting Restrictions, Gait Belt above Incisional Area Other Precautions droplet precautions (flu) Recommendations To Nursing Amount of Assist Needed 2 Person Assist Discharge Recommendations PT Discharge Recommendations Home with 24/7 Assist Available,Home Health Transportation Needs at Discharge Wheelchair/Cabulance,Stretcher /Ambulance
--- NOTE | 2022-04-12 16:08 | P.PN_ITS ---
Subjective Subjective Date Patient Seen: 04/12/22 Interval history: Patient just back from OR for redrainage of PEG tube site abscess. She says it went well. Her pain is controlled. No other complaints. Exam Vital Signs (past 8 hours): - 04/12/22 09:08 04/12/22 11:09 04/12/22 11:13 Temperature 98.5 F 98.1 F Pulse Rate 111 H 107 H 110 H Respiratory Rate 26 H 26 H 33 H Blood Pressure 133/89 116/86 130/88 Pulse Oximetry 98 97 97 Oxygen Delivery Method Nasal Cannula Nasal Cannula Nasal Cannula Oxygen Flow Rate 3 3 3 04/12/22 12:00 04/12/22 12:45 04/12/22 11:00 Temperature 96.7 F L Pulse Rate 103 H Respiratory Rate 18 Blood Pressure 133/85 134/79 Pulse Oximetry 97 95 Oxygen Delivery Method Nasal Cannula Oxygen Flow Rate 3 3 04/12/22 11:30 04/12/22 12:00 04/12/22 13:00 Temperature Pulse Rate 106 H 109 H 99 H Respiratory Rate 18 17 18 Blood Pressure 133/85 139/96 H 130/93 H Pulse Oximetry 96 97 97 Oxygen Delivery Method Oxygen Flow Rate 3 3 3 Oxygen Delivery Method Nasal Cannula Oxygen Flow Rate 3 Narrative Exam Narrative: General:? Patient is well developed and well nourished, macias facies present, obese with BMI of 42.8 HEENT:? Normocephalic, atraumatic, extraocular muscles intact, oral pharynx is clear and mucous membranes are dry Neck: supple and symmetric, trachea is midline, no cervical adenopathy. Chest:? Normal AP diameter and contour without kyphoscoliosis, no tachypnea, equal chest rise bilaterally. Lungs:?coarse bilateral breath sounds, poor air movement Cardio:?RRR no m/r/g. Abdomen: post-op dressing in place without drainage Musculoskeletal:? Muscle strength and tone are equal within normal limits, no deformity. Extremities:1+ edema b/l lower extremities, no joint effusions. No cyanosis or c lubbing. Skin:? Pale,? Warm to touch,dry and intact without rashes, ulcerations or petechiae.? Neuro:? Alert and orientated x3,? sensation to touch intact in all extremities, no gross deficits noted of cranial nerves. Psych:? Patient has a well-kept appearance, appropriate affect, mental status attitude thought context and judgment are appropriate for age. Objective Labs Result Diagrams: 04/12/22 05:15 04/12/22 05:15 Labs: Laboratory Results - last 24 hr 04/12/22 04/12/22 05:15 05:15 WBC 7.6 RBC 3.90 L Hgb 11.9 L Hct 35.6 L MCV 91.3 MCH 30.4 MCHC 33.3 RDW 17.0 H Plt Count 158 Neut % (Auto) 94.4 H Lymph % (Auto) 2.0 L [place] % (Auto) 3.1 Eos % (Auto) 0.2 L Baso % (Auto) 0.3 Neut # (Auto) 7200 H Lymph # (Auto) 200 L [place] # (Auto) 200 Eos # (Auto) 0 Baso # (Auto) 0 Sodium 134 L Potassium 3.7 Chloride 100 Carbon Dioxide 30 BUN 20 H Creatinine 0.37 L Estimated GFR > 60 BUN/Creatinine Ratio 54.1 H Glucose 290 H Calcium 8.3 L Magnesium 1.9 Total Bilirubin 0.5 AST 26 ALT 40 H Alkaline Phosphatase 129 H Total Protein 5.4 L Albumin 2.9 L Globulin 2.5 Albumin/Globulin Ratio 1.2 PFSH Medical History Abnormal Pap smear of cervix Allergic rhinitis due to dust mite (11/14/14) Alopecia due to cytotoxic drug Angiolipoma of skin (02/20/14) Arthritis Breast cancer metastasized to brain Cystocele (10/21/14) Depression Fibromyalgia History of chemotherapy Mild obstructive sleep apnea-hypopnea syndrome (03/06/15) Myopia 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 drug Obesity, Class III, BMI 40-49.9 (morbid obesity) Pelvic relaxation 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) Psoriasis Pulmonary embolism (01/18/22) Rosacea (10/31/13) Tenesmus of bladder (10/21/14) Thyroid nodule Uterine fibroid Vaginal mass Vitamin D deficiency (03/06/15) Surgical History History of brain shunt (~12/22/21) History of gynecologic surgery (10/06/20) History of radioactive iodine thyroid ablation History of removal of Port-a-Cath (07/10/19) History of surgery (11/27/18) History of surgery (12/04/18) History of vaginal hysterectomy (~07/2017) Hx of cholecystectomy Hx of craniotomy (12/13/21) Hx of left mastectomy (06/05/19) Status post excision of lipoma (~2013) Status post tubal ligation (~2013) Family History Father Alcoholism Mother Age: 71 Depression Grandfather Diabetes mellitus Mother Parkinson's disease Social History household members: children Smoking Status: Former smoker alcohol intake: never Assessment & Plan Assessment & Plan narrative: 1. Influenza A infection / weakness - continue supportive care, was given Rx for tamiflu on 04/06 but not effective. Will hold on future dosing. - TTE with normal EF, ProBNP 141 - given TWI in V5-6 on EKG, but no chest pain and no prior EKG, trops neg x2 - do not suspect superimposed bacterial pneumonia at this time with normal procalcitonin and no leukocytosis. 2. PEG site infection with abscess - General surgery consulted in the ER, performed bedside I&D on 04/09 with >50cc purulent drainage - ongoing management per gen surg - wound cultures growing pansensitive klebsiella, strep and staph aureus - can deescalate abx to rocephin and vanc for possible MRSA until sensitivies back - underwent OR drainage on 04/12 with full drainage of abscess and cleaning of internal cavity 3. Metastatic breast cancer s/p craniotomy and SOLUTION LEAD shunt. - continue decadron / home medications - please see extensive oncology history in outpatient oncology progress notes from her provider. - hospice referral placed as patient expressing interest in this 4. Recent PE - continue eliquis - patient takes NSAID medications primarily for pain due to side effects of opiates. Start PPI for GI prophylaxis. Counseled on risk with NSAID medications and eliquis. - has bilateral LE 3+ edema, no DVT bilaterally on doppler US 04/11 5. Elevated glucose without diagnosis of DM - A1c 9.4%, previously 5.8% in 2017. Suspect glucose elevated in setting of steroids she has been on for her brain mets. - increase SSI to med dose and add lantus 15 units nightly 6. Obesity with BMI 43, but comittent protein calorie malnutrition secondary to cancer - nutrition consultation completed. - patient's obesity contributes to increased morbidity and mortality and incr eases risk of complications from PEG tube including infection. Code: Full, surrogate is patient's son DVT: apixaban Dispo: 1-2 days until cultures finalize. I have utilized all available immediate resources to obtain, update, or review the patient's current medications. COVID-19 COVID-19 status: Negative Time Spent With Patient Critical Care time: I spent a total of [] minutes of critical care time on this patient's care today; this time is exclusive of procedural time. Quality VTE Deep Vein Thrombosis/Pulmonary Embolism Present on Admission: No
[2022-04-12] MEDS: KETOROLAC 30 MG/ML VIAL 15 MG IV (20:59)
[2022-04-13] VITALS (11 sets, daily range): BP systolic 118–128; BP diastolic 67–77; PULSE 96–110; RESP 14–22; TEMP 35.8–36.7; O2SAT 92–98
[2022-04-13] MEDS: VANCOMYCIN 1,250 MG/250 ML PIGGYBACK 250 MG IV (05:10)
[2022-04-13] MEDS: LEVOTHYROXINE 25 MCG TABLET PO (07:05)
--- NOTE | 2022-04-13 08:23 | PM.PN.1 ---
Subjective Subjective Date Patient Seen: 04/13/22 Interval history: Patient feeling ok, but still quite weak and needed max 2 assist. PT recommending SNF and gen surg now recommending daily dressing changes. Exam Vital Signs (past 8 hours): - 04/13/22 03:25 Temperature 96.5 F L Pulse Rate 102 H Respiratory Rate 16 Blood Pressure 125/70 Pulse Oximetry 95 Oxygen Flow Rate 3 Oxygen Delivery Method Nasal Cannula Oxygen Flow Rate 3 Narrative Exam Narrative: General:? Patient is well developed and well nourished, macias facies present, obese with BMI of 42.8 HEENT:? Normocephalic, atraumatic, extraocular muscles intact, oral pharynx is clear and mucous membranes are dry Neck: supple and symmetric, trachea is midline, no cervical adenopathy. Chest:? Normal AP diameter and contour without kyphoscoliosis, no tachypnea, equal chest rise bilaterally. Lungs:?coarse bilateral breath sounds, poor air movement Cardio:?RRR no m/r/g. Abdomen: post-op dressing in place without drainage Musculoskeletal:? Muscle strength and tone are equal within normal limits, no deformity. Extremities:1+ edema b/l lower extremities, no joint effusions. No cyanosis or clubbing. Skin:? Pale,? Warm to touch,dry and intact without rashes, ulcerations or petechiae.? Neuro:? Alert and orientated x3,? sensation to touch intact in all extremities, no gross deficits noted of cranial nerves. Psych:? Patient has a well-kept appearance, appropriate affect, mental status attitude thought context and judgment are appropriate for age. Objective Labs Result Diagrams: 04/12/22 05:15 04/12/22 05:15 [facility] Medical History Abnormal Pap smear of cervix Allergic rhinitis due to dust mite (11/14/14) Alopecia due to cytotoxic drug Angiolipoma of skin (02/20/14) Arthritis Breast cancer metastasized to brain Cystocele (10/21/14) Depression Fibromyalgia History of chemotherapy Mild obstructive sleep apnea-hypopnea syndrome (03/06/15) Myopia 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 drug Obesity, Class III, BMI 40-49.9 (morbid obesity) Pelvic relaxation 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) Psoriasis Pulmonary embolism (01/18/22) Rosacea (10/31/13) Tenesmus of bladder (10/21/14) Thyroid nodule Uterine fibroid Vaginal mass Vitamin D deficiency (03/06/15) Surgical History History of brain shunt (~12/22/21) History of gynecologic surgery (10/06/20) History of radioactive iodine thyroid ablation History of removal of Port-a-Cath (07/10/19) History of surgery (11/27/18) History of surgery (12/04/18) History of vaginal hysterectomy (~07/2017) Hx of cholecystectomy Hx of craniotomy (12/13/21) Hx of left mastectomy (06/05/19) Status post excision of lipoma (~2013) Status post tubal ligation (~2013) Family History Father Alcoholism Mother Age: 71 Depression Grandfather Diabetes mellitus Mother Parkinson's disease Social History household members: children Smoking Status: Former smoker alcohol intake: never Assessment & Plan Assessment & Plan narrative: 1. Influenza A infection / weakness - continue supportive care, was given Rx for tamiflu on 04/06 but not effective. Will hold on future dosing. - TTE with normal EF, ProBNP 141 - given TWI in V5-6 on EKG, but no chest pain and no prior EKG, trops neg x2 - do not suspect superimposed bacterial pneumonia at this time with normal procalcitonin and no leukocytosis. 2. PEG site infection with abscess s/p OR I&D - General surgery consulted in the ER, performed bedside I&D on 04/09 with >50cc purulent drainage - ongoing management per gen surg - wound cultures growing pansensitive klebsiella, strep and staph aureus - continue rocephin and vanc until OR culture results, then likely switch to levaquin po likely - underwent OR drainage on 04/12 with full drainage of abscess and cleaning of internal cavity -will need daily dressing changes 3. Metastatic breast cancer s/p craniotomy and [employer] shunt. - continue decadron / home medications - please see extensive oncology history in outpatient oncology progress notes from her provider. - hospice referral placed as patient expressing interest in this 4. Recent PE - continue eliquis - patient takes NSAID medications primarily for pain due to side effects of opiates. Start PPI for GI prophylaxis. Counseled on risk with NSAID medications and eliquis. - has bilateral LE 3+ edema, no DVT bilaterally on doppler US 04/11 5. Elevated glucose without diagnosis of DM - A1c 9.4%, previously 5.8% in 2017. Suspect glucose elevated in setting of steroids she has been on for her brain mets. - increase SSI to med dose and add lantus 15 units nightly 6. Obesity with BMI 43, but comittent protein calorie malnutrition secondary to cancer - nutrition consultation completed. - patient's obesity contributes to increased morbidity and mortality and increases risk of complications from PEG tube including infection. Code: Full, surrogate is patient's son DVT: apixaban Dispo: Will need SNF. COVID-19 COVID-19 status: Negative Time Spent With Patient Critical Care time: I spent a total of [] minutes of critical care time on this patient's care today; this time is exclusive of procedural time. Quality VTE Deep Vein Thrombosis/Pulmonary Embolism Present on Admission: No
[2022-04-13] MEDS: PANTOPRAZOLE 40 MG VIAL 20 MG IV (09:11)
[2022-04-13] MEDS: dexAMETHasone 4 MG TABLET 8 MG PO ×2 (09:11→16:00)
[2022-04-13] MEDS: DULOXETINE 30 MG CAPSULE PO (09:11)
[2022-04-13] MEDS: APIXABAN 5 MG TABLET PO ×2 (09:11→21:50)
[2022-04-13] MEDS: GABAPENTIN 600 MG TABLET PO ×3 (09:11→21:50)
[2022-04-13] MEDS: LOSARTAN 50 MG TABLET PO (09:11)
[2022-04-13] MEDS: buPROPion XL 150 MG TAB PO (09:11)
[2022-04-13] MEDS: FAMOTIDINE 20 MG TABLET PO (09:12)
[2022-04-13] MEDS: INSULIN LISPRO 100 UNIT/ML 3ML VIAL SUBCUT ×4 (09:13→21:50)
[2022-04-13] MEDS: THYROID, PORK 30 MG TABLET 90 MG PO (09:13)
[2022-04-13] MEDS: INSULIN GLARGINE 100 UNIT/ML 3ML PEN 15 UNIT SUBCUT (09:14)
[2022-04-13] MEDS: KETOROLAC 30 MG/ML VIAL 15 MG IV ×2 (09:22→16:27)
[2022-04-13] MEDS: LORazepam 0.5 MG TABLET PO ×2 (09:28→21:50)
--- NOTE | 2022-04-13 10:35 | PM.PN.1 ---
Subjective Subjective Date Patient Seen: 04/13/22 Time Patient Seen: 10:00 Interval history: Doing okay this morning no questions or complaints. There is pain at the incision site but it is managed with pain medicine. Exam Vital Signs (past 8 hours): - 04/13/22 03:25 04/13/22 08:52 04/13/22 09:11 Temperature 96.5 F L 97.6 F Pulse Rate 102 H 99 H Respiratory Rate 16 22 Blood Pressure 125/70 119/77 119/77 Pulse Oximetry 95 92 Oxygen Flow Rate 3 2 Oxygen Delivery Method Nasal Cannula Oxygen Flow Rate 2 Narrative Exam Narrative: She is awake alert cooperative and pleasant. Abdomen is obese the wound dressing is saturated with greenish purulent discharge. This is removed and the wound was irrigated. Inside the abscess cavity is open and looks pretty good. I do not see any active gastric leaking while examining it. The cavity remains about 15 cm in length by 10 cm in height and 5 in depth. The moist Kerlix dressing was replaced into the wound and it was covered with 4x4s and ABD. Objective Labs Result Diagrams: 04/12/22 05:15 04/12/22 05:15 [facility] Medical History Abnormal Pap smear of cervix Allergic rhinitis due to dust mite (11/14/14) Alopecia due to cytotoxic drug Angiolipoma of skin (02/20/14) Arthritis Breast cancer metastasized to brain Cystocele (10/21/14) Depression Fibromyalgia History of chemotherapy Mild obstructive sleep apnea-hypopnea syndrome (03/06/15) Myopia 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 drug Obesity, Class III, BMI 40-49.9 (morbid obesity) Pelvic relaxation 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) Psoriasis Pulmonary embolism (01/18/22) Rosacea (10/31/13) Tenesmus of bladder (10/21/14) Thyroid nodule Uterine fibroid Vaginal mass Vitamin D deficiency (03/06/15) Surgical History History of brain shunt (~12/22/21) History of gynecologic surgery (10/06/20) History of radioactive iodine thyroid ablation History of removal of Port-a-Cath (07/10/19) History of surgery (11/27/18) History of surgery (12/04/18) History of vaginal hysterectomy (~07/2017) Hx of cholecystectomy Hx of craniotomy (12/13/21) Hx of left mastectomy (06/05/19) Status post excision of lipoma (~2013) Status post tubal ligation (~2013) Family History Father Alcoholism Mother Age: 71 Depression Grandfather Diabetes mellitus Mother Parkinson's disease Social History household members: children Smoking Status: Former smoker alcohol intake: never Assessment & Plan Assessment and plan (1) Infection of PEG site: Status: Acute Plan I would continue at least once daily dressing changes. For now I am recommending twice a day wet-to-dry changes. I will continue to monitor. We are following up on cultures and tailoring antibiotics as needed. A if it would be possible to taper down steroids that can help but it may not be possible if her headaches become unbearable also. So overall I have discussed with her goals of care and I think she is ready to be on a palliative track. I think she understands her diagnosis and she also understands that she really needs more help than the people at home can give her. I have discussed the case with our case management team and I am sure that the team will find a solution for her that works. I am available to see her for wound check in my office on Monday or Monday then week after next. If it works better to have her follow-up our W[facility] I would be okay with that also. Please do not hesitate to contact me if there is any questions or concerns or anything else that I can do to help in this case. Time Spent With Patient Critical Care time: I spent a total of [] minutes of critical care time on this patient's care today; this time is exclusive of procedural time. Quality VTE Deep Vein Thrombosis/Pulmonary Embolism Present on Admission: No
[2022-04-13] MEDS: SODIUM CHLORIDE 0.9% 250 ML 21 ML IV (11:09)
--- NOTE | 2022-04-13 11:30 | PC.NURSE ---
Wound irrigated and suctioned by Dr. Guzmán and new packing and dressing applied.
[2022-04-13] MEDS: NYSTATIN POWDER 15GM 1 APPLIC TOP ×2 (12:11→21:50)
[2022-04-13 13:13] LABS: Vancomycin Trough 9.9 ug/mL (10-20)
[2022-04-13] MEDS: VANCOMYCIN 1,500 MG/300 ML PIGGYBACK 200 MG IV ×2 (13:46→21:50)
--- NOTE | 2022-04-13 15:55 | OT.IP.TRT ---
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) Local infection of the skin and subcutaneous tissue, unspecified (04/09/22) Surgery Performed Operation Date: 04/12/22 09:15 Actual Procedures p I&D abscess - Jing Guzmán MD Occupational Therapy Treatment Note M2 OT-IP Current Condition Start: 04/11/22 15:51 Freq: Status: Active Protocol: Document 04/11/22 14:26 [facility] (Rec: 04/11/22 16:11 [facility] [id number]) Occupational Therapy Current Condition Current Condition Evaluation Date 04/11/22 Treatment Diagnosis FLU A, weakness and peg tube infection Diagnosis Onset Date 04/09/22 M3 OT- IP Subjective and Pain Start: 04/11/22 15:51 Freq: Status: Active Protocol: Document 04/13/22 15:30 [facility] (Rec: 04/13/22 18:15 [facility] [id number]) OT- Subjective Occupational Therapy Visit Type Type Treatment Note Visit Start Time 15:30 Visit Stop Time 15:55 Total Visit Minutes 25 Occupational Therapy Visit Comments Patient Comments Pt agreeable to get up. Patient/Caregiver Goals To go home, but pt realizes that she is unable to go home as not having enough help. OT Pain Assessment Pain When Pain Assessed During Mobility Pain Present Pain Present Pain Reported M7 OT- IP Mobility and Balance Start: 04/11/22 15:51 Freq: Status: Active Protocol: Document 04/13/22 15:30 [facility] (Rec: 04/13/22 18:15 [facility] [id number]) OT- Bed Mobility Assessment Supine to Sit Supine to Sit Assist Moderate Assistance,1 Person Assistance Sit to Supine Sit to Supine Assist Minimal Assistance,1 Person Assistance OT-Transfer Assessment Sit to and From Stand Sit to and from Stand Moderate Assistance,2 Person Assistance Comments Mobility Comments Pt MODA to help get her legs to the edge of the bed and ANAHI to help get her legs back to the bed. MODA X2 to stand to the FWW. Pt not able to stand when holding the FWW and able to assist better with her hands pushing on the bed to stand and with the bed up higher. OT- Balance Assessment Sitting Balance and Reactions Static Sitting Balance Ability Good Dynamic Sitting Balance Ability Fair Standing Balance and Reactions Static Standing Balance Ability Poor M9 OT- IP Assessment and Plan Start: 04/11/22 15:51 Freq: Status: Active Protocol: Document 04/13/22 15:30 [facility] (Rec: 04/13/22 18:15 [facility] [id number]) OT Summary Assessment and Plan Potential Rehabilitation Potential Good Analytic Complexity at Evaluation Moderate Summary OT Impairments Pain,Strength,Balance, Functional Mobility,Dressing, Toileting,Bathing,Toilet Transfers,Shower Transfers, Activity Tolerance Progress Towards Goals Progressing Toward Goals Assessment Summary Pt very motivated to try to stand today and able to do with MODA X 2 with FWW. Unclear of pt's disposition, pt states not able to go home as no one able to take care of her. Pt can benefit from skilled rehab to get stronger to help maximize her independent with her ADl and mobility needs. Goals Grooming Goal Standby Assistance Dressing Goal Minimal Assistance Toileting Goal Minimal Assistance Bathing Goal Minimal Assistance Toilet Transfer Goal Contact Guard Assistance Shower Transfer Goal Minimal Assistance Days to Meet Goals 15 Frequency of Treatment Frequency Of Treatment Once a Day Treatment Plan OT Treatment Plan ADL Training,Functional Mobility,Patient/Family Education,Discharge Planning Discharge Recommendations OT Discharge Recommendations Home with 28/11 Assist Available,Home Health,SNF Rehab,Home vs SNF Transportation Needs at Discharge Wheelchair/Cabulance
[2022-04-13] MEDS: cefTRIAXone 2,000 MG in SODIUM CHLORIDE 0.9% 100 ML 200 MG IV (16:00)
--- NOTE | 2022-04-13 17:05 | PT.IPTN ---
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) Local infection of the skin and subcutaneous tissue, unspecified (04/09/22) Surgery Performed Operation Date: 04/12/22 09:15 Actual Procedures p I&D abscess - Jing Guzmán MD Physical Therapy Treatment Note M2 PT-IP Current Condition Start: 04/10/22 08:26 Freq: NEEDED Status: Active Protocol: Document 04/11/22 14:57 AW (Rec: 04/11/22 15:38 AW [id number]) Physical Therapy Current Condition Current Condition Evaluation Date 04/11/22 Treatment Diagnosis influenza A; PEG site infection; impaired mobility Onset Date 04/09/22 M3 PT-IP Subjective Start: 04/10/22 08:26 Freq: NEEDED Status: Active Protocol: Document 04/13/22 16:45 LJ (Rec: 04/13/22 17:05 LJ [id number]) Subjective Physical Therapy Visit Type Type Treatment Note Visit Start Time 15:13 Visit Stop Time 15:47 Total Visit Minutes 34 Notes CO TX with OT Physical Therapy Visit Comments Patient Comments Pt willing to work with PT and OT to attempt standing at edge of bed Therapy Pain Assessment Pain When Pain Assessed During Mobility Pain Present Pain Present Pain Reported M4 PT-IP Mobility and Gait Start: 04/10/22 08:26 Freq: NEEDED Status: Active Protocol: Document 04/13/22 16:45 ANGELO (Rec: 04/13/22 17:05 LJ [id number]) PT-Bed Mobility Assessment Rolling Type of Rolling Roll to Right Supine to Sit Supine to Sit Moderate Assistance,1 Person Assistance,Head of Bed Elevated Sit to Supine Sit to Supine Moderate Assistance,2 Person Assistance,Head of Bed Elevated Scooting Scooting to Edge of Bed Contact Guard Assistance, Minimal Assistance PT-Transfer Assessment Sit to and From Stand Sit to and from Stand Moderate Assistance,2 Person Assistance,Use of Upper Extremities Equipment Transfer Assistive Device Gait Belt,Front Wheeled Walker Transfers Transfer Destination Bed Comments Mobility Comments Pt sitting up in bed. Vitals taken-O2 93%-94%, BP 129/87. Pt performed LE exercises prior to attempting to stand. She required MODA x1 to move LEs to side of bed but was able to pivot herself to sit at side of bed. Pt attempted to stand but unable the first time. Second attempt pt used FWW with MODA x2 for sit>stand . Pt eased herself down on bed with control. Pt required CGA -ANAHI to lift LEs back into bed. Pt able to straighten herself in bed. She was left with all needs within reach in sitting position in bed. Gait Assessment Comments Gait Comments Unable at this time Stair Climbing Assessment Comments Stair Climbing Comments Not assessed. PT-Balance Assessment Sitting Balance and Reactions Static Sitting Balance Ability Good Dynamic Sitting Balance Ability Good M5 PT-IP Objective Assessments Start: 04/10/22 08:26 Freq: NEEDED Status: Active Protocol: Document 04/11/22 14:57 AW (Rec: 04/11/22 15:38 AW [id number]) Orientation Orientation/Cognition Level of Alertness Alert Orientation Name,Day of Week,Place, Situation Safety Awareness Understands Safety Issues Gross Range of Motion Lower Extremity ROM Assessment Within Functional Limits Strength Lower Extremity Strength Assessment Bilaterally Impaired Hip 3-/5 Knee 4/5 Ankle 4/5 Sensation Assessment Sensation Gross Sensation Right UE Impaired,Left UE Impaired,Right LE Impaired, Left LE Impaired Comments Sensation Comments Neuropathy (likely chemo- induced) affects bilateral hands and feet. Muscle Tone Muscle Tone WNL Yes M6 PT-IP Treatment Start: 04/10/22 08:26 Freq: NEEDED Status: Active Protocol: Document 04/13/22 16:45 ANGELO (Rec: 04/13/22 17:05 [id number]) Physical Therapy Treatment Exercises Exercises Ankle Pumps,Gluteal Sets,Quad Sets,Heel Slides,Straight Leg Raises,Supine Hip Abduction Education Education Provided Precautions,Safety Other Treatments Other Treatment Performed exercises kept to few reps prior to standing M7 PT-IP Assessment and Plan Start: 04/10/22 08:26 Freq: NEEDED Status: Active Protocol: Document 04/13/22 16:45 ANGELO (Rec: 04/13/22 17:05 ANGELO [id number]) PT Summary Assessment and Plan Potential Rehabilitation Potential Fair Summary Impairments Pain,Strength,Balance, Sensation,Bed Mobility, Transfers,Gait,Activity Tolerance Assessment Summary Pt able to stand today with 2 attempts, the second being successful. Stood for over 30 seconds using FWW and CGA for safety from 2 therapists but required only 1 therapist for most of the time. She has improved mobility and is willing to continue participating in PT to improve strength and mobility. Goals Bed Mobility Goal Minimal Assistance Transfer Goal Minimal Assistance,Front Wheeled Walker Gait Goal Minimal Assistance,Front Wheel Walker Gait Distance 75 Other Goals - improve bed mobility to SBA - improve transfers and gait to SBA with cane Days to Meet Goals 10 Frequency of Treatment Frequency Of Treatment Once a Day Treatment Plan Physical Therapy Treatment Plan Bed Mobility Training,Transfer Training,Gait Training, Therapeutic Exercise,Balance Retraining,Post Op Education, Discharge Planning,Hot or Cold Pack,Neuromuscular Re-ed Other Recommendations and Next Treatment Consider trapeze bar for bed Focus mobility. Continue to progress transfers as tolerated. Bariatric walker would be beneficial for safety and stability as pt used standard size this session and leaned on it heavily. Precautions Abdominal Surgery Precautions Log Roll,Lifting Restrictions, Gait Belt above Incisional Area Other Precautions droplet precautions (flu) Recommendations To Nursing Amount of Assist Needed 2 Person Assist Discharge Recommendations PT Discharge Recommendations Home with 28/11 Assist Available,Home Health Transportation Needs at Discharge Wheelchair/Cabulance,Stretcher /Ambulance
--- NOTE | 2022-04-13 17:28 | PC.NURSE ---
Dressing to abdomen was saturated. Removed dsg per Dr. Guzmán instructions-irrigated with saline and suctioned residual fluid, placed wet to dry dsg (moistened kerlix, covered by 4 x 4's and abd pad and taped in place). Pt tolerated well. Dr. Guzmán stated she would be back in the am to change dsg.
[2022-04-13] MEDS: ACETAMINOPHEN 325 MG TABLET 975 MG PO (21:50)
[2022-04-13] MEDS: INSULIN GLARGINE 100 UNIT/ML 3ML PEN 20 UNIT SUBCUT (21:50)
[2022-04-14] VITALS (12 sets, daily range): BP systolic 122–137; BP diastolic 77–96; PULSE 98–112; RESP 20–22; TEMP 35.8–36.3; O2SAT 92–98
[2022-04-14] MEDS: LEVOTHYROXINE 25 MCG TABLET PO (06:48)
[2022-04-14] MEDS: VANCOMYCIN 1,500 MG/300 ML PIGGYBACK 200 MG IV (06:48)
--- NOTE | 2022-04-14 08:04 | PM.PN.1 ---
Subjective Subjective Date Patient Seen: 04/14/22 Interval history: No complaints today. Deescalated abx to po levaquin daily. Exam Vital Signs (past 8 hours): - 04/14/22 00:10 04/14/22 03:45 04/14/22 04:00 Temperature 97.3 F L Pulse Rate 104 H Respiratory Rate 20 Blood Pressure 137/96 H Pulse Oximetry 97 93 96 Oxygen Delivery Method Nasal Cannula Nasal Cannula Oxygen Flow Rate 3 3 3 Fraction of Inspired Oxygen 32 Fraction of Inspired Oxygen 32 SaO2/FiO2 Ratio 303 Oxygen Delivery Method Nasal Cannula Oxygen Flow Rate 3 Narrative Exam Narrative: General:? Patient is well developed and well nourished, macias facies present, obese with BMI of 42.8 HEENT:? Normocephalic, atraumatic, extraocular muscles intact, oral pharynx is clear and mucous membranes are dry Neck: supple and symmetric, trachea is midline, no cervical adenopathy. Chest:? Normal AP diameter and contour without kyphoscoliosis, no tachypnea, equal chest rise bilaterally. Lungs:?coarse bilateral breath sounds, poor air movement Cardio:?RRR no m/r/g. Abdomen: post-op dressing in place without drainage, wound is deep and tunnels laterally several cms Musculoskeletal:? Muscle strength and tone are equal within normal limits, no deformity. Extremities:1+ edema b/l lower extremities, no joint effusions. No cyanosis or clubbing. Skin:? Pale,? Warm to touch,dry and intact without rashes, ulcerations or petechiae.? Neuro:? Alert and orientated x3,? sensation to touch intact in all extremities, no gross deficits noted of cranial nerves. Psych:? Patient has a well-kept appearance, appropriate affect, mental status attitude thought context and judgment are appropriate for age. Objective Labs Result Diagrams: 04/12/22 05:15 04/12/22 05:15 Labs: Laboratory Results - last 24 hr 04/13/22 12:30 Vancomycin Trough 9.9 L [facility] Medical History Abnormal Pap smear of cervix Allergic rhinitis due to dust mite (11/14/14) Alopecia due to cytotoxic drug Angiolipoma of skin (02/20/14) Arthritis Breast cancer metastasized to brain Cystocele (10/21/14) Depression Fibromyalgia History of chemotherapy Mild obstructive sleep apnea-hypopnea syndrome (03/06/15) Myopia 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 drug Obesity, Class III, BMI 40-49.9 (morbid obesity) Pelvic relaxation 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) Psoriasis Pulmonary embolism (01/18/22) Rosacea (10/31/13) Tenesmus of bladder (10/21/14) Thyroid nodule Uterine fibroid Vaginal mass Vitamin D deficiency (03/06/15) Surgical History History of brain shunt (~12/22/21) History of gynecologic surgery (10/06/20) History of radioactive iodine thyroid ablation History of removal of Port-a-Cath (07/10/19) History of surgery (11/27/18) History of surgery (12/04/18) History of vaginal hysterectomy (~07/2017) Hx of cholecystectomy Hx of craniotomy (12/13/21) Hx of left mastectomy (06/05/19) Status post excision of lipoma (~2013) Status post tubal ligation (~2013) Family History Father Alcoholism Mother Age: 71 Depression Grandfather Diabetes mellitus Mother Parkinson's disease Social History household members: children Smoking Status: Former smoker alcohol intake: never Assessment & Plan Assessment & Plan narrative: 1. Influenza A infection / weakness - continue supportive care, was given Rx for tamiflu on 04/06 but not effective. Will hold on future dosing. - TTE with normal EF, ProBNP 141 - given TWI in V5-6 on EKG, but no chest pain and no prior EKG, trops neg x2 - do not suspect superimposed bacterial pneumonia at this time with normal procalcitonin and no leukocytosis. 2. PEG site infection with abscess s/p OR I&D - General surgery consulted in the ER, performed bedside I&D on 04/09 with >50cc purulent drainage - ongoing management per gen surg - wound cultures growing pansensitive klebsiella, strep and staph aureus - stop rocephin and vanc and switch to po levaquin given culture sensitivities - underwent OR drainage on 04/12 with full drainage of abscess and cleaning of internal cavity - will need daily dressing changes 3. Metastatic breast cancer s/p craniotomy and DOG HANDLER shunt. - continue decadron / home medications - please see extensive oncology history in outpatient oncology progress notes from her provider. - hospice referral placed as patient expressing interest in this 4. Recent PE - continue eliquis - patient takes NSAID medications primarily for pain due to side effects of opiates. Start PPI for GI prophylaxis. Counseled on risk with NSAID medications and eliquis. - has bilateral LE 3+ edema, no DVT bilaterally on doppler US 04/11 5. Elevated glucose without diagnosis of DM - A1c 9.4%, previously 5.8% in 2017. Suspect glucose elevated in setting of steroids she has been on for her brain mets. - increase SSI to med dose and add lantus 15 units nightly 6. Obesity with BMI 43, but comittent protein calorie malnutrition secondary to cancer - nutrition consultation completed. - patient's obesity contributes to increased morbidity and mortality and increases risk of complications from PEG tube including infection. Code: Full, surrogate is patient's son DVT: apixaban Dispo: Will need SNF. COVID-19 COVID-19 status: Negative Time Spent With Patient Critical Care time: I spent a total of [] minutes of critical care time on this patient's care today; this time is exclusive of procedural time. Quality VTE Deep Vein Thrombosis/Pulmonary Embolism Present on Admission: No
--- NOTE | 2022-04-14 08:25 | CM.DPNOTE ---
Addendum entered by DINA Jacobson 04/14/22 09:06: [facility] not [facility] Romo Addendum entered by DINA Jacobson 04/14/22 09:04: [facility] Romo JUNE Original Note: DCP Note Assisting in DC planning yesterday; spoke with Dr Guzmán who has updated wound care dressing instructions, see her prog note 04.13.22. BID dressing change is ideal, once day is okay. Wound needs packing. Patient can be scheduled Monday04.14.22 w/Dr Guzmán if discharged. Dr Guzmán asks if patient can safely make it into outpatient appointments? According to report from Dr Guzmán and from therapy team, patient is not currently strong enough to stand for long and cannot self transfer so SNF recommended Met w/patient at bedside to review DCP; patient says her legs have atrophied and they are not working. Patient has breakfast in front of her, says she eats tiny bites over hours. According to patient's report; she currently lives with her 30 yo son, her 9 yo dtr Tegan and Tegan's father Yury (patient not currently in a relationship with this Bill). Bill has been providing all transportation since patient has not been feeling well. Discussed home w/HH vs Home w/hospice services and review together resources available at home: Patient's son and Bill are available some of the day but patient states uncertainty about them caring for her care home needs. In addition, son is looking for work Patient then becomes tearful, states I already feel like such a burden and does not want to ask her son(s) to care for her at home. Patient understands her prognosis is poor and is open to discussing hospice care further. At this time, the pressing issue is securing the care patient requires and patient agrees Patient has Romo/KEILA, does not currently have JEFE. Discussed SNF upon discharge and patient agreeable. Explained Romo/KEILA may be a limiting factor and patient states understanding and is agreeable to any SNF placement at this time Asked about dtlance Javed and her care? Dad Bill caring for Tegan in patient's absence SNF search began yesterday, CARMEL[facility], kindly agreed to start broad SNF search to include [facility] and [facility]. Romo KEILA expected to be a barrier to placement, in addition, patient requiring 2 person assist and requires multiple day dressing changes and packing Faxing expedited [facility]. Patient has KEILA. Requesting assessment to transition to [facility], intermediate school teacher care coverage CM team following closely for coordination of DCP DINA Jacome
--- NOTE | 2022-04-14 09:15 | CM.DPNOTE ---
DCP Note Received call from Devin Goins, with the [facility] cell # [phone]. He initially was referred two years ago and yesterday was the first time he had met patient. Dvein offered support and assistance with transition out of the hospital as needed JW
[2022-04-14] MEDS: LOSARTAN 50 MG TABLET PO (09:52)
[2022-04-14] MEDS: DULOXETINE 30 MG CAPSULE PO (09:52)
[2022-04-14] MEDS: GABAPENTIN 600 MG TABLET PO ×3 (09:52→21:25)
[2022-04-14] MEDS: APIXABAN 5 MG TABLET PO ×2 (09:52→21:25)
[2022-04-14] MEDS: dexAMETHasone 4 MG TABLET 8 MG PO ×2 (09:53→17:15)
[2022-04-14] MEDS: LIDOCAINE PATCH 1 EACH ADH..PATCH 2 EACH TOP (09:53)
[2022-04-14] MEDS: buPROPion XL 150 MG TAB PO (09:53)
[2022-04-14] MEDS: FAMOTIDINE 20 MG TABLET PO (09:53)
[2022-04-14] MEDS: THYROID, PORK 30 MG TABLET 90 MG PO (09:54)
[2022-04-14] MEDS: PANTOPRAZOLE 40 MG VIAL 20 MG IV (09:54)
[2022-04-14] MEDS: SODIUM CHLORIDE 0.9% FLUSH 10 ML IV ×2 (09:57→21:25)
[2022-04-14] MEDS: INSULIN GLARGINE 100 UNIT/ML 3ML PEN 30 UNIT SUBCUT ×2 (09:58→21:25)
[2022-04-14] MEDS: INSULIN LISPRO 100 UNIT/ML 3ML VIAL SUBCUT ×3 (09:58→17:16)
[2022-04-14] MEDS: KETOROLAC 30 MG/ML VIAL 15 MG IV (10:05)
[2022-04-14] MEDS: NYSTATIN POWDER 15GM 1 APPLIC TOP ×2 (10:23→21:31)
--- NOTE | 2022-04-14 10:57 | P.PN_ITS ---
Subjective Subjective Interval history: Doing fine today. No questions or complaints. The dressing was changed around midnight last night it was wet at that time. However since then the dressing has remained dry and she thinks that the discharge has decreased. Pain is controlled IV Toradol is helping. Exam Vital Signs (past 8 hours): - 04/14/22 03:45 04/14/22 04:00 04/14/22 08:50 Temperature 97.3 F L 97.0 F L Pulse Rate 104 H 107 H Respiratory Rate 20 20 Blood Pressure 137/96 H 132/77 Pulse Oximetry 93 96 93 Oxygen Delivery Method Nasal Cannula Oxygen Flow Rate 3 3 3 04/14/22 09:52 Temperature Pulse Rate 103 H Respiratory Rate Blood Pressure 132/77 Pulse Oximetry Oxygen Delivery Method Oxygen Flow Rate Fraction of Inspired Oxygen 32 SaO2/FiO2 Ratio 303 Oxygen Delivery Method Nasal Cannula Oxygen Flow Rate 3 Narrative Exam Narrative: Patient is awake alert oriented and appropriate seated in bed. She is obese with generalized edema and a macias facies. The wound dressing is taken down on the left upper abdomen. There is some purulent drainage within the cavity which is irrigated with normal saline and suctioned with the wall suction. Overall the wound is much more clean than yesterday. I do not see any green gastric like fluid within it. The wound was then re-dressed with moist Kerlix gauze and covered with 4x4s and ABD. There is some irritation of the skin around the dressing sites in a sqare shape having been irritated by tape. Objective Labs Result Diagrams: 04/12/22 05:15 04/12/22 05:15 Labs: Laboratory Results - last 24 hr 04/13/22 12:30 Vancomycin Trough 9.9 L [facility] Medical History Abnormal Pap smear of cervix Allergic rhinitis due to dust mite (11/14/14) Alopecia due to cytotoxic drug Angiolipoma of skin (02/20/14) Arthritis Breast cancer metastasized to brain Cystocele (10/21/14) Depression Fibromyalgia History of chemotherapy Mild obstructive sleep apnea-hypopnea syndrome (03/06/15) Myopia 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 drug Obesity, Class III, BMI 40-49.9 (morbid obesity) Pelvic relaxation 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) Psoriasis Pulmonary embolism (01/18/22) Rosacea (10/31/13) Tenesmus of bladder (10/21/14) Thyroid nodule Uterine fibroid Vaginal mass Vitamin D deficiency (03/06/15) Surgical History History of brain shunt (~12/22/21) History of gynecologic surgery (10/06/20) History of radioactive iodine thyroid ablation History of removal of Port-a-Cath (07/10/19) History of surgery (11/27/18) History of surgery (12/04/18) History of vaginal hysterectomy (~07/2017) Hx of cholecystectomy Hx of craniotomy (12/13/21) Hx of left mastectomy (06/05/19) Status post excision of lipoma (~2013) Status post tubal ligation (~2013) Family History Father Alcoholism Mother Age: 71 Depression Grandfather Diabetes mellitus Mother Parkinson's disease Social History household members: children Smoking Status: Former smoker alcohol intake: never Assessment & Plan Assessment and plan (1) Infection of PEG site: Status: Acute (2) Localized infection of subcutaneous tissue: Status: Acute (3) Subcutaneous abscess: Status: Acute (4) Pseudomonas aeruginosa infection: Status: Acute Assessment & Plan narrative: I think the wound is looking better and better. I would continue b.i.d. wet-to-dry dressing changes. I have instructed the bedside nurses on how to perform the dressing changes. I will continue to follow and monitor the wound as long as the patient remains hospitalized. I understand discharge planning is in process. If she would be able to arrange to see me back in my office about a week from discharge for wound check that would be ideal, thank you. My office has been made aware of the patient but is waiting to find out what the discharge plans are to schedule her. My office phone number is [phone] Time Spent With Patient Critical Care time: I spent a total of [] minutes of critical care time on this patient's care today; this time is exclusive of procedural time. Quality VTE Deep Vein Thrombosis/Pulmonary Embolism Present on Admission: No
--- NOTE | 2022-04-14 11:10 | OT.IPNOTE ---
Checked on OT treatment and pt initially wanting to participate and then admitting that she is very tired and having too much pain at this time 11/14. To check on the pt later.
--- NOTE | 2022-04-14 11:13 | DIET.CONS2 ---
Dietary Inpatient Consultation Note Admission Date: 04/09/2022 14:44 Pts BG >300 due to steroid therapy, hyperglycemia barrier to proper wound healing. Recc insulin therapy for tighter glycemic control in 140-180 range. Kitchen providing ONS Urbano bid and Ensure Max (bariatric) once daily to support wound healing. Kitchen is out of Urbano due to supply chain so adding additional Ensure Max daily. Diet: 04/12/22 Lunch General (Regular) Diet Diet Modifications: Nutrition Percent Meal Consumed 75% 04/13/22 18:39 Percent Meal Consumed 25% 04/12/22 19:00 Electronically Signed by: Mary Jo Solis 04/14/22 11:13 Clinical Dietitian [address] [address]
[2022-04-14] MEDS: LORazepam 0.5 MG TABLET PO (12:23)
[2022-04-14] MEDS: ACETAMINOPHEN 325 MG TABLET 975 MG PO (12:24)
--- NOTE | 2022-04-14 14:00 | PT.IPTN ---
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) Cutaneous abscess, unspecified (04/09/22) Local infection of the skin and subcutaneous tissue, unspecified (04/09/22) Surgery Performed Operation Date: 04/12/22 09:15 Actual Procedures p I&D abscess - Jing Guzmán MD Physical Therapy Treatment Note M2 PT-IP Current Condition Start: 04/10/22 08:26 Freq: NEEDED Status: Active Protocol: Document 04/11/22 14:57 AW (Rec: 04/11/22 15:38 AW [id number]) Physical Therapy Current Condition Current Condition Evaluation Date 04/11/22 Treatment Diagnosis influenza A; PEG site infection; impaired mobility Onset Date 04/09/22 M3 PT-IP Subjective Start: 04/10/22 08:26 Freq: NEEDED Status: Active Protocol: Document 04/14/22 14:00 AB (Rec: 04/14/22 14:59 AB [email or web address]) Subjective Physical Therapy Visit Type Type Treatment Note Visit Start Time 14:00 Visit Stop Time 14:31 Total Visit Minutes 31 Number of SUPERVISOR MARBLE Visits 0 Physical Therapy Visit Comments Patient Comments agreeable to do PT Therapy Pain Assessment Pain When Pain Assessed At Rest Pain Present Pain Present Pain Reported Location Generalized Intensity 4 Scale Used Numeric (0 - 10) M4 PT-IP Mobility and Gait Start: 04/10/22 08:26 Freq: NEEDED Status: Active Protocol: Document 04/14/22 14:00 AB (Rec: 04/14/22 14:59 AB [email or web address]) PT-Bed Mobility Assessment Supine to Sit Supine to Sit Maximum Assistance,2 Person Assistance,Head of Bed Elevated,Bedrails Scooting Scooting to Edge of Bed Maximum Assistance PT-Transfer Assessment Sit to and From Stand Sit to and from Stand Maximum Assistance,2 Person Assistance,Use of Upper Extremities Equipment Transfer Assistive Device Gait Belt,Front Wheeled Walker Orthotic/Prosthetic Devices or Brace: No Transfers Transfer Destination Chair Transfer Technique Stand Step Pivot Transfer Ability Level of Assist Maximum Assistance,2 Person Assistance,Use of Upper Extremities Comments Mobility Comments completed supine to sit max A x 2 and max cues with HOB elevated. max A x 2 for scooting to EOB. completed sit to stand x 2 attempts max A x 2 and max cues and completed step transfer to chair max A x 2 and max cues . pt c/o LE pain and weakness midway transfers and needing increase assistance with pivot transfer descending to chair. positioned pt on the chair. call light and table placed within reach. M5 PT-IP Objective Assessments Start: 04/10/22 08:26 Freq: NEEDED Status: Active Protocol: Document 04/11/22 14:57 AW (Rec: 04/11/22 15:38 AW [id number]) Orientation Orientation/Cognition Level of Alertness Alert Orientation Name,Day of Week,Place, Situation Safety Awareness Understands Safety Issues Gross Range of Motion Lower Extremity ROM Assessment Within Functional Limits Strength Lower Extremity Strength Assessment Bilaterally Impaired Hip 3-/5 Knee 4/5 Ankle 4/5 Sensation Assessment Sensation Gross Sensation Right UE Impaired,Left UE Impaired,Right LE Impaired, Left LE Impaired Comments Sensation Comments Neuropathy (likely chemo- induced) affects bilateral hands and feet. Muscle Tone Muscle Tone WNL Yes M6 PT-IP Treatment Start: 04/10/22 08:26 Freq: NEEDED Status: Active Protocol: Document 04/14/22 14:00 AB (Rec: 04/14/22 14:59 AB [email or web address]) Physical Therapy Treatment Exercises Exercises Heel Slides Education Education Provided Safety M7 PT-IP Assessment and Plan Start: 04/10/22 08:26 Freq: NEEDED Status: Active Protocol: Document 04/14/22 14:00 AB (Rec: 04/14/22 14:59 AB [email or web address]) PT Summary Assessment and Plan Potential Rehabilitation Potential Fair Summary Impairments Pain,ROM,Strength,Balance, Coordination,Sensation,Tone, Cognition,Bed Mobility, Transfers,Gait,Activity Tolerance Assessment Summary pt requiring max A x 2 and max cues and presents with decrease activity tolerance and overall weakness affecting mobility. pt at this time will require SNF rehab to improve strength and function. Goals Bed Mobility Goal Minimal Assistance Transfer Goal Minimal Assistance,Front Wheeled Walker Gait Goal Minimal Assistance,Front Wheel Walker Gait Distance 75 Other Goals - improve bed mobility to SBA - improve transfers and gait to SBA with cane Days to Meet Goals 10 Frequency of Treatment Frequency Of Treatment Once a Day Treatment Plan Physical Therapy Treatment Plan Bed Mobility Training,Transfer Training,Gait Training, Therapeutic Exercise,Balance Retraining,Post Op Education, Discharge Planning,Hot or Cold Pack,Neuromuscular Re-ed Precautions Abdominal Surgery Precautions Log Roll,Lifting Restrictions, Gait Belt above Incisional Area Other Precautions droplet precautions (flu) Recommendations To Nursing Amount of Assist Needed Mechanical Lift Discharge Recommendations PT Discharge Recommendations SNF Rehab Transportation Needs at Discharge Wheelchair/Cabulance,Stretcher /Ambulance
--- NOTE | 2022-04-14 14:34 | OT.IP.TRT ---
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) Cutaneous abscess, unspecified (04/09/22) Local infection of the skin and subcutaneous tissue, unspecified (04/09/22) Surgery Performed Operation Date: 04/12/22 09:15 Actual Procedures p I&D abscess - Jing Guzmán MD Occupational Therapy Treatment Note M2 OT-IP Current Condition Start: 04/11/22 15:51 Freq: Status: Active Protocol: Document 04/11/22 14:26 [facility] (Rec: 04/11/22 16:11 [facility] [id number]) Occupational Therapy Current Condition Current Condition Evaluation Date 04/11/22 Treatment Diagnosis FLU A, weakness and peg tube infection Diagnosis Onset Date 04/09/22 M3 OT- IP Subjective and Pain Start: 04/11/22 15:51 Freq: Status: Active Protocol: Document 04/14/22 14:39 [facility] (Rec: 04/14/22 14:45 [facility] [id number]) OT- Subjective Occupational Therapy Visit Type Type Treatment Note Visit Start Time 14:05 Visit Stop Time 14:34 Total Visit Minutes 29 Occupational Therapy Visit Comments Patient Comments Pt agreed to get up with OT and PT. Patient/Caregiver Goals TO get her legs stronger. OT Pain Assessment Pain When Pain Assessed During Mobility Pain Present Pain Present Pain Reported M5 OT- IP IADL's Start: 04/11/22 15:51 Freq: Status: Active Protocol: Document 04/11/22 14:26 [facility] (Rec: 04/11/22 16:11 [facility] [id number]) OT-Instrumental Activities of Daily Living Deficits IADL Deficits Identified Deficits Home Safety Awareness Awareness of Need for Assistance at Home Good Awareness Ability to Problem Solve Emergency Able to Problem Solve Situations Home Safety Comments At this time due to sudden onset of weakness in the past 2 days. Pt will need assist for ADl and IADl needs. M6 OT- IP Functional Cognition Start: 04/11/22 15:51 Freq: Status: Active Protocol: Document 04/14/22 14:39 [facility] (Rec: 04/14/22 14:45 [facility] [id number]) Cognitive Factors Limiting Selfcare Function Cognitive Comments Cognitive Assessment Comments INtact M7 OT- IP Mobility and Balance Start: 04/11/22 15:51 Freq: Status: Active Protocol: Document 04/14/22 14:39 [facility] (Rec: 04/14/22 14:45 [facility] [id number]) OT- Bed Mobility Assessment Supine to Sit Supine to Sit Assist Maximum Assistance,1 Person Assistance Scooting Scooting to Edge of Bed Maximum Assistance,2 Person Assistance OT-Transfer Assessment Sit to and From Stand Sit to and from Stand Maximum Assistance,2 Person Assistance Transfers Transfer Ability Maximum Assistance,2 Person Assistance Comments Mobility Comments MAXA x1 to get her legs to the edge of the bed and MAXA x2 to scoot forwards with heavy assist of green pad. Pt able to stand with MAX AX 2 to FWW and able to transfer with assist to guide the FWW and for balance. Pt tiring very quickly at the end and needing to help slow her descent while sitting down to the recliner. At this time safer for nursing staff to use the tobin lift on the pt. OT- Balance Assessment Sitting Balance and Reactions Static Sitting Balance Ability Good Dynamic Sitting Balance Ability Fair Standing Balance and Reactions Static Standing Balance Ability Poor Dynamic Standing Balance Ability Poor M8 OT- IP Objective Assessments Start: 04/11/22 15:51 Freq: Status: Active Protocol: Document 04/11/22 14:26 [facility] (Rec: 04/11/22 16:11 [facility] [id number]) OT Gross Range of Motion Upper Extremity Range of Motion Assessment Left Impaired ROM Impairments LUE shoulder flexion 0-95 OT Strength Comments Strength Comments Shoulder RUE 4/5 LUE 4-/5 from proximal to distal 4/5 M9 OT- IP Assessment and Plan Start: 04/11/22 15:51 Freq: Status: Active Protocol: Document 04/14/22 14:39 [facility] (Rec: 04/14/22 14:45 [facility] [id number]) OT Summary Assessment and Plan Potential Rehabilitation Potential Good Analytic Complexity at Evaluation Moderate Summary OT Impairments Pain,Strength,Balance, Functional Mobility,Dressing, Toileting,Bathing,Toilet Transfers,Shower Transfers, Activity Tolerance Progress Towards Goals Progressing Toward Goals Assessment Summary Pt able to tolerate a transfer from the bed to recliner with MAXA x2 , assist to guide the FWW, for balance, and to help raise and lower from surfaces. Pt very cooperative and motivated to get better. Pt can benefit from skilled rehab to get stronger however pending medical needs. Goals Grooming Goal Standby Assistance Dressing Goal Minimal Assistance Toileting Goal Minimal Assistance Bathing Goal Minimal Assistance Toilet Transfer Goal Contact Guard Assistance Shower Transfer Goal Minimal Assistance Days to Meet Goals 20 Frequency of Treatment Frequency Of Treatment Once a Day Treatment Plan OT Treatment Plan ADL Training,Functional Mobility,Patient/Family Education,Discharge Planning Discharge Recommendations OT Discharge Recommendations Home with 28/11 Assist Available,Home Health,SNF Rehab,Home vs SNF Transportation Needs at Discharge Wheelchair/Cabulance
[2022-04-15] VITALS (8 sets, daily range): BP systolic 123–151; BP diastolic 73–94; PULSE 97–110; RESP 18–22; TEMP 35.8–36.7; O2SAT 92–98
--- NOTE | 2022-04-15 03:54 | PC.NURSE ---
Pt is AxOx 4, need max assistance and cooperative. VSS, pt denies pain. BG-166 at bedtime so only 30 units of Glargine given. Continued droplet precaution. No other changes. Dressing on abd looks fine. Continue monitor.
[2022-04-15] MEDS: levoFLOXacin 250 MG TABLET 750 MG PO (06:02)
[2022-04-15] MEDS: LEVOTHYROXINE 25 MCG TABLET PO (06:02)
[2022-04-15] MEDS: LIDOCAINE PATCH 1 EACH ADH..PATCH 2 EACH TOP (08:03)
[2022-04-15] MEDS: dexAMETHasone 4 MG TABLET 8 MG PO ×2 (08:04→16:32)
[2022-04-15] MEDS: GABAPENTIN 600 MG TABLET PO ×3 (08:04→21:00)
[2022-04-15] MEDS: PANTOPRAZOLE 40 MG VIAL 20 MG IV (08:04)
[2022-04-15] MEDS: THYROID, PORK 30 MG TABLET 90 MG PO (08:04)
[2022-04-15] MEDS: buPROPion XL 150 MG TAB PO (08:05)
[2022-04-15] MEDS: INSULIN LISPRO 100 UNIT/ML 3ML VIAL SUBCUT ×4 (08:05→21:00)
[2022-04-15] MEDS: LOSARTAN 50 MG TABLET PO (08:05)
[2022-04-15] MEDS: APIXABAN 5 MG TABLET PO ×2 (08:05→21:00)
[2022-04-15] MEDS: FAMOTIDINE 20 MG TABLET PO (08:05)
[2022-04-15] MEDS: DULOXETINE 30 MG CAPSULE PO (08:05)
[2022-04-15] MEDS: INSULIN GLARGINE 100 UNIT/ML 3ML PEN 30 UNIT SUBCUT ×2 (08:06→21:00)
[2022-04-15] MEDS: NYSTATIN POWDER 15GM 1 APPLIC TOP ×2 (08:06→21:01)
--- NOTE | 2022-04-15 09:51 | PC.NURSE ---
Addendum entered by Snehal Warner R.N. 04/15/22 18:12: Patient accepted some tylenol for he discomfort. She ate some dinner, and is resting in bed. Blood sugar 298 and patient got 7u of fast acting insulin. Addendum entered by Snehal Warenr R.N. 04/15/22 10:39: Patient given some tylenol for discomfort, she is resting and watching television. Original Note: Patient is alert and oriented x4, she denies pain. Dressing to where peg tube taken out is cdi. She is a tobin lift to get out of bed, she can use the bsc, or bed culver. Patient has multiple skin issues that can be seen under physical assessment. Blood Sugar 295, and insulins given. Patient ate some breakfast and is resting comfortably now.
[2022-04-15] MEDS: ACETAMINOPHEN 325 MG TABLET 975 MG PO (10:26)
--- NOTE | 2022-04-15 11:26 | CM.DPC ---
DCP Cont: DCP followed up with the following SNF facilities this morning: [facility]Left [facility] [place]- Left VM [facility]- Left VM [facility]- [place]- Left [facility]-Left VM [facility]-faxed over referral to new fax [facility]-Left VM [facility]- [facility]- waiting satellite television installer back to give answer [facility]-Left VM [facility]- Does not accept Romo [facility]-Accepts Romo but not accepting new patients at this time. Regarding pt HCS application, DCP contacted the HCS office and pt has been assigned to a [facility] case management manager and her contact info is Dequan Contreras #[phone]. DCP left to call back and discuss further. DCP to continue working on this case. Petrona Chandler RN/MARGARETH
--- NOTE | 2022-04-15 11:56 | PT-IP ANOTE ---
checked on pt this morning for PT and refused. Stated that she is tired. Agreed for therapy to check back this afternoon.
--- NOTE | 2022-04-15 11:58 | OT.IPNOTE ---
Pt wanting to try to do therapy in the afternoon as refusing now at this time as too tired.
[2022-04-15] MEDS: SODIUM CHLORIDE 0.9% FLUSH 10 ML IV ×2 (12:37→21:05)
--- NOTE | 2022-04-15 13:05 | PT-IP ANOTE ---
Checked with pt at 1300. Stated she was too tired. Will check back tomorrow.
--- NOTE | 2022-04-15 13:08 | OT.IPNOTE ---
Attempted to see pt for OT treatment, pt states too tired to do therapy today.
[2022-04-15] MEDS: MORPHINE 2 MG/ML INJ IV (13:13)
--- NOTE | 2022-04-15 14:02 | P.PN_ITS ---
Subjective Subjective Interval history: Doing fine today. Per RN Dressing change last night. According to Ms. Shrestha the dressing was mostly dry for the night the current soilage of the dressing is new. Exam Vital Signs (past 8 hours): - 04/15/22 06:15 04/15/22 08:48 04/15/22 08:40 Temperature 97.4 F L 98.1 F Pulse Rate 97 H 110 H Respiratory Rate 22 18 Blood Pressure 127/94 H 151/83 H Pulse Oximetry 96 98 97 Oxygen Delivery Method Nasal Cannula Oxygen Flow Rate 3 3 3 04/15/22 09:43 04/15/22 13:00 04/15/22 11:00 Temperature 96.8 F L Pulse Rate 101 H Respiratory Rate 18 Blood Pressure 129/73 Pulse Oximetry 96 Oxygen Delivery Method Room Air Room Air Oxygen Flow Rate 3 Fraction of Inspired Oxygen 32 SaO2/FiO2 Ratio 306 Oxygen Delivery Method Room Air Oxygen Flow Rate 3 Narrative Exam Narrative: The wound is on the left abdomen it is 8 cm open at the skin. There is a tunnel extending 4 cm laterally and another tunnel extending 4 cm medially superiorly there is an overhang of 2 cm the depth of the wound is 3 cm. The wound overall looks more clean and dry than previously. There is still some purulent and fi brous material in the wound, though less than previous days. The dressing is removed it does have a greenish tinge and is foul smelling. Objective Labs Result Diagrams: 04/12/22 05:15 04/12/22 05:15 [facility] Medical History Abnormal Pap smear of cervix Allergic rhinitis due to dust mite (11/14/14) Alopecia due to cytotoxic drug Angiolipoma of skin (02/20/14) Arthritis Breast cancer metastasized to brain Cystocele (10/21/14) Depression Fibromyalgia History of chemotherapy Mild obstructive sleep apnea-hypopnea syndrome (03/06/15) Myopia 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 drug Obesity, Class III, BMI 40-49.9 (morbid obesity) Pelvic relaxation 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) Psoriasis Pulmonary embolism (01/18/22) Rosacea (10/31/13) Tenesmus of bladder (10/21/14) Thyroid nodule Uterine fibroid Vaginal mass Vitamin D deficiency (03/06/15) Surgical History History of brain shunt (~12/22/21) History of gynecologic surgery (10/06/20) History of radioactive iodine thyroid ablation History of removal of Port-a-Cath (07/10/19) History of surgery (11/27/18) History of surgery (12/04/18) History of vaginal hysterectomy (~07/2017) Hx of cholecystectomy Hx of craniotomy (12/13/21) Hx of left mastectomy (06/05/19) Status post excision of lipoma (~2013) Status post tubal ligation (~2013) Family History Father Alcoholism Mother Age: 71 Depression Grandfather Diabetes mellitus Mother Parkinson's disease Social History household members: children Smoking Status: Former smoker alcohol intake: never Assessment & Plan Assessment and plan (1) Pseudomonas aeruginosa infection: Status: Acute (2) Subcutaneous abscess: Qualifiers: Site of cutaneous abscess: trunk Site of cutaneous abscess of trunk: abdominal wall Qualified Code(s): L02.211 - Cutaneous abscess of abdominal wall Status: Acute (3) Infection of PEG site: Status: Acute Assessment & Plan narrative: I changed the dressing today with a wet-to-dry at the bedside. I have ordered RN changes twice a day. Would continue this as long as we can. Changing the dr essing more often is better than less often. The nursing staff has been instructed on how to care for impact the wound. Over the weekend my partners will be covering for me. Please call them specifically if you have any questions or concerns and arrange a follow-up about a week from discharge in my office for wound check. Time Spent With Patient Critical Care time: I spent a total of [] minutes of critical care time on this patient's care today; this time is exclusive of procedural time. Quality VTE Deep Vein Thrombosis/Pulmonary Embolism Present on Admission: No
--- NOTE | 2022-04-15 15:39 | PM.PN.1 ---
Subjective Subjective Date Patient Seen: 04/15/22 Interval history: In more pain today. Says her head hurts, her abd and her body in general. She is willing to try a low dose IV pain medication to feel better. Exam Vital Signs (past 8 hours): - 04/15/22 08:48 04/15/22 08:40 04/15/22 09:43 Temperature 98.1 F Pulse Rate 110 H Respiratory Rate 18 Blood Pressure 151/83 H Pulse Oximetry 98 97 Oxygen Delivery Method Nasal Cannula Room Air Oxygen Flow Rate 3 3 04/15/22 13:00 04/15/22 11:00 Temperature 96.8 F L Pulse Rate 101 H Respiratory Rate 18 Blood Pressure 129/73 Pulse Oximetry 96 Oxygen Delivery Method Room Air Oxygen Flow Rate 3 Fraction of Inspired Oxygen 32 SaO2/FiO2 Ratio 306 Oxygen Delivery Method Room Air Oxygen Flow Rate 3 Narrative Exam Narrative: General:? Patient is well developed and well nourished, macias facies present, obese with BMI of 42.8 HEENT:? Normocephalic, atraumatic, extraocular muscles intact, oral pharynx is clear and mucous membranes are dry Neck: supple and symmetric, trachea is midline, no cervical adenopathy. Chest:? Normal AP diameter and contour without kyphoscoliosis, no tachypnea, equal chest rise bilaterally. Lungs:?coarse bilateral breath sounds, poor air movement Cardio:?RRR no m/r/g. Abdomen: post-op dressing in place without drainage, wound is deep and tunnels laterally several cms Musculoskeletal:? Muscle strength and tone are equal within normal limits, no deformity. Extremities:1+ edema b/l lower extremities, no joint effusions. No cyanosis or clubbing. Skin:? Pale,? Warm to touch,dry and intact without rashes, ulcerations or petechiae.? Neuro:? Alert and orientated x3,? sensation to touch intact in all extremities, no gross deficits noted of cranial nerves. Psych:? Patient has a well-kept appearance, appropriate affect, mental status attitude thought context and judgment are appropriate for age. Objective Labs Result Diagrams: 04/12/22 05:15 04/12/22 05:15 [facility] Medical History Abnormal Pap smear of cervix Allergic rhinitis due to dust mite (11/14/14) Alopecia due to cytotoxic drug Angiolipoma of skin (02/20/14) Arthritis Breast cancer metastasized to brain Cystocele (10/21/14) Depression Fibromyalgia History of chemotherapy Mild obstructive sleep apnea-hypopnea syndrome (03/06/15) Myopia 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 drug Obesity, Class III, BMI 40-49.9 (morbid obesity) Pelvic relaxation 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) Psoriasis Pulmonary embolism (01/18/22) Rosacea (10/31/13) Tenesmus of bladder (10/21/14) Thyroid nodule Uterine fibroid Vaginal mass Vitamin D deficiency (03/06/15) Surgical History History of brain shunt (~12/22/21) History of gynecologic surgery (10/06/20) History of radioactive iodine thyroid ablation History of removal of Port-a-Cath (07/10/19) History of surgery (11/27/18) History of surgery (12/04/18) History of vaginal hysterectomy (~07/2017) Hx of cholecystectomy Hx of craniotomy (12/13/21) Hx of left mastectomy (06/05/19) Status post excision of lipoma (~2013) Status post tubal ligation (~2013) Family History Father Alcoholism Mother Age: 71 Depression Grandfather Diabetes mellitus Mother Parkinson's disease Social History household members: children Smoking Status: Former smoker alcohol intake: never Assessment & Plan Assessment & Plan narrative: 1. Influenza A infection / weakness - continue supportive care, was given Rx for tamiflu on 04/06 but not effective. Will hold on future dosing. - TTE with normal EF, ProBNP 141 - given TWI in V5-6 on EKG, but no chest pain and no prior EKG, trops neg x2 - do not suspect superimposed bacterial pneumonia at this time with normal procalcitonin and no leukocytosis. 2. PEG site infection with abscess s/p OR I&D - General surgery consulted in the ER, performed bedside I&D on 04/09 with >50cc purulent drainage - ongoing management per gen surg - wound cultures growing pansensitive klebsiella, strep and staph aureus - stopped rocephin and vanc and switched to po levaquin given culture sensitivities - underwent OR drainage on 04/12 with full drainage of abscess and cleaning of internal cavity - will need BID dressing changes per gen surg 3. Metastatic breast cancer s/p craniotomy and [employer] shunt. - continue decadron / home medications - please see extensive oncology history in outpatient oncology progress notes from her provider. - hospice referral placed as patient expressing interest in this - start morphine 2mg IV q4h PRN as patient willing to try this for some relief, she does not want dilaudid 4. Recent PE - continue eliquis - patient takes NSAID medications primarily for pain due to side effects of opiates. Start PPI for GI prophylaxis. Counseled on risk with NSAID medications and eliquis. - has bilateral LE 3+ edema, no DVT bilaterally on doppler US 04/11 5. Elevated glucose without diagnosis of DM - A1c 9.4%, previously 5.8% in 2017. Suspect glucose elevated in setting of steroids she has been on for her brain mets. - increase SSI to med dose and add lantus 15 units nightly 6. Obesity with BMI 43, but comittent protein calorie malnutrition secondary to cancer - nutrition consultation completed. - patient's obesity contributes to increased morbidity and mortality and increases risk of complications from PEG tube including infection. Code: Full, surrogate is patient's son DVT: apixaban Dispo: Awaiting SNF placement. COVID-19 COVID-19 status: Negative Time Spent With Patient Critical Care time: I spent a total of [] minutes of critical care time on this patient's care today; this time is exclusive of procedural time. Quality VTE Deep Vein Thrombosis/Pulmonary Embolism Present on Admission: No
[2022-04-15] MEDS: LORazepam 0.5 MG TABLET PO (19:50)
[2022-04-16] VITALS (14 sets, daily range): BP systolic 122–136; BP diastolic 78–88; PULSE 100–110; RESP 17–22; TEMP 35.8–36.5; O2SAT 92–96
--- NOTE | 2022-04-16 04:54 | PC.NURSE ---
Pt is AxOx4, needs max assistance and cooperative. VSS, pt c/o anxiety and requested PRN Lorazepam at bedtime with good effect. BG-322 and pt recieved 7 units of Lispro and 30 units of Glargine. Pt's lungs sounds much better and clear and diminished everywhere but pt is still on and off O2 3L. Pt slept well. Continued droplet precaution. No other changes.
[2022-04-16] MEDS: levoFLOXacin 250 MG TABLET 750 MG PO (06:07)
[2022-04-16] MEDS: LEVOTHYROXINE 25 MCG TABLET PO (06:07)
--- NOTE | 2022-04-16 08:02 | CM.DPC ---
Addendum entered by Lala Gutierrez R.N. 04/16/22 15:56: Left messages again with [facility], and [facility]. Confirmed with Dara at [facility] that they don't take Romo/Medicaid, only [place]/Medicare. [facility] does not take insurance. Gypsy at [facility] if reviewing. Nursing staff state, patient is unable to sit up on her own. Will check in again in the morning, will attempt to meet with patient. Addendum entered by Lala Gutierrez R.N. 04/16/22 09:40: Confirmed that [facility] does not accept Romo. Spoke to Gypsy at [facility], she will review. Sent her over face sheet, H&P, therapy notes. Original Note: DCP Cont: It is noted that patient's corrections caseworker for [facility] is Cassidy Aguillon, for she left a message on [employer] phone. Her phone number is: [phone]. She is not available this weekend, but will contact her on Monday. It is noted cole placement for patient is an issue. Barrier is her Romo insurance, and patient's wound care needs. Many facilities have been sent referrals. Will work further on case. Notes indicated that patient is living with her 30 year old son, unable to care for her needs, and 9 year old daughter is with partner, Bill. Will also be following up with Telma Adam for input on case as well. P: DCP to continue to work on placement for patient's needs. Lala Gutierrez RN/Tuckpointer
[2022-04-16] MEDS: dexAMETHasone 4 MG TABLET 8 MG PO ×2 (09:11→17:22)
[2022-04-16] MEDS: INSULIN LISPRO 100 UNIT/ML 3ML VIAL SUBCUT ×4 (09:11→20:52)
[2022-04-16] MEDS: GABAPENTIN 600 MG TABLET PO ×3 (09:12→20:51)
[2022-04-16] MEDS: LORazepam 0.5 MG TABLET PO ×2 (09:12→17:22)
[2022-04-16] MEDS: buPROPion XL 150 MG TAB PO (09:12)
[2022-04-16] MEDS: CYCLOBENZAPRINE 10 MG TABLET PO (09:12)
[2022-04-16] MEDS: APIXABAN 5 MG TABLET PO ×2 (09:12→20:51)
[2022-04-16] MEDS: PANTOPRAZOLE 40 MG VIAL 20 MG IV (09:12)
[2022-04-16] MEDS: FAMOTIDINE 20 MG TABLET PO (09:12)
[2022-04-16] MEDS: LOSARTAN 50 MG TABLET PO (09:12)
[2022-04-16] MEDS: DULOXETINE 30 MG CAPSULE PO (09:12)
[2022-04-16] MEDS: THYROID, PORK 30 MG TABLET 90 MG PO (09:12)
[2022-04-16] MEDS: INSULIN GLARGINE 100 UNIT/ML 3ML PEN 30 UNIT SUBCUT ×2 (09:13→20:51)
[2022-04-16] MEDS: SODIUM CHLORIDE 0.9% FLUSH 10 ML IV ×2 (09:13→20:51)
[2022-04-16] MEDS: LIDOCAINE PATCH 1 EACH ADH..PATCH 2 EACH TOP (09:13)
[2022-04-16] MEDS: NYSTATIN POWDER 15GM 1 APPLIC TOP ×2 (09:15→20:56)
--- NOTE | 2022-04-16 12:46 | PM.PN.1 ---
Subjective Subjective Date Patient Seen: 04/16/22 Interval history: No new complaints. The outer dressings have been changed several times but not the packing. Exam Vital Signs (past 8 hours): - 04/16/22 05:00 04/16/22 08:00 04/16/22 08:43 Temperature Pulse Rate Respiratory Rate Blood Pressure Pulse Oximetry 95 95 Oxygen Delivery Method Nasal Cannula Nasal Cannula Nasal Cannula Oxygen Flow Rate 3 3 04/16/22 09:12 04/16/22 08:00 04/16/22 09:15 Temperature 97.6 F 97.6 F Pulse Rate 102 H 100 H 100 H Respiratory Rate 19 19 Blood Pressure 134/88 125/78 125/78 Pulse Oximetry 94 94 Oxygen Delivery Method Oxygen Flow Rate 3 0 04/16/22 09:00 Temperature Pulse Rate Respiratory Rate Blood Pressure Pulse Oximetry 95 Oxygen Delivery Method Nasal Cannula Oxygen Flow Rate 3 Fraction of Inspired Oxygen 32 SaO2/FiO2 Ratio 306 Oxygen Delivery Method Nasal Cannula Oxygen Flow Rate 0 Narrative Exam Narrative: Dressings removed. The wound cavity contains plenty of fluid, minimal granulation tissue Objective Labs Result Diagrams: 04/12/22 05:15 04/12/22 05:15 [facility] Medical History Abnormal Pap smear of cervix Allergic rhinitis due to dust mite (11/14/14) Alopecia due to cytotoxic drug Angiolipoma of skin (02/20/14) Arthritis Breast cancer metastasized to brain Cystocele (10/21/14) Depression Fibromyalgia History of chemotherapy Mild obstructive sleep apnea-hypopnea syndrome (03/06/15) Myopia 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 drug Obesity, Class III, BMI 40-49.9 (morbid obesity) Pelvic relaxation 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) Psoriasis Pulmonary embolism (01/18/22) Rosacea (10/31/13) Tenesmus of bladder (10/21/14) Thyroid nodule Uterine fibroid Vaginal mass Vitamin D deficiency (03/06/15) Surgical History History of brain shunt (~12/22/21) History of gynecologic surgery (10/06/20) History of radioactive iodine thyroid ablation History of removal of Port-a-Cath (07/10/19) History of surgery (11/27/18) History of surgery (12/04/18) History of vaginal hysterectomy (~07/2017) Hx of cholecystectomy Hx of craniotomy (12/13/21) Hx of left mastectomy (06/05/19) Status post excision of lipoma (~2013) Status post tubal ligation (~2013) Family History Father Alcoholism Mother Age: 71 Depression Grandfather Diabetes mellitus Mother Parkinson's disease Social History household members: children Smoking Status: Former smoker alcohol intake: never Assessment & Plan Assessment and plan (1) Subcutaneous abscess: Qualifiers: Site of cutaneous abscess: trunk Site of cutaneous abscess of trunk: abdominal wall Qualified Code(s): L02.211 - Cutaneous abscess of abdominal wall Status: Acute Plan Recommend changing the packing twice daily since the wound is quite moist. There is likely gastric fluid draining through wound. Nursing can replace the packing twice daily or more. Use dry gauze since the wound is quite moist still. Time Spent With Patient Critical Care time: I spent a total of [] minutes of critical care time on this patient's care today; this time is exclusive of procedural time. Quality VTE Deep Vein Thrombosis/Pulmonary Embolism Present on Admission: No
--- NOTE | 2022-04-16 15:51 | PT.IPTN ---
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) Cutaneous abscess of abdominal wall (04/09/22) Cutaneous abscess, unspecified (04/09/22) Local infection of the skin and subcutaneous tissue, unspecified (04/09/22) Surgery Performed Operation Date: 04/12/22 09:15 Actual Procedures p I&D abscess - Jing Guzmán MD Physical Therapy Treatment Note M2 PT-IP Current Condition Start: 04/10/22 08:26 Freq: NEEDED Status: Active Protocol: Document 04/11/22 14:57 AW (Rec: 04/11/22 15:38 AW [id number]) Physical Therapy Current Condition Current Condition Evaluation Date 04/11/22 Treatment Diagnosis influenza A; PEG site infection; impaired mobility Onset Date 04/09/22 M3 PT-IP Subjective Start: 04/10/22 08:26 Freq: NEEDED Status: Active Protocol: Document 04/16/22 15:37 LJ (Rec: 04/16/22 15:51 LJ [id number]) Subjective Physical Therapy Visit Type Type Treatment Note Visit Start Time 12:59 Visit Stop Time 15:36 Total Visit Minutes 36 Number of TRANSIT MIX OPERATOR Visits 1 Physical Therapy Visit Comments Patient Comments agreeable to do PT Therapy Pain Assessment Pain When Pain Assessed At Rest Pain Present Pain Present Pain Reported M4 PT-IP Mobility and Gait Start: 04/10/22 08:26 Freq: NEEDED Status: Active Protocol: Document 04/16/22 15:37 LJ (Rec: 04/16/22 15:51 LJ [id number]) PT-Bed Mobility Assessment Supine to Sit Supine to Sit Minimal Assistance,1 Person Assistance,Head of Bed Elevated,Bedrails Scooting Scooting to Edge of Bed Moderate Assistance PT-Transfer Assessment Sit to and From Stand Sit to and from Stand Minimal Assistance,2 Person Assistance,Use of Upper Extremities Equipment Orthotic/Prosthetic Devices or Brace: No Transfers Transfer Destination Bed Transfer Ability Level of Assist Minimal Assistance,2 Person Assistance,Use of Upper Extremities Comments Mobility Comments Pt required Zuleima x1 for assist with LEs off side of bed. Already in sitting position with HOB at highest point. Pt required Zuleima x2 for sit>stand at side of bed. Pt performed lateral weight shifting several times while standing at side of bed. Pt stood for 3 minutes then fatigued and sat back down using UEs on matress to lower herself. Pt then sat on side of bed performing lateral weight shifting and LE exercises for 15 minutes demonstrating good seated balance. She then required Zuleima with LEs to move them back onto bed. She was given pillows for her back and under arms so that she could sit upright as much as possible stating it is most comfortable in that position. She was given all needs and left as nursing entered room. Gait Assessment Comments Gait Comments Did not attempt to ambulate to the chair at this time. Pt stated she can't get up out of the chair. PT-Balance Assessment Sitting Balance and Reactions Static Sitting Balance Ability Good Dynamic Sitting Balance Ability Good M5 PT-IP Objective Assessments Start: 04/10/22 08:26 Freq: NEEDED Status: Active Protocol: Document 04/11/22 14:57 AW (Rec: 04/11/22 15:38 AW [id number]) Orientation Orientation/Cognition Level of Alertness Alert Orientation Name,Day of Week,Place, Situation Safety Awareness Understands Safety Issues Gross Range of Motion Lower Extremity ROM Assessment Within Functional Limits Strength Lower Extremity Strength Assessment Bilaterally Impaired Hip 3-/5 Knee 4/5 Ankle 4/5 Sensation Assessment Sensation Gross Sensation Right UE Impaired,Left UE Impaired,Right LE Impaired, Left LE Impaired Comments Sensation Comments Neuropathy (likely chemo- induced) affects bilateral hands and feet. Muscle Tone Muscle Tone WNL Yes M6 PT-IP Treatment Start: 04/10/22 08:26 Freq: NEEDED Status: Active Protocol: Document 04/16/22 15:37 ANGELO (Rec: 04/16/22 15:51 [id number]) Physical Therapy Treatment Exercises Exercises Ankle Pumps,Gluteal Sets,Quad Sets,Heel Slides,Straight Leg Raises,Supine Hip Abduction Education Education Provided Safety Other Treatments Other Treatment Performed Pt requiring assist with LE exercises M7 PT-IP Assessment and Plan Start: 04/10/22 08:26 Freq: NEEDED Status: Active Protocol: Document 04/16/22 15:37 ANGELO (Rec: 04/16/22 15:51 [id number]) PT Summary Assessment and Plan Potential Rehabilitation Potential Fair Summary Impairments Pain,ROM,Strength,Balance, Coordination,Sensation,Tone, Cognition,Bed Mobility, Transfers,Gait,Activity Tolerance Assessment Summary Pt improved with mobility and ability to stand with only CGA . Tolerated extensive standing and sitting on side of bed time. At this time will require SNF rehab to improve strength and function. Goals Bed Mobility Goal Minimal Assistance Transfer Goal Minimal Assistance,Front Wheeled Walker Gait Goal Minimal Assistance,Front Wheel Walker Gait Distance 75 Other Goals - improve bed mobility to SBA - improve transfers and gait to SBA with cane Days to Meet Goals 10 Frequency of Treatment Frequency Of Treatment Once a Day Treatment Plan Physical Therapy Treatment Plan Bed Mobility Training,Transfer Training,Gait Training, Therapeutic Exercise,Balance Retraining,Post Op Education, Discharge Planning,Hot or Cold Pack,Neuromuscular Re-ed Other Recommendations and Next Treatment Consider trapeze bar for bed Focus mobility. Continue to progress transfers as tolerated. Bariatric walker would be beneficial for safety and stability as pt used standard size this session and leaned on it heavily. Precautions Abdominal Surgery Precautions Log Roll,Lifting Restrictions, Gait Belt above Incisional Area Other Precautions droplet precautions (flu) Recommendations To Nursing Amount of Assist Needed Mechanical Lift Discharge Recommendations PT Discharge Recommendations SNF Rehab
--- NOTE | 2022-04-16 18:57 | P.PN_ITS ---
Subjective Subjective Date Patient Seen: 04/16/22 Interval history: 51 yo female with metastatic breast cancer (recently 44 day stay at [facility] for crani complicated by hydrocephalus requiring EVD/BEAD TRIMMER shunt placement) s/p brain XRT and upcoming intiation of palliative chemo, dysphagia and malnutrition during prior hospitalization requiring PEG tube placement, PEs on apixiban, HTN, hypothyroidism admitted w/influenza A infection, PEG tube abscess being treated w/po high dose Levaquin, and hyperglycemia. She is presently awaiting SNF placement w/possible hospice admission. Patient reports she is feeling better today. She feels as though her flu symptoms are improving. Fewer headaches, less sore throat, last myalgias. She denies any shortness of breath. No other significant complaints. She states that her PEG site is also feeling less painful Exam Vital Signs (past 8 hours): - 04/15/22 13:00 04/15/22 11:00 04/15/22 17:00 Temperature 96.8 F L Pulse Rate 101 H Respiratory Rate 18 Blood Pressure 129/73 Pulse Oximetry 96 Oxygen Delivery Method Room Air Room Air Oxygen Flow Rate 3 Fraction of Inspired Oxygen 32 SaO2/FiO2 Ratio 306 Oxygen Delivery Method Room Air Oxygen Flow Rate 3 Narrative Exam Narrative: GEN: Very pleasant middle-aged female, Alert and oriented x 3, NAD HEENT:NC, Face symmetric, prominent steroid effect CHEST: Respiratory excursions symmetric, CTAB CV: RRR, no M/R/G ABD: Soft, obese, NT/ND, BT present in all 4 quadrants, body habitus limits exam, site was not visualized by dressing was clean/dry/intact EXTR: Feet have significant dependent rubor, 2+ edema, decreased perfusion overall SKIN: warm and dry, no rash NEURO: Alert and oriented x 3, nonfocal Objective Labs Result Diagrams: 04/12/22 05:15 04/12/22 05:15 [facility] Medical History Abnormal Pap smear of cervix Allergic rhinitis due to dust mite (11/14/14) Alopecia due to cytotoxic drug Angiolipoma of skin (02/20/14) Arthritis Breast cancer metastasized to brain Cystocele (10/21/14) Depression Fibromyalgia History of chemotherapy Mild obstructive sleep apnea-hypopnea syndrome (03/06/15) Myopia 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 drug Obesity, Class III, BMI 40-49.9 (morbid obesity) Pelvic relaxation 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) Psoriasis Pulmonary embolism (01/18/22) Rosacea (10/31/13) Tenesmus of bladder (10/21/14) Thyroid nodule Uterine fibroid Vaginal mass Vitamin D deficiency (03/06/15) Surgical History History of brain shunt (~12/22/21) History of gynecologic surgery (10/06/20) History of radioactive iodine thyroid ablation History of removal of Port-a-Cath (07/10/19) History of surgery (11/27/18) History of surgery (12/04/18) History of vaginal hysterectomy (~07/2017) Hx of cholecystectomy Hx of craniotomy (12/13/21) Hx of left mastectomy (06/05/19) Status post excision of lipoma (~2013) Status post tubal ligation (~2013) Family History Father Alcoholism Mother Age: 71 Depression Grandfather Diabetes mellitus Mother Parkinson's disease Social History household members: children Smoking Status: Former smoker alcohol intake: never Assessment & Plan Assessment & Plan narrative: 1. Influenza A infection / weakness ?Dx'd 04/06/22. Continue supportive care. She is slowly feeling better. 2. PEG site infection w/abscess, now POD #4 from I/D Polymicrobial cultures growing klebsiella, staph aureus, strep group F and rajani dubliniensis. Deep culture is positive for klebsiella. Pt remains on Levaquin 750 mg po daily. Continued BID dressing changes. 3. Metastastic breast cancer s/p crani and BEAD TRIMMER Shunt Continues dex and home meds. Initiated morphine IVP yesterday for pain. She had been reluctant to try it. Taking NSAIDS and cautioned per Dr. Blair re:risk w/anticoagulants and NSAIDs. 4. Recent PE On apixiban. 5. DM2 New dx. A1C 9.4%. Likely progressive in the setting of steroid dependence. BGs have been in the high 200s for the past 24 hrs. On Lantus 30 BID. Will transition to controlled carb diet. 6. Obesity, Class 3 BMI 43. 7. Protein calorie malnutrition D/t cancer.? Her obesity certainly increases her overall risk for morbidity and mortality, but her present malnutrition certainly complicates things. Goal would not be weight loss in the immediate future, but rather optimizing her nutrition. Code Full Prophy Apixiban Dispo SNF at d/c. Time Spent With Patient Critical Care time: I spent a total of [] minutes of critical care time on this patient's care today; this time is exclusive of procedural time. Quality VTE Deep Vein Thrombosis/Pulmonary Embolism Present on Admission: No
[2022-04-17] VITALS (12 sets, daily range): BP systolic 124–139; BP diastolic 85–95; PULSE 95–114; RESP 16–22; TEMP 36.1–36.5; O2SAT 94–98
--- NOTE | 2022-04-17 05:38 | PM.PN.1 ---
Subjective Subjective Interval history: 51 yo female with metastatic breast cancer ([facility] by hydrocephalus requiring EVD/SENIOR DATA ANALYST shunt placement) s/p brain XRT and upcoming intiation of palliative chemo, dysphagia and malnutrition during prior hospitalization requiring PEG tube placement, PEs on apixiban, HTN, hypothyroidism admitted w/influenza A infection, PEG tube abscess being treated w/po high dose Levaquin, and hyperglycemia. She is presently awaiting SNF placement w/possible hospice admission. Patient reports she feels about the same as yesterday. She was reporting decreasing malaise and myalgias related to her influenza infection yesterday. She was also reporting decreased pain from her PEG tube site. She understands efforts are being made for getting her transferred to assisted for rehab but her health insurance has made that challenging. Exam Vital Signs (past 8 hours): - 04/16/22 23:37 04/17/22 01:00 04/17/22 05:00 Temperature Pulse Rate Respiratory Rate Blood Pressure Pulse Oximetry 96 94 Oxygen Delivery Method Nasal Cannula Nasal Cannula Nasal Cannula Oxygen Flow Rate 3 3 3 Fraction of Inspired Oxygen 93 04/17/22 05:34 Temperature 96.9 F L Pulse Rate 98 H Respiratory Rate 22 Blood Pressure 131/89 Pulse Oximetry 95 Oxygen Delivery Method Oxygen Flow Rate 2 Fraction of Inspired Oxygen Fraction of Inspired Oxygen 93 SaO2/FiO2 Ratio 306 Oxygen Delivery Method Nasal Cannula Oxygen Flow Rate 2 Narrative Exam Narrative: GEN:? Very pleasant middle-aged female, Alert and oriented x 3, NAD HEENT:NC, Face symmetric, prominent steroid effect CHEST: Respiratory excursions symmetric, CTAB CV: RRR, no M/R/G ABD: Soft, obese, NT/ND, BT present in all 4 quadrants, body habitus limits exam, site was not visualized but dressing was clean/dry/intact EXTR:? Feet have significant dependent rubor, 2+ edema, decreased perfusion overall, yesterday both feet were cool to touch, today right foot is warm but left foot remains cool SKIN: warm and dry, no rash NEURO: Alert and oriented x 3, nonfocal Objective Labs Result Diagrams: 04/17/22 08:45 04/17/22 08:45 [facility] Medical History Abnormal Pap smear of cervix Allergic rhinitis due to dust mite (11/14/14) Alopecia due to cytotoxic drug Angiolipoma of skin (02/20/14) Arthritis Breast cancer metastasized to brain Cystocele (10/21/14) Depression Fibromyalgia History of chemotherapy Mild obstructive sleep apnea-hypopnea syndrome (03/06/15) Myopia 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 drug Obesity, Class III, BMI 40-49.9 (morbid obesity) Pelvic relaxation 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) Psoriasis Pulmonary embolism (01/18/22) Rosacea (10/31/13) Tenesmus of bladder (10/21/14) Thyroid nodule Uterine fibroid Vaginal mass Vitamin D deficiency (03/06/15) Surgical History History of brain shunt (~12/22/21) History of gynecologic surgery (10/06/20) History of radioactive iodine thyroid ablation History of removal of Port-a-Cath (07/10/19) History of surgery (11/27/18) History of surgery (12/04/18) History of vaginal hysterectomy (~07/2017) Hx of cholecystectomy Hx of craniotomy (12/13/21) Hx of left mastectomy (06/05/19) Status post excision of lipoma (~2013) Status post tubal ligation (~2013) Family History Father Alcoholism Mother Age: 71 Depression Grandfather Diabetes mellitus Mother Parkinson's disease Social History household members: children Smoking Status: Former smoker alcohol intake: never Assessment & Plan Assessment & Plan narrative: 1. Influenza A infection / weakness ?Dx'd 04/06/22.? Continue supportive care.? She is slowly feeling better. Could d/c droplet precautions at this point. 2.? PEG site infection w/abscess, now POD #5 from I/D Polymicrobial cultures growing klebsiella, staph aureus, strep group F and rajani dubliniensis.? Deep culture is positive for klebsiella.? Pt remains on Levaquin 750 mg po daily; plan a total of 10 days of therapy given her immunosuppressed status.? Continued BID dressing changes. 3.? Metastastic breast cancer s/p crani and SENIOR DATA ANALYST Shunt Continues dex and home meds.? Patient received a single dose of IV morphine 2 days ago. It is available as needed but she remains reluctant to use it. Taking NSAIDS and cautioned per Dr. Blair re:risk w/anticoagulants and NSAIDs. ? 4.? Recent PE On apixiban.? 5.? DM2 New dx.? A1C 9.4%.? Likely progressive in the setting of steroid dependence.? BGs have remained in the high 200s for the past 24 hrs.? Will increase Lantus to 35 units twice daily. 6.? Obesity, Class 3 BMI 43. 7.? Protein calorie malnutrition D/t cancer.? Her obesity certainly increases her overall risk for morbidity and mortality, but her present malnutrition certainly complicates things.? Goal would not be weight loss in the immediate future, but rather optimizing her nutrition. ? Code Full Prophy Apixiban Dispo SNF at d/c. Time Spent With Patient Critical Care time: I spent a total of [] minutes of critical care time on this patient's care today; this time is exclusive of procedural time. Quality VTE Deep Vein Thrombosis/Pulmonary Embolism Present on Admission: No
--- NOTE | 2022-04-17 05:47 | PC.NURSE ---
Pt is Axox4, need 2 person assistance and cooperative. VSS, pt denies pain. Pt slept well all night and called for bedpan. BG-297 and pt recieved 30 units of scheduled Glargine and 5 units of Lispro. Otherwise, no changes.
[2022-04-17] MEDS: levoFLOXacin 250 MG TABLET 750 MG PO (06:11)
[2022-04-17] MEDS: LEVOTHYROXINE 25 MCG TABLET PO (06:11)
[2022-04-17 09:13] LABS: Add Manual Diff / Slide Review NO; Basophils Absolute Auto 0 /uL (0-100); Basophils Percent Auto 0.2 % (0-2); Eosinophils Absolute Auto 0 /uL (0-450); Hematocrit 35.9 % (36-46); Hemoglobin 12.1 g/dL (12.0-16.0); Lymphocytes Absolute Auto 300 /uL (1100-4500); Lymphocytes Percent Auto 3.5 % (25-40); Mean Corpuscular HGB Conc 33.6 % (30-36); Mean Corpuscular Hemoglobin 30.3 PG (26-34); Monocytes Absolute Auto 400 /uL (0-900); Monocytes Percent Auto 4.3 % (3-14); Neutrophils Absolute Auto 7700 /uL (1500-7000); Platelet Count 217 X10^3/uL (150-400); Red Blood Cell Count 3.99 X10^6/uL (4.0-5.2); Red Cell Distribution Width 16.7 % (11.6-14.8); White Blood Cell Count 8.3 X10^3/uL (4.5-11.0)
[2022-04-17 09:28] LABS: Alanine Aminotransferase 40 IU/L (<35); Albumin 3.2 g/dL (3.5-5.0); Albumin Globulin Ratio 1.2 (1.0-2.8); Alkaline Phosphatase 174 U/L (38-126); Aspartate Aminotransferase 29 IU/L (14-36); BUN Creatinine Ratio 53.7 (6-22); Bilirubin Total 0.5 mg/dL (0.2-1.3); Blood Urea Nitrogen 22 mg/dL (7-17); Calcium 8.8 mg/dL (8.4-10.2); Carbon Dioxide 30 mmol/L (22-32); Chloride 99 mmol/L (98-107); Estimated Glomerular Filt Rate > 60 mL/min (>60); Globulin 2.7 g/dL (1.7-4.1); Glucose 208 mg/dL (70-100); HEMOLYSIS < 15 (0-50); Potassium 3.8 mmol/L (3.4-5.1); Sodium 134 mmol/L (137-145); Total Protein 5.9 g/dL (6.3-8.2)
--- NOTE | 2022-04-17 11:09 | P.PN_ITS ---
Subjective Subjective Date Patient Seen: 04/17/22 Interval history: No significant changes since yesterday. She has continued to have dressing changes and the wound continues to be very moist. Exam Vital Signs (past 8 hours): - 04/17/22 05:00 04/17/22 05:34 04/17/22 07:50 Temperature 96.9 F L 97.1 F L Pulse Rate 98 H 95 H Respiratory Rate 22 16 Blood Pressure 131/89 127/85 Pulse Oximetry 94 95 96 Oxygen Delivery Method Nasal Cannula Oxygen Flow Rate 3 2 3 04/17/22 10:20 Temperature Pulse Rate Respiratory Rate Blood Pressure Pulse Oximetry 98 Oxygen Delivery Method Nasal Cannula Oxygen Flow Rate 3 Fraction of Inspired Oxygen 93 SaO2/FiO2 Ratio 306 Oxygen Delivery Method Nasal Cannula Oxygen Flow Rate 3 Narrative Exam Narrative: Small amount of fibrinous exudate at the wound base Some granulation tissue appears to be developing Objective Labs Result Diagrams: 04/17/22 08:45 04/17/22 08:45 Labs: Laboratory Results - last 24 hr 04/17/22 04/17/22 08:45 08:45 WBC 8.3 RBC 3.99 L Hgb 12.1 Hct 35.9 L MCV 90.0 MCH 30.3 MCHC 33.6 RDW 16.7 H Plt Count 217 Neut % (Auto) 92.0 H Lymph % (Auto) 3.5 L [place] % (Auto) 4.3 Eos % (Auto) 0.0 L Baso % (Auto) 0.2 Neut # (Auto) 7700 H Lymph # (Auto) 300 L [place] # (Auto) 400 Eos # (Auto) 0 Baso # (Auto) 0 Sodium 134 L Potassium 3.8 Chloride 99 Carbon Dioxide 30 BUN 22 H Creatinine 0.41 L Estimated GFR > 60 BUN/Creatinine Ratio 53.7 H Glucose 208 H Calcium 8.8 Total Bilirubin 0.5 AST 29 ALT 40 H Alkaline Phosphatase 174 H Total Protein 5.9 L Albumin 3.2 L Globulin 2.7 Albumin/Globulin Ratio 1.2 PFSH Medical History Abnormal Pap smear of cervix Allergic rhinitis due to dust mite (11/14/14) Alopecia due to cytotoxic drug Angiolipoma of skin (02/20/14) Arthritis Breast cancer metastasized to brain Cystocele (10/21/14) Depression Fibromyalgia History of chemotherapy Mild obstructive sleep apnea-hypopnea syndrome (03/06/15) Myopia 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 drug Obesity, Class III, BMI 40-49.9 (morbid obesity) Pelvic relaxation 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) Psoriasis Pulmonary embolism (01/18/22) Rosacea (10/31/13) Tenesmus of bladder (10/21/14) Thyroid nodule Uterine fibroid Vaginal mass Vitamin D deficiency (03/06/15) Surgical History History of brain shunt (~12/22/21) History of gynecologic surgery (10/06/20) History of radioactive iodine thyroid ablation History of removal of Port-a-Cath (07/10/19) History of surgery (11/27/18) History of surgery (12/04/18) History of vaginal hysterectomy (~07/2017) Hx of cholecystectomy Hx of craniotomy (12/13/21) Hx of left mastectomy (06/05/19) Status post excision of lipoma (~2013) Status post tubal ligation (~2013) Family History Father Alcoholism Mother Age: 71 Depression Grandfather Diabetes mellitus Mother Parkinson's disease Social History household members: children Smoking Status: Former smoker alcohol intake: never Assessment & Plan Assessment and plan (1) Subcutaneous abscess: Qualifiers: Site of cutaneous abscess: trunk Site of cutaneous abscess of trunk: abdominal wall Qualified Code(s): L02.211 - Cutaneous abscess of abdominal wall Status: Acute Plan Recommend continued daily dressing changes A wound vac can be considered once the wound is dried up considerably and there is no evidence of communication with the GI tract. Time Spent With Patient Critical Care time: I spent a total of [] minutes of critical care time on this patient's care today; this time is exclusive of procedural time. Quality VTE Deep Vein Thrombosis/Pulmonary Embolism Present on Admission: No
--- NOTE | 2022-04-17 12:13 | CM.DPC ---
Addendum entered by Lala Gutierrez R.N. 04/17/22 15:22: Left message with DINA Haskins over at oncology to collaborate with some ideas on discharge planning. Did make some follow up calls, Reece Ko in [place], left second message, [facility], left second message, [facility] [place], voice mail full, [facility], left second message with [facility] in admissions, [facility] [place], left second message, and [facility], left second message. Left second message with [facility], in [place], it is noted that referral was sent to them. Original Note: DCP Cont: Met with patient in her room. Introduced self and role, patient is no longer on isolation. Confirmed that she resides with her son, Kemal, here in [place]. Her home that she rents is currently on the market. Let her know that this DC Line Painting Machine Operator is working on getting her to a facility, but not guaranteed, secondary to her insurance, since she has Romo. Patient is aware that this could be a barrier. Let her know that she may need to go home if a jail facility can't be secured. Asked her if there is someone to assist her. She stated that her son, Kemal, can assist her, he is living with her. The barrier would be wound care, but just found out that she may be getting a wound vac. Asked her also if this DC Line Painting Machine Operator can contact her partner, Yury, for any additional questions, and she stated, would be ok, he can be helpful at times. He is also working. Patient also has a 9 year old named Tegan. She indicated, Yury can help at times, when able, otherwise, would be Kemal. Patient is aware, if no place is secure, she will need to go home with home health. Will also need to see which home health agency will accept Romo. Called Gypsy at [facility] and updated her, regarding potential for wound vac. She did ask if her Romo case hardener has been contacted about her skilled need. Let her know that since it's a weekend, do not have information available. Asked her if she can contact them tomorrow, stated, she would try. Other facilities will still be explored, messages have been left. P: DCP to work on getting patient into skilled rehab, second plan is home with home health. Lala Gutierrez RN/[employer]
[2022-04-17] MEDS: LIDOCAINE PATCH 1 EACH ADH..PATCH 2 EACH TOP (12:44)
[2022-04-17] MEDS: FAMOTIDINE 20 MG TABLET PO (12:44)
[2022-04-17] MEDS: DULOXETINE 30 MG CAPSULE PO (12:44)
[2022-04-17] MEDS: buPROPion XL 150 MG TAB PO (12:44)
[2022-04-17] MEDS: GABAPENTIN 600 MG TABLET PO ×3 (12:44→22:09)
[2022-04-17] MEDS: LOSARTAN 50 MG TABLET PO (12:45)
[2022-04-17] MEDS: PANTOPRAZOLE 40 MG VIAL 20 MG IV (12:45)
[2022-04-17] MEDS: THYROID, PORK 30 MG TABLET 90 MG PO (12:46)
[2022-04-17] MEDS: NYSTATIN POWDER 15GM 1 APPLIC TOP ×2 (12:46→22:14)
[2022-04-17] MEDS: SODIUM CHLORIDE 0.9% FLUSH 10 ML IV ×2 (12:46→22:09)
[2022-04-17] MEDS: APIXABAN 5 MG TABLET PO ×2 (13:18→22:09)
[2022-04-17] MEDS: dexAMETHasone 4 MG TABLET 8 MG PO ×2 (13:18→18:17)
--- NOTE | 2022-04-17 13:18 | PT-IP ANOTE ---
Checked on pt 1300. Stated she had no energy at the moment. Will check back again.
--- NOTE | 2022-04-17 15:18 | PT-IP ANOTE ---
Checked on pt again. She is sleeping. Nursing states she has not been able to sleep so requested she be left to sleep.
[2022-04-17] MEDS: LORazepam 0.5 MG TABLET PO (18:17)
[2022-04-17] MEDS: ACETAMINOPHEN 325 MG TABLET 975 MG PO (18:19)
[2022-04-17] MEDS: INSULIN LISPRO 100 UNIT/ML 3ML VIAL SUBCUT ×2 (19:02→22:12)
[2022-04-17] MEDS: INSULIN GLARGINE 100 UNIT/ML 3ML PEN 35 UNIT SUBCUT (22:11)
[2022-04-18] VITALS (11 sets, daily range): BP systolic 116–145; BP diastolic 76–106; PULSE 93–110; RESP 16–20; TEMP 35.6–36.8; O2SAT 91–96
[2022-04-18] MEDS: LEVOTHYROXINE 25 MCG TABLET PO (05:46)
[2022-04-18] MEDS: levoFLOXacin 250 MG TABLET 750 MG PO (05:46)
[2022-04-18 06:26] LABS: Add Manual Diff / Slide Review NO; Basophils Absolute Auto 0 /uL (0-100); Basophils Percent Auto 0.1 % (0-2); Eosinophils Absolute Auto 0 /uL (0-450); Hematocrit 36.7 % (36-46); Hemoglobin 12.2 g/dL (12.0-16.0); Lymphocytes Absolute Auto 300 /uL (1100-4500); Mean Corpuscular HGB Conc 33.2 % (30-36); Mean Corpuscular Hemoglobin 30.1 PG (26-34); Mean Corpuscular Volume 90.6 fL (80-100); Monocytes Absolute Auto 200 /uL (0-900); Monocytes Percent Auto 2.9 % (3-14); Neutrophils Absolute Auto 8000 /uL (1500-7000); Platelet Count 221 X10^3/uL (150-400); Red Blood Cell Count 4.05 X10^6/uL (4.0-5.2); Red Cell Distribution Width 17.5 % (11.6-14.8); White Blood Cell Count 8.5 X10^3/uL (4.5-11.0)
[2022-04-18 06:31] LABS: BUN Creatinine Ratio 47.6 (6-22); Blood Urea Nitrogen 20 mg/dL (7-17); Calcium 8.8 mg/dL (8.4-10.2); Carbon Dioxide 31 mmol/L (22-32); Chloride 99 mmol/L (98-107); Estimated Glomerular Filt Rate > 60 mL/min (>60); Glucose 264 mg/dL (70-100); HEMOLYSIS < 15 (0-50); Potassium 4.1 mmol/L (3.4-5.1); Sodium 133 mmol/L (137-145)
--- NOTE | 2022-04-18 08:17 | PM.PN.1 ---
Subjective Subjective Date Patient Seen: 04/18/22 Interval history: Having more nausea today as well as pain in her stomach. Exam Vital Signs (past 8 hours): - 04/18/22 01:24 04/18/22 01:00 04/18/22 05:00 Temperature 96.8 F L Pulse Rate 97 H Respiratory Rate 19 Blood Pressure 120/79 Pulse Oximetry 96 96 91 Oxygen Delivery Method Room Air Room Air Oxygen Flow Rate 0 04/18/22 06:24 Temperature 97.2 F L Pulse Rate 93 H Respiratory Rate 16 Blood Pressure 119/82 Pulse Oximetry 93 Oxygen Delivery Method Oxygen Flow Rate Fraction of Inspired Oxygen 93 SaO2/FiO2 Ratio 306 Oxygen Delivery Method Room Air Oxygen Flow Rate 0 Narrative Exam Narrative: GEN:? Very pleasant middle-aged female, Alert and oriented x 3, NAD HEENT:NC, Face symmetric, prominent steroid effect CHEST: Respiratory excursions symmetric, CTAB CV: RRR, no M/R/G ABD: Soft, obese, NT/ND, BT present in all 4 quadrants, body habitus limits exam, site was not visualized but dressing was clean/dry/intact EXTR:? Feet have significant dependent rubor, 2+ edema, decreased perfusion overall, yesterday both feet were cool to touch, today right foot is warm but left foot remains cool SKIN: warm and dry, no rash NEURO: Alert and oriented x 3, nonfocal Objective Labs Result Diagrams: 04/18/22 06:00 04/18/22 06:00 Labs: Laboratory Results - last 24 hr 04/17/22 04/17/22 04/18/22 08:45 08:45 06:00 WBC 8.3 8.5 RBC 3.99 L 4.05 Hgb 12.1 12.2 Hct 35.9 L 36.7 MCV 90.0 90.6 MCH 30.3 30.1 MCHC 33.6 33.2 RDW 16.7 H 17.5 H Plt Count 217 221 Neut % (Auto) 92.0 H 94.0 H Lymph % (Auto) 3.5 L 3.0 L Cache % (Auto) 4.3 2.9 L Eos % (Auto) 0.0 L 0.0 L Baso % (Auto) 0.2 0.1 Neut # (Auto) 7700 H 8000 H Lymph # (Auto) 300 L 300 L Cache # (Auto) 400 200 Eos # (Auto) 0 0 Baso # (Auto) 0 0 Sodium 134 L Potassium 3.8 Chloride 99 Carbon Dioxide 30 BUN 22 H Creatinine 0.41 L Estimated GFR > 60 BUN/Creatinine Ratio 53.7 H Glucose 208 H Calcium 8.8 Total Bilirubin 0.5 AST 29 ALT 40 H Alkaline Phosphatase 174 H Total Protein 5.9 L Albumin 3.2 L Globulin 2.7 Albumin/Globulin Ratio 1.2 04/18/22 06:00 WBC RBC Hgb Hct MCV MCH MCHC RDW Plt Count Neut % (Auto) Lymph % (Auto) Cache % (Auto) Eos % (Auto) Baso % (Auto) Neut # (Auto) Lymph # (Auto) Cache # (Auto) Eos # (Auto) Baso # (Auto) Sodium 133 L Potassium 4.1 Chloride 99 Carbon Dioxide 31 BUN 20 H Creatinine 0.42 L Estimated GFR > 60 BUN/Creatinine Ratio 47.6 H Glucose 264 H Calcium 8.8 Total Bilirubin AST ALT Alkaline Phosphatase Total Protein Albumin Globulin Albumin/Globulin Ratio [facility] Medical History Abnormal Pap smear of cervix Allergic rhinitis due to dust mite (11/14/14) Alopecia due to cytotoxic drug Angiolipoma of skin (02/20/14) Arthritis Breast cancer metastasized to brain Cystocele (10/21/14) Depression Fibromyalgia History of chemotherapy Mild obstructive sleep apnea-hypopnea syndrome (03/06/15) Myopia 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 drug Obesity, Class III, BMI 40-49.9 (morbid obesity) Pelvic relaxation 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) Psoriasis Pulmonary embolism (01/18/22) Rosacea (10/31/13) Tenesmus of bladder (10/21/14) Thyroid nodule Uterine fibroid Vaginal mass Vitamin D deficiency (03/06/15) Surgical History History of brain shunt (~12/22/21) History of gynecologic surgery (10/06/20) History of radioactive iodine thyroid ablation History of removal of Port-a-Cath (07/10/19) History of surgery (11/27/18) History of surgery (12/04/18) History of vaginal hysterectomy (~07/2017) Hx of cholecystectomy Hx of craniotomy (12/13/21) Hx of left mastectomy (06/05/19) Status post excision of lipoma (~2013) Status post tubal ligation (~2013) Family History Father Alcoholism Mother Age: 71 Depression Grandfather Diabetes mellitus Mother Parkinson's disease Social History household members: children Smoking Status: Former smoker alcohol intake: never Assessment & Plan Assessment & Plan narrative: 1. Influenza A infection / weakness ?Dx'd 04/06/22.? Continue supportive care.? She is slowly feeling better. Could d/c droplet precautions at this point. 2.? PEG site infection w/abscess, now POD #6 from I/D Polymicrobial cultures growing klebsiella, staph aureus, strep group F and rajani dubliniensis.? Deep culture is positive for klebsiella.? Pt remains on Levaquin 750 mg po daily; given a total of 10 days of therapy given her immunosuppressed status.? Continued BID dressing changes. Reglan added to zofran for ongoing nausea. Will need wound vac in the coming days. 3.? Metastastic breast cancer s/p crani and INTERNATIONAL MARKETING COORDINATOR Shunt Continues dex and home meds.? Patient received a single dose of IV morphine 2 days ago. It is available as needed but she remains reluctant to use it. Taking NSAIDS and cautioned per Dr. Blair re:risk w/anticoagulants and NSAIDs. ? 4.? Recent PE On apixiban.? 5.? DM2 New dx.? A1C 9.4%.? Likely progressive in the setting of steroid dependence.? BGs have remained in the high 200s for the past 24 hrs.? Will increase Lantus to 35 units twice daily. 6.? Obesity, Class 3 BMI 43. 7.? Protein calorie malnutrition D/t cancer.? Her obesity certainly increases her overall risk for morbidity and mortality, but her present malnutrition certainly complicates things.? Goal would not be weight loss in the immediate future, but rather optimizing her nutrition. ? Code Full Prophy Apixiban Dispo SNF at d/c. Hard to find options with her insurance. Time Spent With Patient Critical Care time: I spent a total of [] minutes of critical care time on this patient's care today; this time is exclusive of procedural time. Quality VTE Deep Vein Thrombosis/Pulmonary Embolism Present on Admission: No
[2022-04-18] MEDS: ONDANSETRON 4 MG/2 ML INJ IV (09:00)
[2022-04-18] MEDS: dexAMETHasone 4 MG TABLET 8 MG PO ×2 (09:07→22:14)
[2022-04-18] MEDS: buPROPion XL 150 MG TAB PO (09:07)
[2022-04-18] MEDS: FAMOTIDINE 20 MG TABLET PO (09:07)
[2022-04-18] MEDS: LIDOCAINE PATCH 1 EACH ADH..PATCH 2 EACH TOP (09:07)
[2022-04-18] MEDS: GABAPENTIN 600 MG TABLET PO ×2 (09:07→22:14)
[2022-04-18] MEDS: DULOXETINE 30 MG CAPSULE PO (09:07)
[2022-04-18] MEDS: APIXABAN 5 MG TABLET PO ×2 (09:07→22:14)
[2022-04-18] MEDS: LOSARTAN 50 MG TABLET PO (09:08)
[2022-04-18] MEDS: NYSTATIN POWDER 15GM 1 APPLIC TOP ×2 (09:08→22:16)
[2022-04-18] MEDS: PANTOPRAZOLE 40 MG VIAL 20 MG IV (09:08)
[2022-04-18] MEDS: LORazepam 0.5 MG TABLET PO (09:09)
[2022-04-18] MEDS: THYROID, PORK 30 MG TABLET 90 MG PO (09:09)
[2022-04-18] MEDS: SODIUM CHLORIDE 0.9% FLUSH 10 ML IV ×2 (09:09→22:16)
[2022-04-18] MEDS: INSULIN GLARGINE 100 UNIT/ML 3ML PEN 35 UNIT SUBCUT ×2 (09:10→22:12)
[2022-04-18] MEDS: INSULIN LISPRO 100 UNIT/ML 3ML VIAL SUBCUT ×2 (09:14→22:13)
--- NOTE | 2022-04-18 09:47 | OT.IP.TRT ---
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) Cutaneous abscess of abdominal wall (04/09/22) Cutaneous abscess, unspecified (04/09/22) Local infection of the skin and subcutaneous tissue, unspecified (04/09/22) Surgery Performed Operation Date: 04/12/22 09:15 Actual Procedures p I&D abscess - Jing Guzmán MD Occupational Therapy Treatment Note M2 OT-IP Current Condition Start: 04/11/22 15:51 Freq: Status: Active Protocol: Document 04/11/22 14:26 [facility] (Rec: 04/11/22 16:11 [facility] [id number]) Occupational Therapy Current Condition Current Condition Evaluation Date 04/11/22 Treatment Diagnosis FLUA, weakness and peg tube infection Diagnosis Onset Date 04/09/22 M3 OT- IP Subjective and Pain Start: 04/11/22 15:51 Freq: Status: Active Protocol: Document 04/18/22 09:47 [facility] (Rec: 04/18/22 10:18 [facility] [id number]) OT- Subjective Occupational Therapy Visit Type Type Treatment Note Visit Start Time 09:47 Visit Stop Time 10:04 Total Visit Minutes 17 Occupational Therapy Visit Comments Patient Comments Pt agreed to get up to the recliner. ORE TESTER also present for the transfer as pt needing skilled assist for the transfer. Patient/Caregiver Goals TO get her legs stronger. OT Pain Assessment Pain When Pain Assessed During Mobility Pain Present Pain Present Pain Reported M7 OT- IP Mobility and Balance Start: 04/11/22 15:51 Freq: Status: Active Protocol: Document 04/18/22 09:47 [facility] (Rec: 04/18/22 10:18 [facility] [id number]) OT- Bed Mobility Assessment Supine to Sit Supine to Sit Assist Maximum Assistance,1 Person Assistance OT-Transfer Assessment Sit to and From Stand Sit to and from Stand Maximum Assistance,2 Person Assistance Transfers Transfer Ability Maximum Assistance,2 Person Assistance Comments Mobility Comments MAXA x1 to get her legs to the edge of the bed and MAXA x2 to scoot forwards with heavy assist of green pad. Pt able to stand with MAX AX 2 to FWW and able to transfer with assist to guide the FWW and for balance. Pt needing heavy assist of her arms to assist to push down on the FWW to be able to move her feet. pt greatly needing assist to help lower her down to the recliner. OT- Balance Assessment Sitting Balance and Reactions Static Sitting Balance Ability Good Dynamic Sitting Balance Ability Fair Standing Balance and Reactions Static Standing Balance Ability Poor Dynamic Standing Balance Ability Poor M9 OT- IP Assessment and Plan Start: 04/11/22 15:51 Freq: Status: Active Protocol: Document 04/18/22 09:47 [facility] (Rec: 04/18/22 10:18 [facility] [id number]) OT Summary Assessment and Plan Potential Rehabilitation Potential Good Analytic Complexity at Evaluation Moderate Summary OT Impairments Pain,Strength,Balance, Functional Mobility,Dressing, Toileting,Bathing,Toilet Transfers,Shower Transfers, Activity Tolerance Progress Towards Goals Progressing Toward Goals,Slow Progress due to Medical Issues ,Slow Progress due to Activity Tolerance Assessment Summary Pt states very tired but still willing to try to transfer to the recliner with OT/ORE TESTER. Pt will benefit from skilled rehab to maximize her level of independence. Pending her medical status/recovery pt may need LTC . Goals Grooming Goal Standby Assistance Dressing Goal Minimal Assistance Toileting Goal Minimal Assistance Bathing Goal Minimal Assistance Toilet Transfer Goal Contact Guard Assistance Shower Transfer Goal Minimal Assistance Days to Meet Goals 30 Frequency of Treatment Frequency Of Treatment Once a Day Treatment Plan OT Treatment Plan ADL Training,Functional Mobility,Patient/Family Education,Discharge Planning Discharge Recommendations OT Discharge Recommendations SNF Rehab,LTAC Transportation Needs at Discharge Wheelchair/Cabulance
--- NOTE | 2022-04-18 10:07 | PT.IPTN ---
Addendum entered and electronically signed by Melonie Weiss PTA 04/18/22 12:16: Pt required cues for pursed lip breathing to allow breath recovery with mobility, support lower HR from 123 bpm, Resting 111-112. SaO2 90s on 2L. 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) Cutaneous abscess of abdominal wall (04/09/22) Cutaneous abscess, unspecified (04/09/22) Local infection of the skin and subcutaneous tissue, unspecified (04/09/22) Surgery Performed Operation Date: 04/12/22 09:15 Actual Procedures p I&D abscess - Jing Guzmán MD Physical Therapy Treatment Note M2 PT-IP Current Condition Start: 04/10/22 08:26 Freq: NEEDED Status: Active Protocol: Document 04/18/22 09:37 SP (Rec: 04/18/22 12:08 SP [id number]) Physical Therapy Current Condition Current Condition Evaluation Date 04/11/22 Treatment Diagnosis influenza A; PEG site infection; impaired mobility Onset Date 04/09/22 M3 PT-IP Subjective Start: 04/10/22 08:26 Freq: NEEDED Status: Active Protocol: Document 04/18/22 09:37 SP (Rec: 04/18/22 12:08 SP [id number]) Subjective Physical Therapy Visit Type Type Treatment Note Visit Start Time 09:37 Visit Stop Time 10:07 Total Visit Minutes 30 Notes Vitals: supine: 123/81 Hr 111 SaO2 94% 1L. Mobility: HR 124> 114, mid 90s . Cotx with OT for physical assist transfer during tx. Number of FLOOR COVERINGS INSTALLER Visits 2 Physical Therapy Visit Comments Patient Comments Pt agreeable to working with therapy. M4 PT-IP Mobility and Gait Start: 04/10/22 08:26 Freq: NEEDED Status: Active Protocol: Document 04/18/22 09:37 SP (Rec: 04/18/22 12:15 SP [id number]) PT-Bed Mobility Assessment Supine to Sit Supine to Sit Maximum Assistance,1 Person Assistance,Head of Bed Elevated,Bedrails Scooting Scooting to Edge of Bed Maximum Assistance PT-Transfer Assessment Sit to and From Stand Sit to and from Stand Maximum Assistance,2 Person Assistance,Use of Upper Extremities Equipment Transfer Assistive Device Gait Belt,Front Wheeled Walker Orthotic/Prosthetic Devices or Brace: No Transfers Transfer Destination Chair Transfer Technique Stand Step Pivot Transfer Ability Level of Assist Maximum Assistance,2 Person Assistance Comments Mobility Comments Pt required Max A x1 during elevated bed mobility coming to sit trunk support and each LE to EOB and scoot to EOB. Heavy STS Max A x2, able come to stand 2nd attempt w/FWW, reports very tired today not as strong. stationary stand, 2 step july then stand step pivot to chair w/ FWW, assist for trunk stabiltiy, wt shift L to allow RLE clearance lateral/retro, support FWW mgt heavy Max A x2. Cues for sequencing, Max A x2 cues reach back slow descent sit in chair. Pt had call light and all needs in reach. REcommending Geraldine back to bed , nursing notified. Gait Assessment Comments Gait Comments Stand step pivot transfer only Max Ax2 w/ FWW bed>chair with PT only. Unable progress further standing, tires quickly. Stair Climbing Assessment Comments Stair Climbing Comments Not assessed. PT-Balance Assessment Sitting Balance and Reactions Static Sitting Balance Ability Good Dynamic Sitting Balance Ability Fair Standing Balance and Reactions Static Standing Balance Ability Poor Dynamic Standing Balance Ability Poor Device Used FW M5 PT-IP Objective Assessments Start: 04/10/22 08:26 Freq: NEEDED Status: Active Protocol: Document 04/11/22 14:57 AW (Rec: 04/11/22 15:38 AW [id number]) Orientation Orientation/Cognition Level of Alertness Alert Orientation Name,Day of Week,Place, Situation Safety Awareness Understands Safety Issues Gross Range of Motion Lower Extremity ROM Assessment Within Functional Limits Strength Lower Extremity Strength Assessment Bilaterally Impaired Hip 3-/5 Knee 4/5 Ankle 4/5 Sensation Assessment Sensation Gross Sensation Right UE Impaired,Left UE Impaired,Right LE Impaired, Left LE Impaired Comments Sensation Comments Neuropathy (likely chemo- induced) affects bilateral hands and feet. Muscle Tone Muscle Tone WNL Yes M6 PT-IP Treatment Start: 04/10/22 08:26 Freq: NEEDED Status: Active Protocol: Document 04/18/22 09:37 SP (Rec: 04/18/22 12:08 SP [id number]) Physical Therapy Treatment Exercises Exercises Ankle Pumps Education Education Provided Safety Other Treatments Other Treatment Performed Pt required assist for LE support. M7 PT-IP Assessment and Plan Start: 04/10/22 08:26 Freq: NEEDED Status: Active Protocol: Document 04/18/22 09:37 SP (Rec: 04/18/22 12:08 SP [id number]) PT Summary Assessment and Plan Potential Rehabilitation Potential Fair Status of Condition at Evaluation Evolving Summary Impairments Pain,ROM,Strength,Balance, Coordination,Sensation,Tone, Cognition,Bed Mobility, Transfers,Gait,Activity Tolerance Progress Towards Goals Progressing Toward Goals,Slow Progress due to Activity Tolerance Assessment Summary Pt required Max A x1 for elevated bed mob, scoot. Max A x2 STS and stand step pivot bed chair w/ FWW this tx and slow descent to chair, cues for proper hand placement. Tolerated stationary stand and july 2 reps pre pivot. At this time will require SNF rehab to improve strength and function. Goals Bed Mobility Goal Minimal Assistance Transfer Goal Minimal Assistance,Front Wheeled Walker Gait Goal Minimal Assistance,Front Wheel Walker Gait Distance 75 Other Goals - improve bed mobility to SBA - improve transfers and gait to SBA with cane Days to Meet Goals 10 Frequency of Treatment Frequency Of Treatment Once a Day Treatment Plan Physical Therapy Treatment Plan Bed Mobility Training,Transfer Training,Gait Training, Therapeutic Exercise,Balance Retraining,Post Op Education, Discharge Planning,Hot or Cold Pack,Neuromuscular Re-ed Other Recommendations and Next Treatment Continue to progress transfers Focus as tolerated. Bariatric walker would be beneficial for safety and stability as pt used standard size this session and leaned on it heavily. Precautions Abdominal Surgery Precautions Log Roll,Lifting Restrictions, Gait Belt above Incisional Area Other Precautions droplet precautions (flu) Recommendations To Nursing Amount of Assist Needed Mechanical Lift Discharge Recommendations PT Discharge Recommendations SNF Rehab Transportation Needs at Discharge Wheelchair/Cabulance,Stretcher /Ambulance
--- NOTE | 2022-04-18 10:38 | CM.DPC ---
Addendum entered by Lala Gutierrez R.N. 04/18/22 12:40: Spoke to Hali at [facility] wound clinic. She will contact Lucila over at [facility], and will work on getting the script, and Page will work on the Romo auth. She indicated that she may have to go to the clinic next door at an appointent, for wound vac placement if auth is not received, and discharge with wet to dry dressing in place. She indicated that if they do get the auth sooner, may be able to place here. Patient is not currently yet ready for wound vac. Original Note: DCP Cont: Called Hali over at the wound clinic and left her a message regarding this patient. She may be getting a wound vac in the next couple of days, but is not yet ready for this. Asked her to call this DC Biodiesel Product Development Manager back in order to see if the process can be started, since she is a [place]/Medicaid patient. P: DCP continuing to work on skilled versus home with wound vac. All facilities in [place] have been contacted, some messages left, and local facilities, and [place]. Patient was told that she may need to go home with home health and wound vac. Lala Gutierrez RN/Noodle Press Operator
[2022-04-19 04:23] VITALS: BP 117/75; PULSE 98; RESP 20; TEMP 36; O2SAT 93
[2022-04-19] MEDS: LEVOTHYROXINE 25 MCG TABLET PO (06:34)
--- NOTE | 2022-04-19 07:36 | P.PN_ITS ---
Subjective Subjective Interval history: Patient having more pain overall today, stomach hurts as well as having a headache. We discussed a fentanyl patch to help with patient's ongoing cancer related pain and she agreed to try it. Exam Vital Signs (past 8 hours): - 04/18/22 23:53 04/19/22 04:23 Temperature 97.1 F L 96.8 F L Pulse Rate 94 H 98 H Respiratory Rate 18 20 Blood Pressure 116/77 117/75 Pulse Oximetry 94 93 Oxygen Flow Rate 3 3 Fraction of Inspired Oxygen 32 SaO2/FiO2 Ratio 287 Oxygen Delivery Method Nasal Cannula Oxygen Flow Rate 3 Narrative Exam Narrative: GEN:? Very pleasant middle-aged female who appears fatigued and worn out, Alert and oriented x 3, NAD HEENT:NC, Face symmetric, prominent steroid effect CHEST: Respiratory excursions symmetric, CTAB CV: RRR, no M/R/G ABD: Soft, obese, NT/ND, BT present in all 4 quadrants, body habitus limits exam, site was not visualized but dressing was clean/dry/intact EXTR:? Feet have significant dependent rubor, 2+ edema, decreased perfusion overall, left hand numb with decreased sensation SKIN: warm and dry, no rash NEURO: Alert and oriented x 3, nonfocal Objective Labs Result Diagrams: 04/18/22 06:00 04/18/22 06:00 [facility] Medical History Abnormal Pap smear of cervix Allergic rhinitis due to dust mite (11/14/14) Alopecia due to cytotoxic drug Angiolipoma of skin (02/20/14) Arthritis Breast cancer metastasized to brain Cystocele (10/21/14) Depression Fibromyalgia History of chemotherapy Mild obstructive sleep apnea-hypopnea syndrome (03/06/15) Myopia 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 drug Obesity, Class III, BMI 40-49.9 (morbid obesity) Pelvic relaxation 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) Psoriasis Pulmonary embolism (01/18/22) Rosacea (10/31/13) Tenesmus of bladder (10/21/14) Thyroid nodule Uterine fibroid Vaginal mass Vitamin D deficiency (03/06/15) Surgical History History of brain shunt (~12/22/21) History of gynecologic surgery (10/06/20) History of radioactive iodine thyroid ablation History of removal of Port-a-Cath (07/10/19) History of surgery (11/27/18) History of surgery (12/04/18) History of vaginal hysterectomy (~07/2017) Hx of cholecystectomy Hx of craniotomy (12/13/21) Hx of left mastectomy (06/05/19) Status post excision of lipoma (~2013) Status post tubal ligation (~2013) Family History Father Alcoholism Mother Age: 71 Depression Grandfather Diabetes mellitus Mother Parkinson's disease Social History household members: children Smoking Status: Former smoker alcohol intake: never Assessment & Plan Assessment & Plan narrative: 1. Influenza A infection / weakness ?Dx'd 04/06/22.? Continue supportive care.? She is slowly feeling better. Could d/c droplet precautions at this point. 2.? PEG site infection w/abscess, now POD #6 from I/D Polymicrobial cultures growing klebsiella, staph aureus, strep group F and rajani dubliniensis.? Deep culture is positive for klebsiella.? Pt remains on Levaquin 750 mg po daily; given a total of 10 days of therapy given her immunosuppressed status.? Continued BID dressing changes. Reglan added to zofran for ongoing nausea. Will need wound vac in the coming days. 3.? Metastastic breast cancer s/p crani and IMPREGNATOR Shunt Continues dex and home meds.? Patient received a single dose of IV morphine 2 days ago. It is available as needed but she remains reluctant to use it. Willing to try fentanyl patch so 12mcg patch ordered q72hrs. ? 4.? Recent PE On apixiban.? 5.? DM2 New dx.? A1C 9.4%.? Likely progressive in the setting of steroid dependence.? B Gs have remained in the high 200s for the past 24 hrs.? Will increase Lantus to 35 units twice daily. 6.? Obesity, Class 3 BMI 43. 7.? Protein calorie malnutrition D/t cancer.? Her obesity certainly increases her overall risk for morbidity and mortality, but her present malnutrition certainly complicates things.? Goal would not be weight loss in the immediate future, but rather optimizing her nu trition. ? Code Full Prophy Apixiban Dispo SNF at d/c. Hard to find options with her insurance. Patient may elect for hospice at home if home support can be arranged. Time Spent With Patient Critical Care time: I spent a total of [] minutes of critical care time on this patient's care today; this time is exclusive of procedural time. Quality VTE Deep Vein Thrombosis/Pulmonary Embolism Present on Admission: No
[2022-04-19 08:00] VITALS: BP 117/77; PULSE 108; RESP 16; TEMP 35.7; O2SAT 90
[2022-04-19] MEDS: INSULIN GLARGINE 100 UNIT/ML 3ML PEN 35 UNIT SUBCUT ×2 (09:31→20:50)
--- NOTE | 2022-04-19 09:33 | CM.DPC ---
Addendum entered by Lala Gutierrez R.N. 04/19/22 14:51: Called [facility] to see if they have patient on their service. Spoke to Blaire at [facility], and she indicated that they had referral, but needs to be re-reviewed to see if they can still accept. She indicated that [place] does not pay for BIODIESEL DIVISION MANAGER, and it's difficult to get reimbursed for wound care. She stated that she would discuss with her director. Blaire then called back and asked if they could be faxed updated clinical notes for her director to review. Faxed over yesterday's surgical note and progress note. Original Note: DCP Cont: Have not heard back from any of the facilities. Patient most likely will go home with home health. Did leave Gypsy at [facility] a message to have an answer today if they can potentially accept. Also, Gypsy had mentioned that she has a Romo Yarn Twisterobstetric anaesthetist, and if she can give this DC Principal Biostatistician the number to follow up as well. Will plan on meeting with patient today to discuss home plan with home health again. Had metioned this to her before, that is no facilities were secured, that she would need to go home. P: DCP to continue to work on case. Sumanth Adam, is also working with patient regarding resources, and will also be patient contact. Hali at wound clinic is working on wound vac with Lucila at [facility] as well. Lala Gutierrez RN/Yarn Twister
[2022-04-19] MEDS: LORazepam 0.5 MG TABLET PO ×2 (09:34→20:44)
[2022-04-19] MEDS: ACETAMINOPHEN SUSP 650 MG/20.3 ML UDC PO (09:34)
[2022-04-19] MEDS: buPROPion XL 150 MG TAB PO (09:35)
[2022-04-19] MEDS: DULOXETINE 30 MG CAPSULE PO (09:35)
[2022-04-19] MEDS: GABAPENTIN 600 MG TABLET PO ×3 (09:35→20:44)
[2022-04-19] MEDS: APIXABAN 5 MG TABLET PO ×2 (09:35→20:44)
[2022-04-19] MEDS: dexAMETHasone 4 MG TABLET 8 MG PO ×2 (09:35→16:53)
[2022-04-19] MEDS: LOSARTAN 50 MG TABLET PO (09:35)
[2022-04-19] MEDS: FAMOTIDINE 20 MG TABLET PO (09:35)
[2022-04-19] MEDS: SODIUM CHLORIDE 0.9% FLUSH 10 ML IV ×2 (09:36→21:00)
[2022-04-19] MEDS: THYROID, PORK 30 MG TABLET 105 MG PO (09:36)
[2022-04-19] MEDS: PANTOPRAZOLE 40 MG VIAL 20 MG IV (09:36)
[2022-04-19] MEDS: NYSTATIN POWDER 15GM 1 APPLIC TOP ×2 (09:36→21:00)
[2022-04-19 09:47] VITALS: O2SAT 98
[2022-04-19 09:48] VITALS: O2SAT 98
--- NOTE | 2022-04-19 11:31 | PT.IPTN ---
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) Cutaneous abscess of abdominal wall (04/09/22) Cutaneous abscess, unspecified (04/09/22) Local infection of the skin and subcutaneous tissue, unspecified (04/09/22) Surgery Performed Operation Date: 04/12/22 09:15 Actual Procedures p I&D abscess - Jing Guzmán MD Physical Therapy Treatment Note M2 PT-IP Current Condition Start: 04/10/22 08:26 Freq: NEEDED Status: Active Protocol: Document 04/18/22 09:37 SP (Rec: 04/18/22 12:08 SP [id number]) Physical Therapy Current Condition Current Condition Evaluation Date 04/11/22 Treatment Diagnosis influenza A; PEG site infection; impaired mobility Onset Date 04/09/22 M3 PT-IP Subjective Start: 04/10/22 08:26 Freq: NEEDED Status: Active Protocol: Document 04/19/22 11:31 AB (Rec: 04/19/22 13:37 AB [id number]) Subjective Physical Therapy Visit Type Type Treatment Note Visit Start Time 11:31 Visit Stop Time 12:32 Total Visit Minutes 35 Notes pt seen for split visits: 1131 to 1139 and 1205 to 1232 Number of FORENSIC EXAMINER Visits 0 Physical Therapy Visit Comments Patient Comments agreeable to do PT M4 PT-IP Mobility and Gait Start: 04/10/22 08:26 Freq: NEEDED Status: Active Protocol: Document 04/19/22 11:31 AB (Rec: 04/19/22 13:37 AB [id number]) PT-Bed Mobility Assessment Supine to Sit Supine to Sit Maximum Assistance,1 Person Assistance,2 Person Assistance ,Head of Bed Elevated,Bedrails Scooting Scooting to Edge of Bed Maximum Assistance PT-Transfer Assessment Sit to and From Stand Sit to and from Stand Maximum Assistance,2 Person Assistance,Use of Upper Extremities Transfers Transfer Destination Chair Transfer Technique Mechanical Lift Transfer Ability Level of Assist Total Assistance,2 Person Assistance Comments Mobility Comments pt completed supine to sit HOB elevated and use bed rail max A x 1-2 and max cues. pt required max A x 1-2 for scooting to EOB. attempted sit to stand x 4 reps but pt unable to stand up despite max A x 2 provided and bed height elevated. pt stated that she really want to go to the chair. Assisted pt to the chair using tobin lift. positioned pt on the chair. call light and table placed within reach. M5 PT-IP Objective Assessments Start: 04/10/22 08:26 Freq: NEEDED Status: Active Protocol: Document 04/11/22 14:57 AW (Rec: 04/11/22 15:38 AW [id number]) Orientation Orientation/Cognition Level of Alertness Alert Orientation Name,Day of Week,Place, Situation Safety Awareness Understands Safety Issues Gross Range of Motion Lower Extremity ROM Assessment Within Functional Limits Strength Lower Extremity Strength Assessment Bilaterally Impaired Hip 3-/5 Knee 4/5 Ankle 4/5 Sensation Assessment Sensation Gross Sensation Right UE Impaired,Left UE Impaired,Right LE Impaired, Left LE Impaired Comments Sensation Comments Neuropathy (likely chemo- induced) affects bilateral hands and feet. Muscle Tone Muscle Tone WNL Yes M6 PT-IP Treatment Start: 04/10/22 08:26 Freq: NEEDED Status: Active Protocol: Document 04/19/22 11:31 AB (Rec: 04/19/22 13:37 AB [id number]) Physical Therapy Treatment Education Education Provided Safety M7 PT-IP Assessment and Plan Start: 04/10/22 08:26 Freq: NEEDED Status: Active Protocol: Document 04/19/22 11:31 AB (Rec: 04/19/22 13:37 AB [email or web address]) PT Summary Assessment and Plan Potential Rehabilitation Potential Fair Summary Impairments Pain,ROM,Strength,Balance, Coordination,Sensation,Bed Mobility,Transfers,Gait, Activity Tolerance Progress Towards Goals Slow Progress due to Medical Issues,Slow Progress due to Activity Tolerance,Slow Progress - Other Assessment Summary pt unable to stand today despite several attempts. continues to require max A x 1 -2 for bed mobility and has decrease activity tolerance. pt will require SNF rehab to improve strength and function. Goals Bed Mobility Goal Minimal Assistance Transfer Goal Minimal Assistance,Front Wheeled Walker Gait Goal Minimal Assistance,Front Wheel Walker Gait Distance 75 Other Goals - improve bed mobility to SBA - improve transfers and gait to SBA with cane Days to Meet Goals 10 Frequency of Treatment Frequency Of Treatment Once a Day Treatment Plan Physical Therapy Treatment Plan Bed Mobility Training,Transfer Training,Gait Training, Therapeutic Exercise,Balance Retraining,Post Op Education, Discharge Planning,Hot or Cold Pack,Neuromuscular Re-ed Precautions Abdominal Surgery Precautions Log Roll,Lifting Restrictions, Gait Belt above Incisional Area Recommendations To Nursing Amount of Assist Needed Mechanical Lift Discharge Recommendations PT Discharge Recommendations SNF Rehab Transportation Needs at Discharge Wheelchair/Cabulance,Stretcher /Ambulance
--- NOTE | 2022-04-19 11:40 | OT.IPNOTE ---
Attempted to see pt for Ot treatment and pt having to use the bed culver and also requesting to have her dressing changed. To check on the pt later.
--- NOTE | 2022-04-19 12:33 | OT.IP.TRT ---
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 (Rec: 04/11/22 16:11 [facility] [id number]) Occupational Therapy Current Condition Current Condition Evaluation Date 04/11/22 Treatment Diagnosis FLUA, weakness and peg tube infection, s/p I and D Diagnosis Onset Date 04/09/22 M3 OT- IP Subjective and Pain Start: 04/11/22 15:51 Freq: Status: Active Protocol: Document 04/19/22 12:33 [facility] (Rec: 04/19/22 12:57 [facility] [id number]) OT- Subjective Occupational Therapy Visit Type Type Treatment Note Visit Start Time 11:55 Visit Stop Time 12:33 Total Visit Minutes 38 Occupational Therapy Visit Comments Patient Comments Pt wanting to try to get up to the recliner. Patient/Caregiver Goals TO get her legs stronger. OT Pain Assessment Pain When Pain Assessed During Mobility Pain Present Pain Present Pain Reported M7 OT- IP Mobility and Balance Start: 04/11/22 15:51 Freq: Status: Active Protocol: Document 04/19/22 12:33 [facility] (Rec: 04/19/22 12:57 [facility] [id number]) OT- Bed Mobility Assessment Supine to Sit Supine to Sit Assist Maximum Assistance,1 Person Assistance Scooting Scooting to Edge of Bed Maximum Assistance,1 Person Assistance OT-Transfer Assessment Comments Mobility Comments Pt able to move her RLE to the edge of the bed and needing assist at the end to get the LLE off the bed. MAX AX 1-2 to scoot her hips to the edge of the bed. Several attempts to stand and unable to stand even with MAX AX 2 and even with the bed raised. Pt was tired and just having been on the bed culver as well. OT- Balance Assessment Sitting Balance and Reactions Static Sitting Balance Ability Good Dynamic Sitting Balance Ability Fair Standing Balance and Reactions Static Standing Balance Ability Poor M9 OT- IP Assessment and Plan Start: 04/11/22 15:51 Freq: Status: Active Protocol: Document 04/19/22 12:33 [facility] (Rec: 04/19/22 12:57 [facility] [id number]) OT Summary Assessment and Plan Potential Rehabilitation Potential Fair Analytic Complexity at Evaluation Moderate Summary OT Impairments Pain,Strength,Balance, Functional Mobility,Dressing, Toileting,Bathing,Toilet Transfers,Shower Transfers, Activity Tolerance Progress Towards Goals Slow Progress due to Pain,Slow Progress due to Medical Issues,Slow Progress due to Activity Tolerance Assessment Summary Pt very willing to try to stand up today but unable to given the bed raised up and MAX AX 2 to try to come to stand. Pt will benefit from SNF to maximize her level of independence or ending up having to go home will need a tobin lift and assist available at all times or possible go to LTC. Goals Grooming Goal Standby Assistance Dressing Goal Moderate Assistance Toileting Goal Moderate Assistance Bathing Goal Moderate Assistance Toilet Transfer Goal Moderate Assistance Shower Transfer Goal Moderate Assistance Days to Meet Goals 30 Frequency of Treatment Frequency Of Treatment Once a Day Treatment Plan OT Treatment Plan ADL Training,Functional Mobility,Patient/Family Education,Discharge Planning Discharge Recommendations OT Discharge Recommendations SNF Rehab,LTAC Transportation Needs at Discharge Wheelchair/Cabulance
[2022-04-19] MEDS: INSULIN LISPRO 100 UNIT/ML 3ML VIAL SUBCUT ×3 (12:37→20:52)
[2022-04-19] MEDS: fentaNYL 12 MCG/PATCH TOP (14:35)
[2022-04-19 16:37] VITALS: BP 97/77; PULSE 110; RESP 18; TEMP 36.3
[2022-04-19 20:00] VITALS: BP 134/88; PULSE 111; RESP 22; TEMP 36.6; O2SAT 92
[2022-04-19] MEDS: ACETAMINOPHEN 325 MG TABLET 975 MG PO (20:43)
[2022-04-20] VITALS (11 sets, daily range): BP systolic 102–129; BP diastolic 57–84; PULSE 85–107; RESP 16–20; TEMP 35.3–36.6; O2SAT 91–94
[2022-04-20] MEDS: LEVOTHYROXINE 25 MCG TABLET PO (06:01)
--- NOTE | 2022-04-20 07:43 | P.PN_ITS ---
Subjective Subjective Date Patient Seen: 04/20/22 Interval history: Having a headache today and says the 12mcg fentanyl patch hasn't done much. Willing to try a higher dose. [facility] conference today at 1:30 with FINANCIAL SALES CONSULTANT to discuss dispo plans. Exam Vital Signs (past 8 hours): - 04/20/22 00:55 04/20/22 04:17 Temperature 97.8 F 97.3 F L Pulse Rate 85 94 H Respiratory Rate 20 18 Blood Pressure 129/84 111/68 Pulse Oximetry 91 92 Oxygen Flow Rate 1 1 Fraction of Inspired Oxygen 98 SaO2/FiO2 Ratio 287 Oxygen Delivery Method Nasal Cannula Oxygen Flow Rate 1 Narrative Exam Narrative: GEN:? Very pleasant middle-aged female who appears fatigued and worn out, Alert and oriented x 3, NAD HEENT:NC, Face symmetric, prominent steroid effect CHEST: Respiratory excursions symmetric, CTAB CV: RRR, no M/R/G ABD: Soft, obese, NT/ND, BT present in all 4 quadrants, body habitus limits exam, site was not visualized but dressing was clean/dry/intact EXTR:? Feet have significant dependent rubor, 2+ edema, decreased perfusion overall, left hand numb with decreased sensation SKIN: warm and dry, no rash NEURO: Alert and oriented x 3, nonfocal Objective Labs Result Diagrams: 04/18/22 06:00 04/18/22 06:00 [facility] Medical History Abnormal Pap smear of cervix Allergic rhinitis due to dust mite (11/14/14) Alopecia due to cytotoxic drug Angiolipoma of skin (02/20/14) Arthritis Breast cancer metastasized to brain Cystocele (10/21/14) Depression Fibromyalgia History of chemotherapy Mild obstructive sleep apnea-hypopnea syndrome (03/06/15) Myopia 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 drug Obesity, Class III, BMI 40-49.9 (morbid obesity) Pelvic relaxation 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) Psoriasis Pulmonary embolism (01/18/22) Rosacea (10/31/13) Tenesmus of bladder (10/21/14) Thyroid nodule Uterine fibroid Vaginal mass Vitamin D deficiency (03/06/15) Surgical History History of brain shunt (~12/22/21) History of gynecologic surgery (10/06/20) History of radioactive iodine thyroid ablation History of removal of Port-a-Cath (07/10/19) History of surgery (11/27/18) History of surgery (12/04/18) History of vaginal hysterectomy (~07/2017) Hx of cholecystectomy Hx of craniotomy (12/13/21) Hx of left mastectomy (06/05/19) Status post excision of lipoma (~2013) Status post tubal ligation (~2013) Family History Father Alcoholism Mother Age: 71 Depression Grandfather Diabetes mellitus Mother Parkinson's disease Social History household members: children Smoking Status: Former smoker alcohol intake: never Assessment & Plan Assessment & Plan narrative: 1. Influenza A infection / weakness ?Dx'd 04/06/22.? Continue supportive care.? She is slowly feeling better. Could d/c droplet precautions at this point. 2.? PEG site infection w/abscess, now POD #6 from I/D Polymicrobial cultures growing klebsiella, staph aureus, strep group F and rajani dubliniensis.? Deep culture is positive for klebsiella.? Pt remains on Levaquin 750 mg po daily; given a total of 10 days of therapy given her im munosuppressed status.? Continued BID dressing changes. Reglan added to zofran for ongoing nausea. Will speak with gen surg about applying wound vac. 3.? Metastastic breast cancer s/p crani and RING CONDUCTOR Shunt Continues dex and home meds.? Patient received a single dose of IV morphine 2 days ago. It is available as needed but she remains reluctant to use it. 12mcg fentanyl patch did not help, will remove and put on 25mcg patch 04/20. ? 4.? Recent PE On apixiban.? 5.? DM2 New dx.? A1C 9.4%.? Likely progressive in the setting of steroid dependence.? BGs have remained in the high 200s for the past 24 hrs.? Will increase Lantus to 35 units twice daily. 6.? Obesity, Class 3 BMI 43. 7.? Protein calorie malnutrition D/t cancer.? Her obesity certainly increases her overall risk for morbidity and mortality, but her present malnutrition certainly complicates things.? Goal would not be weight loss in the immediate future, but rather optimizing her nutrition. ? Code Full Prophy Apixiban Dispo Home with hospice is the plan per [facility] convo with family. Arranging wound vac prior to dispo. Time Spent With Patient Critical Care time: I spent a total of [] minutes of critical care time on this patient's care today; this time is exclusive of procedural time. Quality VTE Deep Vein Thrombosis/Pulmonary Embolism Present on Admission: No
[2022-04-20] MEDS: dexAMETHasone 4 MG TABLET 8 MG PO ×2 (08:51→16:27)
[2022-04-20] MEDS: LOSARTAN 50 MG TABLET PO (08:51)
[2022-04-20] MEDS: PANTOPRAZOLE 40 MG VIAL 20 MG IV (08:51)
[2022-04-20] MEDS: buPROPion XL 150 MG TAB PO (08:52)
[2022-04-20] MEDS: APIXABAN 5 MG TABLET PO ×2 (08:52→20:53)
[2022-04-20] MEDS: LORazepam 0.5 MG TABLET PO (08:52)
[2022-04-20] MEDS: DULOXETINE 30 MG CAPSULE PO (08:52)
[2022-04-20] MEDS: GABAPENTIN 600 MG TABLET PO ×3 (08:52→20:53)
[2022-04-20] MEDS: SODIUM CHLORIDE 0.9% FLUSH 10 ML IV ×2 (08:52→20:53)
[2022-04-20] MEDS: FAMOTIDINE 20 MG TABLET PO (08:52)
[2022-04-20] MEDS: THYROID, PORK 30 MG TABLET 105 MG PO (08:53)
[2022-04-20] MEDS: NYSTATIN POWDER 15GM 1 APPLIC TOP ×2 (08:53→21:02)
[2022-04-20] MEDS: INSULIN GLARGINE 100 UNIT/ML 3ML PEN 35 UNIT SUBCUT ×2 (08:54→20:56)
--- NOTE | 2022-04-20 09:05 | CM.DPC ---
Addendum entered by Petrona Chandler R.N. 04/20/22 11:08: DCP Cont: Pt was discussed in rounds this morning. It was determined that pt needs to have a goals of care conversation. RONP spoke with pt this morning to ask who she would like present and she states, Saurabh and Yury if they can make it. RONP contacted Saurabh and he will be at the meeting and Yury is going to try and make the meeting time. The conference is scheduled for 1330. MARGARETH RAMOS, RN, Saurabh, Yury, patient, and Telma to be present. Pt wanting to know why we can't keep her in the hospital. MARGARETH explained the reasoning. Pt understands the complexity of discharge plan. DCP to continue to follow and work on case. ADJ Original Note: DCP Cont: DCP received VM from [facility] stating that they cannot accept the patient under their services at this time due to not being able to accept pt insurance and because of the complexity of pt needs. This DCP will verbalize to the team and discuss hospice with MD today at rounds to determine if the conversation has been had between MD and pt or if a care conference is needed. DCP to continue to follow. Petrona Chandler RN/MARGARETH
--- NOTE | 2022-04-20 09:39 | PT-IP ANOTE ---
Pt eating breakfast when arrived. Pt agreeable to working with therapy but asked for little later, states tired and taking time to eat her breakfast.
[2022-04-20] MEDS: ACETAMINOPHEN 325 MG TABLET 975 MG PO (11:43)
[2022-04-20] MEDS: DOCUSATE 100 MG CAPSULE PO (11:43)
[2022-04-20] MEDS: INSULIN LISPRO 100 UNIT/ML 3ML VIAL SUBCUT ×2 (12:07→18:10)
--- NOTE | 2022-04-20 12:21 | DIET.CONS2 ---
Dietary Inpatient Consultation Note Admission Date: 04/09/2022 14:44 RD screens pt for LOS day 11. Pt tolerating ONS to support wound healing. Pt remains hospitalized r/t difficulty with d/c plan. No change to nutrition plan. Diet: 04/16/22 Breakfast Carbohydrate Consistent Diet Diet Modifications: Carbohydrate level: Medium (3 CHO) Nutrition Percent Meal Consumed 50% 04/19/22 18:15 Percent Meal Consumed 25% 04/19/22 10:06 Electronically Signed by: Mary Jo Solis 04/20/22 12:21 Clinical Dietitian [address] [address]
[2022-04-20] MEDS: fentaNYL 25 MCG/PATCH TOP (13:16)
--- NOTE | 2022-04-20 14:10 | OT.IPNOTE ---
Pt agreed to Hospice and therefore discharge pt from OT services.
--- NOTE | 2022-04-20 14:24 | CM.DPC ---
RONP Cont: Care conference was had. Telma, MARGARETH, Saurabh, and Yury were all in attendance. Meeting took about 30 minutes. Telma and MARGARETH explained that placement at SNF and HH agencies have all been exhausted and pt has been denied at this time. Bill concerned about taking patient home and not having the resources to take care of her. Telma was able to provide a background about hospice services and the resources available to them. Pt does have a [facility] bottle caser who is working with the son to get in home caregiving resources. One of the biggest barriers is the patient not having a place to live as they are getting evicted from their home. Bill provided Telma and MARGARETH with the option that they could swing by for a month at this current house and allow for hospice to open up with her there. Bill wanting to know about FMLA and Telma able to provide information and will help Bill apply. Bill understanding about the patient level of needs and states, I will do what we can to help her. Yury understands that he needs to move furniture in order to accommodate for hospice equipment. MARGARETH to send referral to hospice. RONP spoke with Hospice and provided them with referral information. Saurabh contact information given to hospice. Hospice to keep DCP informed on when intake visit will be and equipment set up. DCP to contact [facility] shoe caser to discuss in home care giving resources. MARGARETH to continue to follow. Petrona Chandler RN/RONP
--- NOTE | 2022-04-20 14:42 | PT.IPTN ---
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) Cutaneous abscess of abdominal wall (04/09/22) Cutaneous abscess, unspecified (04/09/22) Local infection of the skin and subcutaneous tissue, unspecified (04/09/22) Surgery Performed Operation Date: 04/12/22 09:15 Actual Procedures p I&D abscess - Jing Guzmán MD Physical Therapy Treatment Note M2 PT-IP Current Condition Start: 04/10/22 08:26 Freq: NEEDED Status: Active Protocol: Document 04/18/22 09:37 SP (Rec: 04/18/22 12:08 SP [id number]) Physical Therapy Current Condition Current Condition Evaluation Date 04/11/22 Treatment Diagnosis influenza A; PEG site infection; impaired mobility Onset Date 04/09/22 M3 PT-IP Subjective Start: 04/10/22 08:26 Freq: NEEDED Status: Active Protocol: Document 04/20/22 14:40 AB (Rec: 04/20/22 14:42 AB [id number]) Subjective Physical Therapy Visit Type Type Administrative Note Notes Talked with top case assembler and stated that pt will be going home and will be on hospice care. Talked with pt and informed regarding d/c PT and pt agreed. informed top case assembler regarding d/c PT M7 PT-IP Assessment and Plan Start: 04/10/22 08:26 Freq: NEEDED Status: Active Protocol: Document 04/20/22 14:40 AB (Rec: 04/20/22 14:42 AB [id number]) PT Summary Assessment and Plan Frequency of Treatment Frequency Of Treatment Discharge
[2022-04-20] MEDS: BUTALB/APAP/CAFFEINE 50/325/40 TABLET 1 EACH PO (16:26)
[2022-04-20] MEDS: polyethylene glycoL 3350 17 GM POWD.PACK PO (20:53)
--- NOTE | 2022-04-20 22:42 | PC.NURSE ---
Addendum entered by Naila Meier R.N. 04/20/22 22:49: Correction of previous documentation: O2 sat was 93% Original Note: Patient is alert and oriented. Breath sounds CTA with sat of 91% on oxygen at 1L/min per NC. Denies SOB at rest but states she feels SOB when she is any position other than being upright. HRR but tachy at 107 bpm. Continues with generalized edema. Has weakness/numbness in all extremities but states is moreso in left than in right. BT present and had hard stool tonight; was started on Miralax tonight and will begin Senna in the morning. Has been voiding on bedpan; denies dysuria. Is assisted to reposition q2h but generally declines due to breathing; will turn self slightly in bed. Is no longer ambulatory since plan is to DC on hospice; Geraldine used for transfers. Dressing to abdomen is intact with small amount drainage noted. Reports pressure pain in head causing ringing in her ears as well as generalized body aches but declines pain medication as states it does not help. Fall risk score is high and bed alarm is activated.
[2022-04-21] VITALS (11 sets, daily range): BP systolic 108–132; BP diastolic 72–100; PULSE 93–108; RESP 16–20; TEMP 35.4–36.7; O2SAT 91–94
[2022-04-21] MEDS: LEVOTHYROXINE 25 MCG TABLET PO (06:05)
--- NOTE | 2022-04-21 08:24 | P.PN_ITS ---
Subjective Subjective Date Patient Seen: 04/21/22 Interval history: Patient continues to have headache, but appetite has improved today. I spent 18 minutes discussing patient's code status given her desire to pursue hospice. She agreed that DNR/DNI would most fit with her goals and therefore her POLST form was updated and signed to reflect this and comfort measures only once she returns home. Exam Vital Signs (past 8 hours): - 04/21/22 04:00 04/21/22 04:00 04/21/22 06:10 Temperature 95.8 F L 97.5 F L Pulse Rate 93 H Respiratory Rate 20 Blood Pressure 108/82 Pulse Oximetry 92 92 Oxygen Delivery Method Nasal Cannula Oxygen Flow Rate 1 1 Fraction of Inspired Oxygen 98 SaO2/FiO2 Ratio 287 Oxygen Delivery Method Nasal Cannula Oxygen Flow Rate 1 Narrative Exam Narrative: GEN:? Very pleasant middle-aged female who appears fatigued and worn out, Alert and oriented x 3, NAD HEENT:NC, Face symmetric, prominent steroid effect CHEST: Respiratory excursions symmetric, CTAB CV: RRR, no M/R/G ABD: Soft, obese, NT/ND, BT present in all 4 quadrants, body habitus limits exam, site was not visualized but dressing was clean/dry/intact EXTR:? Feet have significant dependent rubor, 2+ edema, decreased perfusion overall, left hand numb with decreased sensation SKIN: warm and dry, no rash NEURO: Alert and oriented x 3, nonfocal Objective Labs Result Diagrams: 04/18/22 06:00 04/18/22 06:00 [facility] Medical History Abnormal Pap smear of cervix Allergic rhinitis due to dust mite (11/14/14) Alopecia due to cytotoxic drug Angiolipoma of skin (02/20/14) Arthritis Breast cancer metastasized to brain Cystocele (10/21/14) Depression Fibromyalgia History of chemotherapy Mild obstructive sleep apnea-hypopnea syndrome (03/06/15) Myopia 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 drug Obesity, Class III, BMI 40-49.9 (morbid obesity) Pelvic relaxation 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) Psoriasis Pulmonary embolism (01/18/22) Rosacea (10/31/13) Tenesmus of bladder (10/21/14) Thyroid nodule Uterine fibroid Vaginal mass Vitamin D deficiency (03/06/15) Surgical History History of brain shunt (~12/22/21) History of gynecologic surgery (10/06/20) History of radioactive iodine thyroid ablation History of removal of Port-a-Cath (07/10/19) History of surgery (11/27/18) History of surgery (12/04/18) History of vaginal hysterectomy (~07/2017) Hx of cholecystectomy Hx of craniotomy (12/13/21) Hx of left mastectomy (06/05/19) Status post excision of lipoma (~2013) Status post tubal ligation (~2013) Family History Father Alcoholism Mother Age: 71 Depression Grandfather Diabetes mellitus Mother Parkinson's disease Social History household members: children Smoking Status: Former smoker alcohol intake: never Assessment & Plan Assessment & Plan narrative: 1. Influenza A infection / weakness ?Dx'd 04/06/22.? Continue supportive care.? She is slowly feeling better. Could d/c droplet precautions at this point. 2.? PEG site infection w/abscess, now POD #6 from I/D Polymicrobial cultures growing klebsiella, staph aureus, strep group F and rajani dubliniensis.? Deep culture is positive for klebsiella.? Pt remains on Levaquin 750 mg po daily; given a total of 10 days of therapy given her immunosuppressed status.? Continued BID dressing changes. Reglan added to zofran for ongoing nausea. Will speak with gen surg about applying wound vac. 3.? Metastastic breast cancer s/p crani and DOCTOR OF NURSE ANESTHESIA Shunt Continues dex and home meds.? Patient received a single dose of IV morphine 2 days ago. It is available as needed but she remains reluctant to use it. 12mcg fentanyl patch did not help, will remove and put on 25mcg patch 04/20. ? 4.? Recent PE On apixiban.? 5.? DM2 New dx.? A1C 9.4%.? Likely progressive in the setting of steroid dependence.? BGs have remained in the high 200s for the past 24 hrs.? Will increase Lantus to 35 units twice daily. 6.? Obesity, Class 3 BMI 43. 7.? Protein calorie malnutrition D/t cancer.? Her obesity certainly increases her overall risk for morbidity and mortality, but her present malnutrition certainly complicates things.? Goal would not be weight loss in the immediate future, but rather optimizing her nutrition. ? Code DNR Prophy Apixiban Dispo Home with hospice is the plan per [facility] convo with family. Arranging wound vac prior to dispo. Time Spent With Patient Critical Care time: I spent a total of [] minutes of critical care time on this patient's care toda y; this time is exclusive of procedural time. Quality VTE Deep Vein Thrombosis/Pulmonary Embolism Present on Admission: No
[2022-04-21] MEDS: INSULIN LISPRO 100 UNIT/ML 3ML VIAL SUBCUT ×4 (08:35→21:55)
[2022-04-21] MEDS: GABAPENTIN 600 MG TABLET PO ×3 (08:36→21:48)
[2022-04-21] MEDS: LOSARTAN 50 MG TABLET PO (08:36)
[2022-04-21] MEDS: THYROID, PORK 30 MG TABLET 105 MG PO (08:36)
[2022-04-21] MEDS: APIXABAN 5 MG TABLET PO ×2 (08:36→21:48)
[2022-04-21] MEDS: dexAMETHasone 4 MG TABLET 8 MG PO ×2 (08:36→18:18)
[2022-04-21] MEDS: FAMOTIDINE 20 MG TABLET PO (08:36)
[2022-04-21] MEDS: SENNOSIDES 8.6 MG TABLET PO (08:36)
[2022-04-21] MEDS: DULOXETINE 30 MG CAPSULE PO (08:36)
[2022-04-21] MEDS: INSULIN GLARGINE 100 UNIT/ML 3ML PEN 35 UNIT SUBCUT ×2 (08:39→21:54)
[2022-04-21] MEDS: buPROPion XL 150 MG TAB PO (08:39)
[2022-04-21] MEDS: PANTOPRAZOLE 40 MG VIAL 20 MG IV (08:39)
[2022-04-21] MEDS: polyethylene glycoL 3350 17 GM POWD.PACK PO ×2 (08:40→21:47)
[2022-04-21] MEDS: NYSTATIN POWDER 15GM 1 APPLIC TOP ×2 (08:40→21:48)
[2022-04-21] MEDS: SODIUM CHLORIDE 0.9% FLUSH 10 ML IV ×2 (08:41→21:52)
[2022-04-21] MEDS: LORazepam 0.5 MG TABLET PO ×2 (09:04→21:48)
[2022-04-21] MEDS: BUTALB/APAP/CAFFEINE 50/325/40 TABLET 1 EACH PO (09:04)
--- NOTE | 2022-04-21 09:27 | CM.DPC ---
Addendum entered by Petrona Chandler R.N. 04/21/22 14:49: Spoke with Valeria @ Hospice and she informed this DCP that the info visit is scheduled for 1630 this afternoon with Bill and son. Valeria has a tentative open date for this Monday 04/23 to see pt in home and have equipment delivered by this date. Valeria to follow up with this DCP tomorrow morning to discuss further. ADJ Addendum entered by Petrona Chandler R.N. 04/21/22 09:36: Spoke with [facility] patient case manager, Cassidy, and updated her on current pt situation. Cassidy stating unable to assess her until middle of next week for in home caregiving. DCP verbalized the goal would be to send her home by this weekend if not tomorrow. Cassidy going to follow up with DCP later today after she has discussed information for assessment with her supervisor mending. ADJ Original Note: DCP Cont: Spoke with Valeria @ Hospice of this morning to discuss pt case. Confirmed they have received the referral and are attempting to get in contact with the family to set up intake visit. Valeria states that they do have openings starting tomorrow and into the weekend. DCP provided Valeria with Bills contact info in case she cannot get a response from the son. Valeria to keep DCP updated throughout the day. Petrona Chandler RN/RONP
--- NOTE | 2022-04-21 10:44 | ONC.MSW ---
Late Entry: Visit 04/20/22 Inpt Care Conference D/C Planning Activity: This GEM TECHNICIAN met jointly with Petrona, D/C child care teacher, with family (son, Saurabh, boyfriend Yury) and pt at bedside. Discussed the need for pt to d/c, explained that no prison or Home Health agencies are willing to accept patient, and ultimately agreed on a plan w/hospice in place. Both Yury and Saurabh expressed ambivalence about being able to take patient home and provide care, and were unwilling until this GEM TECHNICIAN and Petrona were able to discuss resources for home assistance and teaching. Yury states that he will talk with their landlord about staying one more month, and was ultimately agreeable to caring for pt with the assistance of this GEM TECHNICIAN in obtaining Paid Leave of [employer] and [email or web address] in order to protect his job, and not lose pay that the family is desperately depending on. Offered grief support and explained the role and services to expect with hospice services in the home. Will f/u with Yury again tomorrow to initiate his claim with [place]. GEM TECHNICIAN and our Oncology team will continue to monitor the continued D/C plan, support the patient with this transition, and assist with coordination with the hospice team once we know when they can admit.
[2022-04-21] MEDS: MORPHINE 2 MG/ML INJ 4 MG IV (14:46)
[2022-04-22] VITALS (11 sets, daily range): BP systolic 111–132; BP diastolic 72–95; PULSE 99–111; RESP 16–20; TEMP 36.1–36.7; O2SAT 90–97
[2022-04-22] MEDS: LEVOTHYROXINE 25 MCG TABLET PO (06:26)
--- NOTE | 2022-04-22 08:08 | CM.DANOTE ---
Addendum entered by Petrona Chandler R.N. 04/22/22 08:08: Entered in error. Please see new note. Original Note: Discharge Planning/Care Management CM Discharge Assessment Start: 04/10/22 14:36 Freq: Status: Active Protocol: Document 04/10/22 14:36 HS (Rec: 04/10/22 14:44 HS [id number]) Discharge Planning Assessment Assigned Deputy Sheriff K9 Handler Raysa Romano RNindustrial electrical engineer Advance Directives? No History Provided By Medical Record Has Patient been admitted in last 30 No days? Prior Living Arrangements House Comment Patient lives with young daughter and 30 yr old son in [place]. Household Members children Comment CM unable to reach by phone patient is Flu + and CM not allowed to enter room at this time due to being on isolation precautions. in previouse visit to ED celeste ARROYO saw patient and noted patient is having a hard time with ADLs at home especially walking and transfering to bathroom. Caregiver for Another Yes: has a young daughter at home Comment CM discussed HH with patient previously and is started with [facility] from the ED for HH aid, PT, OT, RN and [employer] through [facility] Already Rented / Owned Wheelchair,FWW / Walker Comment had difficulty getting fww in her home Patient/Family Preference Home with Home Health Comment CM called [facility] to check on previous referral and LVM Barriers to Discharge No Discharge Plan Home with Home Health Referrals Initiated Home Health Medicare Choice List Provided Yes SNF/HH Preference [facility] Review Status In Process Next Review Type Continued Stay Review
--- NOTE | 2022-04-22 08:09 | CM.DPC ---
DCP Cont: Spoke with Valeria @ Hospice this morning and it was discussed that she could not get in contact with Saurabh, pt son, yesterday to do intake visit. When she contacted Bill, he told Valeria that he could not do the visit and to contact Saurabh. Valeria asked if patient was able to do the visit herself and this DCP verbalized, yes. Pt is of sane mind and able to make decisions. Valeria to discuss with her team to see if a RN can come out to assess her today or if she can do it over the phone. This DCP will inform the patient once final plan is confirmed. Petrona Chandler, WILBER/DCP
[2022-04-22] MEDS: INSULIN LISPRO 100 UNIT/ML 3ML VIAL SUBCUT ×4 (08:20→21:15)
[2022-04-22] MEDS: INSULIN GLARGINE 100 UNIT/ML 3ML PEN 35 UNIT SUBCUT ×2 (08:23→21:14)
[2022-04-22] MEDS: PANTOPRAZOLE 40 MG VIAL 20 MG IV (08:24)
[2022-04-22] MEDS: APIXABAN 5 MG TABLET PO ×2 (08:25→21:14)
[2022-04-22] MEDS: dexAMETHasone 4 MG TABLET 8 MG PO ×2 (08:25→16:35)
[2022-04-22] MEDS: FAMOTIDINE 20 MG TABLET PO (08:25)
[2022-04-22] MEDS: GABAPENTIN 600 MG TABLET PO ×3 (08:25→21:14)
[2022-04-22] MEDS: SENNOSIDES 8.6 MG TABLET PO (08:25)
[2022-04-22] MEDS: buPROPion XL 150 MG TAB PO (08:25)
[2022-04-22] MEDS: DULOXETINE 30 MG CAPSULE PO (08:25)
[2022-04-22] MEDS: LOSARTAN 50 MG TABLET PO (08:25)
[2022-04-22] MEDS: LORazepam 0.5 MG TABLET PO ×2 (08:28→21:29)
[2022-04-22] MEDS: THYROID, PORK 30 MG TABLET 105 MG PO (08:30)
[2022-04-22] MEDS: ACETAMINOPHEN 325 MG TABLET 975 MG PO (08:30)
[2022-04-22] MEDS: polyethylene glycoL 3350 17 GM POWD.PACK PO ×2 (08:31→21:14)
[2022-04-22] MEDS: SODIUM CHLORIDE 0.9% FLUSH 10 ML IV ×2 (08:31→21:31)
[2022-04-22] MEDS: ONDANSETRON 4 MG/2 ML INJ IV (12:10)
--- NOTE | 2022-04-22 12:42 | CM.DPC ---
Addendum entered by Petrona Chandler R.N. 04/22/22 15:31: Spoke with Cassidy [facility] disability case manager and she states that she could assess the patient on Friday 04/27 @ 0900 if pt still admitted. If pt does go home, pt can be assessed by her colleague. ADJ Addendum entered by Petrona Chandler R.N. 04/22/22 14:29: DCP Cont: DCP spoke with pt and confirmed with her that the house they are going to be living at is the house that is up for sale but the landlord is Yury's aunt and is making special accommodations for this situation. DCP spoke with Bill and he has confirmed that this is true and they are cleaning out the house today to get set up for hospice. DCP contacted Valeria @ Hospice and left a VM for a call back to explain. ADJ Addendum entered by Petrona Chandler R.N. 04/22/22 13:03: Spoke with Chel @ [facility] and she states that at this time she cannot accept the patient due to insurance, bariatric needs, and wound care needs. Gypsy also states that is she is going end of life care measures and hospice, to follow up with her next week to determine if they can accept. As of today, they have no beds. Gypsy states, If her care changes and she does not get on wound vac, they could potentially look into case again. DCP to continue to follow. ADJ Original Note: DCP Cont: Intake visit was done with hospice and pt this morning. Hospice contacted this DCP and informed her that they cannot take pt under their services until living situation is solidified. Hospice wants to know where patient will be living since she is getting evicted from the home. Hospice also states that the pt told them she is not confident in Bill and sons ability to care for her. Hospice and DCP to continue working together. DCP contacted [facility] disability case manager, Cassidy Aguillon, and left VM to contact back to discuss setting up a time to come and assess the patient for in home caregiving. DCP spoke with ENDY Mariano @ Hospice and provided her with the information about patient case. [place] # [phone]. Josefina @ [facility] contacted this DCP to discuss wound vac at discharge. Josefina requesting records. DCP to fax. DCP to continue working on this case and assist with providing a safe discharge plan. Petrona Chandler RN/DCP
--- NOTE | 2022-04-22 15:10 | PM.PN.1 ---
Subjective Subjective Interval history: 51 yo female with metastatic breast cancer (recently 44 day stay at [facility] for crani complicated by hydrocephalus requiring EVD/FUSING LINE INSPECTOR shunt placement) s/p brain XRT and upcoming intiation of palliative chemo, dysphagia and malnutrition during prior hospitalization requiring PEG tube placement, PEs on apixiban, HTN, hypothyroidism admitted w/influenza A infection, PEG tube abscess being treated w/po high dose Levaquin, and hyperglycemia.? Shehad been awaiting SNF placement w/possible hospice admission. However, that could not be worked out. Now planning to dc home w/hospice and a wound vac for the g-tube infection site. Patient reports she is ?tired?. She states both the tired as both General from her illness and specific to being in the hospital and feeling tired today. She does not notice any significant improvement in her pain with fentanyl patch. She denies any shortness of breath. She expresses concern about her return home as she states her family is not equipped to provide caregiving. She reports that the father of her daughter is not actively involved. She notes her eldest son who is 32 is autistic and will not be able to provide much assistance as he is unable to drive. Her other son who is 30 may be able to provide some help. However she notes everybody works and she is not even certain how she will get food. ? Exam Vital Signs (past 8 hours): - 04/21/22 13:00 04/21/22 16:00 04/21/22 17:00 Temperature 97.1 F L Pulse Rate 108 H Respiratory Rate 17 Blood Pressure 127/80 Pulse Oximetry 94 93 93 Oxygen Delivery Method Nasal Cannula Nasal Cannula Oxygen Flow Rate 1 1 1 Fraction of Inspired Oxygen 98 SaO2/FiO2 Ratio 287 Oxygen Delivery Method Nasal Cannula Oxygen Flow Rate 1 Narrative Exam Narrative: GEN:? Very pleasant middle-aged female, Alert and oriented x 3, flat affect HEENT:NC, Face symmetric, prominent steroid effect CHEST: Respiratory excursions symmetric, CTAB CV: RRR, no M/R/G ABD: Soft, obese, NT/ND, BT present in all 4 quadrants, body habitus limits exam, site was not visualized but dressing was clean/dry/intact EXTR:? Feet have significant dependent rubor, 2+ edema, decreased perfusion overall, feet are slightly cool bilaterally SKIN: warm and dry, no rash NEURO: Alert and oriented x 3, nonfocal Objective Labs Result Diagrams: 04/18/22 06:00 04/18/22 06:00 Labs: Laboratory Results - last 24 hr 04/09/22 04/09/22 04/12/22 21:20 21:20 10:53 Ref Test (Refrig) Comment Comment Comment 04/12/22 10:53 Ref Test (Refrig) Comment PFSH Medical History Abnormal Pap smear of cervix Allergic rhinitis due to dust mite (11/14/14) Alopecia due to cytotoxic drug Angiolipoma of skin (02/20/14) Arthritis Breast cancer metastasized to brain Cystocele (10/21/14) Depression Fibromyalgia History of chemotherapy Mild obstructive sleep apnea-hypopnea syndrome (03/06/15) Myopia 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 drug Obesity, Class III, BMI 40-49.9 (morbid obesity) Pelvic relaxation 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) Psoriasis Pulmonary embolism (01/18/22) Rosacea (10/31/13) Tenesmus of bladder (10/21/14) Thyroid nodule Uterine fibroid Vaginal mass Vitamin D deficiency (03/06/15) Surgical History History of brain shunt (~12/22/21) History of gynecologic surgery (10/06/20) History of radioactive iodine thyroid ablation History of removal of Port-a-Cath (07/10/19) History of surgery (11/27/18) History of surgery (12/04/18) History of vaginal hysterectomy (~07/2017) Hx of cholecystectomy Hx of craniotomy (12/13/21) Hx of left mastectomy (06/05/19) Status post excision of lipoma (~2013) Status post tubal ligation (~2013) Family History Father Alcoholism Mother Age: 71 Depression Grandfather Diabetes mellitus Mother Parkinson's disease Social History household members: children Smoking Status: Former smoker alcohol intake: never Assessment & Plan Assessment & Plan narrative: 1. Influenza A infection / weakness ?Dx'd 04/06/22.? Now resolved. 2.? PEG site infection w/abscess, now POD #5 from I/D Polymicrobial cultures growing klebsiella, staph aureus, strep group F and rajani dubliniensis.? Deep culture is positive for klebsiella.? Completed course of Levaquin. Now awaiting approval for home wound vac. 3.? Metastastic breast cancer s/p crani and FUSING LINE INSPECTOR Shunt Continues dex and home meds.? Fentanyl patch placed. Plan for hospice admission upon discharge from . Anticipate potential discharge tomorrow. There are concerns about overall caregiving with her being alone frequently at home. Discharge team is currently working on a plan. ? 4.? Recent PE On apixiban.? 5.? DM2 New dx.? A1C 9.4%.? Likely progressive in the setting of steroid dependence.? BGs 193-233. Continues Lantus 35 BID. Given goals for hospice at d/c, will not pursue tighter glycemic control. ? 6.? Obesity, Class 3 BMI 43. 7.? Protein calorie malnutrition D/t cancer.? Her obesity certainly increases her overall risk for morbidity and mortality, but her present malnutrition certainly complicates things.? Goal would not be weight loss in the immediate future, but rather optimizing her nutrition. ? Code DNR Prophy Apixiban Dispo Home w/hospice once wound vac arranged. Time Spent With Patient Critical Care time: I spent a total of [] minutes of critical care time on this patient's care today; this time is exclusive of procedural time. Quality VTE Deep Vein Thrombosis/Pulmonary Embolism Present on Admission: No
[2022-04-22] MEDS: NYSTATIN POWDER 15GM 1 APPLIC TOP (21:30)
[2022-04-22] MEDS: MORPHINE 2 MG/ML INJ 4 MG IV (22:02)
[2022-04-23] VITALS (10 sets, daily range): BP systolic 114–133; BP diastolic 76–101; PULSE 101–113; RESP 16–22; TEMP 35.6–36.6; O2SAT 92–98
[2022-04-23] MEDS: LORazepam 0.5 MG TABLET PO ×3 (03:30→20:13)
--- NOTE | 2022-04-23 07:28 | PM.PN.1 ---
Subjective Subjective Date Patient Seen: 04/23/22 Interval history: She is experiencing itchiness around her J-tube site. A dressing is in place. She tells me that she lives with her son and her daughter. 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 Dr. Barajas is her physician. Her blood pressure is 133/101 with a heart rate of 113. Hospice is considering making an exception and paying for a wound VAC for her. Exam Vital Signs (past 8 hours): - 04/23/22 04:27 Temperature 97.8 F Pulse Rate 113 H Respiratory Rate 22 Blood Pressure 133/101 H Pulse Oximetry 94 Fraction of Inspired Oxygen 28 SaO2/FiO2 Ratio 328 Oxygen Delivery Method Nasal Cannula Oxygen Flow Rate 2 Narrative Exam Narrative: Alert and oriented x3. No apparent distress Heart is regular rate and rhythm without murmur Lungs are clear to auscultation bilaterally Extremities have 2+ edema of both ankles. Abdomen: J-tube place with dressing covering it. Abdomen nontender Objective Labs Result Diagrams: 04/18/22 06:00 04/18/22 06:00 [facility] Medical History Abnormal Pap smear of cervix Allergic rhinitis due to dust mite (11/14/14) Alopecia due to cytotoxic drug Angiolipoma of skin (02/20/14) Arthritis Breast cancer metastasized to brain Cystocele (10/21/14) Depression Fibromyalgia History of chemotherapy Mild obstructive sleep apnea-hypopnea syndrome (03/06/15) Myopia 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 drug Obesity, Class III, BMI 40-49.9 (morbid obesity) Pelvic relaxation 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) Psoriasis Pulmonary embolism (01/18/22) Rosacea (10/31/13) Tenesmus of bladder (10/21/14) Thyroid nodule Uterine fibroid Vaginal mass Vitamin D deficiency (03/06/15) Surgical History History of brain shunt (~12/22/21) History of gynecologic surgery (10/06/20) History of radioactive iodine thyroid ablation History of removal of Port-a-Cath (07/10/19) History of surgery (11/27/18) History of surgery (12/04/18) History of vaginal hysterectomy (~07/2017) Hx of cholecystectomy Hx of craniotomy (12/13/21) Hx of left mastectomy (06/05/19) Status post excision of lipoma (~2013) Status post tubal ligation (~2013) Family History Father Alcoholism Mother Age: 71 Depression Grandfather Diabetes mellitus Mother Parkinson's disease Social History household members: children Smoking Status: Former smoker alcohol intake: never Assessment & Plan Assessment & Plan narrative: 1. Influenza A infection / weakness ?Dx'd 04/06/22.? Now resolved. 2.? PEG site infection w/abscess, now POD #5 from I/D Polymicrobial cultures growing klebsiella, staph aureus, strep group F and rajani dubliniensis.? Deep culture is positive for klebsiella.? Completed course of Levaquin.? Now awaiting approval for home wound vac from hospice. 3.? 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 Fentanyl patch placed.? Plan for hospice admission upon discharge from .? Anticipate potential discharge tomorrow.? There are concerns about overall caregiving with her being alone frequently at home.? Discharge team is currently working on a plan. ? 4.? Recent PE On apixiban.? 5.? DM2 New dx.? A1C 9.4%.? Likely progressive in the setting of steroid dependence.? BGs 193-233.? Continues Lantus 35 BID.? Given goals for hospice at d/c, will not pursue tighter glycemic control.? ? 6.? Obesity, Class 3 BMI 43. 7.? Protein calorie malnutrition D/t cancer.? Her obesity certainly increases her overall risk for morbidity and mortality, but her present malnutrition certainly complicates things.? Goal would not be weight loss in the immediate future, but rather optimizing her nutrition. ? Code DNR Prophy Apixiban Dispo Home w/hospice once wound vac arranged. Time Spent With Patient Critical Care time: I spent a total of [] minutes of critical care time on this patient's care today; this time is exclusive of procedural time. Quality VTE Deep Vein Thrombosis/Pulmonary Embolism Present on Admission: No
[2022-04-23] MEDS: INSULIN LISPRO 100 UNIT/ML 3ML VIAL SUBCUT ×4 (08:11→20:08)
--- NOTE | 2022-04-23 08:19 | CM.DPC ---
Addendum entered by Lala Gutierrez R.N. 04/23/22 14:59: This DC Warm In Worker, and DINA Martins, met with patient to discuss discharge plan. Plan is for patient to go home on Monday, but will need to follow up with [facility]osp[facility] of the regarding equipment, and wound vac. It is noted that Hospice the can't get wound vac until next week. CLINICAL LABORATORY SCIENCE PROFESSOR for Hospice the is also to be present for admission. Patient most likely will need BLS transport through her Medicaid services once equipment is in place. Patient's ex, Bill, is working on [employer] so he can take time off of work to care for patient. It is also noted that [facility] gearcase assembler is to assess patient on Mon. Original Note: DCP Cont: Called [facility] the and spoke to Muriel, to get a better idea of status, and getting patient home. After reading all of the notes, patient is to be going back to her rental on hospice. Asked Muriel if equipment is to be delivered, and stated, it does not look like it has been ordered, she will go ahead and order equipment. Also, [facility] revenue settlements administrator, [place], is involved, and they are working on getting patient a wound vac. Will need to discuss further today regarding need of wound vac. Will also meet with patient to ensure that goal is for discharge home as soon as equipment can be delivered. P: DCP to continue working on home plan with [facility] the . Lala Gutierrez RN/Throw Out Clerk
[2022-04-23] MEDS: buPROPion XL 150 MG TAB PO (08:26)
[2022-04-23] MEDS: FAMOTIDINE 20 MG TABLET PO (08:26)
[2022-04-23] MEDS: GABAPENTIN 600 MG TABLET PO ×3 (08:26→20:01)
[2022-04-23] MEDS: APIXABAN 5 MG TABLET PO ×2 (08:26→20:01)
[2022-04-23] MEDS: SENNOSIDES 8.6 MG TABLET PO (08:26)
[2022-04-23] MEDS: dexAMETHasone 4 MG TABLET 8 MG PO ×2 (08:26→16:36)
[2022-04-23] MEDS: DULOXETINE 30 MG CAPSULE PO (08:26)
[2022-04-23] MEDS: LOSARTAN 50 MG TABLET PO (08:27)
[2022-04-23] MEDS: INSULIN GLARGINE 100 UNIT/ML 3ML PEN 35 UNIT SUBCUT ×2 (08:35→20:03)
[2022-04-23] MEDS: PANTOPRAZOLE 40 MG VIAL 20 MG IV (09:58)
[2022-04-23] MEDS: SODIUM CHLORIDE 0.9% FLUSH 10 ML IV ×2 (09:59→20:01)
[2022-04-23] MEDS: THYROID, PORK 30 MG TABLET 105 MG PO (10:04)
[2022-04-23] MEDS: MORPHINE 2 MG/ML INJ 4 MG IV ×2 (11:48→20:14)
[2022-04-23] MEDS: fentaNYL 25 MCG/PATCH TOP (11:48)
[2022-04-23] MEDS: CYCLOBENZAPRINE 10 MG TABLET PO (11:57)
--- NOTE | 2022-04-23 13:47 | PC.NURSE ---
11:48 PATIENT GIVEN 2MG MORPHINE PER REQUEST,OTHER 2 MG RETURNED TO PIX. CQN NOT GET MAR TO CHANGE DOSE
[2022-04-23] MEDS: polyethylene glycoL 3350 17 GM POWD.PACK PO (20:01)
[2022-04-24] VITALS (13 sets, daily range): BP systolic 112–166; BP diastolic 74–149; PULSE 105–121; RESP 18–20; TEMP 35.2–36.8; O2SAT 91–94
[2022-04-24] MEDS: MORPHINE 2 MG/ML INJ 4 MG IV (05:23)
[2022-04-24] MEDS: LEVOTHYROXINE 25 MCG TABLET PO (05:57)
[2022-04-24] MEDS: dexAMETHasone 4 MG TABLET 8 MG PO ×2 (08:04→17:52)
[2022-04-24] MEDS: INSULIN LISPRO 100 UNIT/ML 3ML VIAL SUBCUT ×4 (08:04→21:36)
[2022-04-24] MEDS: DULOXETINE 30 MG CAPSULE PO (09:50)
[2022-04-24] MEDS: APIXABAN 5 MG TABLET PO ×2 (09:50→21:41)
[2022-04-24] MEDS: LOSARTAN 50 MG TABLET PO (09:50)
[2022-04-24] MEDS: buPROPion XL 150 MG TAB PO (09:50)
[2022-04-24] MEDS: LORazepam 0.5 MG TABLET PO ×2 (09:52→21:54)
[2022-04-24] MEDS: GABAPENTIN 600 MG TABLET PO ×3 (09:52→21:41)
[2022-04-24] MEDS: THYROID, PORK 30 MG TABLET 105 MG PO (09:52)
[2022-04-24] MEDS: FAMOTIDINE 20 MG TABLET PO (09:52)
[2022-04-24] MEDS: SENNOSIDES 8.6 MG TABLET PO (09:52)
[2022-04-24] MEDS: INSULIN GLARGINE 100 UNIT/ML 3ML PEN 35 UNIT SUBCUT ×2 (09:53→21:35)
[2022-04-24] MEDS: PANTOPRAZOLE 40 MG VIAL 20 MG IV (09:53)
[2022-04-24] MEDS: SODIUM CHLORIDE 0.9% FLUSH 10 ML IV ×2 (09:53→21:42)
[2022-04-24] MEDS: NYSTATIN POWDER 15GM 1 APPLIC TOP (09:54)
--- NOTE | 2022-04-24 11:35 | CM.DPNOTE ---
Addendum entered by Lizz Rojas R.N. 04/24/22 12:59: Dr Pettit saw patient 04/17 and Vac was not appropriate at that time. If Vac were to be started, it would have to be approved by surgeon due to wound proximity to bowel. No wound measurements noted in chart. SEJ Original Note: Discharge Planning Note: Met with patient. She lives with Bill her partner, will find out how much he will be able to help. Abdominal wound to old PEG site is being packed bid. Surgeon saw wound a week ago and Wound Vac was not appropriate at that time because of depth. Must heal further so as vac would not articulate with bowel. Currently on oxygen. Looks weak, sitting up in bed. Plan: Plan to return home under care of her partner Yury. Left message with [facility] to see when they were planning on starting and to discuss may not need Vac. Continue to follow. Kristen Rojas RN/DCP
--- NOTE | 2022-04-24 12:55 | DI.RAD.S_ITS ---
PROCEDURE: XR CHEST 1V INDICATIONS: respiratory failure, shortness of breath TECHNIQUE: One view of the chest was acquired. COMPARISON: [facility], CR, XR CHEST 1V, 04/09/2022, 10:17. [facility], CR, XR CHEST 1V, 03/01/2022, 16:02. FINDINGS: Surgical changes and devices: Right port catheter terminates in the lower SVC. Partially seen shunt catheter. Left axillary clips. Lungs and pleura: Left greater than right diffuse lung disease. Moderate left pleural effusion is increased. Mediastinum: Heart borders are obscured. Bones and chest wall: No suspicious bony lesions. Overlying soft tissues appear unremarkable. IMPRESSION: Moderate, increased left pleural effusion. Mild diffuse lung disease again seen, with decreased aeration of the left lung. Consider future imaging surveillance to assess for resolution. Dictated by: Tito Sunshine M.D. on 04/24/2022 at 12:38 Approved by: Tito Sunshine M.D. on 04/24/2022 at 12:40
--- NOTE | 2022-04-24 12:55 | PM.PN.1 ---
Subjective Subjective Date Patient Seen: 04/24/22 Interval history: Complains of shortness of breath, continued cough. She is requiring 3L of O2 today. Exam Vital Signs (past 8 hours): - 04/24/22 05:26 04/24/22 05:00 04/24/22 08:00 Temperature 97.8 F 98.1 F Pulse Rate 105 H 110 H Respiratory Rate 20 18 Blood Pressure 128/74 166/149 H Pulse Oximetry 91 91 94 Oxygen Delivery Method Nasal Cannula Oxygen Flow Rate 2 2.5 2 04/24/22 09:50 04/24/22 09:00 04/24/22 07:00 Temperature Pulse Rate 117 H Respiratory Rate Blood Pressure 113/89 Pulse Oximetry 94 94 Oxygen Delivery Method Nasal Cannula Nasal Cannula Oxygen Flow Rate 2 2 04/24/22 12:00 Temperature 98.0 F Pulse Rate 121 H Respiratory Rate 18 Blood Pressure Pulse Oximetry 93 Oxygen Delivery Method Oxygen Flow Rate 2 Fraction of Inspired Oxygen 28 SaO2/FiO2 Ratio 328 Oxygen Delivery Method Nasal Cannula Oxygen Flow Rate 2 Narrative Exam Narrative: Alert and oriented x3. No apparent distress Heart is regular rate and rhythm without murmur Lungs are clear to auscultation bilaterally Extremities have 2+ edema of both ankles. Abdomen: J-tube place with dressing covering it. Wound continues to have drainage, but no surrounding erythema or purulent. Abdomen nontender and soft. 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 drug Obesity, Class III, BMI 40-49.9 (morbid obesity) Pelvic relaxation 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) Psoriasis Pulmonary embolism (01/18/22) Rosacea (10/31/13) Tenesmus of bladder (10/21/14) Thyroid nodule Uterine fibroid Vaginal mass Vitamin D deficiency (03/06/15) Surgical History History of brain shunt (~12/22/21) History of gynecologic surgery (10/06/20) History of radioactive iodine thyroid ablation History of removal of Port-a-Cath (07/10/19) History of surgery (11/27/18) History of surgery (12/04/18) History of vaginal hysterectomy (~07/2017) Hx of cholecystectomy Hx of craniotomy (12/13/21) Hx of left mastectomy (06/05/19) Status post excision of lipoma (~2013) Status post tubal ligation (~2013) Family History Father Alcoholism Mother Age: 71 Depression Grandfather Diabetes mellitus Mother Parkinson's disease Social History household members: children Smoking Status: Former smoker alcohol intake: never Assessment & Plan Assessment & Plan narrative: 1. Influenza A infection / weakness ?Dx'd 04/06/22.? Now resolved. 2.? PEG site infection w/abscess, now POD #5 from I/D Polymicrobial cultures growing klebsiella, staph aureus, strep group F and rajani dubliniensis.? Deep culture is positive for klebsiella.? Completed course of Levaquin.?Possible wound vac per surgery in the future, but continues to have drainage from wound. 3.? 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 Fentanyl patch placed.? Plan for hospice admission upon discharge from . There are concerns about overall caregiving with her being alone frequently at home.? 4. Acute respiratory failure with hypoxia - with PEG tube removed, some concern for recurrent aspiration - Speech therapy consult ordered, check CXR today - wean from O2 as tolerated. ? 5.? Recent PE On apixiban.? 6.? DM2 New dx.? A1C 9.4%.? Likely progressive in the setting of steroid dependence.? BGs 193-233.? Continues Lantus 35 BID.? Given goals for hospice at d/c, will not pursue tighter glycemic control.? ? 7.? Obesity, Class 3 BMI 43. 8.? Protein calorie malnutrition D/t cancer.? Her obesity certainly increases her overall risk for morbidity and mortality, but her present malnutrition certainly complicates things.? Goal would not be weight loss in the immediate future, but rather optimizing her nutrition. ? Code DNR DVT ppx Apixiban Dispo Home w/hospice, pending resolution of hypoxia if reversible and wound care management. Timing unclear. Time Spent With Patient Critical Care time: I spent a total of [] minutes of critical care time on this patient's care today; this time is exclusive of procedural time. Quality VTE Deep Vein Thrombosis/Pulmonary Embolism Present on Admission: No
[2022-04-24] MEDS: polyethylene glycoL 3350 17 GM POWD.PACK PO (21:42)
[2022-04-25] VITALS (11 sets, daily range): BP systolic 126–138; BP diastolic 68–107; PULSE 108–118; RESP 16–28; TEMP 35.4–37; O2SAT 91–97
[2022-04-25] MEDS: LEVOTHYROXINE 25 MCG TABLET PO (06:11)
[2022-04-25] MEDS: CYCLOBENZAPRINE 10 MG TABLET PO (06:30)
[2022-04-25 06:39] LABS: Hematocrit 36.9 % (36-46); Hemoglobin 12.1 g/dL (12.0-16.0); Mean Corpuscular HGB Conc 32.9 % (30-36); Mean Corpuscular Hemoglobin 29.9 PG (26-34); Platelet Count 256 X10^3/uL (150-400); Red Blood Cell Count 4.06 X10^6/uL (4.0-5.2); Red Cell Distribution Width 18.2 % (11.6-14.8); White Blood Cell Count 9.3 X10^3/uL (4.5-11.0)
[2022-04-25 06:40] LABS: Add Manual Diff / Slide Review YES
[2022-04-25 06:47] LABS: INR 1.2 (0.9-1.3); Prothrombin Time 13.5 SECONDS (10.1-12.7)
[2022-04-25 06:49] LABS: PTT Partial Thromboplastin Tim 29 SECONDS (26-36)
[2022-04-25 06:51] LABS: Alanine Aminotransferase 45 IU/L (<35); Albumin 3.2 g/dL (3.5-5.0); Albumin Globulin Ratio 1.2 (1.0-2.8); Alkaline Phosphatase 154 U/L (38-126); Aspartate Aminotransferase 36 IU/L (14-36); Bilirubin Total 0.6 mg/dL (0.2-1.3); Blood Urea Nitrogen 20 mg/dL (7-17); Calcium 8.7 mg/dL (8.4-10.2); Carbon Dioxide 32 mmol/L (22-32); Chloride 95 mmol/L (98-107); Estimated Glomerular Filt Rate > 60 mL/min (>60); Globulin 2.7 g/dL (1.7-4.1); Glucose 163 mg/dL (70-100); HEMOLYSIS < 15 (0-50); Potassium 4.1 mmol/L (3.4-5.1); Sodium 132 mmol/L (137-145); Total Protein 5.9 g/dL (6.3-8.2)
--- NOTE | 2022-04-25 07:00 | PC.NURSE ---
Pt needed to have her dressing to her abdomen wound changed twice last night due to increase drainage. Pt declining to turn in bed and likes to sleep with head up the bed up to 90 degree, pt asking to perhabs having her fentanyl patch dose increase.
[2022-04-25 07:18] LABS: Anisocytosis 1+; Neutrophils Absolute Manual 8277 /uL (3000-5900); Total Cells Counted 100
[2022-04-25] MEDS: INSULIN LISPRO 100 UNIT/ML 3ML VIAL SUBCUT ×3 (08:43→17:14)
[2022-04-25] MEDS: dexAMETHasone 4 MG TABLET 8 MG PO ×2 (08:46→17:44)
--- NOTE | 2022-04-25 09:39 | ONC.MSW ---
Oncology MODEL SET ARTIST Visit Activity: Continued assistance with care coordination and d/c planning. This MODEL SET ARTIST is working with pt's partner, Yury, to get set up on [place]id Leave of [place] and F[place]. We also have funds available to help with end of life planning, will discuss later this morning with Yury. Will continue to monitor timing of [facility] d/c and hospice admission.
[2022-04-25] MEDS: FAMOTIDINE 20 MG TABLET PO (09:46)
[2022-04-25] MEDS: PANTOPRAZOLE 40 MG VIAL 20 MG IV (09:46)
[2022-04-25] MEDS: DULOXETINE 30 MG CAPSULE PO (09:46)
[2022-04-25] MEDS: buPROPion XL 150 MG TAB PO (09:46)
[2022-04-25] MEDS: APIXABAN 5 MG TABLET PO ×2 (09:46→21:53)
[2022-04-25] MEDS: SENNOSIDES 8.6 MG TABLET PO (09:47)
[2022-04-25] MEDS: SODIUM CHLORIDE 0.9% FLUSH 10 ML IV ×2 (09:47→21:59)
[2022-04-25] MEDS: GABAPENTIN 600 MG TABLET PO ×3 (09:47→21:53)
[2022-04-25] MEDS: LORazepam 0.5 MG TABLET PO ×2 (09:47→22:21)
[2022-04-25] MEDS: LOSARTAN 50 MG TABLET PO (09:47)
[2022-04-25] MEDS: INSULIN GLARGINE 100 UNIT/ML 3ML PEN 35 UNIT SUBCUT ×2 (09:51→22:04)
[2022-04-25] MEDS: THYROID, PORK 30 MG TABLET 105 MG PO (09:57)
--- NOTE | 2022-04-25 10:33 | PC.NURSE ---
Addendum entered by Lauren Burks R.N. 04/25/22 14:19: Late entry Dr. Aguiar ordered voltaren gel and oxycodone see EMAR, spoke to pt and educated about pain medication options. She states, will think about trying Voltaren gel and does not want to take oxycodone. Pt states, pain level 6 now. Will follow up with pt. Original Note: Late entry Pt states, pain left knee worse and stiff, 01/15, do not want to take morphine because it slows down everything, pt rubbing knee. This RN helped pt with passive ROM exercises and she states, helps with leg pain. Notified Dr. Aguiar in person states, will review medications.
--- NOTE | 2022-04-25 11:20 | ST.IPCSEOM ---
Visit Care Team Role Provider Type Mariola Barajas DO Primary Care Provider Physician Specialty: Medical Address: [address] [place] [address], [address], [address] Email: [email or web address] Jing Guzmán MD Other Providers Physician Specialty: General Surgery Address: [address] [place] [address], [address], [place], [address] Email: [email or web address] Jud Mahajan DO Emergency Provider Physician Referring Provider Specialty: Emergency Medicine Address: [address] [place] [address], [id number] Email: Moises Aguiar DO Admit Provider Physician Attending Provider Specialty: Internal Medicine Address: [address] [place] [address], [id number] Email: 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) Cutaneous abscess of abdominal wall (04/09/22) Cutaneous abscess, unspecified (04/09/22) Local infection of the skin and subcutaneous tissue, unspecified (04/09/22) Past Medical History (Last Reviewed 04/09/22 @ 18:11 by Moises Aguiar DO) Abnormal Pap smear of cervix (Medical) In her 20's, had cryotherapy Allergic rhinitis due to dust mite (Medical 11/14/14) Alopecia due to cytotoxic drug (Medical) Angiolipoma of skin (Medical 02/20/14) Biopsy confirmed, multiple Arthritis (Medical) Hands Breast cancer metastasized to brain (Medical) Post surgical resection of the posterior tumors Cystocele (Medical 10/21/14) Depression (Medical) Fibromyalgia (Medical) History of chemotherapy (Medical) Mild obstructive sleep apnea-hypopnea syndrome (Medical 03/06/15) Myopia (Medical) Regular astigmatism 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 drug (Medical) Obesity, Class III, BMI 40-49.9 (morbid obesity) (Medical) Pelvic relaxation (Medical) Peripheral neuropathy due to chemotherapy (Medical) Port-A-Cath in place (Medical) Postablative hypothyroidism (Medical 02/24/17) 03/31/2003 thyroid ablation, [facility], right lobe had adenoma Psoriasis (Medical) Pulmonary embolism (Medical 01/18/22) Rosacea (Medical 10/31/13) Tenesmus of bladder (Medical 10/21/14) Thyroid nodule (Medical) Uterine fibroid (Medical) Vaginal mass (Medical) Vitamin D deficiency (Medical 03/06/15) Speech-Language Pathology Swallow Evaluation SYSTEM MANAGER Clinical Swallow Evaluation Start: 04/25/22 10:14 Freq: Status: Active Protocol: Document 04/25/22 10:15 ZS (Rec: 04/25/22 10:29 ZS [id number]) Clinical Swallow Evaluation Session Time Visit Start Time 09:40 Visit Stop Time 10:10 Total Visit Minutes 30 Visit Information Visit Number Initial Evaluation Setting Assessment Location Acute Care Visit Type Note Type Initial evaluation Next Note Type Next Note Type Treatment Note Patient Information Identification Type Name History Per H&P: This is a 51 year old female with PMH of HTN, hypothyroidism, metastatic breast cancer s/p recent 44 day stay at [facility] in 12/27-2021 for craniotomy which was complicated by hydrocephalus requiring EVD and BLANKBOOK FORWARDER shunt. She then developed difficulty swallowing, with malnutrition requiring TPN and ultimately PEG placement. During her stay on 01/18 she was found to have a PE and started on apixaban as well. She recently had brain radiation at [facility], and plans to start palliative chemo 04/18/22. She presented today with worsening weakness over the past week along with a variety of symptoms. She states a [facility] ill, no other known sick contacts and she has been feeling ill for approximately one week. She has had a chronic cough since the PEG placement, worsened lower extremity edema recently and orthopnea as well. She denies fever, but does endorse chills and muscle aches and headache . She denied dysuria or urinary frequency. She has had purulent discharge from her PEG tube site for the past two days with worsening pain around the area. She has been trying to keep the area clean. She does not use her PEG much anymore, her tube feeds give her diarrhea and she has been able to tolerate oral intake. Palliative chemotherapy was scheduled to start on 2021 and PEG tube was removed on 04/09/2022 and care started on infection from PEG tube site. Subjective Observations Pt was seated upright in bed with morning meal tray in front of her. All food had been consumed save for some cottage cheese and about 5 pieces of fruit. Pt reported she has difficulty swallowing anything breaded or dry, stating these foods won't go down and she needs a liquid wash to move it into her pharyngeal cavity. Pt observed to spontaneously use liquid wash following intake of solids. Pt added her dentures do not fit well and the doctor indicated that could be due to dehydration. Pt was experiencing pain in her left knee for duration of assessment, but agreed to participate despite pain. Reported by Patient Location Left Knee Other Symptoms Coughing,Difficulty swallowing liquids,Difficulty swallowing solids,Food gets stuck Current Diet Regular,Thin liquids Baseline Feeding Method Independent in self-feeding Objective Assessment Mental Status Alert,Responsive,Cooperative Oral Integrity WFL Dentition Within normal limits,Dentures or partials present,Upper dentures/partials,Lower dentures/partials,Poor denture or partial fitting Lip Function Within normal limits Observation of Lips at Rest Symmetrical Pucker Within normal limits Lip Retraction Within normal limits Alternating Pucker/Lip Retraction Within normal limits Tongue Function Within normal limits Observations of Tongue at Rest Within normal limits Tongue Protrusion Within normal limits Tongue Retraction Within normal limits Tongue Lateralization Within normal limits Jaw Function Within normal limits Observations of Jaw at Rest Within normal limits Jaw Opening Within normal limits Jaw Closing Within normal limits Hard/Soft Palate Function Within normal limits Observations of Hard/Soft Palate Within normal limits Nasality Within normal limits Comment Completed oral motor exam with pt. Structures were symmetrical at rest and in motion. Tongue, lip, and jaw strength and ROM were WNL. Pt stated her dentures do not fit properly and are a little painful on the left side, though stated doctors have indicated this may be a result of dehydration. Structure and function of oral mechanism appears WNL for the purposes of speech and swallowing. Food and Liquid Trials Position During Assessment Upright (90 degrees),In bed Liquids Trialed Thin Solids Trialed Puree,Dysphagia Mechanical, Regular Administration Type Cup single sip,Self-feeding Oral Impairment Mildly impaired Oral Phase Comments PO trials of [place] (sips from the can), applesauce (via spoon), cottage cheese (via spoon), and pineapple (pt used her hands to eat). Pt observed to use chin tuck and head turn to right for all PO trials. She reported increased difficulty with swallowing as texture thickened (pineapple was most difficult and applesauce/water was easiest to swallow). Pt used liquid wash following bite of pineapple, which she reported helps most of the time, though sometimes she still experiences difficulty swallowing. No oral residue observed following PO trials and mastication appeared timely and efficient. Pt reported eating very slowly to reduce risk of coughing/ choking. Based on pt report, food feels like it gets stuck on the base of her tongue and she needs a liquid wash to propel it beyond this point. Pharyngeal Impairment Mildly impaired Pharyngeal Phase Comments Coughing observed following initial trial of thin liquid, though no chin tuck was observed with this trial. No coughing observed with applesauce, cottage cheese, or pineapple, however, coughing was observed following liquid wash taken with pineapple. Chin tuck and head turn appeared to reduce frequency of cough. Unable to rule out silent aspiration with clinical swallow assessment. Fatigue/Endurance Endurance WNL Comment Limited trials completed, though pt exhibited no fatigue and trials were completed following full morning meal. No concerns for fatigue at this time. Strategies Attempted Chin tuck,Head tilt Response/Comments Pt spontaneously used chin tuck and head tilt as well as liquid wash to aid in swallow safety. Findings Swallowing Function Oropharyngeal phase dysphagia Severity of Swallow Impairment Mildly impaired Contributing Factors to Swallow Reduced alertness or attention Impairment ,Impaired oral-pharyngeal transport Prognosis Guarded Based on Comorbidities,Duration of symptoms/severity Comment The pt presents with mild oropharyngeal dysphagia characterized by difficulty propelling bolus from oral cavity to pharyngeal cavity. Pt reported difficulty with oropharyngeal transport of bolus, with increasing difficulty as texture thickened. Suspect base of tongue weakness based on reported difficulty, with possible reduced strength pharyngeal stripping wave, though this cannot be visualized with clinical swallow assessment. Discussed modification of diet to softer textures (i.e., puree or dysphagia mechanical texture) and pt requested to continue with regular textures, stating she eats slowly. Pt appeared to manage regular textures WFL and consistently uses all strategies that would be recommended (e.g., chin tuck, head turn, slow rate of eating , small bites/sips, etc.). Coughing observed with liquid wash following regular solids, though use of chin tuck and head turn minimized this. Unable to rule out silent aspiration with clinicial swallow assessment. Modified barium swallow study is not recommended at this time as pt appears to manage diet well with use of safe swallow strategies. Discussed and practiced exercises to strengthen base of tongue and pharyngeal muscles for improved swallow safety. Pt demonstrated each exercise and expressed understanding. Recommend continued diet of regular textures and thin liquids. Recommend speech therapy to increase strength of swallow musculature to reduce risk of aspiration for improved swallow safety. Impact on Safety and Functioning Risk for aspiration Recommendations Instrumental Assessment No Swallowing Treatment Yes Recommended Solids Regular Recommended Liquids Thin Safety Precautions/Swallowing Feed only when alert,Reduce Recommendations distractions,Remain upright ( 90 degrees) during all oral intake,Upright position at least 30 minutes after meals, Small bites and sips when eating,Slow rate; swallow between bites,Alternate liquids and solids Medication Recommendations As Tolerated Discharge Recommendations Home with Hospice Education Patient/Caregiver Education Described results of evaluation,Patient expressed understanding of evaluation, Patient expressed agreement with goals & treatment plans, Patient expressed understanding of safety precautions,Patient expressed understanding of feeding recommendations,Patient requires further education/ training Goals Short-term Goals 1. The pt will perform exercises to increase strength , coordination, and ROM of swallow musculature independently to reduce risk of aspiration and increase comfort with oral intake. 2. The pt will continue to perform safe swallow strategies with oral intake independently to reduce risk of aspiration. Long-term Goals The pt will safely tolerate least restrictive diet to meet her nutrition and hydration needs.
[2022-04-25] MEDS: ACETAMINOPHEN 325 MG TABLET 975 MG PO (12:11)
--- NOTE | 2022-04-25 12:43 | CM.DPC ---
Addendum entered by Raysa Bernstein R.N. 04/25/22 16:20: CM Spoke with the patient and Bill (patients Significant other) about BLS transport and let them know that they could receive a bill for this transport CM explained that not all insurances cover BLS but that we did finish a Medical Necessity form which has been scanned into the patients EMR and given to ambulance for billing. patients SO Bill stated that he understands but would feel better if the patient was transported home by BLS rather then any other form of transportation for safety. Raysa Bernstein RNclerical manager Addendum entered by Raysa Bernstein R.N. 04/25/22 16:15: CM called and set up BLS transport from [facility] they will be picking patient up at 1230pm to transport her home. BLS form on desk already signed by Dr. Aguiar. QUICK PRINT OPERATOR notified of DC plan and transport time for tomorrow at 1230. Raysa Bernstein RNresilient tile installer Addendum entered by Na Bo 04/25/22 15:59: DCP Note Continued [employer] Building Architectural Designer Devin Goins presents at to meet with patient. He reports that patient's mother, sister and brother in law are in room visiting patient. Devin reports that he checks in with patient quite regularly and coordinates care. [facility] Oncology ANTIQUE DEALER states that she met with patient and family and it was reported to her that patient's mother is current DPOA but she no longer is willing to do so. Telma states she will call [facility] and inform them of this so Hospice SW can assist with new DPOA assignment for patient. [facility] porter sample case Cassidy (Ph. # [phone]) calls requesting update, ANTIQUE DEALER informs her that patient is to d/c tomorrow. It is reported that patient has assessment scheduled for Monday at , ANTIQUE DEALER to call upon patient's d/c to cancel assessment and request rescheduled assessment at home if needed. Per Hospitalist, patient will be medically stable for d/c tomorrow likely in the afternoon. WILBER Tabares calls Hospice and informs them of this update, hospice appt rescheduled for tomorrow at 1400. DCP to set up BLS for tomorrow afternoon. Plan: Patient to d/c tomorrow with [facility] scheduled for 2pm appt. LENA Mae Original Note: DCP Note Continued Per Hospitalist, patient likely to d/c tomorrow not today due to REAL ESTATE AGENCY PRINCIPAL eval for swallow study and due to concern for respiratory issues. ANTIQUE DEALER calls Muriel at [facility] (Ph.# [phone]) It is reported that home equipment can be delivered to patient's home today. Hospice team to hold spot for home appt tomorrow 04/26 at 10-11am. Hospice states that they can attend to wound care needs 1-2 times per week and train family about wound dressing as well. Telma Oncology SW reports that she is coordinating with patient's ex-partner Bill in filling out FMLA so he can stay at home with patient, as well as setting up resources to support family financially with [employer] and cremation services. Telma endorses she will reach out to Hospice and request the Hospice SW will f/u with any further needs and request the need for lock box and mattress pad from [facility] as well. Plan: Patient to d/c upon medical stability tomorrow with Hospice appt scheduled at 10 am, Schedule BLS for tomorrow AM upon patient's d/c orders. LENA Mae
--- NOTE | 2022-04-25 15:25 | DI.US.S_ITS ---
PROCEDURE: US THORACENTESIS INDICATIONS: diagnostic and therapeutic TECHNIQUE: The indications, alternatives, benefits, risks, and complications of the procedure were explained to the patient. Written informed consent was obtained and placed in the chart. The chest was examined sonographically, and an appropriate site was chosen for thoracentesis. The skin was prepared and draped in the usual sterile fashion, and 1% lidocaine was infiltrated from the skin down through the pleural surface. A 19-gauge catheter-covered needle was then introduced into the pleural space, the catheter was advanced and the needle was withdrawn, and thereafter pleural fluid was aspirated. The catheter was then removed and a dressing was applied. COMPARISON: [facility], CR, XR CHEST 1V, 04/24/2022, 13:02. [facility], CR, XR CHEST 1V, 04/26/2022, 9:33. FINDINGS: Access site: Left hemithorax. Needle: One-Step centesis catheter with introducer needle. Fluid volume and description: 1500 mL; bloody. Fluid sent for diagnostic testing: Per referring physician. Medications: 1% lidocaine for local anaesthesia. Complications: None; post-procedural chest radiograph is pending to assess for pneumothorax. IMPRESSION: Successful ultrasound-guided thoracentesis. Dictated by: Ken Castoerna M.D. on 04/26/2022 at 9:58 Approved by: Ken Castorena M.D. on 04/26/2022 at 10:00
--- NOTE | 2022-04-25 15:44 | P.PN_ITS ---
Subjective Subjective Date Patient Seen: 04/25/22 Interval history: Complains of bad knee pain today, with continued shortness of breath. Plan is to go home with hospice tomorrow but still feels uncomfortable from her pleural effusion. We discussed thoracentesis for diagnostic and therapeutic purposes, which she is in agreement would be beneficial for her. Exam Vital Signs (past 8 hours): - 04/25/22 09:47 04/25/22 11:00 04/25/22 09:00 Temperature 98.6 F Pulse Rate 108 H 115 H Respiratory Rate 22 Blood Pressure 133/68 129/107 H Pulse Oximetry 95 94 Oxygen Delivery Method Nasal Cannula Oxygen Flow Rate 2 2 04/25/22 13:16 Temperature Pulse Rate Respiratory Rate Blood Pressure Pulse Oximetry 95 Oxygen Delivery Method Nasal Cannula Oxygen Flow Rate 2 Fraction of Inspired Oxygen 36 SaO2/FiO2 Ratio 258 Oxygen Delivery Method Nasal Cannula Oxygen Flow Rate 2 Narrative Exam Narrative: Alert and oriented x3. No apparent distress Heart is regular rate and rhythm without murmur Lungs are clear to auscultation bilaterally with diminished breath sounds L lung base Extremities have 2+ edema of both ankles. Abdomen: J-tube place with dressing covering it. Wound continues to have drainage, but no surrounding erythema or purulent. Abdomen nontender and soft. Objective Labs Result Diagrams: 04/25/22 06:20 04/25/22 06:20 Labs: Laboratory Results - last 24 hr 04/25/22 04/25/22 04/25/22 06:20 06:20 06:20 WBC 9.3 RBC 4.06 Hgb 12.1 Hct 36.9 MCV 91.0 MCH 29.9 MCHC 32.9 RDW 18.2 H Plt Count 256 Neut % (Auto) Not Reportable Lymph % (Auto) Not Reportable [place] % (Auto) Not Reportable Eos % (Auto) Not Reportable Baso % (Auto) Not Reportable Lymph # (Auto) Not Reportable [place] # (Auto) Not Reportable Baso # (Auto) Not Reportable Total Counted 100 Seg Neutrophils % 85.0 H Band Neutrophils % 4.0 Lymphocytes % (Manual) 3.0 L Monocytes % (Manual) 8.0 Neutrophils # (Manual) 8277 H RBC Morphology See below Anisocytosis 1+ H PT 13.5 H INR 1.2 APTT 29 Sodium 132 L Potassium 4.1 Chloride 95 L Carbon Dioxide 32 BUN 20 H Creatinine 0.54 Estimated GFR > 60 BUN/Creatinine Ratio 37.0 H Glucose 163 H D Calcium 8.7 Magnesium 2.0 Total Bilirubin 0.6 AST 36 ALT 45 H Alkaline Phosphatase 154 H Total Protein 5.9 L Albumin 3.2 L Globulin 2.7 Albumin/Globulin Ratio 1.2 PENDING SALE TO [facility] Medical History Abnormal Pap smear of cervix Allergic rhinitis due to dust mite (11/14/14) Alopecia due to cytotoxic drug Angiolipoma of skin (02/20/14) Arthritis Breast cancer metastasized to brain Cystocele (10/21/14) Depression Fibromyalgia History of chemotherapy Mild obstructive sleep apnea-hypopnea syndrome (03/06/15) Myopia 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 drug Obesity, Class III, BMI 40-49.9 (morbid obesity) Pelvic relaxation 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) Psoriasis Pulmonary embolism (01/18/22) Rosacea (10/31/13) Tenesmus of bladder (10/21/14) Thyroid nodule Uterine fibroid Vaginal mass Vitamin D deficiency (03/06/15) Surgical History History of brain shunt (~12/22/21) History of gynecologic surgery (10/06/20) History of radioactive iodine thyroid ablation History of removal of Port-a-Cath (07/10/19) History of surgery (11/27/18) History of surgery (12/04/18) History of vaginal hysterectomy (~07/2017) Hx of cholecystectomy Hx of craniotomy (12/13/21) Hx of left mastectomy (06/05/19) Status post excision of lipoma (~2013) Status post tubal ligation (~2013) Family History Father Alcoholism Mother Age: 71 Depression Grandfather Diabetes mellitus Mother Parkinson's disease Social History household members: children Smoking Status: Former smoker alcohol intake: never Assessment & Plan Assessment & Plan narrative: 1. Influenza A infection / weakness ?Dx'd 04/06/22.? Now resolved. 2.? PEG site infection w/abscess, now s/p I&D with PEG tube removal. Polymicrobial cultures growing klebsiella, staph aureus, strep group F and rajani dubliniensis.? Deep culture is positive for klebsiella.? Completed course of Levaquin.?Possible wound vac per surgery in the future, but continues to have drainage from wound. Continue local dressing changes. 3.? Metastastic breast cancer s/p crani and AUXILIARY OPERATOR Shunt Continues dex and home meds.? Fentanyl patch placed.? Plan for hospice admission upon discharge from . There are concerns about overall caregiving with her being alone frequently at home.? 4. Acute respiratory failure with hypoxia Left lung pleural effusion - with PEG tube removed, some concern for recurrent aspiration but patient did well with speech therapy. - repeat CXR with worsened pleural effusion, discussed with patient given goals of care, wishes to perform diagnostic and therapeutic thoracentesis, ordered for radiology to perform. - wean from O2 as tolerated. ? 5.? Recent PE On apixiban.? 6.? DM2 New dx.? A1C 9.4%.? Likely progressive in the setting of steroid dependence.? BGs 193-233.? Continues Lantus 35 BID.? Given goals for hospice at d/c, will not pursue tighter glycemic control.? ? 7.? Obesity, Class 3 BMI 43. 8.? Protein calorie malnutrition D/t cancer.? Her obesity certainly increases her overall risk for morbidity and mortality, but her present malnutrition certainly complicates things.? Goal would not be weight loss in the immediate future, but rather optimizing her nutrition. ? Code DNR DVT ppx Apixiban Dispo Home w/hospice, planned for tomorrow afternoon. Time Spent With Patient Critical Care time: I spent a total of [] minutes of critical care time on this patient's care today; this time is exclusive of procedural time. Quality VTE Deep Vein Thrombosis/Pulmonary Embolism Present on Admission: No
[2022-04-25] MEDS: TRAMADOL 50 MG TABLET PO (16:08)
[2022-04-25] MEDS: DICLOFENAC 1% GEL 100 GM 1 APPLIC TOP ×2 (16:09→21:54)
[2022-04-25] MEDS: ZINC OXIDE OINT 60 GM 1 APPLIC TOP ×2 (16:17→21:57)
[2022-04-25] MEDS: NYSTATIN POWDER 15GM 1 APPLIC TOP (22:21)
[2022-04-26 01:00] VITALS: O2SAT 93
[2022-04-26 04:00] VITALS: BP 110/88; PULSE 90; RESP 17; TEMP 35.8; O2SAT 90
[2022-04-26 05:00] VITALS: O2SAT 92
[2022-04-26] MEDS: LEVOTHYROXINE 25 MCG TABLET PO (05:32)
[2022-04-26 06:31] LABS: Add Manual Diff / Slide Review YES; Hematocrit 35.9 % (36-46); Hemoglobin 12.1 g/dL (12.0-16.0); Mean Corpuscular HGB Conc 33.7 % (30-36); Mean Corpuscular Hemoglobin 30.8 PG (26-34); Mean Corpuscular Volume 91.2 fL (80-100); Platelet Count 240 X10^3/uL (150-400); Red Blood Cell Count 3.94 X10^6/uL (4.0-5.2); Red Cell Distribution Width 18.1 % (11.6-14.8); White Blood Cell Count 9.6 X10^3/uL (4.5-11.0)
[2022-04-26 06:37] LABS: Alanine Aminotransferase 44 IU/L (<35); Albumin 3.1 g/dL (3.5-5.0); Albumin Globulin Ratio 1.1 (1.0-2.8); Alkaline Phosphatase 150 U/L (38-126); Aspartate Aminotransferase 32 IU/L (14-36); BUN Creatinine Ratio 33.3 (6-22); Bilirubin Total 0.7 mg/dL (0.2-1.3); Blood Urea Nitrogen 17 mg/dL (7-17); Calcium 8.7 mg/dL (8.4-10.2); Carbon Dioxide 32 mmol/L (22-32); Chloride 95 mmol/L (98-107); Estimated Glomerular Filt Rate > 60 mL/min (>60); Globulin 2.7 g/dL (1.7-4.1); Glucose 119 mg/dL (70-100); HEMOLYSIS < 15 (0-50); Magnesium 2.1 mg/dL (1.6-2.3); Sodium 131 mmol/L (137-145); Total Protein 5.8 g/dL (6.3-8.2)
[2022-04-26 07:01] LABS: Anisocytosis 1+; Neutrophils Absolute Manual 8160 /uL (3000-5900); Total Cells Counted 100
[2022-04-26 08:00] VITALS: O2SAT 95
--- NOTE | 2022-04-26 09:30 | DI.RAD.S_ITS ---
PROCEDURE: XR CHEST 1V INDICATIONS: POST THORACENTESIS TECHNIQUE: One view of the chest was acquired. COMPARISON: [facility], NM, NM PET CT FUSION SKULL 2 THIGH, 02/23/2022, 9:37. [facility], CR, XR CHEST 1V, 03/01/2022, 16:02. [facility], CT, CT ABDOMEN PELVIS W CON, 04/09/2022, 13:04. [facility], CR, XR CHEST 1V, 04/09/2022, 10:17. [facility], CR, XR CHEST 1V, 04/24/2022, 13:02. FINDINGS: Surgical changes and devices: There is a Port-A-Cath on the right side with the tip projecting to the atrial caval junction. Partial visualization of ventricular peritoneal shunt catheter. Lungs and pleura: No pneumothorax. Left pleural effusion is decreased. Mild right lower lobe infiltrate suspicious for pneumonia. Mediastinum: Mediastinal contours appear normal. Heart size is normal. Bones and chest wall: No suspicious bony lesions. Overlying soft tissues appear unremarkable. IMPRESSION: No no pneumothorax post thoracentesis. Dictated by: Ken Castorena M.D. on 04/26/2022 at 10:00 Approved by: Ken Castorena M.D. on 04/26/2022 at 10:03
[2022-04-26] MEDS: dexAMETHasone 4 MG TABLET 8 MG PO (10:26)
[2022-04-26] MEDS: DICLOFENAC 1% GEL 100 GM 1 APPLIC TOP (10:26)
[2022-04-26] MEDS: PANTOPRAZOLE 40 MG VIAL 20 MG IV (10:26)
[2022-04-26] MEDS: ZINC OXIDE OINT 60 GM 1 APPLIC TOP (10:26)
[2022-04-26] MEDS: APIXABAN 5 MG TABLET PO (10:26)
[2022-04-26 10:27] VITALS: BP 116/81
[2022-04-26] MEDS: FAMOTIDINE 20 MG TABLET PO (10:27)
[2022-04-26] MEDS: LOSARTAN 50 MG TABLET PO (10:27)
[2022-04-26] MEDS: DULOXETINE 30 MG CAPSULE PO (10:32)
[2022-04-26] MEDS: buPROPion XL 150 MG TAB PO (10:32)
[2022-04-26] MEDS: GABAPENTIN 600 MG TABLET PO (10:32)
[2022-04-26] MEDS: NYSTATIN POWDER 15GM 1 APPLIC TOP (10:33)
[2022-04-26] MEDS: INSULIN GLARGINE 100 UNIT/ML 3ML PEN 35 UNIT SUBCUT (10:33)
[2022-04-26] MEDS: SODIUM CHLORIDE 0.9% FLUSH 10 ML IV (10:34)
[2022-04-26] MEDS: SENNOSIDES 8.6 MG TABLET PO (10:34)
[2022-04-26] MEDS: INSULIN LISPRO 100 UNIT/ML 3ML VIAL SUBCUT ×2 (10:35→12:27)
--- NOTE | 2022-04-26 10:42 | ST.IPDYTX ---
Visit Care Team Role Provider Type Mariola Barajas DO Primary Care Provider Physician Specialty: Medical Address: [address] [place] [address], [address], [place], [address] Email: [email or web address] Jing Guzmán MD Other Providers Physician Specialty: General Surgery Address: [address] [place] [address], [address], [place], [address] Email: [email or web address] Jud Mahajan DO Emergency Provider Physician Referring Provider Specialty: Emergency Medicine Address: [address] [place] [address], [address] Email: [email or web address] Moises Aguiar DO Admit Provider Physician Attending Provider Specialty: Internal Medicine Address: [address] [place] [address], [address] Email: [email or web address] ELECTRICAL CONTINUITY INSPECTOR Dysphagia Treatment ELECTRICAL CONTINUITY INSPECTOR Dysphagia Treatment Start: 04/26/22 10:33 Freq: Status: Active Protocol: Document 04/26/22 10:33 SLIM (Rec: 04/26/22 10:42 SLIM [id number]) Dysphagia Treatment Session Time Visit Start Time 09:00 Visit Stop Time 09:20 Total Visit Minutes 20 Setting Assessment Location Acute Care Visit Type Note Type Treatment Note Patient Information Identification Type Name,ID Wristband Subjective Observations Pt was in bed eating breakfast . Pt was agreeable to my visit Treatment Liquids Trialed Thin Solids Trialed Regular Administration Type Self-Feeding Oral Strategies Controlled Bite/Sip Size, Alternate Liquids/Solids Pharyngeal Strategies Chin Tuck Treatment Activities Pt was observed to safely tolerate her current diet. Discussion of her safe swallow strategies as well as need to eat slowly was received well. Pt is very aware of her need to eat slowly and use all strategies to avoid choking. Pt is scheduled to be discharged today (per notes ) Assessment Patient Response to Treatment Good Rehab Potential Fair Assessment of Improvement Pt is aware of the need to use safe swallow strategies. She reports no difficulty as long as she uses strategies Diet Recommendations Recommendations Continue Current Diet Liquids Order Thin Diet Order Regular Medication Recommendations As Tolerated Aspiration Precautions Recommended Precautions Alternate Liquids/Solids, Frequent Rest Periods,Small Bites/Sips,Chin Tuck,Left Head Tilt,Right Head Tilt Treatment Plan Placement Recommendation after Discharge Home,Home with Home Health, Home with Hospice Therapy Recommendations Pt reported to be discharging home today. ST recommended as needed Dysphagia Goals 1. The pt will perform exercises to increase strength , coordination, and ROM of swallow musculature independently to reduce risk of aspiration and increase comfort with oral intake. 2. The pt will continue to perform safe swallow strategies with oral intake independently to reduce risk of aspiration.
--- NOTE | 2022-04-26 10:44 | P.DS_ITS ---
History of Present Illness History of Present Illness Date Patient Seen: 04/26/22 Time Patient Seen: 10:44 Chief complaint: Weakness, flu + since julio, hx [place] Narrative: This is a 51 year old female with PMH of HTN, hypothyroidism, metastatic breast cancer s/p recent 44 day stay at [facility] in 12/27-01/2022 for craniotomy which was complicated by hydrocephalus requiring EVD and SPACE SCHEDULER shunt. She then developed difficulty swallowing, with malnutrition requiring TPN and ultimately PEG placement. During her stay on 01/18 she was found to have a PE and started on a pixaban as well. She recently had brain radiation at [facility], and plans to start palliative chemo 04/18/22. She presented today with worsening weakness over the past week along with a variety of symptoms. She states a kid at [facility] was ill, no other known sick contacts and she has been feeling ill for approximately one week. She has had a chronic cough since the PEG placement, worsened lower extremity edema recently and orthopnea as well. She denies fever, but does endorse chills and muscle aches and headache. She denied dysuria or urinary frequency. She has had purulent discharge from her PEG tube site for the past two days with worsening pain around the area. She has been trying to keep the area clean. She does not use her PEG much anymore, her tube feeds give her diarrhea and she has been able to tolerate oral intake. She has no known history of DM, but glucose was >300 on admit labs possibly due to steroid use. She was also tachycardic but BP was okay. She was not hypoxic on room air. Chest XR showed b/l patchy infiltrates, Abdominal CT showed tree-in-bud pattern of these infiltrates consistent with pnuemonia. It also showed diffuse inflammation and likely infection around her PEG tube. Procalcitonin was negative, there was no leukocytosis. Troponin was within normal limits, and proBNP was slightly elevated at 141. Flu-A testing was positive. She was admitted for further management. Discharge Providers Provider Date of admission: 04/09/22 14:44 Discharge Date: 04/26/22 Primary care physician: Mariola Barajas DO Consults: 04/09/22 17:59 Consult to Occupational Therapy Evaluate & Treat Comment: Physician Instructions: Evaluate and treat Consult to Physical Therapy Evaluate & Treat Comment: Physician Instructions: Evaluate and Treat 04/09/22 18:13 Consult to General Surgery Routine Comment: Consulting Provider: Jing Guzmán Reason for consultation: PEG tube site infection 04/09/22 18:31 Consult to Speech Therapy Evaluate & Treat Comment: Physician Instructions: Evaluate and treat 04/10/22 21:48 Consult to Dietitian, Adult Routine Comment: Reason For Exam: eduin score = 15 04/24/22 12:57 Consult to Speech Therapy Evaluate & Treat Comment: Physician Instructions: Evaluate and treat Discharge provider: Moises Aguiar DO Summary Hospital Course Discharge Diagnosis: See hospital course by problem list noted below. Hospital Course: 1. Influenza A infection / weakness ?Dx'd 04/06/22, supportive care was provided, and symptoms resolved. 2.? PEG site infection w/abscess, now s/p I&D with PEG tube removal. Patient initially presented with abdominal pain and drainage from her feeding tube. She had not been using it recently and had transitioned to meals. I&D performed by surgery with removal of tube. Polymicrobial cultures growing klebsiella, staph aureus, strep group F and rajani dubliniensis.? Deep culture is positive for klebsiella.? Completed course of Levaquin during her s leonel.?Possible wound vac per surgery in the future, but continues to have drainage from wound, some concern for stomach leak as she developed irritation / burning from the drainage. Continue local dressing changes. Discussed with hospice provider after discharge. 3.? Metastastic breast cancer s/p crani and SPACE SCHEDULER Shunt Continued dexamethasone and home meds.? Fentanyl patch placed with improved pain control.? She was discharged on hospice. 4. Acute respiratory failure with hypoxia Left lung pleural effusion ?- with PEG tube removed, some concern for recurrent aspiration but patient did well with speech therapy without evidence of aspiration. ?- repeat CXR with worsened pleural effusion, discussed with patient given goals of care, wishes to perform diagnostic and therapeutic thoracentesis, ordered for radiology to perform. Differentials included parapneumonia, heart failure, or malignancy. ?- she had 1.5 L of fluid removed, but remained slightly hypoxic but improved symptoms. She was not in respiratory distress. Fluid analysis showed bloody fluid with 217 WBC with only 15% PMN. Preliminary culture is negative. Though she was discharged on augmentin given possibility of a parapneumonic effusion this seems less likely after fluid results (noted after discharge). Cultures are still pending as is cytology. Unfortunately it does not appear LDH or protein levels were sent. Based on appearance though this is less likely heart failure and most likely etiology for her fluid at the time of this note remains malignant effusion. ? 5.? Recent PE On apixiban and will continue at the time of discharge. 6.? DM2 New dx.? A1C 9.4%.? Likely progressive in the setting of steroid dependence.? BG s 193-233.? Continues Lantus 35 BID.? Given goals for hospice at d/c, did not pursue tighter glycemic control.? ? 7.? Obesity, Class 3 BMI 43. 8.? Protein calorie malnutrition D/t cancer.? Her obesity certainly increases her overall risk for morbidity and mortality, but her present malnutrition certainly complicates things.? Goal would not be weight loss in the immediate future, but rather optimizing her nutrition. Time Spent with Patient Time spent: Greater than 30 minutes Exam Vital Signs (past 8 hours): - 04/26/22 04:00 04/26/22 05:00 04/26/22 10:27 Temperature 96.5 F L Pulse Rate 90 Respiratory Rate 17 Blood Pressure 110/88 116/81 Pulse Oximetry 90 L 92 Oxygen Delivery Method Nasal Cannula Oxygen Flow Rate 4 4 Fraction of Inspired Oxygen 36 SaO2/FiO2 Ratio 258 Oxygen Delivery Method Nasal Cannula Oxygen Flow Rate 4 Narrative Exam Narrative: Alert and oriented x3. No apparent distress Heart is regular rate and rhythm without murmur Lungs are clear to auscultation bilaterally with diminished breath sounds L lung base Extremities have 2+ edema of both ankles. Abdomen: J-tube out with dressing covering wound. Wound continues to have drainage, but no surrounding erythema or purulent. Abdomen nontender and soft. Objective Labs Result Diagrams: 04/26/22 05:55 04/26/22 05:55 Labs: Laboratory Results - last 24 hr 04/26/22 04/26/22 05:55 05:55 WBC 9.6 RBC 3.94 L Hgb 12.1 Hct 35.9 L MCV 91.2 MCH 30.8 MCHC 33.7 RDW 18.1 H Plt Count 240 Neut % (Auto) Not Reportable Lymph % (Auto) Not Reportable [place] % (Auto) Not Reportable Eos % (Auto) Not Reportable Baso % (Auto) Not Reportable Lymph # (Auto) Not Reportable [place] # (Auto) Not Reportable Baso # (Auto) Not Reportable Total Counted 100 Seg Neutrophils % 81.0 H Band Neutrophils % 4.0 Lymphocytes % (Manual) 9.0 L Monocytes % (Manual) 4.0 Myelocytes % 2.0 H Neutrophils # (Manual) 8160 H RBC Morphology See below Anisocytosis 1+ H Sodium 131 L Potassium 4.0 Chloride 95 L Carbon Dioxide 32 BUN 17 Creatinine 0.51 L Estimated GFR > 60 BUN/Creatinine Ratio 33.3 H Glucose 119 H Calcium 8.7 Magnesium 2.1 Total Bilirubin 0.7 AST 32 ALT 44 H Alkaline Phosphatase 150 H Total Protein 5.8 L Albumin 3.1 L Globulin 2.7 Albumin/Globulin Ratio 1.1 PFSH Medical History Abnormal Pap smear of cervix Allergic rhinitis due to dust mite (11/14/14) Alopecia due to cytotoxic drug Angiolipoma of skin (02/20/14) Arthritis Breast cancer metastasized to brain Cystocele (10/21/14) Depression Fibromyalgia History of chemotherapy Mild obstructive sleep apnea-hypopnea syndrome (03/06/15) Myopia 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 drug Obesity, Class III, BMI 40-49.9 (morbid obesity) Pelvic relaxation 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) Psoriasis Pulmonary embolism (01/18/22) Rosacea (10/31/13) Tenesmus of bladder (10/21/14) Thyroid nodule Uterine fibroid Vaginal mass Vitamin D deficiency (03/06/15) Surgical History History of brain shunt (~12/22/21) History of gynecologic surgery (10/06/20) History of radioactive iodine thyroid ablation History of removal of Port-a-Cath (07/10/19) History of surgery (11/27/18) History of surgery (12/04/18) History of vaginal hysterectomy (~07/2017) Hx of cholecystectomy Hx of craniotomy (12/13/21) Hx of left mastectomy (06/05/19) Status post excision of lipoma (~2013) Status post tubal ligation (~2013) Family History Father Alcoholism Mother Age: 71 Depression Grandfather Diabetes mellitus Mother Parkinson's disease Social History household members: children Smoking Status: Former smoker alcohol intake: never Discharge Plan Discharge Plan Patient Disposition: Hospice - Home Provider Discharge Comment: You were admitted to the hospital with weakness, and an infection around your PEG tube. PEG was removed, and you were eating well so it was not replaced. Discharge home on hospice, pain medications were sent. You can see about possible recurrent drainages of your fluid if it reaccumulates for comfort, in case fluid is due to pneumonia antibiotics were sent to your pharmacy. Discharge orders & Medications Prescriptions: New diclofenac sodium 1 % Gel 1 ea topical QID 30 Days Qty: 100 0RF tramadol 50 mg Tablet 50 mg PO QID PRN (Reason: Pain, Moderate (4-6)) 14 Days Qty: 30 0RF zinc oxide 20 % Ointment 1 applic topical PRN PRN (Reason: Rash) 30 Days Qty: 60 0RF fentanyl 25 mcg/hr Patch 72 Hour 25 mcg topical Q72H 15 Days Qty: 5 0RF levofloxacin 750 mg tablet 750 mg PO DAILY 7 Days Qty: 7 0RF Continued levothyroxine 25 mcg tablet See Rx Instructions .ROUTE .COMPLEX Qty: 90 3RF Dose Instruction: TAKE ONE TABLET BY MOUTH ONE TIME DAILY Rx Instructions: TAKE ONE TABLET BY MOUTH ONE TIME DAILY gabapentin 600 mg tablet 600 mg PO TID Qty: 90 1RF thyroid (pork) [[place] Thyroid] 90 mg tablet 90 mg PO DAILY Qty: 90 1RF Rx Instructions: Take w/15mg for total of 105mg daily. losartan 50 mg tablet 50 mg PO DAILY Qty: 90 0RF Eliquis 5 mg tablet 5 mg PO BID Qty: 180 0RF metoclopramide HCl 10 mg tablet 10 mg PO Q8H PRN (Reason: nausea and vomiting) 30 Days Qty: 90 2RF acetaminophen 500 mg capsule 1,000 mg PO Q6H PRN (Reason: pain) Qty: 240 2RF famotidine 20 mg tablet 20 mg PO DAILY Qty: 90 0RF duloxetine [Cymbalta] 30 mg capsule,delayed release(DR/EC) 30 mg PO DAILY Qty: 90 3RF dexamethasone 4 mg Tablet 8 mg PO Q12HR Qty: 60 1RF Rx Instructions: Take 2 tablets every 12 hrs lidocaine 5 % adhesive patch,medicated 2 patch TOP DAILY Qty: 15 0RF Rx Instructions: leave on most painful area for up to 12 hrs cyclobenzaprine 5 mg tablet See Rx Instructions .ROUTE .COMPLEX Qty: 90 0RF Dose Instruction: TAKE ONE TABLET BY MOUTH EVERY EIGHT HOURS Rx Instructions: TAKE ONE TABLET BY MOUTH EVERY EIGHT HOURS loratadine [Allergy Relief (loratadine)] 10 mg tablet 10 mg PO DAILY bupropion HCl 150 mg tablet extended release 24 hr 150 mg PO DAILY Qty: 90 1RF lorazepam 0.5 mg Tablet 0.5 mg PO TID PRN (Reason: Anxiety) Qty: 30 0RF lidocaine-prilocaine 2.5-2.5 % Cream 1 applic topical PRN PRN (Reason: Port/Catheter Care) Qty: 30 1RF Rx Instructions: apply to the skin over the port at least 2 hrs before planned use of the port. Cover the cream with a small piece of plastic wrap and leave in place until the port is accessed Discontinued amlodipine 10 mg tablet 10 mg PO DAILY Qty: 90 1RF doxycycline hyclate 100 mg capsule 100 mg PO BID Label Comments: TAKE ONE CAPSULE BY MOUTH TWICE DAILY oseltamivir [Tamiflu] 75 mg capsule 75 mg PO BID 5 Days Qty: 10 0RF Follow up/Referrals: Mariola Barajas DO [Primary Care Provider] - Diet/Activity/Treatments Diet: Diet as Tolerated Activity: As tolerated Visit Report/Discharge Packet Instructions: DI for Prescription Opioid Use, Fentanyl Transdermal Patch, Lorazepam, Levofloxacin, DI for Incision and Drainage, [facility]: Wound Care Discharge Data Primary Care Provider: Mariola Barajas Quality VTE Deep Vein Thrombosis/Pulmonary Embolism Present on Admission: No
[2022-04-26 10:56] VITALS: O2SAT 99
[2022-04-26] MEDS: THYROID, PORK 30 MG TABLET 105 MG PO (10:57)
[2022-04-26] MEDS: TRAMADOL 50 MG TABLET PO (11:01)
[2022-04-26 11:43] LABS: Body Fluid Red Blood Cells 23799 /uL; Body Fluid Tot Nucleated Cells 217 /uL
[2022-04-26 11:44] LABS: Body Fluid Appearance SLIGHTLY CLOUDY; Body Fluid Clotted? NO CLOTS PRESENT; Body Fluid Color RED
[2022-04-26] MEDS: fentaNYL 25 MCG/PATCH TOP (12:27)
--- NOTE | 2022-04-26 13:06 | PC.NURSE ---
Pt is packed up and ready to discharge home via ambulance. PC has been deaccessed, wound redressed, meds given, Fentanyl patch changed. Went over d/c instructions with Pt-discussed d/c meds, time of last dose, reviewed stroke education, and answered all questions. Pt out via stretcher to ambulance with all belongings. Hospice to meet with Pt at her home at 1400.
[2022-04-26 13:18] LABS: Mononuclear WBC Body Fluid 85 %; Polynuclear WBC Body Fluid 15 %
== END 2022-04-26 13:09 | disposition hospice, home (50) | DRG 721 ==
LOC: ED 14:41 → AC 16:24
PROVIDERS: Family Medicine; Surgery; Admitting Provider Internal Medicine; Emergency Provider Emergency Medicine; PCP Family Medicine; Referring Provider Emergency Medicine; Visit Provider Internal Medicine
PROC: 0JB80ZZ Excision of Abdomen Subcutaneous Tissue and Fascia, Open Approach (ICD-10-PCS; principal; 2022-04-12 09:15)
DX: T85.79XA Infection and inflammatory reaction due to other internal prosthetic devices, implants and grafts, initial encounter (principal); J10.1 Influenza due to other identified influenza virus with other respiratory manifestations; C50.919 Malignant neoplasm of unspecified site of unspecified female breast; C79.31 Secondary malignant neoplasm of brain; E43 Unspecified severe protein-calorie malnutrition; R73.9 Hyperglycemia, unspecified; I96 Gangrene, not elsewhere classified; B96.5 Pseudomonas (aeruginosa) (mallei) (pseudomallei) as the cause of diseases classified elsewhere; L02.211 Cutaneous abscess of abdominal wall; B96.1 Klebsiella pneumoniae [K. pneumoniae] as the cause of diseases classified elsewhere; B95.4 Other streptococcus as the cause of diseases classified elsewhere; B95.61 Methicillin susceptible Staphylococcus aureus infection as the cause of diseases classified elsewhere; E66.01 Morbid (severe) obesity due to excess calories; D84.9 Immunodeficiency, unspecified; Z66 Do not resuscitate; J96.01 Acute respiratory failure with hypoxia; J90 Pleural effusion, not elsewhere classified; B96.89 Other specified bacterial agents as the cause of diseases classified elsewhere; F32.A Depression, unspecified; R00.0 Tachycardia, unspecified; Z68.41 Body mass index [BMI] 40.0-44.9, adult; Z79.01 Long term (current) use of anticoagulants; Z86.711 Personal history of pulmonary embolism; Z87.891 Personal history of nicotine dependence; Z20.822 Contact with and (suspected) exposure to COVID-19
CPT/HCPCS: 0241U; 32555; 36415; 36591; 36592; 71045; 74177; 80048; 80053; 80202; 82962; 83036; 83605; 83690; 83735; 83880; 84145; 84484; 85007; 85025; 85379; 85610; 85730; 87040; 87070; 87075; 87077; 87147; 87186; 87205; 89051; 92526; 92610; 93005; 93970; 94760; 94762; 96365; 96366; 97110; 97163; 97166; 97530; 99284; A9270; C8929; C9113; J0171; J0692; J0696; J1642; J1815; J1885; J1940; J1956; J2250; J2270; J2405; J3010; Q9957; Q9967

== ENCOUNTER 2022-05-03 12:37 | Emergency (ER) | payer OTHER, MEDICAID, SELFPAY ==
[2022-04-09 18:06] VITALS: BMI 42.8
[2022-05-03 12:43] VITALS: BP 170/100; PULSE 126; RESP 17; TEMP 36.7; O2SAT 93; BMI 45.6
[2022-05-03] MEDS: LORazepam 2 MG/ML INJ IV (14:09)
[2022-05-03 14:13] LABS: Hematocrit 36.9 % (36-46); Hemoglobin 12.2 g/dL (12.0-16.0); Mean Corpuscular HGB Conc 33.1 % (30-36); Mean Corpuscular Hemoglobin 30.4 PG (26-34); Mean Corpuscular Volume 91.8 fL (80-100); Platelet Count 226 X10^3/uL (150-400); Red Blood Cell Count 4.02 X10^6/uL (4.0-5.2); Red Cell Distribution Width 18.7 % (11.6-14.8); White Blood Cell Count 13.7 X10^3/uL (4.5-11.0)
--- NOTE | 2022-05-03 14:15 | PC.NURSE ---
Pt unable to lay down for the CT scan. Hyma aware,cancelled.
[2022-05-03 14:19] LABS: INR 1.3 (0.9-1.3); Prothrombin Time 14.5 SECONDS (10.1-12.7)
[2022-05-03 14:22] LABS: PTT Partial Thromboplastin Tim 24 SECONDS (26-36)
[2022-05-03 14:24] LABS: Add Manual Diff / Slide Review YES
[2022-05-03 14:25] LABS: Alanine Aminotransferase 60 IU/L (<35); Albumin Globulin Ratio 1.1 (1.0-2.8); Alkaline Phosphatase 177 U/L (38-126); Aspartate Aminotransferase 40 IU/L (14-36); Bilirubin Total 0.6 mg/dL (0.2-1.3); Blood Urea Nitrogen 16 mg/dL (7-17); Calcium 8.5 mg/dL (8.4-10.2); Carbon Dioxide 31 mmol/L (22-32); Chloride 97 mmol/L (98-107); Creatine Kinase 67 U/L (30-135); Estimated Glomerular Filt Rate > 60 mL/min (>60); Globulin 2.8 g/dL (1.7-4.1); Glucose 258 mg/dL (70-100); HEMOLYSIS < 15 (0-50); Potassium 4.4 mmol/L (3.4-5.1); Sodium 133 mmol/L (137-145); Total Protein 5.8 g/dL (6.3-8.2)
[2022-05-03 14:36] LABS: Troponin I 0.024 ng/mL (0.01-0.034)
[2022-05-03 14:49] LABS: Neutrophils Absolute Manual 13015 /uL (3000-5900); Total Cells Counted 100
[2022-05-03 14:50] LABS: Anisocytosis 1+; RBC Morphology See
[2022-05-03 15:03] LABS: Influenza A - CEPHEID Flu A NEGATIVE (NEGATIVE); Influenza B - CEPHEID Flu B NEGATIVE (NEGATIVE); Respiratory Syncytial Virus Negative (Negative)
[2022-05-03 15:08] LABS: COVID-19 CEPHEID 4-PLEX PCR Negative (Negative)
--- NOTE | 2022-05-03 15:55 | CM.SWNOTE ---
ED SW Note Pt is a 51 year old female with PMH of HTN, hypothyroidism, metastatic breast cancer with mets to the brain. Pt was discharged from [facility] 04/26/2022 with home hospice through [facility]. Pt arrives at ED today following panic attack due to inability to move and uncontrolled back pain. Pt reports that her son was assisting her earlier today, cleaning up her BM and she was unable to sit back up due to pain and weakness. Pt reports that she did not feel safe at home and wanted to be in medical setting. SW discusses goals of care with patient and she says that she wants to continue to fight a couple more days to get some affairs in order. Pt reports that she wants to transfer the title to her car and give away some belongings. Pt does not feel adequately supported at home with her son as her caregiver. Pt is agreeable to SNF with hospice. SW received call from alex Mcmullen at [facility] . Kemi reports that the situation at home is tenuous and they will likely not be able to continue to offer home hospice due to a lack of viable caregivers. Kemi reports that she has been working to place pt at a SNF and [facility] is the one facility that is seriously considering pt. Kemi provided the name/number of the DNS at [facility], [place] [phone]. ENDY called [facility] and she reports that they can clinically accept pt but that her admission coordinator is out this week and her church communications administrator is out as well. Shannon is going to reach out to her church communications administrator who is working from home to see if they can accept this pt on hospice with [employer]. Shannon reports that pt will need to be reinstated with hospice prior to coming to SNF. Kemi at [facility] reports that pt will need a new hospice referral. Plan: SW will await a response from Shannon at [facility] and start new hospice referral. DINA Morales
[2022-05-03 16:04] VITALS: PULSE 117; RESP 20; TEMP 36.7; O2SAT 92
--- NOTE | 2022-05-03 16:19 | ED_ITS ---
HPI - Anxiety <Sana Baeza PA-C - Last Filed: 05/03/22 20:28> General Chief Complaint: Anxiety Stated Complaint: Anxiety Attack Time Seen by Provider: 05/03/22 13:22 Source: patient and EMS Mode of arrival: EMS History of Present Illness HPI narrative: 51-year-old female with a history of breast cancer with metastasis to the brain, follow-up with [facility], to posterior tumors have been removed presents to the ED for shortness of breath and a panic attack. Patient states that she has been on hospice at home, suffered a panic attack when she was laid flat to be changed earlier today. Patient states that she was having a hard time breathing when she lays flat. Patient revoked her hospice, so she could come to the ED. patient expresses that she came to the hospital since feels safer and better taken care of. Patient states that she has a oozing wound at the site of a prior PEG tube that has needed ongoing dressing changes. Patient expresses concern that she may not be receiving the right level of care at home. Patient states that she has been feeling increasingly short of breath since yesterday. Patient states she was diagnosed with a PE at about 1-2 weeks ago, has been taking Eliquis for it. Patient denies fever, chills, chest pain, nausea, vomiting, cough, rhinorrhea. Patient is currently not undergoing any chemotherapy or radiation for the cancer. Patient also suffers from lymphedema due to the breast cancer. Related Data Home Medications Medication Instructions Recorded Confirmed loratadine 10 mg tablet (Allergy 10 mg PO DAILY 11/29/17 05/03/22 Relief (loratadine)) Previous Rx's Medication Instructions Recorded levothyroxine 25 mcg tablet See Rx Instructions .Route 09/03/21 .COMPLEX #90 tabs gabapentin 600 mg tablet 600 mg PO TID #90 tabs 09/10/21 thyroid (pork) 90 mg tablet 90 mg PO DAILY #90 tabs 11/09/21 ([place] Thyroid) bupropion HCl 150 mg 24 hr tablet, 150 mg PO DAILY #90 tabs 12/06/21 extended release acetaminophen 500 mg capsule 1,000 mg PO Q6H PRN pain #240 caps 02/21/22 apixaban 5 mg tablet (Eliquis) 5 mg PO BID #180 tabs 02/21/22 famotidine 20 mg tablet 20 mg PO DAILY #90 tabs 02/21/22 losartan 50 mg tablet 50 mg PO DAILY #90 tabs 02/21/22 metoclopramide HCl 10 mg tablet 10 mg PO Q8H PRN nausea and 02/21/22 vomiting 30 days #90 tabs duloxetine 30 mg capsule,delayed 30 mg PO DAILY #90 caps 02/25/22 release (Cymbalta) dexamethasone 4 mg tablet 8 mg PO Q12HR #60 tabs 03/23/22 lorazepam 0.5 mg tablet 0.5 mg PO TID PRN Anxiety #30 tabs 03/23/22 cyclobenzaprine 5 mg tablet See Rx Instructions .Route 03/28/22 .COMPLEX #90 tabs lidocaine 5 % topical patch 2 patch topical DAILY #15 ea 03/28/22 lidocaine-prilocaine 2.5 %-2.5 % 1 applic topical PRN PRN 03/29/22 topical cream Port/Catheter Care #30 grams diclofenac sodium 1 % topical gel 1 ea topical QID 30 days #100 grams 04/26/22 fentanyl 25 mcg/hr transdermal 25 mcg topical Q72H 15 days #5 ea 04/26/22 patch tramadol 50 mg tablet 50 mg PO QID PRN Pain, Moderate 04/26/22 (4-6) 14 days #30 tabs zinc oxide 20 % topical ointment 1 applic topical PRN PRN Rash 30 04/26/22 days #60 grams lorazepam 0.5 mg tablet (Ativan) 0.5 mg PO QID PRN anxiety #10 tabs 05/05/22 morphine 10 mg/5 mL oral solution 10 mg (5 mL) PO Q6H PRN pain #100 05/05/22 mL Allergies Allergy/AdvReac Type Severity Reaction Status Date / Time Penicillins Allergy Unknown Verified 05/03/22 12:48 codeine AdvReac Severe somnolence Verified 05/03/22 12:48 adhesive AdvReac Intermediate Rash Verified 05/03/22 12:48 latex AdvReac Intermediate Rash Verified 05/03/22 12:48 Review of Systems <Sana Baeza PA-C - Last Filed: 05/03/22 20:28> Review of Systems ROS Unobtainable: All systems reviewed & are unremarkable except as noted in HPI and below Constitutional Constitutional: Denies chills, Denies fatigue, Denies fever(s), Denies frequent falls, Denies lethargy and Denies weakness Eyes Eyes: Denies change in vision, Denies eye discharge, Denies irritation and Denies loss of vision ENT Ears, Nose, Mouth, and Throat: Denies change in voice, Denies dizziness, Denies neck pain, Denies sore throat and Denies throat swelling Cardiovascular Cardiovascular: Denies chest pain, Denies irregular heart rhythm, Denies lightheadedness, Denies palpitations, Reports dyspnea, Denies dyspnea on exertio n and Denies orthopnea Respiratory Respiratory: Denies cough, Reports dyspnea, Denies dyspnea on exertion and Denies wheezing Gastrointestinal Gastrointestinal: Denies abdominal pain, Denies change in bowel habits, Denies diarrhea, Denies nausea and Denies vomiting Genitourinary Genitourinary: Denies hematuria, Denies flank pain, Denies urinary incontinence and Denies urinary urgency Musculoskeletal Musculoskeletal: Denies back pain, Denies muscle weakness, Denies neck pain, Denies numbness and Denies tingling Integumentary/Breasts Skin/Breast: Denies pruritus, Denies erythema, Denies rash and Reports wounds Neurologic Neurologic: Denies behavioral changes, Denies confusion, Denies dizziness, [place] es frequent falls, Denies loss of vision, Denies numbness, Denies tingling and Denies weakness Psychiatric Psychiatric: Denies anxiety, Denies behavioral changes, Denies confusion, Denies depression, Denies homicidal ideation and Denies suicidal ideation Endocrine Endocrine: Denies fatigue, Denies flushing and Denies palpitations Hematologic/Lymphatic Hematologic/Lymphatic: Denies easy bruising Allergic/Immunologic Allergic/Immunologic: Denies urticaria, Denies throat swelling and Denies wheezing Patient History <Sana Baeza PA-C - Last Filed: 05/03/22 20:28> Medical History Abnormal Pap smear of cervix Allergic rhinitis due to dust mite (11/14/14) Alopecia due to cytotoxic drug Angiolipoma of skin (02/20/14) Arthritis Breast cancer metastasized to brain Cystocele (10/21/14) Depression Fibromyalgia History of chemotherapy Mild obstructive sleep apnea-hypopnea syndrome (03/06/15) Myopia 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 drug Obesity, Class III, BMI 40-49.9 (morbid obesity) Pelvic relaxation 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) Psoriasis Pulmonary embolism (01/18/22) Rosacea (10/31/13) Tenesmus of bladder (10/21/14) Thyroid nodule Uterine fibroid Vaginal mass Vitamin D deficiency (03/06/15) Surgical History History of brain shunt (~12/22/21) History of gynecologic surgery (10/06/20) History of radioactive iodine thyroid ablation History of removal of Port-a-Cath (07/10/19) History of surgery (11/27/18) History of surgery (12/04/18) History of vaginal hysterectomy (~07/2017) Hx of cholecystectomy Hx of craniotomy (12/13/21) Hx of left mastectomy (06/05/19) Status post excision of lipoma (~2013) Status post tubal ligation (~2013) Family History Father Alcoholism Mother Age: 71 Depression Grandfather Diabetes mellitus Mother Parkinson's disease Social History marital status: number of children: 3 household members: children and other (32-year-old son is autistic, 2nd son has no developmental issues, 9-year-old daughter in the home) Smoking Status: Former smoker alcohol intake: never Smoking Status: Former smoker tobacco type: cigarettes alcohol intake frequency: other Substance Use Type: does not use Exam <Sana Baeza PA-C - Last Filed: 05/03/22 20:28> Narrative Exam Narrative: Const General:?cooperative, healthy appearing and comfortable [facility] Head:?normal to inspection Ears:?hearing grossly normal bilaterally Nose:?external nose normal Face and sinus:?normal facial exam and sinuses nontender Mouth:?oral mucosae normal Throat:?posterior oropharynx normal Eyes General:?appearance normal, both eyes and all related structures Neck Neck:?normal visual inspection and no lymphadenopathy noted Resp Effort & Inspection:?normal respiratory effort Auscultation:?clear to auscultation bilaterally Cardio Rate:?regular rate Rhythm:?regular rhythm Integumentary Oozing Wound at the site of PEG site. Extensive lypehedema of L arm with oozing. Neuro General:?patient alert, patient awake and patient oriented x3 Initial Vital Signs Initial Vital Signs: Vital Signs Temperature 98.0 F 05/03/22 12:43 Pulse Rate 126 H 05/03/22 12:43 Respiratory Rate 17 05/03/22 12:43 Blood Pressure 170/100 H 05/03/22 12:43 Pulse Oximetry 93 05/03/22 12:43 Oxygen Delivery Method 05/03/22 12:43 <Sheng Alvarado, DO - Last Filed: 05/06/22 07:09> Initial Vital Signs Initial Vital Signs: Vital Signs Temperature 98.0 F 05/03/22 12:43 Pulse Rate 126 H 05/03/22 12:43 Respiratory Rate 17 05/03/22 12:43 Blood Pressure 170/100 H 05/03/22 12:43 Pulse Oximetry 93 05/03/22 12:43 Oxygen Delivery Method 05/03/22 12:43 <Yadira Salguero, DO - Last Filed: 05/07/22 06:50> Initial Vital Signs Initial Vital Signs: Vital Signs Temperature 98.0 F 05/03/22 12:43 Pulse Rate 126 H 05/03/22 12:43 Respiratory Rate 17 05/03/22 12:43 Blood Pressure 170/100 H 05/03/22 12:43 Pulse Oximetry 93 05/03/22 12:43 Oxygen Delivery Method 05/03/22 12:43 <Rico Pina, DO - Last Filed: 05/06/22 04:49> Initial Vital Signs Initial Vital Signs: Vital Signs Temperature 98.0 F 05/03/22 12:43 Pulse Rate 126 H 05/03/22 12:43 Respiratory Rate 17 05/03/22 12:43 Blood Pressure 170/100 H 05/03/22 12:43 Pulse Oximetry 93 05/03/22 12:43 Oxygen Delivery Method 05/03/22 12:43 <Jud Mahajan, DO - Last Filed: 05/07/22 17:17> Initial Vital Signs Initial Vital Signs: Vital Signs Temperature 98.0 F 05/03/22 12:43 Pulse Rate 126 H 05/03/22 12:43 Respiratory Rate 17 05/03/22 12:43 Blood Pressure 170/100 H 05/03/22 12:43 Pulse Oximetry 93 05/03/22 12:43 Oxygen Delivery Method 05/03/22 12:43 Course <Sana Baeza PA-C - Last Filed: 05/03/22 20:28> Orders Ordered: Discontinued Medications Acetaminophen (Acetaminophen 325 Mg Tablet) 650 mg PO Q6H PRN PRN Reason: Fever/Mild Pain (1-3) Last Admin: 05/04/22 11:29 Dose: 650 mg Documented By: JAVI Apixaban (Apixaban 5 Mg Tablet) 5 mg PO BID [facility] Last Admin: 05/06/22 07:58 Dose: 5 mg Documented By: Admin: 05/05/22 22:00 Dose: Not Given Documented By: Admin: 05/05/22 09:28 Dose: 5 mg Documented By: JAVI(2) Admin: 05/04/22 22:42 Dose: 5 mg Documented By: Admin: 05/04/22 09:45 Dose: 5 mg Documented By: JAVI Bupropion HCl (Bupropion Xl 150 Mg Tab) 150 mg PO DAILY [facility] Last Admin: 05/06/22 07:57 Dose: 150 mg Documented By: Admin: 05/05/22 09:28 Dose: 150 mg Documented By: JAVI(2) Admin: 05/04/22 09:45 Dose: 150 mg Documented By: JAVI Dexamethasone (Dexamethasone 4 Mg Tablet) 8 mg PO BID [facility] Last Admin: 05/06/22 07:58 Dose: 8 mg Documented By: Admin: 05/05/22 22:00 Dose: Not Given Documented By: Admin: 05/05/22 09:28 Dose: 8 mg Documented By: JAVI(2) Admin: 05/04/22 22:41 Dose: 8 mg Documented By: Admin: 05/04/22 09:46 Dose: 8 mg Documented By: JAVI Duloxetine HCl (Duloxetine 30 Mg Capsule) 30 mg PO DAILY [facility] Last Admin: 05/06/22 07:58 Dose: 30 mg Documented By: Admin: 05/05/22 09:28 Dose: 30 mg Documented By: [email or web address]) Admin: 05/04/22 09:47 Dose: 30 mg Documented By: JAVI Famotidine (Famotidine 20 Mg Tablet) 20 mg PO BID [facility] Last Admin: 05/06/22 07:58 Dose: 20 mg Documented By: Admin: 05/05/22 22:00 Dose: Not Given Documented By: Admin: 05/05/22 09:28 Dose: 20 mg Documented By: JAVI(2) Admin: 05/04/22 22:41 Dose: 20 mg Documented By: Admin: 05/04/22 09:44 Dose: 20 mg Documented By: JAVI Gabapentin (Gabapentin 600 Mg Tablet) 600 mg PO TID JOCE Last Admin: 05/05/22 18:19 Dose: Not Given Documented By: Admin: 05/05/22 09:28 Dose: 600 mg Documented By: JAVI(2) Admin: 05/04/22 22:41 Dose: 600 mg Documented By: Admin: 05/04/22 16:18 Dose: 600 mg Documented By: Admin: 05/04/22 09:46 Dose: 600 mg Documented By: JAVI Gabapentin (Gabapentin 300 Mg Capsule) 600 mg PO TID JOCE Last Admin: 05/06/22 08:00 Dose: 600 mg Documented By: ARIELLE Gabapentin (Gabapentin 300 Mg Capsule) 600 mg PO NOW ONE Stop: 05/05/22 18:16 Last Admin: 05/05/22 18:24 Dose: 600 mg Documented By: JAVI Sodium Chloride (Normal Saline 0.9%) 1,000 mls @ 1,000 mls/hr IV BOLUS ONE Stop: 05/03/22 18:08 Last Infusion: 05/03/22 18:43 Dose: 0 mls/hr Documented By: Admin: 05/03/22 17:40 Dose: 1,000 mls/hr Documented By: JAVI Sodium Chloride (Normal Saline 0.9%) 1,000 mls @ 200 mls/hr IV CONT JOCE Last Infusion: 05/05/22 08:27 Dose: 0 mls/hr Documented By: JAVI(2) Admin: 05/05/22 00:09 Dose: 200 mls/hr Documented By: Infusion: 05/04/22 23:00 Dose: 200 mls/hr Documented By: Admin: 05/04/22 18:00 Dose: 200 mls/hr Documented By: Infusion: 05/04/22 13:59 Dose: 0 mls/hr Documented By: Admin: 05/04/22 08:48 Dose: 200 mls/hr Documented By: JAVI(2) Sodium Chloride (Normal Saline 0.9%) 1,000 mls @ 100 mls/hr IV CONT JOCE Last Infusion: 05/06/22 05:30 Dose: 0 mls/hr Documented By: Admin: 05/05/22 18:54 Dose: 100 mls/hr Documented By: Infusion: 05/05/22 18:53 Dose: 0 mls/hr Documented By: Admin: 05/05/22 09:16 Dose: 100 mls/hr Documented By: JAVI(2) Levothyroxine Sodium (Levothyroxine 25 Mcg Tablet) 25 mcg PO NOW ONE Stop: 05/06/22 08:04 Last Admin: 05/06/22 08:14 Dose: 25 mcg Documented By: ARIELLE Lorazepam (Lorazepam 2 Mg/Ml Inj) 2 mg IV NOW ONE Stop: 05/03/22 13:35 Last Admin: 05/03/22 14:09 Dose: 2 mg Documented By: JAVI(3) Lorazepam (Lorazepam 0.5 Mg Tablet) 0.5 mg PO NOW ONE Stop: 05/04/22 03:35 Last Admin: 05/04/22 03:45 Dose: 0.5 mg Documented By: COLIN Lorazepam (Lorazepam 2 Mg/Ml Inj) 0.5 mg IV NOW ONE Stop: 05/04/22 11:13 Last Admin: 05/04/22 11:28 Dose: 0.5 mg Documented By: JAVI Lorazepam (Lorazepam 2 Mg/Ml Oral Dorothy) 0.5 mg PO Q2HR PRN PRN Reason: Anxiety Last Admin: 05/04/22 20:40 Dose: 0.5 mg Documented By: JIN Losartan Potassium (Losartan 50 Mg Tablet) 50 mg PO NOW ONE Stop: 05/04/22 03:21 Last Admin: 05/04/22 06:00 Dose: 50 mg Documented By: COLIN Metronidazole (Metronidazole 500 Mg Tablet) 500 mg TOP NOW ONE Stop: 05/04/22 13:35 Last Admin: 05/05/22 04:49 Dose: Not Given Documented By: JOE Morphine Sulfate (Morphine 10 Mg/0.5 Ml Oral Syringe) 10 mg PO QID JOCE Last Admin: 05/05/22 18:22 Dose: Not Given Documented By: Admin: 05/05/22 18:21 Dose: Not Given Documented By: Admin: 05/05/22 18:21 Dose: Not Given Documented By: Admin: 05/04/22 22:19 Dose: Not Given Documented By: Admin: 05/04/22 20:41 Dose: 10 mg Documented By: JIN Morphine Sulfate (Morphine 10 Mg/0.5 Ml Oral Syringe) 5 mg PO Q1HR PRN PRN Reason: Pain or dyspnea Morphine Sulfate (Morphine 10 Mg/0.5 Ml Oral Syringe) 10 mg PO QID [facility] Last Admin: 05/05/22 18:34 Dose: 10 mg Documented By: JAVI Morphine Sulfate (Morphine 10 Mg/0.5 Ml Oral Syringe) 10 mg PO Q6HR [facility] Last Admin: 05/06/22 07:59 Dose: 10 mg Documented By: Admin: 05/06/22 00:00 Dose: Not Given Documented By: DANIELLA Ondansetron HCl (Ondansetron 4 Mg/2 Ml Inj) 4 mg IV NOW ONE Stop: 05/06/22 04:48 Last Admin: 05/06/22 05:01 Dose: 4 mg Documented By: DANIELLA Thyroid (Thyroid, Pork 30 Mg Tablet) 90 mg PO NOW ONE Stop: 05/06/22 08:03 Last Admin: 05/06/22 08:14 Dose: 90 mg Documented By: ARIELLE Vital Signs Vital signs: Vital Signs - 8 hr 05/06/22 05:39 Temperature 97.6 F Pulse Rate 112 H Respiratory Rate 20 Blood Pressure 140/91 H Pulse Oximetry 93 Oxygen Flow Rate 5 <Sheng Alvarado, DO - Last Filed: 05/06/22 07:09> Orders Ordered: Discontinued Medications Acetaminophen (Acetaminophen 325 Mg Tablet) 650 mg PO Q6H PRN PRN Reason: Fever/Mild Pain (1-3) Last Admin: 05/04/22 11:29 Dose: 650 mg Documented By: JAVI Apixaban (Apixaban 5 Mg Tablet) 5 mg PO BID [facility] Last Admin: 05/06/22 07:58 Dose: 5 mg Documented By: Admin: 05/05/22 22:00 Dose: Not Given Documented By: Admin: 05/05/22 09:28 Dose: 5 mg Documented By: JAVI(2) Admin: 05/04/22 22:42 Dose: 5 mg Documented By: Admin: 05/04/22 09:45 Dose: 5 mg Documented By: JAVI Bupropion HCl (Bupropion Xl 150 Mg Tab) 150 mg PO DAILY [facility] Last Admin: 05/06/22 07:57 Dose: 150 mg Documented By: Admin: 05/05/22 09:28 Dose: 150 mg Documented By: JAVI(2) Admin: 05/04/22 09:45 Dose: 150 mg Documented By: JAVI Dexamethasone (Dexamethasone 4 Mg Tablet) 8 mg PO BID [facility] Last Admin: 05/06/22 07:58 Dose: 8 mg Documented By: Admin: 05/05/22 22:00 Dose: Not Given Documented By: Admin: 05/05/22 09:28 Dose: 8 mg Documented By: JAVI(2) Admin: 05/04/22 22:41 Dose: 8 mg Documented By: Admin: 05/04/22 09:46 Dose: 8 mg Documented By: JAVI Duloxetine HCl (Duloxetine 30 Mg Capsule) 30 mg PO DAILY [facility] Last Admin: 05/06/22 07:58 Dose: 30 mg Documented By: Admin: 05/05/22 09:28 Dose: 30 mg Documented By: JAVI(2) Admin: 05/04/22 09:47 Dose: 30 mg Documented By: JAVI Famotidine (Famotidine 20 Mg Tablet) 20 mg PO BID [facility] Last Admin: 05/06/22 07:58 Dose: 20 mg Documented By: Admin: 05/05/22 22:00 Dose: Not Given Documented By: Admin: 05/05/22 09:28 Dose: 20 mg Documented By: JAVI(2) Admin: 05/04/22 22:41 Dose: 20 mg Documented By: Admin: 05/04/22 09:44 Dose: 20 mg Documented By: JAVI Gabapentin (Gabapentin 600 Mg Tablet) 600 mg PO TID [facility] Last Admin: 05/05/22 18:19 Dose: Not Given Documented By: Admin: 05/05/22 09:28 Dose: 600 mg Documented By: JAVI(2) Admin: 05/04/22 22:41 Dose: 600 mg Documented By: Admin: 05/04/22 16:18 Dose: 600 mg Documented By: Admin: 05/04/22 09:46 Dose: 600 mg Documented By: JAVI Gabapentin (Gabapentin 300 Mg Capsule) 600 mg PO TID [facility] Last Admin: 05/06/22 08:00 Dose: 600 mg Documented By: ARIELLE Gabapentin (Gabapentin 300 Mg Capsule) 600 mg PO NOW ONE Stop: 05/05/22 18:16 Last Admin: 05/05/22 18:24 Dose: 600 mg Documented By: JAVI Sodium Chloride (Normal Saline 0.9%) 1,000 mls @ 1,000 mls/hr IV BOLUS ONE Stop: 05/03/22 18:08 Last Infusion: 05/03/22 18:43 Dose: 0 mls/hr Documented By: Admin: 05/03/22 17:40 Dose: 1,000 mls/hr Documented By: JAVI Sodium Chloride (Normal Saline 0.9%) 1,000 mls @ 200 mls/hr IV CONT JOCE Last Infusion: 05/05/22 08:27 Dose: 0 mls/hr Documented By: JAVI(2) Admin: 05/05/22 00:09 Dose: 200 mls/hr Documented By: Infusion: 05/04/22 23:00 Dose: 200 mls/hr Documented By: Admin: 05/04/22 18:00 Dose: 200 mls/hr Documented By: Infusion: 05/04/22 13:59 Dose: 0 mls/hr Documented By: Admin: 05/04/22 08:48 Dose: 200 mls/hr Documented By: JAVI(2) Sodium Chloride (Normal Saline 0.9%) 1,000 mls @ 100 mls/hr IV CONT JOCE Last Infusion: 05/06/22 05:30 Dose: 0 mls/hr Documented By: Admin: 05/05/22 18:54 Dose: 100 mls/hr Documented By: Infusion: 05/05/22 18:53 Dose: 0 mls/hr Documented By: Admin: 05/05/22 09:16 Dose: 100 mls/hr Documented By: JAVI(2) Levothyroxine Sodium (Levothyroxine 25 Mcg Tablet) 25 mcg PO NOW ONE Stop: 05/06/22 08:04 Last Admin: 05/06/22 08:14 Dose: 25 mcg Documented By: ARIELLE Lorazepam (Lorazepam 2 Mg/Ml Inj) 2 mg IV NOW ONE Stop: 05/03/22 13:35 Last Admin: 05/03/22 14:09 Dose: 2 mg Documented By: JAVI(3) Lorazepam (Lorazepam 0.5 Mg Tablet) 0.5 mg PO NOW ONE Stop: 05/04/22 03:35 Last Admin: 05/04/22 03:45 Dose: 0.5 mg Documented By: COLIN Lorazepam (Lorazepam 2 Mg/Ml Inj) 0.5 mg IV NOW ONE Stop: 05/04/22 11:13 Last Admin: 05/04/22 11:28 Dose: 0.5 mg Documented By: JAVI Lorazepam (Lorazepam 2 Mg/Ml Oral Dorothy) 0.5 mg PO Q2HR PRN PRN Reason: Anxiety Last Admin: 05/04/22 20:40 Dose: 0.5 mg Documented By: JIN Losartan Potassium (Losartan 50 Mg Tablet) 50 mg PO NOW ONE Stop: 05/04/22 03:21 Last Admin: 05/04/22 06:00 Dose: 50 mg Documented By: COLIN Metronidazole (Metronidazole 500 Mg Tablet) 500 mg TOP NOW ONE Stop: 05/04/22 13:35 Last Admin: 05/05/22 04:49 Dose: Not Given Documented By: JOE Morphine Sulfate (Morphine 10 Mg/0.5 Ml Oral Syringe) 10 mg PO QID [facility] Last Admin: 05/05/22 18:22 Dose: Not Given Documented By: Admin: 05/05/22 18:21 Dose: Not Given Documented By: Admin: 05/05/22 18:21 Dose: Not Given Documented By: Admin: 05/04/22 22:19 Dose: Not Given Documented By: Admin: 05/04/22 20:41 Dose: 10 mg Documented By: JIN Morphine Sulfate (Morphine 10 Mg/0.5 Ml Oral Syringe) 5 mg PO Q1HR PRN PRN Reason: Pain or dyspnea Morphine Sulfate (Morphine 10 Mg/0.5 Ml Oral Syringe) 10 mg PO QID [facility] Last Admin: 05/05/22 18:34 Dose: 10 mg Documented By: JAVI Morphine Sulfate (Morphine 10 Mg/0.5 Ml Oral Syringe) 10 mg PO Q6HR [facility] Last Admin: 05/06/22 07:59 Dose: 10 mg Documented By: Admin: 05/06/22 00:00 Dose: Not Given Documented By: DANIELLA Ondansetron HCl (Ondansetron 4 Mg/2 Ml Inj) 4 mg IV NOW ONE Stop: 05/06/22 04:48 Last Admin: 05/06/22 05:01 Dose: 4 mg Documented By: DANIELLA Thyroid (Thyroid, Pork 30 Mg Tablet) 90 mg PO NOW ONE Stop: 05/06/22 08:03 Last Admin: 05/06/22 08:14 Dose: 90 mg Documented By: ARIELLE Vital Signs Vital signs: Vital Signs - 8 hr 05/06/22 05:39 Temperature 97.6 F Pulse Rate 112 H Respiratory Rate 20 Blood Pressure 140/91 H Pulse Oximetry 93 Oxygen Flow Rate 5 <Yadira Salguero DO - Last Filed: 05/07/22 06:50> Orders Ordered: Discontinued Medications Acetaminophen (Acetaminophen 325 Mg Tablet) 650 mg PO Q6H PRN PRN Reason: Fever/Mild Pain (1-3) Last Admin: 05/04/22 11:29 Dose: 650 mg Documented By: JAVI Apixaban (Apixaban 5 Mg Tablet) 5 mg PO BID [facility] Last Admin: 05/06/22 07:58 Dose: 5 mg Documented By: Admin: 05/05/22 22:00 Dose: Not Given Documented By: Admin: 05/05/22 09:28 Dose: 5 mg Documented By: JAVI(2) Admin: 05/04/22 22:42 Dose: 5 mg Documented By: Admin: 05/04/22 09:45 Dose: 5 mg Documented By: JAVI Bupropion HCl (Bupropion Xl 150 Mg Tab) 150 mg PO DAILY [facility] Last Admin: 05/06/22 07:57 Dose: 150 mg Documented By: Admin: 05/05/22 09:28 Dose: 150 mg Documented By: [email or web address]) Admin: 05/04/22 09:45 Dose: 150 mg Documented By: JAVI Dexamethasone (Dexamethasone 4 Mg Tablet) 8 mg PO BID [facility] Last Admin: 05/06/22 07:58 Dose: 8 mg Documented By: Admin: 05/05/22 22:00 Dose: Not Given Documented By: Admin: 05/05/22 09:28 Dose: 8 mg Documented By: [email or web address]) Admin: 05/04/22 22:41 Dose: 8 mg Documented By: Admin: 05/04/22 09:46 Dose: 8 mg Documented By: JAVI Duloxetine HCl (Duloxetine 30 Mg Capsule) 30 mg PO DAILY [facility] Last Admin: 05/06/22 07:58 Dose: 30 mg Documented By: Admin: 05/05/22 09:28 Dose: 30 mg Documented By: JAVI(2) Admin: 05/04/22 09:47 Dose: 30 mg Documented By: JAVI Famotidine (Famotidine 20 Mg Tablet) 20 mg PO BID JOCE Last Admin: 05/06/22 07:58 Dose: 20 mg Documented By: Admin: 05/05/22 22:00 Dose: Not Given Documented By: Admin: 05/05/22 09:28 Dose: 20 mg Documented By: JAVI(2) Admin: 05/04/22 22:41 Dose: 20 mg Documented By: Admin: 05/04/22 09:44 Dose: 20 mg Documented By: JAVI Gabapentin (Gabapentin 600 Mg Tablet) 600 mg PO TID JOCE Last Admin: 05/05/22 18:19 Dose: Not Given Documented By: Admin: 05/05/22 09:28 Dose: 600 mg Documented By: JAVI(2) Admin: 05/04/22 22:41 Dose: 600 mg Documented By: Admin: 05/04/22 16:18 Dose: 600 mg Documented By: Admin: 05/04/22 09:46 Dose: 600 mg Documented By: JAVI Gabapentin (Gabapentin 300 Mg Capsule) 600 mg PO TID JOCE Last Admin: 05/06/22 08:00 Dose: 600 mg Documented By: ARIELLE Gabapentin (Gabapentin 300 Mg Capsule) 600 mg PO NOW ONE Stop: 05/05/22 18:16 Last Admin: 05/05/22 18:24 Dose: 600 mg Documented By: JAVI Sodium Chloride (Normal Saline 0.9%) 1,000 mls @ 1,000 mls/hr IV BOLUS ONE Stop: 05/03/22 18:08 Last Infusion: 05/03/22 18:43 Dose: 0 mls/hr Documented By: Admin: 05/03/22 17:40 Dose: 1,000 mls/hr Documented By: JAVI Sodium Chloride (Normal Saline 0.9%) 1,000 mls @ 200 mls/hr IV CONT JOCE Last Infusion: 05/05/22 08:27 Dose: 0 mls/hr Documented By: JAVI(2) Admin: 05/05/22 00:09 Dose: 200 mls/hr Documented By: Infusion: 05/04/22 23:00 Dose: 200 mls/hr Documented By: Admin: 05/04/22 18:00 Dose: 200 mls/hr Documented By: Infusion: 05/04/22 13:59 Dose: 0 mls/hr Documented By: Admin: 05/04/22 08:48 Dose: 200 mls/hr Documented By: JAVI(2) Sodium Chloride (Normal Saline 0.9%) 1,000 mls @ 100 mls/hr IV CONT JOCE Last Infusion: 05/06/22 05:30 Dose: 0 mls/hr Documented By: Admin: 05/05/22 18:54 Dose: 100 mls/hr Documented By: Infusion: 05/05/22 18:53 Dose: 0 mls/hr Documented By: Admin: 05/05/22 09:16 Dose: 100 mls/hr Documented By: AJVI(2) Levothyroxine Sodium (Levothyroxine 25 Mcg Tablet) 25 mcg PO NOW ONE Stop: 05/06/22 08:04 Last Admin: 05/06/22 08:14 Dose: 25 mcg Documented By: ARIELLE Lorazepam (Lorazepam 2 Mg/Ml Inj) 2 mg IV NOW ONE Stop: 05/03/22 13:35 Last Admin: 05/03/22 14:09 Dose: 2 mg Documented By: JAVI(3) Lorazepam (Lorazepam 0.5 Mg Tablet) 0.5 mg PO NOW ONE Stop: 05/04/22 03:35 Last Admin: 05/04/22 03:45 Dose: 0.5 mg Documented By: COLIN Lorazepam (Lorazepam 2 Mg/Ml Inj) 0.5 mg IV NOW ONE Stop: 05/04/22 11:13 Last Admin: 05/04/22 11:28 Dose: 0.5 mg Documented By: JAVI Lorazepam (Lorazepam 2 Mg/Ml Oral Dorothy) 0.5 mg PO Q2HR PRN PRN Reason: Anxiety Last Admin: 05/04/22 20:40 Dose: 0.5 mg Documented By: JIN Losartan Potassium (Losartan 50 Mg Tablet) 50 mg PO NOW ONE Stop: 05/04/22 03:21 Last Admin: 05/04/22 06:00 Dose: 50 mg Documented By: COLIN Metronidazole (Metronidazole 500 Mg Tablet) 500 mg TOP NOW ONE Stop: 05/04/22 13:35 Last Admin: 05/05/22 04:49 Dose: Not Given Documented By: JOE Morphine Sulfate (Morphine 10 Mg/0.5 Ml Oral Syringe) 10 mg PO QID [facility] Last Admin: 05/05/22 18:22 Dose: Not Given Documented By: Admin: 05/05/22 18:21 Dose: Not Given Documented By: Admin: 05/05/22 18:21 Dose: Not Given Documented By: Admin: 05/04/22 22:19 Dose: Not Given Documented By: Admin: 05/04/22 20:41 Dose: 10 mg Documented By: JIN Morphine Sulfate (Morphine 10 Mg/0.5 Ml Oral Syringe) 5 mg PO Q1HR PRN PRN Reason: Pain or dyspnea Morphine Sulfate (Morphine 10 Mg/0.5 Ml Oral Syringe) 10 mg PO QID [facility] Last Admin: 05/05/22 18:34 Dose: 10 mg Documented By: JAVI Morphine Sulfate (Morphine 10 Mg/0.5 Ml Oral Syringe) 10 mg PO Q6HR [facility] Last Admin: 05/06/22 07:59 Dose: 10 mg Documented By: Admin: 05/06/22 00:00 Dose: Not Given Documented By: DANIELLA Ondansetron HCl (Ondansetron 4 Mg/2 Ml Inj) 4 mg IV NOW ONE Stop: 05/06/22 04:48 Last Admin: 05/06/22 05:01 Dose: 4 mg Documented By: DANIELLA Thyroid (Thyroid, Pork 30 Mg Tablet) 90 mg PO NOW ONE Stop: 05/06/22 08:03 Last Admin: 05/06/22 08:14 Dose: 90 mg Documented By: ARIELLE Vital Signs Vital signs: Vital Signs - 8 hr 05/06/22 05:39 Temperature 97.6 F Pulse Rate 112 H Respiratory Rate 20 Blood Pressure 140/91 H Pulse Oximetry 93 Oxygen Flow Rate 5 <Rico Pina DO - Last Filed: 05/06/22 04:49> Orders Ordered: Discontinued Medications Acetaminophen (Acetaminophen 325 Mg Tablet) 650 mg PO Q6H PRN PRN Reason: Fever/Mild Pain (1-3) Last Admin: 05/04/22 11:29 Dose: 650 mg Documented By: JAVI Apixaban (Apixaban 5 Mg Tablet) 5 mg PO BID [facility] Last Admin: 05/06/22 07:58 Dose: 5 mg Documented By: Admin: 05/05/22 22:00 Dose: Not Given Documented By: Admin: 05/05/22 09:28 Dose: 5 mg Documented By: JAVI(Junior) Admin: 05/04/22 22:42 Dose: 5 mg Documented By: Admin: 05/04/22 09:45 Dose: 5 mg Documented By: JAVI Bupropion HCl (Bupropion Xl 150 Mg Tab) 150 mg PO DAILY [facility] Last Admin: 05/06/22 07:57 Dose: 150 mg Documented By: Admin: 05/05/22 09:28 Dose: 150 mg Documented By: JAVI(2) Admin: 05/04/22 09:45 Dose: 150 mg Documented By: JAVI Dexamethasone (Dexamethasone 4 Mg Tablet) 8 mg PO BID [facility] Last Admin: 05/06/22 07:58 Dose: 8 mg Documented By: Admin: 05/05/22 22:00 Dose: Not Given Documented By: Admin: 05/05/22 09:28 Dose: 8 mg Documented By: JAVI(2) Admin: 05/04/22 22:41 Dose: 8 mg Documented By: Admin: 05/04/22 09:46 Dose: 8 mg Documented By: JAVI Duloxetine HCl (Duloxetine 30 Mg Capsule) 30 mg PO DAILY [facility] Last Admin: 05/06/22 07:58 Dose: 30 mg Documented By: Admin: 05/05/22 09:28 Dose: 30 mg Documented By: JAVI(2) Admin: 05/04/22 09:47 Dose: 30 mg Documented By: JAVI Famotidine (Famotidine 20 Mg Tablet) 20 mg PO BID [facility] Last Admin: 05/06/22 07:58 Dose: 20 mg Documented By: Admin: 05/05/22 22:00 Dose: Not Given Documented By: Admin: 05/05/22 09:28 Dose: 20 mg Documented By: JAVI(2) Admin: 05/04/22 22:41 Dose: 20 mg Documented By: Admin: 05/04/22 09:44 Dose: 20 mg Documented By: JAVI Gabapentin (Gabapentin 600 Mg Tablet) 600 mg PO TID [facility] Last Admin: 05/05/22 18:19 Dose: Not Given Documented By: Admin: 05/05/22 09:28 Dose: 600 mg Documented By: JAVI(2) Admin: 05/04/22 22:41 Dose: 600 mg Documented By: Admin: 05/04/22 16:18 Dose: 600 mg Documented By: Admin: 05/04/22 09:46 Dose: 600 mg Documented By: JAVI Gabapentin (Gabapentin 300 Mg Capsule) 600 mg PO TID JOCE Last Admin: 05/06/22 08:00 Dose: 600 mg Documented By: ARIELLE Gabapentin (Gabapentin 300 Mg Capsule) 600 mg PO NOW ONE Stop: 05/05/22 18:16 Last Admin: 05/05/22 18:24 Dose: 600 mg Documented By: JAVI Sodium Chloride (Normal Saline 0.9%) 1,000 mls @ 1,000 mls/hr IV BOLUS ONE Stop: 05/03/22 18:08 Last Infusion: 05/03/22 18:43 Dose: 0 mls/hr Documented By: Admin: 05/03/22 17:40 Dose: 1,000 mls/hr Documented By: JAVI Sodium Chloride (Normal Saline 0.9%) 1,000 mls @ 200 mls/hr IV CONT JOCE Last Infusion: 05/05/22 08:27 Dose: 0 mls/hr Documented By: JAVI(2) Admin: 05/05/22 00:09 Dose: 200 mls/hr Documented By: Infusion: 05/04/22 23:00 Dose: 200 mls/hr Documented By: Admin: 05/04/22 18:00 Dose: 200 mls/hr Documented By: Infusion: 05/04/22 13:59 Dose: 0 mls/hr Documented By: Admin: 05/04/22 08:48 Dose: 200 mls/hr Documented By: JAVI(2) Sodium Chloride (Normal Saline 0.9%) 1,000 mls @ 100 mls/hr IV CONT JOCE Last Infusion: 05/06/22 05:30 Dose: 0 mls/hr Documented By: Admin: 05/05/22 18:54 Dose: 100 mls/hr Documented By: Infusion: 05/05/22 18:53 Dose: 0 mls/hr Documented By: Admin: 05/05/22 09:16 Dose: 100 mls/hr Documented By: JAVI(2) Levothyroxine Sodium (Levothyroxine 25 Mcg Tablet) 25 mcg PO NOW ONE Stop: 05/06/22 08:04 Last Admin: 05/06/22 08:14 Dose: 25 mcg Documented By: ARIELLE Lorazepam (Lorazepam 2 Mg/Ml Inj) 2 mg IV NOW ONE Stop: 05/03/22 13:35 Last Admin: 05/03/22 14:09 Dose: 2 mg Documented By: JAVI(3) Lorazepam (Lorazepam 0.5 Mg Tablet) 0.5 mg PO NOW ONE Stop: 05/04/22 03:35 Last Admin: 05/04/22 03:45 Dose: 0.5 mg Documented By: COLIN Lorazepam (Lorazepam 2 Mg/Ml Inj) 0.5 mg IV NOW ONE Stop: 05/04/22 11:13 Last Admin: 05/04/22 11:28 Dose: 0.5 mg Documented By: JAVI Lorazepam (Lorazepam 2 Mg/Ml Oral Dorothy) 0.5 mg PO Q2HR PRN PRN Reason: Anxiety Last Admin: 05/04/22 20:40 Dose: 0.5 mg Documented By: JIN Losartan Potassium (Losartan 50 Mg Tablet) 50 mg PO NOW ONE Stop: 05/04/22 03:21 Last Admin: 05/04/22 06:00 Dose: 50 mg Documented By: COLIN Metronidazole (Metronidazole 500 Mg Tablet) 500 mg TOP NOW ONE Stop: 05/04/22 13:35 Last Admin: 05/05/22 04:49 Dose: Not Given Documented By: JOE Morphine Sulfate (Morphine 10 Mg/0.5 Ml Oral Syringe) 10 mg PO QID [facility] Last Admin: 05/05/22 18:22 Dose: Not Given Documented By: Admin: 05/05/22 18:21 Dose: Not Given Documented By: Admin: 05/05/22 18:21 Dose: Not Given Documented By: Admin: 05/04/22 22:19 Dose: Not Given Documented By: Admin: 05/04/22 20:41 Dose: 10 mg Documented By: JIN Morphine Sulfate (Morphine 10 Mg/0.5 Ml Oral Syringe) 5 mg PO Q1HR PRN PRN Reason: Pain or dyspnea Morphine Sulfate (Morphine 10 Mg/0.5 Ml Oral Syringe) 10 mg PO QID [facility] Last Admin: 05/05/22 18:34 Dose: 10 mg Documented By: JAVI Morphine Sulfate (Morphine 10 Mg/0.5 Ml Oral Syringe) 10 mg PO Q6HR [facility] Last Admin: 05/06/22 07:59 Dose: 10 mg Documented By: Admin: 05/06/22 00:00 Dose: Not Given Documented By: DANIELLA Ondansetron HCl (Ondansetron 4 Mg/2 Ml Inj) 4 mg IV NOW ONE Stop: 05/06/22 04:48 Last Admin: 05/06/22 05:01 Dose: 4 mg Documented By: DANIELLA Thyroid (Thyroid, Pork 30 Mg Tablet) 90 mg PO NOW ONE Stop: 05/06/22 08:03 Last Admin: 05/06/22 08:14 Dose: 90 mg Documented By: ARIELLE Vital Signs Vital signs: Vital Signs - 8 hr 05/06/22 05:39 Temperature 97.6 F Pulse Rate 112 H Respiratory Rate 20 Blood Pressure 140/91 H Pulse Oximetry 93 Oxygen Flow Rate 5 <Jud Mahajan, - Last Filed: 05/07/22 17:17> Orders Ordered: Discontinued Medications Acetaminophen (Acetaminophen 325 Mg Tablet) 650 mg PO Q6H PRN PRN Reason: Fever/Mild Pain (1-3) Last Admin: 05/04/22 11:29 Dose: 650 mg Documented By: JAVI Apixaban (Apixaban 5 Mg Tablet) 5 mg PO BID [facility] Last Admin: 05/06/22 07:58 Dose: 5 mg Documented By: Admin: 05/05/22 22:00 Dose: Not Given Documented By: Admin: 05/05/22 09:28 Dose: 5 mg Documented By: JAVI(2) Admin: 05/04/22 22:42 Dose: 5 mg Documented By: Admin: 05/04/22 09:45 Dose: 5 mg Documented By: JAVI Bupropion HCl (Bupropion Xl 150 Mg Tab) 150 mg PO DAILY [facility] Last Admin: 05/06/22 07:57 Dose: 150 mg Documented By: Admin: 05/05/22 09:28 Dose: 150 mg Documented By: JAVI(2) Admin: 05/04/22 09:45 Dose: 150 mg Documented By: JAVI Dexamethasone (Dexamethasone 4 Mg Tablet) 8 mg PO BID [facility] Last Admin: 05/06/22 07:58 Dose: 8 mg Documented By: Admin: 05/05/22 22:00 Dose: Not Given Documented By: Admin: 05/05/22 09:28 Dose: 8 mg Documented By: JAVI(2) Admin: 05/04/22 22:41 Dose: 8 mg Documented By: Admin: 05/04/22 09:46 Dose: 8 mg Documented By: JAVI Duloxetine HCl (Duloxetine 30 Mg Capsule) 30 mg PO DAILY [facility] Last Admin: 05/06/22 07:58 Dose: 30 mg Documented By: Admin: 05/05/22 09:28 Dose: 30 mg Documented By: JAVI(2) Admin: 05/04/22 09:47 Dose: 30 mg Documented By: JAVI Famotidine (Famotidine 20 Mg Tablet) 20 mg PO BID [facility] Last Admin: 05/06/22 07:58 Dose: 20 mg Documented By: Admin: 05/05/22 22:00 Dose: Not Given Documented By: Admin: 05/05/22 09:28 Dose: 20 mg Documented By: JAVI(2) Admin: 05/04/22 22:41 Dose: 20 mg Documented By: Admin: 05/04/22 09:44 Dose: 20 mg Documented By: JAVI Gabapentin (Gabapentin 600 Mg Tablet) 600 mg PO TID [facility] Last Admin: 05/05/22 18:19 Dose: Not Given Documented By: Admin: 05/05/22 09:28 Dose: 600 mg Documented By: JAVI(2) Admin: 05/04/22 22:41 Dose: 600 mg Documented By: Admin: 05/04/22 16:18 Dose: 600 mg Documented By: Admin: 05/04/22 09:46 Dose: 600 mg Documented By: JAVI Gabapentin (Gabapentin 300 Mg Capsule) 600 mg PO TID [facility] Last Admin: 05/06/22 08:00 Dose: 600 mg Documented By: ARIELLE Gabapentin (Gabapentin 300 Mg Capsule) 600 mg PO NOW ONE Stop: 05/05/22 18:16 Last Admin: 05/05/22 18:24 Dose: 600 mg Documented By: JAVI Sodium Chloride (Normal Saline 0.9%) 1,000 mls @ 1,000 mls/hr IV BOLUS ONE Stop: 05/03/22 18:08 Last Infusion: 05/03/22 18:43 Dose: 0 mls/hr Documented By: Admin: 05/03/22 17:40 Dose: 1,000 mls/hr Documented By: JAVI Sodium Chloride (Normal Saline 0.9%) 1,000 mls @ 200 mls/hr IV CONT [facility] Last Infusion: 05/05/22 08:27 Dose: 0 mls/hr Documented By: JAVI(2) Admin: 05/05/22 00:09 Dose: 200 mls/hr Documented By: Infusion: 05/04/22 23:00 Dose: 200 mls/hr Documented By: Admin: 05/04/22 18:00 Dose: 200 mls/hr Documented By: Infusion: 05/04/22 13:59 Dose: 0 mls/hr Documented By: Admin: 05/04/22 08:48 Dose: 200 mls/hr Documented By: JAVI(2) Sodium Chloride (Normal Saline 0.9%) 1,000 mls @ 100 mls/hr IV CONT JOCE Last Infusion: 05/06/22 05:30 Dose: 0 mls/hr Documented By: Admin: 05/05/22 18:54 Dose: 100 mls/hr Documented By: Infusion: 05/05/22 18:53 Dose: 0 mls/hr Documented By: Admin: 05/05/22 09:16 Dose: 100 mls/hr Documented By: JAVI(2) Levothyroxine Sodium (Levothyroxine 25 Mcg Tablet) 25 mcg PO NOW ONE Stop: 05/06/22 08:04 Last Admin: 05/06/22 08:14 Dose: 25 mcg Documented By: ARIELLE Lorazepam (Lorazepam 2 Mg/Ml Inj) 2 mg IV NOW ONE Stop: 05/03/22 13:35 Last Admin: 05/03/22 14:09 Dose: 2 mg Documented By: JAVI(3) Lorazepam (Lorazepam 0.5 Mg Tablet) 0.5 mg PO NOW ONE Stop: 05/04/22 03:35 Last Admin: 05/04/22 03:45 Dose: 0.5 mg Documented By: COLIN Lorazepam (Lorazepam 2 Mg/Ml Inj) 0.5 mg IV NOW ONE Stop: 05/04/22 11:13 Last Admin: 05/04/22 11:28 Dose: 0.5 mg Documented By: JAVI Lorazepam (Lorazepam 2 Mg/Ml Oral Dorothy) 0.5 mg PO Q2HR PRN PRN Reason: Anxiety Last Admin: 05/04/22 20:40 Dose: 0.5 mg Documented By: JIN Losartan Potassium (Losartan 50 Mg Tablet) 50 mg PO NOW ONE Stop: 05/04/22 03:21 Last Admin: 05/04/22 06:00 Dose: 50 mg Documented By: COLIN Metronidazole (Metronidazole 500 Mg Tablet) 500 mg TOP NOW ONE Stop: 05/04/22 13:35 Last Admin: 05/05/22 04:49 Dose: Not Given Documented By: JOE Morphine Sulfate (Morphine 10 Mg/0.5 Ml Oral Syringe) 10 mg PO QID [facility] Last Admin: 05/05/22 18:22 Dose: Not Given Documented By: Admin: 05/05/22 18:21 Dose: Not Given Documented By: Admin: 05/05/22 18:21 Dose: Not Given Documented By: Admin: 05/04/22 22:19 Dose: Not Given Documented By: Admin: 05/04/22 20:41 Dose: 10 mg Documented By: JIN Morphine Sulfate (Morphine 10 Mg/0.5 Ml Oral Syringe) 5 mg PO Q1HR PRN PRN Reason: Pain or dyspnea Morphine Sulfate (Morphine 10 Mg/0.5 Ml Oral Syringe) 10 mg PO QID [facility] Last Admin: 05/05/22 18:34 Dose: 10 mg Documented By: JAVI Morphine Sulfate (Morphine 10 Mg/0.5 Ml Oral Syringe) 10 mg PO Q6HR [facility] Last Admin: 05/06/22 07:59 Dose: 10 mg Documented By: Admin: 05/06/22 00:00 Dose: Not Given Documented By: DANIELLA Ondansetron HCl (Ondansetron 4 Mg/2 Ml Inj) 4 mg IV NOW ONE Stop: 05/06/22 04:48 Last Admin: 05/06/22 05:01 Dose: 4 mg Documented By: DANIELLA Thyroid (Thyroid, Pork 30 Mg Tablet) 90 mg PO NOW ONE Stop: 05/06/22 08:03 Last Admin: 05/06/22 08:14 Dose: 90 mg Documented By: ARIELLE Vital Signs Vital signs: Vital Signs - 8 hr 05/06/22 05:39 Temperature 97.6 F Pulse Rate 112 H Respiratory Rate 20 Blood Pressure 140/91 H Pulse Oximetry 93 Oxygen Flow Rate 5 MDM - Anxiety <Sana Baeza PA-C - Last Filed: 05/03/22 20:28> Lab Data Result diagrams: 05/03/22 11:40 05/03/22 11:40 Labs: Lab Results 05/03/22 05/03/22 05/03/22 Range/Units 11:40 11:40 11:40 WBC 13.7 H (4.5-11.0) X10^3/uL RBC 4.02 (4.0-5.2) X10^6/uL Hgb 12.2 (12.0-16.0) g/dL Hct 36.9 (36-46) % MCV 91.8 (80-100) fL MCH 30.4 (26-34) PG MCHC 33.1 (30-36) % RDW 18.7 H (11.6-14.8) % Plt Count 226 (150-400) X10^3/uL Neut % (Auto) Not Reportable Lymph % (Auto) Not Reportable [place] % (Auto) Not Reportable Eos % (Auto) Not Reportable Baso % (Auto) Not Reportable Lymph # (Auto) Not Reportable [place] # (Auto) Not Reportable Baso # (Auto) Not Reportable Total Counted 100 Seg Neutrophils % 95.0 H (38-70) % Lymphocytes % (Manual) 2.0 L (25-45) % Metamyelocytes % 3.0 H (-0) % Neutrophils # (Manual) 96197 H (6139-1605) /uL RBC Morphology See Anisocytosis 1+ H PT 14.5 H (10.1-12.7) SECONDS INR 1.3 (0.9-1.3) APTT 24 L (26-36) SECONDS Sodium 133 L (137-145) mmol/L Potassium 4.4 (3.4-5.1) mmol/L Chloride 97 L (98-107) mmol/L Carbon Dioxide 31 (22-32) mmol/L BUN 16 (7-17) mg/dL Creatinine 0.50 L (0.52-1.04) mg/dL Estimated GFR > 60 (>60) mL/min BUN/Creatinine Ratio 32.0 H (6-22) Glucose 258 H D (70-100) mg/dL Lactate (0.7-2.1) mmol/L Calcium 8.5 (8.4-10.2) mg/dL Total Bilirubin 0.6 (0.2-1.3) mg/dL AST 40 H (14-36) IU/L ALT 60 H (<35) IU/L Alkaline Phosphatase 177 H (38-126) U/L Total Creatine Kinase 67 (30-135) U/L CK-MB (CK-2) TNP CK-MB (CK-2) Rel Index TNP Troponin I 0.024 (0.01-0.034) ng/mL NT-Pro-B Natriuret Pep (<125) pg/mL Total Protein 5.8 L (6.3-8.2) g/dL Albumin 3.0 L (3.5-5.0) g/dL Globulin 2.8 (1.7-4.1) g/dL Albumin/Globulin Ratio 1.1 (1.0-2.8) SARS-CoV-2 (PCR) (Negative) Influenza A (RT-PCR) (NEGATIVE) Influenza B (RT-PCR) (NEGATIVE) RSV (PCR) (Negative) 05/03/22 05/03/22 05/03/22 Range/Units 14:18 20:30 20:30 WBC (4.5-11.0) X10^3/uL RBC (4.0-5.2) X10^6/uL Hgb (12.0-16.0) g/dL Hct (36-46) % MCV (80-100) fL MCH (26-34) PG MCHC (30-36) % RDW (11.6-14.8) % Plt Count (150-400) X10^3/uL Neut % (Auto) Lymph % (Auto) [place] % (Auto) Eos % (Auto) Baso % (Auto) Lymph # (Auto) [place] # (Auto) Baso # (Auto) Total Counted Seg Neutrophils % (38-70) % Lymphocytes % (Manual) (25-45) % Metamyelocytes % (-0) % Neutrophils # (Manual) (9256-2712) /uL RBC Morphology Anisocytosis PT (10.1-12.7) SECONDS INR (0.9-1.3) APTT (26-36) SECONDS Sodium (137-145) mmol/L Potassium (3.4-5.1) mmol/L Chloride (98-107) mmol/L Carbon Dioxide (22-32) mmol/L BUN (7-17) mg/dL Creatinine (0.52-1.04) mg/dL Estimated GFR (>60) mL/min BUN/Creatinine Ratio (6-22) Glucose (70-100) mg/dL Lactate 4.2 H* (0.7-2.1) mmol/L Calcium (8.4-10.2) mg/dL Total Bilirubin (0.2-1.3) mg/dL AST (14-36) IU/L ALT (<35) IU/L Alkaline Phosphatase (38-126) U/L Total Creatine Kinase 78 (30-135) U/L CK-MB (CK-2) TNP CK-MB (CK-2) Rel Index TNP Troponin I 0.025 (0.01-0.034) ng/mL NT-Pro-B Natriuret Pep 94 (<125) pg/mL Total Protein (6.3-8.2) g/dL Albumin (3.5-5.0) g/dL Globulin (1.7-4.1) g/dL Albumin/Globulin Ratio (1.0-2.8) SARS-CoV-2 (PCR) Negative (Negative) Influenza A (RT-PCR) Flu a negative (NEGATIVE) Influenza B (RT-PCR) Flu b negative (NEGATIVE) RSV (PCR) Negative (Negative) 05/03/22 Range/Units 22:58 WBC (4.5-11.0) X10^3/uL RBC (4.0-5.2) X10^6/uL Hgb (12.0-16.0) g/dL Hct (36-46) % MCV (80-100) fL MCH (26-34) PG MCHC (30-36) % RDW (11.6-14.8) % Plt Count (150-400) X10^3/uL Neut % (Auto) Lymph % (Auto) [place] % (Auto) Eos % (Auto) Baso % (Auto) Lymph # (Auto) [place] # (Auto) Baso # (Auto) Total Counted Seg Neutrophils % (38-70) % Lymphocytes % (Manual) (25-45) % Metamyelocytes % (-0) % Neutrophils # (Manual) (8382-3417) /uL RBC Morphology Anisocytosis PT (10.1-12.7) SECONDS INR (0.9-1.3) APTT (26-36) SECONDS Sodium (137-145) mmol/L Potassium (3.4-5.1) mmol/L Chloride (98-107) mmol/L Carbon Dioxide (22-32) mmol/L BUN (7-17) mg/dL Creatinine (0.52-1.04) mg/dL Estimated GFR (>60) mL/min BUN/Creatinine Ratio (6-22) Glucose (70-100) mg/dL Lactate 3.7 H (0.7-2.1) mmol/L Calcium (8.4-10.2) mg/dL Total Bilirubin (0.2-1.3) mg/dL AST (14-36) IU/L ALT (<35) IU/L Alkaline Phosphatase (38-126) U/L Total Creatine Kinase (30-135) U/L CK-MB (CK-2) CK-MB (CK-2) Rel Index Troponin I (0.01-0.034) ng/mL NT-Pro-B Natriuret Pep (<125) pg/mL Total Protein (6.3-8.2) g/dL Albumin (3.5-5.0) g/dL Globulin (1.7-4.1) g/dL Albumin/Globulin Ratio (1.0-2.8) SARS-CoV-2 (PCR) (Negative) Influenza A (RT-PCR) (NEGATIVE) Influenza B (RT-PCR) (NEGATIVE) RSV (PCR) (Negative) MDM Narrative Medical decision making narrative: 51-year-old female with a history of breast cancer with metastasis to the brain, follow-up with [facility], to posterior tumors have been removed presents to the ED for shortness of breath and a panic attack. Concern for ACS versus pneumonia versus URI versus worsening PE versus panic attack versus other. Will obtain EKG, chest x-ray, troponin, CT PE, labs, COVID/influenza swab. Patient was unable to lay flat for the CT PE, therefore the CT was canceled. Workup was largely unremarkable otherwise. Patient was given some Ativan for the panic attack, patient's anxiety greatly improved. Patient is resting comfortably in a upright position and sleeping in the ED. Wound care consult placed, they will see the patient tomorrow morning. Social work was consulted, patient will likely be placed in a SNF, possibly [facility] on hospice. Patient will board in the ED until accepted, which can likely be tomorrow. Patient's wound packing was not changed today, however the overlying bandages were changed. Patient is now signed out to Dr. Sheng Alvarado <Sheng Alvarado, DO - Last Filed: 05/06/22 07:09> Lab Data Labs: Lab Results 05/03/22 05/03/22 05/03/22 Range/Units 11:40 11:40 11:40 WBC 13.7 H (4.5-11.0) X10^3/uL RBC 4.02 (4.0-5.2) X10^6/uL Hgb 12.2 (12.0-16.0) g/dL Hct 36.9 (36-46) % MCV 91.8 (80-100) fL MCH 30.4 (26-34) PG MCHC 33.1 (30-36) % RDW 18.7 H (11.6-14.8) % Plt Count 226 (150-400) X10^3/uL Neut % (Auto) Not Reportable Lymph % (Auto) Not Reportable [place] % (Auto) Not Reportable Eos % (Auto) Not Reportable Baso % (Auto) Not Reportable Lymph # (Auto) Not Reportable [place] # (Auto) Not Reportable Baso # (Auto) Not Reportable Total Counted 100 Seg Neutrophils % 95.0 H (38-70) % Lymphocytes % (Manual) 2.0 L (25-45) % Metamyelocytes % 3.0 H (-0) % Neutrophils # (Manual) 69131 H (1322-2858) /uL RBC Morphology See Anisocytosis 1+ H PT 14.5 H (10.1-12.7) SECONDS INR 1.3 (0.9-1.3) APTT 24 L (26-36) SECONDS Sodium 133 L (137-145) mmol/L Potassium 4.4 (3.4-5.1) mmol/L Chloride 97 L (98-107) mmol/L Carbon Dioxide 31 (22-32) mmol/L BUN 16 (7-17) mg/dL Creatinine 0.50 L (0.52-1.04) mg/dL Estimated GFR > 60 (>60) mL/min BUN/Creatinine Ratio 32.0 H (6-22) Glucose 258 H D (70-100) mg/dL Lactate (0.7-2.1) mmol/L Calcium 8.5 (8.4-10.2) mg/dL Total Bilirubin 0.6 (0.2-1.3) mg/dL AST 40 H (14-36) IU/L ALT 60 H (<35) IU/L Alkaline Phosphatase 177 H (38-126) U/L Total Creatine Kinase 67 (30-135) U/L CK-MB (CK-2) TNP CK-MB (CK-2) Rel Index TNP Troponin I 0.024 (0.01-0.034) ng/mL NT-Pro-B Natriuret Pep (<125) pg/mL Total Protein 5.8 L (6.3-8.2) g/dL Albumin 3.0 L (3.5-5.0) g/dL Globulin 2.8 (1.7-4.1) g/dL Albumin/Globulin Ratio 1.1 (1.0-2.8) SARS-CoV-2 (PCR) (Negative) Influenza A (RT-PCR) (NEGATIVE) Influenza B (RT-PCR) (NEGATIVE) RSV (PCR) (Negative) 05/03/22 05/03/22 05/03/22 Range/Units 14:18 20:30 20:30 WBC (4.5-11.0) X10^3/uL RBC (4.0-5.2) X10^6/uL Hgb (12.0-16.0) g/dL Hct (36-46) % MCV (80-100) fL MCH (26-34) PG MCHC (30-36) % RDW (11.6-14.8) % Plt Count (150-400) X10^3/uL Neut % (Auto) Lymph % (Auto) [place] % (Auto) Eos % (Auto) Baso % (Auto) Lymph # (Auto) [place] # (Auto) Baso # (Auto) Total Counted Seg Neutrophils % (38-70) % Lymphocytes % (Manual) (25-45) % Metamyelocytes % (-0) % Neutrophils # (Manual) (5099-4250) /uL RBC Morphology Anisocytosis PT (10.1-12.7) SECONDS INR (0.9-1.3) APTT (26-36) SECONDS Sodium (137-145) mmol/L Potassium (3.4-5.1) mmol/L Chloride (98-107) mmol/L Carbon Dioxide (22-32) mmol/L BUN (7-17) mg/dL Creatinine (0.52-1.04) mg/dL Estimated GFR (>60) mL/min BUN/Creatinine Ratio (6-22) Glucose (70-100) mg/dL Lactate 4.2 H* (0.7-2.1) mmol/L Calcium (8.4-10.2) mg/dL Total Bilirubin (0.2-1.3) mg/dL AST (14-36) IU/L ALT (<35) IU/L Alkaline Phosphatase (38-126) U/L Total Creatine Kinase 78 (30-135) U/L CK-MB (CK-2) TNP CK-MB (CK-2) Rel Index TNP Troponin I 0.025 (0.01-0.034) ng/mL NT-Pro-B Natriuret Pep 94 (<125) pg/mL Total Protein (6.3-8.2) g/dL Albumin (3.5-5.0) g/dL Globulin (1.7-4.1) g/dL Albumin/Globulin Ratio (1.0-2.8) SARS-CoV-2 (PCR) Negative (Negative) Influenza A (RT-PCR) Flu a negative (NEGATIVE) Influenza B (RT-PCR) Flu b negative (NEGATIVE) RSV (PCR) Negative (Negative) 05/03/22 Range/Units 22:58 WBC (4.5-11.0) X10^3/uL RBC (4.0-5.2) X10^6/uL Hgb (12.0-16.0) g/dL Hct (36-46) % MCV (80-100) fL MCH (26-34) PG MCHC (30-36) % RDW (11.6-14.8) % Plt Count (150-400) X10^3/uL Neut % (Auto) Lymph % (Auto) [place] % (Auto) Eos % (Auto) Baso % (Auto) Lymph # (Auto) [place] # (Auto) Baso # (Auto) Total Counted Seg Neutrophils % (38-70) % Lymphocytes % (Manual) (25-45) % Metamyelocytes % (-0) % Neutrophils # (Manual) (5046-4023) /uL RBC Morphology Anisocytosis PT (10.1-12.7) SECONDS INR (0.9-1.3) APTT (26-36) SECONDS Sodium (137-145) mmol/L Potassium (3.4-5.1) mmol/L Chloride (98-107) mmol/L Carbon Dioxide (22-32) mmol/L BUN (7-17) mg/dL Creatinine (0.52-1.04) mg/dL Estimated GFR (>60) mL/min BUN/Creatinine Ratio (6-22) Glucose (70-100) mg/dL Lactate 3.7 H (0.7-2.1) mmol/L Calcium (8.4-10.2) mg/dL Total Bilirubin (0.2-1.3) mg/dL AST (14-36) IU/L ALT (<35) IU/L Alkaline Phosphatase (38-126) U/L Total Creatine Kinase (30-135) U/L CK-MB (CK-2) CK-MB (CK-2) Rel Index Troponin I (0.01-0.034) ng/mL NT-Pro-B Natriuret Pep (<125) pg/mL Total Protein (6.3-8.2) g/dL Albumin (3.5-5.0) g/dL Globulin (1.7-4.1) g/dL Albumin/Globulin Ratio (1.0-2.8) SARS-CoV-2 (PCR) (Negative) Influenza A (RT-PCR) (NEGATIVE) Influenza B (RT-PCR) (NEGATIVE) RSV (PCR) (Negative) MDM Narrative Medical decision making narrative: 51-year-old female with a history of breast cancer with metastasis to the brain, follow-up with [facility], to posterior tumors have been removed presents to the ED for shortness of breath and a panic attack. Concern for ACS versus pneumonia versus URI versus worsening PE versus panic attack versus other. Will obtain EKG, chest x-ray, troponin, CT PE, labs, COVID/influenza swab. Patient was unable to lay flat for the CT PE, therefore the CT was canceled. Workup was largely unremarkable otherwise. Patient was given some Ativan for the panic attack, patient's anxiety greatly improved. Patient is resting comfortably in a upright position and sleeping in the ED. Wound care consult placed, they will see the patient tomorrow morning. Social work was consulted, patient will likely be placed in a SNF, possibly [facility] on hospice. Patient will board in the ED until accepted, which can li jalen be tomorrow. Patient's wound packing was not changed today, however the overlying bandages were changed. Patient is now signed out to Dr. Sheng Alvarado [[id number]] (Christiano) Patient received in sign out from Aryan ELLIS. I have reviewed the clinical course and performed an independent history and physical exam. Patient resting comfortably, confirms that she is comfort measures and does not want any significant interventions, just wants to live a few more days and talk with [facility] about her options. <Yadira Salguero, DO - Last Filed: 05/07/22 06:50> Lab Data Labs: Lab Results 05/03/22 05/03/22 05/03/22 Range/Units 11:40 11:40 11:40 WBC 13.7 H (4.5-11.0) X10^3/uL RBC 4.02 (4.0-5.2) X10^6/uL Hgb 12.2 (12.0-16.0) g/dL Hct 36.9 (36-46) % MCV 91.8 (80-100) fL MCH 30.4 (26-34) PG MCHC 33.1 (30-36) % RDW 18.7 H (11.6-14.8) % Plt Count 226 (150-400) X10^3/uL Neut % (Auto) Not Reportable Lymph % (Auto) Not Reportable [place] % (Auto) Not Reportable Eos % (Auto) Not Reportable Baso % (Auto) Not Reportable Lymph # (Auto) Not Reportable [place] # (Auto) Not Reportable Baso # (Auto) Not Reportable Total Counted 100 Seg Neutrophils % 95.0 H (38-70) % Lymphocytes % (Manual) 2.0 L (25-45) % Metamyelocytes % 3.0 H (-0) % Neutrophils # (Manual) 03038 H (9012-5958) /uL RBC Morphology See Anisocytosis 1+ H PT 14.5 H (10.1-12.7) SECONDS INR 1.3 (0.9-1.3) APTT 24 L (26-36) SECONDS Sodium 133 L (137-145) mmol/L Potassium 4.4 (3.4-5.1) mmol/L Chloride 97 L (98-107) mmol/L Carbon Dioxide 31 (22-32) mmol/L BUN 16 (7-17) mg/dL Creatinine 0.50 L (0.52-1.04) mg/dL Estimated GFR > 60 (>60) mL/min BUN/Creatinine Ratio 32.0 H (6-22) Glucose 258 H D (70-100) mg/dL Lactate (0.7-2.1) mmol/L Calcium 8.5 (8.4-10.2) mg/dL Total Bilirubin 0.6 (0.2-1.3) mg/dL AST 40 H (14-36) IU/L ALT 60 H (<35) IU/L Alkaline Phosphatase 177 H (38-126) U/L Total Creatine Kinase 67 (30-135) U/L CK-MB (CK-2) TNP CK-MB (CK-2) Rel Index TNP Troponin I 0.024 (0.01-0.034) ng/mL NT-Pro-B Natriuret Pep (<125) pg/mL Total Protein 5.8 L (6.3-8.2) g/dL Albumin 3.0 L (3.5-5.0) g/dL Globulin 2.8 (1.7-4.1) g/dL Albumin/Globulin Ratio 1.1 (1.0-2.8) SARS-CoV-2 (PCR) (Negative) Influenza A (RT-PCR) (NEGATIVE) Influenza B (RT-PCR) (NEGATIVE) RSV (PCR) (Negative) 05/03/22 05/03/22 05/03/22 Range/Units 14:18 20:30 20:30 WBC (4.5-11.0) X10^3/uL RBC (4.0-5.2) X10^6/uL Hgb (12.0-16.0) g/dL Hct (36-46) % MCV (80-100) fL MCH (26-34) PG MCHC (30-36) % RDW (11.6-14.8) % Plt Count (150-400) X10^3/uL Neut % (Auto) Lymph % (Auto) [place] % (Auto) Eos % (Auto) Baso % (Auto) Lymph # (Auto) [place] # (Auto) Baso # (Auto) Total Counted Seg Neutrophils % (38-70) % Lymphocytes % (Manual) (25-45) % Metamyelocytes % (-0) % Neutrophils # (Manual) (1788-2030) /uL RBC Morphology Anisocytosis PT (10.1-12.7) SECONDS INR (0.9-1.3) APTT (26-36) SECONDS Sodium (137-145) mmol/L Potassium (3.4-5.1) mmol/L Chloride (98-107) mmol/L Carbon Dioxide (22-32) mmol/L BUN (7-17) mg/dL Creatinine (0.52-1.04) mg/dL Estimated GFR (>60) mL/min BUN/Creatinine Ratio (6-22) Glucose (70-100) mg/dL Lactate 4.2 H* (0.7-2.1) mmol/L Calcium (8.4-10.2) mg/dL Total Bilirubin (0.2-1.3) mg/dL AST (14-36) IU/L ALT (<35) IU/L Alkaline Phosphatase (38-126) U/L Total Creatine Kinase 78 (30-135) U/L CK-MB (CK-2) TNP CK-MB (CK-2) Rel Index TNP Troponin I 0.025 (0.01-0.034) ng/mL NT-Pro-B Natriuret Pep 94 (<125) pg/mL Total Protein (6.3-8.2) g/dL Albumin (3.5-5.0) g/dL Globulin (1.7-4.1) g/dL Albumin/Globulin Ratio (1.0-2.8) SARS-CoV-2 (PCR) Negative (Negative) Influenza A (RT-PCR) Flu a negative (NEGATIVE) Influenza B (RT-PCR) Flu b negative (NEGATIVE) RSV (PCR) Negative (Negative) 05/03/22 Range/Units 22:58 WBC (4.5-11.0) X10^3/uL RBC (4.0-5.2) X10^6/uL Hgb (12.0-16.0) g/dL Hct (36-46) % MCV (80-100) fL MCH (26-34) PG MCHC (30-36) % RDW (11.6-14.8) % Plt Count (150-400) X10^3/uL Neut % (Auto) Lymph % (Auto) [place] % (Auto) Eos % (Auto) Baso % (Auto) Lymph # (Auto) [place] # (Auto) Baso # (Auto) Total Counted Seg Neutrophils % (38-70) % Lymphocytes % (Manual) (25-45) % Metamyelocytes % (-0) % Neutrophils # (Manual) (9441-1007) /uL RBC Morphology Anisocytosis PT (10.1-12.7) SECONDS INR (0.9-1.3) APTT (26-36) SECONDS Sodium (137-145) mmol/L Potassium (3.4-5.1) mmol/L Chloride (98-107) mmol/L Carbon Dioxide (22-32) mmol/L BUN (7-17) mg/dL Creatinine (0.52-1.04) mg/dL Estimated GFR (>60) mL/min BUN/Creatinine Ratio (6-22) Glucose (70-100) mg/dL Lactate 3.7 H (0.7-2.1) mmol/L Calcium (8.4-10.2) mg/dL Total Bilirubin (0.2-1.3) mg/dL AST (14-36) IU/L ALT (<35) IU/L Alkaline Phosphatase (38-126) U/L Total Creatine Kinase (30-135) U/L CK-MB (CK-2) CK-MB (CK-2) Rel Index Troponin I (0.01-0.034) ng/mL NT-Pro-B Natriuret Pep (<125) pg/mL Total Protein (6.3-8.2) g/dL Albumin (3.5-5.0) g/dL Globulin (1.7-4.1) g/dL Albumin/Globulin Ratio (1.0-2.8) SARS-CoV-2 (PCR) (Negative) Influenza A (RT-PCR) (NEGATIVE) Influenza B (RT-PCR) (NEGATIVE) RSV (PCR) (Negative) Imaging Data Chest x-ray: Radiologist's Impression: XRay Report Signed Patient: May Frost MR#: [id number] : 1970 Acct:[id number] Age/Sex: 51 / F Date of Service: 05/03/22 Loc: ED Accession Number: [id number] ?? Procedure: XR chest 1V Ordering Provider: Sheng Alvarado D.O. PROCEDURE:? XR CHEST 1V ? INDICATIONS:? SOB, tachycardia, hx PE, effusions ? TECHNIQUE:? One view of the chest was acquired.? ? COMPARISON:? [facility], CR, XR CHEST 1V, 04/26/2022, 9:33. ? FINDINGS:? ? Surgical changes and devices:? Presumed left [employer] shunt and right Port-A-Cath unchanged. ? Lungs and pleura:? Moderate to severe left effusion slightly increased compared to prior exam.? Patchy opacities within the right base remain present although questionably minimally improved. ? Mediastinum:? Mediastinal contours appear normal.? Heart size is normal.? ? Bones and chest wall:? No suspicious bony lesions.? Overlying soft tissues appear unremarkable.? ? IMPRESSION:? Interval increased appearance left effusion with persistent right basilar opacities.? The latter may be reflective of edema and/or developing airspace disease such as pneumonia. ? ? Dictated by: Bronwyn Stephens M.D. on 05/03/2022 at 21:41 ? MDM Narrative Medical decision making narrative: 51-year-old female with a history of breast cancer with metastasis to the brain, follow-up with [facility], to posterior tumors have been removed presents to the ED for shortness of breath and a panic attack. Concern for ACS versus pneumonia versus URI versus worsening PE versus panic attack versus other. Will obtain EKG, chest x-ray, troponin, CT PE, labs, COVID/influenza swab. Patient was unable to lay flat for the CT PE, therefore the CT was canceled. Workup was largely unremarkable otherwise. Patient was given some Ativan for the panic attack, patient's anxiety greatly improved. Patient is resting comfortably in a upright position and sleeping in the ED. Wound care consult placed, they will see the patient tomorrow morning. Social work was consulted, patient will likely be placed in a SNF, possibly [facility] on hospice. Patient will board in the ED until accepted, which can likely be tomorrow. Patient's wound packing was not changed today, however the overlying bandages were changed. Patient is now signed out to Dr. Sheng Alvraado [[id number]] (Christiano) Patient received in sign out from Aryan CHANDLER]. I have reviewed the clinical course and performed an independent history and physical exam. Patient resting comfortably, confirms that she is comfort measures and does not want any significant interventions, just wants to live a few more days and talk with [facility] about her options. 05/04 Noemy-Patient signed out to me by Dr. Alvarado I have seen evaluated patient myself. End-stage metastatic breast cancer. Recently admitted for influenza A and PEG site infection with abscess along with left-sided pleural effusion. Today she is quite dyspneic despite oxygen and continues to be tachycardic. glueline worker has been involved trying to find placement. Patient has a 19-year-old and a 9-year-old at home only to help care for her. She does not want to be at home. She was in hospice however she got quite afraid and came to the ER. She finally agrees to some Ativan to help her. Dr. Srinivasan, hospitalist has been consulted for some management while we work on placement. <Rico Pina, DO - Last Filed: 05/06/22 04:49> Lab Data Labs: Lab Results 05/03/22 05/03/22 05/03/22 Range/Units 11:40 11:40 11:40 WBC 13.7 H (4.5-11.0) X10^3/uL RBC 4.02 (4.0-5.2) X10^6/uL Hgb 12.2 (12.0-16.0) g/dL Hct 36.9 (36-46) % MCV 91.8 (80-100) fL MCH 30.4 (26-34) PG MCHC 33.1 (30-36) % RDW 18.7 H (11.6-14.8) % Plt Count 226 (150-400) X10^3/uL Neut % (Auto) Not Reportable Lymph % (Auto) Not Reportable [place] % (Auto) Not Reportable Eos % (Auto) Not Reportable Baso % (Auto) Not Reportable Lymph # (Auto) Not Reportable [place] # (Auto) Not Reportable Baso # (Auto) Not Reportable Total Counted 100 Seg Neutrophils % 95.0 H (38-70) % Lymphocytes % (Manual) 2.0 L (25-45) % Metamyelocytes % 3.0 H (-0) % Neutrophils # (Manual) 50956 H (5777-4833) /uL RBC Morphology See Anisocytosis 1+ H PT 14.5 H (10.1-12.7) SECONDS INR 1.3 (0.9-1.3) APTT 24 L (26-36) SECONDS Sodium 133 L (137-145) mmol/L Potassium 4.4 (3.4-5.1) mmol/L Chloride 97 L (98-107) mmol/L Carbon Dioxide 31 (22-32) mmol/L BUN 16 (7-17) mg/dL Creatinine 0.50 L (0.52-1.04) mg/dL Estimated GFR > 60 (>60) mL/min BUN/Creatinine Ratio 32.0 H (6-22) Glucose 258 H D (70-100) mg/dL Lactate (0.7-2.1) mmol/L Calcium 8.5 (8.4-10.2) mg/dL Total Bilirubin 0.6 (0.2-1.3) mg/dL AST 40 H (14-36) IU/L ALT 60 H (<35) IU/L Alkaline Phosphatase 177 H (38-126) U/L Total Creatine Kinase 67 (30-135) U/L CK-MB (CK-2) TNP CK-MB (CK-2) Rel Index TNP Troponin I 0.024 (0.01-0.034) ng/mL NT-Pro-B Natriuret Pep (<125) pg/mL Total Protein 5.8 L (6.3-8.2) g/dL Albumin 3.0 L (3.5-5.0) g/dL Globulin 2.8 (1.7-4.1) g/dL Albumin/Globulin Ratio 1.1 (1.0-2.8) SARS-CoV-2 (PCR) (Negative) Influenza A (RT-PCR) (NEGATIVE) Influenza B (RT-PCR) (NEGATIVE) RSV (PCR) (Negative) 05/03/22 05/03/22 05/03/22 Range/Units 14:18 20:30 20:30 WBC (4.5-11.0) X10^3/uL RBC (4.0-5.2) X10^6/uL Hgb (12.0-16.0) g/dL Hct (36-46) % MCV (80-100) fL MCH (26-34) PG MCHC (30-36) % RDW (11.6-14.8) % Plt Count (150-400) X10^3/uL Neut % (Auto) Lymph % (Auto) [place] % (Auto) Eos % (Auto) Baso % (Auto) Lymph # (Auto) [place] # (Auto) Baso # (Auto) Total Counted Seg Neutrophils % (38-70) % Lymphocytes % (Manual) (25-45) % Metamyelocytes % (-0) % Neutrophils # (Manual) (0547-8151) /uL RBC Morphology Anisocytosis PT (10.1-12.7) SECONDS INR (0.9-1.3) APTT (26-36) SECONDS Sodium (137-145) mmol/L Potassium (3.4-5.1) mmol/L Chloride (98-107) mmol/L Carbon Dioxide (22-32) mmol/L BUN (7-17) mg/dL Creatinine (0.52-1.04) mg/dL Estimated GFR (>60) mL/min BUN/Creatinine Ratio (6-22) Glucose (70-100) mg/dL Lactate 4.2 H* (0.7-2.1) mmol/L Calcium (8.4-10.2) mg/dL Total Bilirubin (0.2-1.3) mg/dL AST (14-36) IU/L ALT (<35) IU/L Alkaline Phosphatase (38-126) U/L Total Creatine Kinase 78 (30-135) U/L CK-MB (CK-2) TNP CK-MB (CK-2) Rel Index TNP Troponin I 0.025 (0.01-0.034) ng/mL NT-Pro-B Natriuret Pep 94 (<125) pg/mL Total Protein (6.3-8.2) g/dL Albumin (3.5-5.0) g/dL Globulin (1.7-4.1) g/dL Albumin/Globulin Ratio (1.0-2.8) SARS-CoV-2 (PCR) Negative (Negative) Influenza A (RT-PCR) Flu a negative (NEGATIVE) Influenza B (RT-PCR) Flu b negative (NEGATIVE) RSV (PCR) Negative (Negative) 05/03/22 Range/Units 22:58 WBC (4.5-11.0) X10^3/uL RBC (4.0-5.2) X10^6/uL Hgb (12.0-16.0) g/dL Hct (36-46) % MCV (80-100) fL MCH (26-34) PG MCHC (30-36) % RDW (11.6-14.8) % Plt Count (150-400) X10^3/uL Neut % (Auto) Lymph % (Auto) [place] % (Auto) Eos % (Auto) Baso % (Auto) Lymph # (Auto) [place] # (Auto) Baso # (Auto) Total Counted Seg Neutrophils % (38-70) % Lymphocytes % (Manual) (25-45) % Metamyelocytes % (-0) % Neutrophils # (Manual) (5059-5455) /uL RBC Morphology Anisocytosis PT (10.1-12.7) SECONDS INR (0.9-1.3) APTT (26-36) SECONDS Sodium (137-145) mmol/L Potassium (3.4-5.1) mmol/L Chloride (98-107) mmol/L Carbon Dioxide (22-32) mmol/L BUN (7-17) mg/dL Creatinine (0.52-1.04) mg/dL Estimated GFR (>60) mL/min BUN/Creatinine Ratio (6-22) Glucose (70-100) mg/dL Lactate 3.7 H (0.7-2.1) mmol/L Calcium (8.4-10.2) mg/dL Total Bilirubin (0.2-1.3) mg/dL AST (14-36) IU/L ALT (<35) IU/L Alkaline Phosphatase (38-126) U/L Total Creatine Kinase (30-135) U/L CK-MB (CK-2) CK-MB (CK-2) Rel Index Troponin I (0.01-0.034) ng/mL NT-Pro-B Natriuret Pep (<125) pg/mL Total Protein (6.3-8.2) g/dL Albumin (3.5-5.0) g/dL Globulin (1.7-4.1) g/dL Albumin/Globulin Ratio (1.0-2.8) SARS-CoV-2 (PCR) (Negative) Influenza A (RT-PCR) (NEGATIVE) Influenza B (RT-PCR) (NEGATIVE) RSV (PCR) (Negative) MDM Narrative Medical decision making narrative: 51-year-old female with a history of breast cancer with metastasis to the brain, follow-up with [facility], to posterior tumors have been removed presents to the ED for shortness of breath and a panic attack. Concern for ACS versus pneumonia versus URI versus worsening PE versus panic attack versus other. Will obtain EKG, chest x-ray, troponin, CT PE, labs, COVID/influenza swab. Patient was unable to lay flat for the CT PE, therefore the CT was canceled. Workup was largely unremarkable otherwise. Patient was given some Ativan for the panic attack, patient's anxiety greatly improved. Patient is resting co mfortably in a upright position and sleeping in the ED. Wound care consult placed, they will see the patient tomorrow morning. Social work was consulted, patient will likely be placed in a SNF, possibly [facility] on hospice. Patient will board in the ED until accepted, which can likely be tomorrow. Patient's wound packing was not changed today, however the overlying bandages were changed. Patient is now signed out to Dr. Sheng Alvarado [[id number]] (Christiano) Patient received in sign out from Aryan CHANDLER]. I have reviewed the clinical course and performed an independent history and physical exam. Patient resting comfortably, confirms that she is comfort measures and does not want any significant interventions, just wants to live a few more days and talk with [facility] about her options. 05/04 Noemy-Patient signed out to me by Dr. Alvarado I have seen evaluated patient myself. End-stage metastatic breast cancer. Recently admitted for influenza A and PEG site infection with abscess along with left-sided pleural effusion. Today she is quite dyspneic despite oxygen and continues to be tachycardic. glueline worker has been involved trying to find placement. Patient has a 19-year-old and a 9-year-old at home only to help care for her. She does not want to be at home. She was in hospice however she got quite afraid and came to the ER. She finally agrees to some Ativan to help her. Dr. Srinivasan, hospitalist has been consulted for some management while we work on placement. Dr Pina overnight 05/05-05/05: I did receive turned over. I reviewed the patient's history and physical exam. Patient has been stable overnight. No specific interventions by myself. Social work has been involved. Care turned over to Dr. Mahajan to continue to observe until disposition. <Jud Mahajan, DO - Last Filed: 05/07/22 17:17> Lab Data Labs: Lab Results 05/03/22 05/03/22 05/03/22 Range/Units 11:40 11:40 11:40 WBC 13.7 H (4.5-11.0) X10^3/uL RBC 4.02 (4.0-5.2) X10^6/uL Hgb 12.2 (12.0-16.0) g/dL Hct 36.9 (36-46) % MCV 91.8 (80-100) fL MCH 30.4 (26-34) PG MCHC 33.1 (30-36) % RDW 18.7 H (11.6-14.8) % Plt Count 226 (150-400) X10^3/uL Neut % (Auto) Not Reportable Lymph % (Auto) Not Reportable [place] % (Auto) Not Reportable Eos % (Auto) Not Reportable Baso % (Auto) Not Reportable Lymph # (Auto) Not Reportable [place] # (Auto) Not Reportable Baso # (Auto) Not Reportable Total Counted 100 Seg Neutrophils % 95.0 H (38-70) % Lymphocytes % (Manual) 2.0 L (25-45) % Metamyelocytes % 3.0 H (-0) % Neutrophils # (Manual) 10643 H (2689-2044) /uL RBC Morphology See Anisocytosis 1+ H PT 14.5 H (10.1-12.7) SECONDS INR 1.3 (0.9-1.3) APTT 24 L (26-36) SECONDS Sodium 133 L (137-145) mmol/L Potassium 4.4 (3.4-5.1) mmol/L Chloride 97 L (98-107) mmol/L Carbon Dioxide 31 (22-32) mmol/L BUN 16 (7-17) mg/dL Creatinine 0.50 L (0.52-1.04) mg/dL Estimated GFR > 60 (>60) mL/min BUN/Creatinine Ratio 32.0 H (6-22) Glucose 258 H D (70-100) mg/dL Lactate (0.7-2.1) mmol/L Calcium 8.5 (8.4-10.2) mg/dL Total Bilirubin 0.6 (0.2-1.3) mg/dL AST 40 H (14-36) IU/L ALT 60 H (<35) IU/L Alkaline Phosphatase 177 H (38-126) U/L Total Creatine Kinase 67 (30-135) U/L CK-MB (CK-2) TNP CK-MB (CK-2) Rel Index TNP Troponin I 0.024 (0.01-0.034) ng/mL NT-Pro-B Natriuret Pep (<125) pg/mL Total Protein 5.8 L (6.3-8.2) g/dL Albumin 3.0 L (3.5-5.0) g/dL Globulin 2.8 (1.7-4.1) g/dL Albumin/Globulin Ratio 1.1 (1.0-2.8) SARS-CoV-2 (PCR) (Negative) Influenza A (RT-PCR) (NEGATIVE) Influenza B (RT-PCR) (NEGATIVE) RSV (PCR) (Negative) 05/03/22 05/03/22 05/03/22 Range/Units 14:18 20:30 20:30 WBC (4.5-11.0) X10^3/uL RBC (4.0-5.2) X10^6/uL Hgb (12.0-16.0) g/dL Hct (36-46) % MCV (80-100) fL MCH (26-34) PG MCHC (30-36) % RDW (11.6-14.8) % Plt Count (150-400) X10^3/uL Neut % (Auto) Lymph % (Auto) [place] % (Auto) Eos % (Auto) Baso % (Auto) Lymph # (Auto) [place] # (Auto) Baso # (Auto) Total Counted Seg Neutrophils % (38-70) % Lymphocytes % (Manual) (25-45) % Metamyelocytes % (-0) % Neutrophils # (Manual) (1929-5401) /uL RBC Morphology Anisocytosis PT (10.1-12.7) SECONDS INR (0.9-1.3) APTT (26-36) SECONDS Sodium (137-145) mmol/L Potassium (3.4-5.1) mmol/L Chloride (98-107) mmol/L Carbon Dioxide (22-32) mmol/L BUN (7-17) mg/dL Creatinine (0.52-1.04) mg/dL Estimated GFR (>60) mL/min BUN/Creatinine Ratio (6-22) Glucose (70-100) mg/dL Lactate 4.2 H* (0.7-2.1) mmol/L Calcium (8.4-10.2) mg/dL Total Bilirubin (0.2-1.3) mg/dL AST (14-36) IU/L ALT (<35) IU/L Alkaline Phosphatase (38-126) U/L Total Creatine Kinase 78 (30-135) U/L CK-MB (CK-2) TNP CK-MB (CK-2) Rel Index TNP Troponin I 0.025 (0.01-0.034) ng/mL NT-Pro-B Natriuret Pep 94 (<125) pg/mL Total Protein (6.3-8.2) g/dL Albumin (3.5-5.0) g/dL Globulin (1.7-4.1) g/dL Albumin/Globulin Ratio (1.0-2.8) SARS-CoV-2 (PCR) Negative (Negative) Influenza A (RT-PCR) Flu a negative (NEGATIVE) Influenza B (RT-PCR) Flu b negative (NEGATIVE) RSV (PCR) Negative (Negative) 05/03/22 Range/Units 22:58 WBC (4.5-11.0) X10^3/uL RBC (4.0-5.2) X10^6/uL Hgb (12.0-16.0) g/dL Hct (36-46) % MCV (80-100) fL MCH (26-34) PG MCHC (30-36) % RDW (11.6-14.8) % Plt Count (150-400) X10^3/uL Neut % (Auto) Lymph % (Auto) [place] % (Auto) Eos % (Auto) Baso % (Auto) Lymph # (Auto) [place] # (Auto) Baso # (Auto) Total Counted Seg Neutrophils % (38-70) % Lymphocytes % (Manual) (25-45) % Metamyelocytes % (-0) % Neutrophils # (Manual) (8487-2945) /uL RBC Morphology Anisocytosis PT (10.1-12.7) SECONDS INR (0.9-1.3) APTT (26-36) SECONDS Sodium (137-145) mmol/L Potassium (3.4-5.1) mmol/L Chloride (98-107) mmol/L Carbon Dioxide (22-32) mmol/L BUN (7-17) mg/dL Creatinine (0.52-1.04) mg/dL Estimated GFR (>60) mL/min BUN/Creatinine Ratio (6-22) Glucose (70-100) mg/dL Lactate 3.7 H (0.7-2.1) mmol/L Calcium (8.4-10.2) mg/dL Total Bilirubin (0.2-1.3) mg/dL AST (14-36) IU/L ALT (<35) IU/L Alkaline Phosphatase (38-126) U/L Total Creatine Kinase (30-135) U/L CK-MB (CK-2) CK-MB (CK-2) Rel Index Troponin I (0.01-0.034) ng/mL NT-Pro-B Natriuret Pep (<125) pg/mL Total Protein (6.3-8.2) g/dL Albumin (3.5-5.0) g/dL Globulin (1.7-4.1) g/dL Albumin/Globulin Ratio (1.0-2.8) SARS-CoV-2 (PCR) (Negative) Influenza A (RT-PCR) (NEGATIVE) Influenza B (RT-PCR) (NEGATIVE) RSV (PCR) (Negative) MDM Narrative Medical decision making narrative: 51-year-old female with a history of breast cancer with metastasis to the brain, follow-up with [facility], to posterior tumors have been removed presents to the ED for shortness of breath and a panic attack. Concern for ACS versus pneumonia versus URI versus worsening PE versus panic attack versus other. Will obtain EKG, chest x-ray, troponin, CT PE, labs, COVID/influenza swab. Patient was unable to lay flat for the CT PE, therefore the CT was canceled. Workup was largely unremarkable otherwise. Patient was given some Ativan for the panic attack, patient's anxiety greatly improved. Patient is resting comfortably in a upright position and sleeping in the ED. Wound care consult placed, they will see the patient tomorrow morning. Social work was consulted, patient will likely be placed in a SNF, possibly [facility] on hospice. Patient will board in the ED until accepted, which can likely be tomorrow. Patient's wound packing was not changed today, however the overlying bandages were changed. Patient is now signed out to Dr. Sheng Alvarado [1999] ([place]) Patient received in sign out from Aryan ELLIS. I have reviewed the clinical course and performed an independent history and physical exam. Patient resting comfortably, confirms that she is comfort measures and does not want any significant interventions, just wants to live a few more days and talk with SHAVON about her options. 05/04 Noemy-Patient signed out to me by Dr. Alvarado I have seen evaluated patient myself. End-stage metastatic breast cancer. Recently admitted for influenza A and PEG site infection with abscess along with left-sided pleural effusion. Today she is quite dyspneic despite oxygen and continues to be tachycardic. glueline worker has been involved trying to find placement. Patient has a 19-year-old and a 9-year-old at home only to help care for her. She does not want to be at home. She was in hospice however she got quite afraid and came to the ER. She finally agrees to some Ativan to help her. Dr. Srinivasan, hospitalist has been consulted for some management while we work on placement. Dr Pina overnight 05/05-05/05: I did receive turned over. I reviewed the patient's history and physical exam. Patient has been stable overnight. No specific interventions by myself. Social work has been involved. Care turned over to Dr. Mahajan to continue to observe until disposition. Patient accepted for transfer to [facility] for comfort care for metastatic breast cancer. Patient is to be transferred tomorrow morning. This note should suffice as a discharge summary no additional note will be following. Discharge Plan Departure Patient Disposition: SNF Clinical Impression: Metastatic breast cancer, Acidosis, lactic, Pleural effusion, Fistula Activity Restrictions/Additional Instructions: You may continue your medications as prescribed. Hospice provider to adjust as needed for comfort measures. You can continue ativan 0.5mg every 6 hours as needed You can continue morphine 10mg liquid every 6 hours as needed. Prescriptions printed. Continue with oxygen as needed. Please continue with wound care for your PEG site/wound four times daily. Please return if unable to keep comfortable or have other new concerns. Prescriptions: New lorazepam [Ativan] 0.5 mg tablet 0.5 mg PO QID PRN (Reason: anxiety) Qty: 10 0RF morphine 10 mg/5 mL solution 10 mg PO Q6H PRN (Reason: pain) Qty: 100 0RF No Action levothyroxine 25 mcg tablet See Rx Instructions .ROUTE .COMPLEX Qty: 90 3RF Dose Instruction: TAKE ONE TABLET BY MOUTH ONE TIME DAILY Rx Instructions: TAKE ONE TABLET BY MOUTH ONE TIME DAILY gabapentin 600 mg tablet 600 mg PO TID Qty: 90 1RF thyroid (pork) [[place] Thyroid] 90 mg tablet 90 mg PO DAILY Qty: 90 1RF Rx Instructions: Take w/15mg for total of 105mg daily. losartan 50 mg tablet 50 mg PO DAILY Qty: 90 0RF Eliquis 5 mg tablet 5 mg PO BID Qty: 180 0RF metoclopramide HCl 10 mg tablet 10 mg PO Q8H PRN (Reason: nausea and vomiting) 30 Days Qty: 90 2RF acetaminophen 500 mg capsule 1,000 mg PO Q6H PRN (Reason: pain) Qty: 240 2RF famotidine 20 mg tablet 20 mg PO DAILY Qty: 90 0RF duloxetine [Cymbalta] 30 mg capsule,delayed release(DR/EC) 30 mg PO DAILY Qty: 90 3RF dexamethasone 4 mg Tablet 8 mg PO Q12HR Qty: 60 1RF Rx Instructions: Take 2 tablets every 12 hrs lidocaine 5 % adhesive patch,medicated 2 patch TOP DAILY Qty: 15 0RF Rx Instructions: leave on most painful area for up to 12 hrs cyclobenzaprine 5 mg tablet See Rx Instructions .ROUTE .COMPLEX Qty: 90 0RF Dose Instruction: TAKE ONE TABLET BY MOUTH EVERY EIGHT HOURS Rx Instructions: TAKE ONE TABLET BY MOUTH EVERY EIGHT HOURS loratadine [Allergy Relief (loratadine)] 10 mg tablet 10 mg PO DAILY bupropion HCl 150 mg tablet extended release 24 hr 150 mg PO DAILY Qty: 90 1RF diclofenac sodium 1 % Gel 1 ea topical QID 30 Days Qty: 100 0RF tramadol 50 mg Tablet 50 mg PO QID PRN (Reason: Pain, Moderate (4-6)) 14 Days Qty: 30 0RF zinc oxide 20 % Ointment 1 applic topical PRN PRN (Reason: Rash) 30 Days Qty: 60 0RF fentanyl 25 mcg/hr Patch 72 Hour 25 mcg topical Q72H 15 Days Qty: 5 0RF lorazepam 0.5 mg Tablet 0.5 mg PO TID PRN (Reason: Anxiety) Qty: 30 0RF lidocaine-prilocaine 2.5-2.5 % Cream 1 applic topical PRN PRN (Reason: Port/Catheter Care) Qty: 30 1RF Rx Instructions: apply to the skin over the port at least 2 hrs before planned use of the port. Cover the cream with a small piece of plastic wrap and leave in place until the port is accessed SNF Discharge Plan Other facility: [facility] Transportation: Ambulance I certify the postop hospital [facility] care is medically necessary on a continuing basis for any conditions for which he/ she received care during this hospitalization.: Yes The receiving facility has agreed to accept transfer and provide medical treatment.: Yes Discharge Health Status Multidrug resistant organism: No MDRO Diet/Activity/Treatments Diet: Diet as Tolerated Food texture: Regular Catheter: 2-way [place]
--- NOTE | 2022-05-03 16:41 | PC.NURSE ---
Spoke to Sri, inpatient RN. She was in touch with Hali @ wound clinic re: this patient. Wound consult orders were placed at 1445, wound clinic closed early today. Advised Sri pt will be boarding in ED awaiting consult tomorrow a.m. There has been conversation about this patient needing a wound vac placed. Message left on voicemail for Karlene @ wound clinic [phone] @ 1640 stating wound consult placed and pt awaiting consult in room #7 of ED. ED provider advised.
--- NOTE | 2022-05-03 17:27 | PC.NURSE ---
Pt states Fentanyl Patch on Right-Shoulder was placed today. Provider advised.
[2022-05-03] MEDS: SODIUM CHLORIDE 0.9% 1,000 ML 1000 ML IV (17:40)
--- NOTE | 2022-05-03 18:08 | PC.NURSE ---
This RN and provider, Ramon Baeza PAC, removed exterior wound bandage. Bandage was wet and discolored. RN irrigated tissue surrounding the wound and cleaned area surrounding the wound. Provider instructed RN to remove only the exterior wound dressing. Provider stated to this RN, do not remove the interior wound packing. A new exterior wound dressing was placed on the patient. Clean gown placed on pt.
[2022-05-03 18:39] VITALS: BP 166/99; PULSE 122; RESP 19; O2SAT 92
--- NOTE | 2022-05-03 19:13 | PC.NURSE ---
Addendum entered by Nicolle Galaviz R.N. 05/03/22 19:15: new moisture barrier placed under the patient. Original Note: Patient had large bowel movement in the bed. Patient given bed bath, librado-care, dressing placed over skin tear on right butt cheek, new moisture barrier placed under the patinet
--- NOTE | 2022-05-03 20:23 | DI.RAD.S_ITS ---
PROCEDURE: XR CHEST 1V INDICATIONS: SOB, tachycardia, hx PE, effusions TECHNIQUE: One view of the chest was acquired. COMPARISON: [facility]ed With [facility], CR, XR CHEST 1V, 04/26/2022, 9:33. 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 Lungs and pleura: Moderate to severe left effusion slightly increased compared to prior exam. Patchy opacities within the right base remain present although questionably minimally improved. Mediastinum: Mediastinal contours appear normal. Heart size is normal. Bones and chest wall: No suspicious bony lesions. Overlying soft tissues appear unremarkable. IMPRESSION: Interval increased appearance left effusion with persistent right basilar opacities. The latter may be reflective of edema and/or developing airspace disease such as pneumonia. Dictated by: Bronwyn Stephens M.D. on 05/03/2022 at 21:41 Approved by: Bronwyn Stephens M.D. on 05/03/2022 at 21:41
[2022-05-03 20:27] VITALS: PULSE 127
[2022-05-03 20:30] VITALS: BP 134/90; PULSE 126; O2SAT 96
[2022-05-03 20:56] LABS: Creatine Kinase 78 U/L (30-135)
[2022-05-03 21:10] LABS: NT-proBNP (BNP-Adult 18+) 94 pg/mL (<125); Troponin I 0.025 ng/mL (0.01-0.034)
[2022-05-03 21:24] LABS: Lactate (Lactic Acid) 4.2 mmol/L (0.7-2.1)
[2022-05-03 22:40] LABS: Reflexed Lactate in 2 Hours Y
[2022-05-03 23:17] LABS: Lactate 2HR (Lactic Acid Rflx) 3.7 mmol/L (0.7-2.1)
[2022-05-04] VITALS (7 sets, daily range): BP systolic 144–170; BP diastolic 88–103; PULSE 90–124; RESP 20–28; TEMP 36.2–36.8; O2SAT 5–96
--- NOTE | 2022-05-04 | DI.RAD.S_ITS ---
PROCEDURE: XR CHEST 1V INDICATIONS: Post thora TECHNIQUE: One view of the chest was acquired. COMPARISON: [facility], CR, XR CHEST 1V, 05/03/2022, 20:55. FINDINGS: Surgical changes and devices: Right port and ventriculoperitoneal shunt catheter are unchanged. Lungs and pleura: There is improved aeration of the left upper lung when compared with the prior study. No pneumothorax. There increased patchy pulmonary radiopacities at the right lung base when compared with the prior study. Mediastinum: Mediastinal contours appear normal. Heart size is normal. Bones and chest wall: No suspicious bony lesions. Overlying soft tissues appear unremarkable. IMPRESSION: 1. Improved aeration of the left upper lung after thoracentesis. No pneumothorax. 2. Increased right basilar pulmonary radiopacities when compared with the prior study. Dictated by: Huong Hernandez M.D. on 05/04/2022 at 16:24 Approved by: Huong Hernandez M.D. on 05/04/2022 at 16:25
--- NOTE | 2022-05-04 03:23 | PC.NURSE ---
I offered her a more comfortable floor bed but she declined stating that the one she was on was just fine for her.
[2022-05-04] MEDS: LORazepam 0.5 MG TABLET PO (03:45)
[2022-05-04] MEDS: LOSARTAN 50 MG TABLET PO (06:00)
[2022-05-04] MEDS: SODIUM CHLORIDE 0.9% 1,000 ML 200 ML IV ×2 (08:48→18:00)
[2022-05-04] MEDS: FAMOTIDINE 20 MG TABLET PO ×2 (09:44→22:41)
[2022-05-04] MEDS: APIXABAN 5 MG TABLET PO ×2 (09:45→22:42)
[2022-05-04] MEDS: buPROPion XL 150 MG TAB PO (09:45)
[2022-05-04] MEDS: dexAMETHasone 4 MG TABLET 8 MG PO ×2 (09:46→22:41)
[2022-05-04] MEDS: GABAPENTIN 600 MG TABLET PO ×3 (09:46→22:41)
[2022-05-04] MEDS: DULOXETINE 30 MG CAPSULE PO (09:47)
[2022-05-04] MEDS: LORazepam 2 MG/ML INJ 0.5 MG IV (11:28)
[2022-05-04] MEDS: ACETAMINOPHEN 325 MG TABLET 650 MG PO (11:29)
--- NOTE | 2022-05-04 14:26 | PC.NURSE ---
Family at the bedside. Pt resting comfortably.
--- NOTE | 2022-05-04 14:46 | DI.US.S_ITS ---
PROCEDURE: US THORACENTESIS INDICATIONS: left pleural effusion TECHNIQUE: The indications, alternatives, benefits, risks, and complications of the procedure were explained to the patient. Written informed consent was obtained and placed in the chart. The chest was examined sonographically, and an appropriate site was chosen for thoracentesis. The skin was prepared and draped in the usual sterile fashion, and 1% lidocaine was infiltrated from the skin down through the pleural surface. A 19-gauge catheter-covered needle was then introduced into the pleural space, the catheter was advanced and the needle was withdrawn, and thereafter pleural fluid was aspirated. The catheter was then removed and a dressing was applied. COMPARISON: [facility], THORACENTESIS, 04/26/2022, 7:42. FINDINGS: Access site: Left hemithorax. Needle: One-Step centesis catheter with introducer needle. Fluid volume and description: 1100 cc of reddish fluid was withdrawn. Fluid sent for diagnostic testing: None. Medications: 1% lidocaine for local anaesthesia. Complications: None; post-procedural chest radiograph is pending to assess for pneumothorax. IMPRESSION: Successful ultrasound-guided thoracentesis. Dictated by: Sterling Beck M.D. on 05/04/2022 at 16:14 Approved by: Sterling Beck M.D. on 05/04/2022 at 16:14
--- NOTE | 2022-05-04 16:00 | PM.CN ---
History of Present Illness Consult details Chief complaint: Anxiety Attack Narrative: 51 yo female with triple negative metastatic breast cancer status post whole-brain radiation during a recent 44 day stay at [facility] for crani complicated by hydrocephalus requiring EVD/SUPERVISOR CAR INSTALLATIONS shunt placement, dysphagia and malnutrition requiring PEG tube placement,PEs on apixiban, HTN, and hypothyroidism who was admitted to our hospital from April 09 through April 26 with influenza A infection, PEG tube abscess requiring surgical I and D, and hyperglycemia.? She would initially planned on discharging to a assisted facility but there were no accepting facilities available. Ultimately, the decision was for her to discharge home with hospice. She had required a wound VAC while in the hospital, but it was discontinued prior to discharge. She did return home and was admitted to [facility] for hospice care. She reports after arriving home, things did not go well. She does not have adequate caregiving. She reports the bed that hospice provided did not have side rails which made it difficult for her to sit up. She feels very short of breath when she is not upright. She states she developed a panic attack when having to lay flat to be changed yesterday. She states that she felt she was not being listened to her for properly. She ultimately decided to revoke hospice this and come to the emergency department as she felt that she needed to be in a higher level of care. She also tells me that she wants to ?place a hold on her POLST for ?a day or 2? while she gets her affairs in order. When asked what she meant, she clarified that she would like to be resuscitated in order to buy her more time. She presently complains of pain to 8/10, and significant dyspnea. She is requiring 5 L of oxygen maintain her saturations. Meds Home Medications and Allergies Home Medications Medication Instructions Recorded Confirmed Type loratadine 10 mg tablet (Allergy 10 mg PO DAILY 11/29/17 05/03/22 History Relief (loratadine)) levothyroxine 25 mcg tablet See Rx Instructions .Route 09/03/21 05/03/22 Rx .COMPLEX #90 tabs gabapentin 600 mg tablet 600 mg PO TID #90 tabs 09/10/21 05/03/22 Rx thyroid (pork) 90 mg tablet 90 mg PO DAILY #90 tabs 11/09/21 05/03/22 Rx ([place] Thyroid) bupropion HCl 150 mg 24 hr tablet, 150 mg PO DAILY #90 tabs 12/06/21 05/03/22 Rx extended release acetaminophen 500 mg capsule 1,000 mg PO Q6H PRN pain #240 caps 02/21/22 05/03/22 Rx apixaban 5 mg tablet (Eliquis) 5 mg PO BID #180 tabs 02/21/22 05/03/22 Rx famotidine 20 mg tablet 20 mg PO DAILY #90 tabs 02/21/22 05/03/22 Rx losartan 50 mg tablet 50 mg PO DAILY #90 tabs 02/21/22 05/03/22 Rx metoclopramide HCl 10 mg tablet 10 mg PO Q8H PRN nausea and 02/21/22 05/03/22 Rx vomiting 30 days #90 tabs duloxetine 30 mg capsule,delayed 30 mg PO DAILY #90 caps 02/25/22 05/03/22 Rx release (Cymbalta) dexamethasone 4 mg tablet 8 mg PO Q12HR #60 tabs 03/23/22 05/03/22 Rx lorazepam 0.5 mg tablet 0.5 mg PO TID PRN Anxiety #30 tabs 03/23/22 05/03/22 Rx cyclobenzaprine 5 mg tablet See Rx Instructions .Route 03/28/22 05/03/22 Rx .COMPLEX #90 tabs lidocaine 5 % topical patch 2 patch topical DAILY #15 ea 03/28/22 05/03/22 Rx lidocaine-prilocaine 2.5 %-2.5 % 1 applic topical PRN PRN 03/29/22 05/03/22 Rx topical cream Port/Catheter Care #30 grams diclofenac sodium 1 % topical gel 1 ea topical QID 30 days #100 grams 04/26/22 05/03/22 Rx fentanyl 25 mcg/hr transdermal 25 mcg topical Q72H 15 days #5 ea 04/26/22 05/03/22 Rx patch tramadol 50 mg tablet 50 mg PO QID PRN Pain, Moderate 04/26/22 05/03/22 Rx (4-6) 14 days #30 tabs zinc oxide 20 % topical ointment 1 applic topical PRN PRN Rash 30 04/26/22 05/03/22 Rx days #60 grams Allergies Allergy/AdvReac Type Severity Reaction Status Date / Time Penicillins Allergy Unknown Verified 05/03/22 12:48 codeine AdvReac Severe somnolence Verified 05/03/22 12:48 adhesive AdvReac Intermediate Rash Verified 05/03/22 12:48 latex AdvReac Intermediate Rash Verified 05/03/22 12:48 Review of Systems Review of Systems Narrative: All other systems were reviewed negative Exam Vital Signs (past 8 hours): - 05/04/22 10:00 05/04/22 14:42 Pulse Rate 117 H 95 H Respiratory Rate 20 20 Pulse Oximetry 5 L 5 L Oxygen Delivery Method Nasal Cannula Nasal Cannula Oxygen Delivery Method Nasal Cannula Oxygen Flow Rate 5 Narrative Exam Narrative: GEN: Acute and chronically ill-appearing middle-aged female, Alert and oriented x3, visibly dyspneic HEENT: Normocephalic, face symmetric, pupils equal round reactive to light, extraocular movements intact, sclerae anicteric, conjunctiva clear, nares patent, oropharynx reveals an intact soft and hard palate with moist mucous membranes, alopecia present NECK: Supple, no lymphadenopathy, thyroid without enlargement or nodularity, carotids no bruits CHEST: Respiratory excursions symmetric, coarse and diminished bilaterally, dyspneic as noted CV: Tachycardic with regular rhythm, no murmurs, rubs, gallops, PMI can not be palpated ABD: Soft, obese, malodorous creamy brown discharge from large open wound to the left abdomen at site of previous G-tube, wound clearly tunnels, several gas bubbles are seen emanating from the wound bed, surrounding skin is quite abraded and erythematous, no obvious dehiscence, but the base of the wound can not be fully visualized due to tunneling EXTR: Cool to touch, 3+ edema bilaterally, purplish discoloration to the feet (this was present during her prior hospitalization) SKIN: Warm and dry, without rash NEURO: Alert and oriented x3, grossly intact PSYCH: Mood and affect is within normal limits, judgment and insight are fair Objective Labs Result Diagrams: 05/03/22 11:40 05/03/22 11:40 Labs: Laboratory Results - last 24 hr 05/03/22 05/03/22 05/03/22 20:30 20:30 22:58 Lactate 4.2 H* 3.7 H Total Creatine Kinase 78 CK-MB (CK-2) TNP CK-MB (CK-2) Rel Index TNP Troponin I 0.025 NT-Pro-B Natriuret Pep 94 PFSH Medical History Abnormal Pap smear of cervix Allergic rhinitis due to dust mite (11/14/14) Alopecia due to cytotoxic drug Angiolipoma of skin (02/20/14) Arthritis Breast cancer metastasized to brain Cystocele (10/21/14) Depression Fibromyalgia History of chemotherapy Mild obstructive sleep apnea-hypopnea syndrome (03/06/15) Myopia 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 drug Obesity, Class III, BMI 40-49.9 (morbid obesity) Pelvic relaxation 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) Psoriasis Pulmonary embolism (01/18/22) Rosacea (10/31/13) Tenesmus of bladder (10/21/14) Thyroid nodule Uterine fibroid Vaginal mass Vitamin D deficiency (03/06/15) Surgical History History of brain shunt (~12/22/21) History of gynecologic surgery (10/06/20) History of radioactive iodine thyroid ablation History of removal of Port-a-Cath (07/10/19) History of surgery (11/27/18) History of surgery (12/04/18) History of vaginal hysterectomy (~07/2017) Hx of cholecystectomy Hx of craniotomy (12/13/21) Hx of left mastectomy (06/05/19) Status post excision of lipoma (~2013) Status post tubal ligation (~2013) Family History Father Alcoholism Mother Age: 71 Depression Grandfather Diabetes mellitus Mother Parkinson's disease Social History marital status: number of children: 3 household members: children and other (32-year-old son is autistic, 2nd son has no developmental issues, 9-year-old daughter in the home) Tobacco & Substance Use Smoking Status: Former smoker alcohol intake: never Assessment & Plan Assessment & Plan narrative: 1. 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 Acute hypoxic respiratory failure 3. Nonhealing surgical wound from previous PEG tube site incision and drainage 4. Chronic malignant pain 5. Sinus tachycardia 6. Hypertension 7. Chronic anticoagulation secondary to recent pulmonary emboli 8. Diabetes mellitus type 2, recent diagnosis with hemoglobin A1c of 9.4% 9. Class 3 obesity with BMI of 43 10. Protein calorie malnutrition Patient presents to the emergency department with a goal to revoke hospice to seek a higher level of care. She does not feel she is getting adequate caregiving at home. She expresses understanding that she will not be around much longer but feels she needs to have time to get her affairs in order. We did have a discussion about the fact that if she changes her code status and becomes full code requires resuscitation, she would not be in a position cognitively to be making her own medical or financial decisions. She expresses understanding but still seems to be leaning towards withdrawing her DNR status. I have encouraged her to wait an hour or so before pursuing this and to continue to consider her goals versus the inability to carry out if she ends up intubated. Advised she is most likely to develop respiratory failure rather than cardiac arrest and that if she were intubated, she would be sedated. We did discuss the use of low-dose morphine for dyspnea. She is somewhat reluctant to trial it as she is afraid of becoming less lucid. However she did agree to low-dose oral morphine to help with her dyspnea. We will initiate 10 mg 4 times daily and 5 mg as needed. She does report she tolerates lorazepam well and is receptive to taking that while she is here. Given the significant malodor of her wound, I have ordered metronidazole topically to be applied as she is quite bothered by the smell for wound. For now, her usual home medications have been continued, including gabapentin, Pepcid, dexamethasone, Cymbalta, Wellbutrin, and apixaban. She was initiated on IV fluids secondary to significant lactic acidosis. Will defer continuation of IV fluids to Dr. Rubio in the emergency department. Care management is presently working on a transition for the patient to go to [facility] for assisted care. I did have a blunt discussion with the patient that she is nearing the end of her life and if she has arrangements that need to be made she needs to be working on them actively. She expressed understanding. Time Spent With Patient Critical Care time: I spent a total of [] minutes of critical care time on this patient's care today; this time is exclusive of procedural time.
--- NOTE | 2022-05-04 16:06 | PC.NURSE ---
Thoracentesis performed @ 1500, radiologist at the bedside, Dr. Beck. Fluid withdrawn 1100ML. Pt tolerated procedure well. Xray followed procedure to confirm no tension pneumo.
--- NOTE | 2022-05-04 16:36 | PM.CN ---
History of Present Illness Consult details Date Patient Seen: 05/04/22 Time Patient Seen: 16:00 Chief complaint: Anxiety Attack Reason for consult: Abdominal wound Narrative: The patient is a 51-year-old female with metastatic breast cancer who developed an infection around her PEG tube about 3 weeks ago. The PEG tube was removed and she underwent I&D of a large abscess cavity which resulted in a large open wound in her left upper abdomen. She was discharged home with saline wet to dry dressing changes however she returned to the emergency room with complaints of increased drainage and irritation of the surrounding skin. The patient reports that she notices increased drainage and bubbling from the wound whenever she eats. She was on hospice care but apparently changed her mind earlier today and went to the emergency room to be evaluated. She is unable to care for herself because of profound weakness and arrangements are currently under way for transfer to a [place] [facility] facility. She denies having any fever or chills. Meds Home Medications and Allergies Home Medications Medication Instructions Recorded Confirmed Type loratadine 10 mg tablet (Allergy 10 mg PO DAILY 11/29/17 05/03/22 History Relief (loratadine)) levothyroxine 25 mcg tablet See Rx Instructions .Route 09/03/21 05/03/22 Rx .COMPLEX #90 tabs gabapentin 600 mg tablet 600 mg PO TID #90 tabs 09/10/21 05/03/22 Rx thyroid (pork) 90 mg tablet 90 mg PO DAILY #90 tabs 11/09/21 05/03/22 Rx ([place] Thyroid) bupropion HCl 150 mg 24 hr tablet, 150 mg PO DAILY #90 tabs 12/06/21 05/03/22 Rx extended release acetaminophen 500 mg capsule 1,000 mg PO Q6H PRN pain #240 caps 02/21/22 05/03/22 Rx apixaban 5 mg tablet (Eliquis) 5 mg PO BID #180 tabs 02/21/22 05/03/22 Rx famotidine 20 mg tablet 20 mg PO DAILY #90 tabs 02/21/22 05/03/22 Rx losartan 50 mg tablet 50 mg PO DAILY #90 tabs 02/21/22 05/03/22 Rx metoclopramide HCl 10 mg tablet 10 mg PO Q8H PRN nausea and 02/21/22 05/03/22 Rx vomiting 30 days #90 tabs duloxetine 30 mg capsule,delayed 30 mg PO DAILY #90 caps 02/25/22 05/03/22 Rx release (Cymbalta) dexamethasone 4 mg tablet 8 mg PO Q12HR #60 tabs 03/23/22 05/03/22 Rx lorazepam 0.5 mg tablet 0.5 mg PO TID PRN Anxiety #30 tabs 03/23/22 05/03/22 Rx cyclobenzaprine 5 mg tablet See Rx Instructions .Route 03/28/22 05/03/22 Rx .COMPLEX #90 tabs lidocaine 5 % topical patch 2 patch topical DAILY #15 ea 03/28/22 05/03/22 Rx lidocaine-prilocaine 2.5 %-2.5 % 1 applic topical PRN PRN 03/29/22 05/03/22 Rx topical cream Port/Catheter Care #30 grams diclofenac sodium 1 % topical gel 1 ea topical QID 30 days #100 grams 04/26/22 05/03/22 Rx fentanyl 25 mcg/hr transdermal 25 mcg topical Q72H 15 days #5 ea 04/26/22 05/03/22 Rx patch tramadol 50 mg tablet 50 mg PO QID PRN Pain, Moderate 04/26/22 05/03/22 Rx (4-6) 14 days #30 tabs zinc oxide 20 % topical ointment 1 applic topical PRN PRN Rash 30 04/26/22 05/03/22 Rx days #60 grams Allergies Allergy/AdvReac Type Severity Reaction Status Date / Time Penicillins Allergy Unknown Verified 05/03/22 12:48 codeine AdvReac Severe somnolence Verified 05/03/22 12:48 adhesive AdvReac Intermediate Rash Verified 05/03/22 12:48 latex AdvReac Intermediate Rash Verified 05/03/22 12:48 Review of Systems Integumentary/Breasts Comments: Irritation of skin left upper abdomen with brown drainage Exam Vital Signs (past 8 hours): - 05/04/22 10:00 05/04/22 14:42 Pulse Rate 117 H 95 H Respiratory Rate 20 20 Pulse Oximetry 5 L 5 L Oxygen Delivery Method Nasal Cannula Nasal Cannula Oxygen Delivery Method Nasal Cannula Oxygen Flow Rate 5 Const Nutritional Appearance: overweight Orientation: alert, awake and oriented x3 GI Other: Large open wound left upper quadrant that extends into the fascia, actively draining gastric content, surrounding skin is excoriated, no active infection Objective Labs Result Diagrams: 05/03/22 11:40 05/03/22 11:40 Labs: Laboratory Results - last 24 hr 05/03/22 05/03/22 05/03/22 20:30 20:30 22:58 Lactate 4.2 H* 3.7 H Total Creatine Kinase 78 CK-MB (CK-2) TNP CK-MB (CK-2) Rel Index TNP Troponin I 0.025 NT-Pro-B Natriuret Pep 94 PFSH Medical History Abnormal Pap smear of cervix Allergic rhinitis due to dust mite (11/14/14) Alopecia due to cytotoxic drug Angiolipoma of skin (02/20/14) Arthritis Breast cancer metastasized to brain Cystocele (10/21/14) Depression Fibromyalgia History of chemotherapy Mild obstructive sleep apnea-hypopnea syndrome (03/06/15) Myopia 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 drug Obesity, Class III, BMI 40-49.9 (morbid obesity) Pelvic relaxation 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) Psoriasis Pulmonary embolism (01/18/22) Rosacea (10/31/13) Tenesmus of bladder (10/21/14) Thyroid nodule Uterine fibroid Vaginal mass Vitamin D deficiency (03/06/15) Surgical History History of brain shunt (~12/22/21) History of gynecologic surgery (10/06/20) History of radioactive iodine thyroid ablation History of removal of Port-a-Cath (07/10/19) History of surgery (11/27/18) History of surgery (12/04/18) History of vaginal hysterectomy (~07/2017) Hx of cholecystectomy Hx of craniotomy (12/13/21) Hx of left mastectomy (06/05/19) Status post excision of lipoma (~2013) Status post tubal ligation (~2013) Family History Father Alcoholism Mother Age: 71 Depression Grandfather Diabetes mellitus Mother Parkinson's disease Social History marital status: number of children: 3 household members: children and other (32-year-old son is autistic, 2nd son has no developmental issues, 9-year-old daughter in the home) Tobacco & Substance Use Smoking Status: Former smoker alcohol intake: never Assessment & Plan Assessment and plan (1) Infection of PEG site: Status: Acute (2) Gastric fistula: Status: Acute Plan The patient 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 Recommend applying zinc based barrier cream to the surrounding skin for protection, pack wound with dry 4 x 4 gauze and change whenever dressings appear saturated. If the drainage persists or increases in volume consider applying a colostomy appliance over the wound to help control the drainage. Consider surgical consultation if surgical closure of the fistula is desired however at this point she does not appear to be a candidate for any surgical intervention. Time Spent With Patient Time with patient: 30 to 49 minutes with 50% spent counseling/coordinating care Critical Care time: I spent a total of [] minutes of critical care time on this patient's care today; this time is exclusive of procedural time.
--- NOTE | 2022-05-04 16:55 | PC.NURSE ---
Dr. Smith performed a wound consult at 1430. States there is a fistula that connects wound to open stomach. Skin surrounding wound is excoriated due to gastric acid. Recommended a zinc cream on excoriated skin to improve symptoms/rash and to protect the skin. States fistula could be corrected with surgery. Advised RN to pack wound with one 4x4 basic gauze (fully opened) and change often, as soon as its saturated. Dr. Smith spoke to Dr. Salguero about wound/fistula and pt goals.
--- NOTE | 2022-05-04 18:35 | CM.SWNOTE ---
ED SW Note Pt is a 51 year old female with PMH of HTN, hypothyroidism, metastatic breast cancer with mets to the brain. Pt was discharged from [facility] 04/26/2022 with home hospice through [facility] . Pt arrives at ED today following panic attack due to inability to move and uncontrolled back pain. Pt reports that her son was assisting her earlier today, cleaning up her BM and she was unable to sit back up due to pain and weakness. Pt reports that she did not feel safe at home and wanted to be in medical setting. Pt now seeking hospice at [facility]. ENDY received call from [facility] SN[facility] mysql database administrator Vivi [phone] who reports that they are going to start process of auth today once they receive notes from ENDY. ENDY faxed clinicals including wound care note from Dr. Mcneal to Vivi. ENDY received call from [facility] intake Maria R who reports that they are saving an intake appointment for pt on Monday if she gets admitted to [facility]. Maria R reports that they need a new hospice referral. ENDY faxed hospice referral and clinicals to [facility] at fax: [phone]. ENDY provided update to pt and her family. Pt reported that she would like to write up a will. ENDY informs patient that our [facility] is not able to help pt write will but ENDY will check in with [facility] to see if they have any suggestions. Plan: ENDY will follow up with Shirin Garcia tomorrow in the AM to check on authorization. ENDY will follow up with [facility] to ensure that they received the new referral. DINA Morales
--- NOTE | 2022-05-04 20:24 | PC.NURSE ---
Wound dressing changed, area irrigated and cleaned. New dressing applied. New gown placed on patient.
[2022-05-04] MEDS: LORazepam 2 MG/ML ORAL SOL 0.5 MG PO (20:40)
[2022-05-04] MEDS: MORPHINE 10 MG/0.5 ML ORAL SYRINGE PO (20:41)
[2022-05-05] MEDS: SODIUM CHLORIDE 0.9% 1,000 ML 200 ML IV (00:09)
--- NOTE | 2022-05-05 00:40 | PC.NURSE ---
pt allowed to sleep vs not done,
--- NOTE | 2022-05-05 03:57 | PC.NURSE ---
OK to call Pts Mother (Coreen) if anything urgent comes up [phone]
[2022-05-05] MEDS: SODIUM CHLORIDE 0.9% 1,000 ML 100 ML IV ×2 (09:16→18:54)
[2022-05-05] MEDS: dexAMETHasone 4 MG TABLET 8 MG PO (09:28)
[2022-05-05] MEDS: APIXABAN 5 MG TABLET PO (09:28)
[2022-05-05] MEDS: GABAPENTIN 600 MG TABLET PO (09:28)
[2022-05-05] MEDS: DULOXETINE 30 MG CAPSULE PO (09:28)
[2022-05-05] MEDS: FAMOTIDINE 20 MG TABLET PO (09:28)
[2022-05-05] MEDS: buPROPion XL 150 MG TAB PO (09:28)
[2022-05-05 09:30] VITALS: PULSE 109; RESP 20; O2SAT 94
--- NOTE | 2022-05-05 12:01 | PC.NURSE ---
1015 awaiting morphine from pharmacy 1150 awaiting morpine and ativan from pharmacy
[2022-05-05 12:07] VITALS: BP 131/93; PULSE 120; RESP 18; TEMP 36.6; O2SAT 94
[2022-05-05 13:30] VITALS: PULSE 119; RESP 20; O2SAT 93
--- NOTE | 2022-05-05 14:15 | PC.NURSE ---
Spoke with Pharmacist, in person, re: morphine for this patient. A dose was due this am and again at 1300. Pharmacist states they're working on obtaining the meds. Will continue to monitor.
--- NOTE | 2022-05-05 14:16 | PC.NURSE ---
Wound care: removed external bandage and gauze inside the wound. Cleaned area, applied zince for excoriated skin, new bandage applied.
--- NOTE | 2022-05-05 16:59 | PC.NURSE ---
Pt had a bowel movement in bed, dark brown, soft and copious amount. After cleaning up the bowel movement, pt was given a bed bath, complete change of bed linens, librado care. New bandage placed on the skin tear on R-buttock. Patient returned to chair position in her hospital bed. Pt tolerated procedure well.
--- NOTE | 2022-05-05 17:28 | PC.NURSE ---
Spoke with pharmacist. They said morphine should be loaded in [place] in the next 15-30 mimutes. Pt has missed several doses due to pharmacy shortage. Provider aware.
[2022-05-05 17:31] VITALS: PULSE 124; RESP 20; O2SAT 96
[2022-05-05 17:34] VITALS: PULSE 119; RESP 20; O2SAT 94
[2022-05-05] MEDS: GABAPENTIN 300 MG CAPSULE 600 MG PO (18:24)
--- NOTE | 2022-05-05 18:31 | CM.DPC ---
ED DCP Note continued PARATRANSIT DRIVER calls Vivi at [facility] for [facility] bed. Vivi endorses she needs to consult further with [facility] regarding Medicaid coverage and payment prior to acceptance. PARATRANSIT DRIVER receives further call from Vivi who states that patient has been accepted for [facility]. It is reported that patient needs to arrive the day that Hosp[facility] intake starts. PARATRANSIT DRIVER reviews previous note and it is reported that [facility] start tomorrow on Monday. Vivi endorses preference for morning arrival time at SNF. PARATRANSIT DRIVER has JUNIOR STAFF ACCOUNTANT call [facility] and secures transportation for patient at 0800 am for transport to [facility]. PARATRANSIT DRIVER calls [facility] and reviews patient's acceptance and SNF facility, it is reported that patient is scheduled for intake appt at 2pm tomorrow. PARATRANSIT DRIVER reviews the above with patient and family, who indicate agreement and understanding. PARATRANSIT DRIVER to fax PASSR, signed med list, SNF orders and all clinicals to [facility] and prepare packet for SNF transfer. Plan: patient to transfer via BLS to [facility] tomorrow at 0800am, [facility] scheduled intake appt for patient at 2pm. VALERY MaeSW
[2022-05-05] MEDS: MORPHINE 10 MG/0.5 ML ORAL SYRINGE PO (18:34)
--- NOTE | 2022-05-05 19:24 | PC.NURSE ---
Report received - assumed care of pt at this time
--- NOTE | 2022-05-05 19:46 | PC.NURSE ---
Given PO juice at this time per pt request
--- NOTE | 2022-05-05 20:28 | PC.NURSE ---
Resting quietly in NAD - no needs voiced at this time - remains on 5L of O2 via NC - awaiting transfer to [place] tomorrow at 0800
--- NOTE | 2022-05-05 21:00 | PC.NURSE ---
playing on phone - no needs voiced at this time - PWD with respirations equal and unlabored bilaterally
--- NOTE | 2022-05-05 21:27 | PC.NURSE ---
Lights dimmed - given po juice - covered in blanket - repositioned for comfort - call mlies in reach - pt states that she would like to sleep for the evening
--- NOTE | 2022-05-05 22:30 | PC.NURSE ---
Resting quietly in darkened room - eyes closed - even respirations - left to rest quietly - not awakened for evening meds - held for comfort of pt
--- NOTE | 2022-05-05 23:30 | PC.NURSE ---
Resting quietly in NAD - no needs voiced - PWD respirations equal and unlabored bilaterally
--- NOTE | 2022-05-06 00:30 | PC.NURSE ---
No changes in pt status at this time
--- NOTE | 2022-05-06 01:30 | PC.NURSE ---
Asleep with respirations equal and unlabored bilaterally - does not awaken when RN to bedside - left to sleep as the pt stated earlier that she has not slept well lately - MD aware that the evening medications were not given - agrees that they should be held to allow the pt to sleep
--- NOTE | 2022-05-06 02:30 | PC.NURSE ---
No changes in pt status
--- NOTE | 2022-05-06 03:30 | PC.NURSE ---
No changes in pt status
--- NOTE | 2022-05-06 04:30 | PC.NURSE ---
No changes in pt statuss
[2022-05-06] MEDS: ONDANSETRON 4 MG/2 ML INJ IV (05:01)
--- NOTE | 2022-05-06 05:30 | PC.NURSE ---
awakens - states that she slept better then she has in awhile - does not remember speaking to the RN earlier in the night - given popsicles at this time - states that the taste good to her - smiling and giggling with RN - doing well at this time
[2022-05-06 05:39] VITALS: BP 140/91; PULSE 112; RESP 20; TEMP 36.4; O2SAT 93
--- NOTE | 2022-05-06 06:30 | PC.NURSE ---
Awake - resting quietly in NAD - no needs voiced at this time
--- NOTE | 2022-05-06 07:33 | PC.NURSE ---
no changes in pt status - report to dayshift RN team - care relinquished at this time
--- NOTE | 2022-05-06 07:48 | PC.NURSE ---
sitting up in bed resting. awaiting transport at 0800 to [facility] [place]. NAD.
[2022-05-06] MEDS: buPROPion XL 150 MG TAB PO (07:57)
[2022-05-06] MEDS: dexAMETHasone 4 MG TABLET 8 MG PO (07:58)
[2022-05-06] MEDS: APIXABAN 5 MG TABLET PO (07:58)
[2022-05-06] MEDS: DULOXETINE 30 MG CAPSULE PO (07:58)
[2022-05-06] MEDS: FAMOTIDINE 20 MG TABLET PO (07:58)
[2022-05-06] MEDS: MORPHINE 10 MG/0.5 ML ORAL SYRINGE PO (07:59)
[2022-05-06] MEDS: GABAPENTIN 300 MG CAPSULE 600 MG PO (08:00)
[2022-05-06] MEDS: THYROID, PORK 30 MG TABLET 90 MG PO (08:14)
[2022-05-06] MEDS: LEVOTHYROXINE 25 MCG TABLET PO (08:14)
--- NOTE | 2022-05-06 08:19 | PC.NURSE ---
pt given all AM meds prior to transfer to [facility]
== END 2022-05-06 08:20 ==
PROVIDERS: Emergency Medicine; Student in an Organized Health Care Education/Training Program; Emergency Provider Emergency Medicine; PCP Family Medicine
DX: C50.919 Malignant neoplasm of unspecified site of unspecified female breast (principal); C79.31 Secondary malignant neoplasm of brain; K31.6 Fistula of stomach and duodenum; J90 Pleural effusion, not elsewhere classified; E87.21 Acute metabolic acidosis; R00.0 Tachycardia, unspecified; Z79.01 Long term (current) use of anticoagulants; Z79.899 Other long term (current) drug therapy; Z20.822 Contact with and (suspected) exposure to COVID-19
CPT/HCPCS: 0241U; 32555; 36415; 71045; 71275; 80053; 82550; 83605; 83880; 84484; 85007; 85025; 85610; 85730; 87040; 96361; 96374; 96375; 96376; 99243; 99284; 99285; A9270; J2060; J2405